=== PATIENT | male | born 1955 | race Hispanic/Latino ===

== ENCOUNTER 2016-10-01 23:52 | Inpatient (IN) | payer MEDICAID, OTHER ==
[~2016-10-01] VITALS: Ht 180.3 cm; Wt 88.5 kg
[~2016-10-01 23:52] MED LIST: ATIVAN4 MG/1 ML IJ; ATROPINE MC; BACLOFEN10 MG ORAL; BISACODYL5 MG RECTAL; CRANBERRY450 M3 GT; DOCUSATE S50 MG/5 ML GT; DULCOLAX STOOL100 M1 RECTAL; DUONEB 0.5-3(2.53 ML HHN; FENTANYL1 EAC1 TOPIC; FLEET ENEMA133 ML RECTAL; FLORINEF0.1 MG GT; GABAPENTIN300 MG/61 GT; MAGNESIUM OXID250 MG PO; MIDODRINE HCL10 MG GT; MORPHINE SL; NORCO 10/3251 EA GT; OSCAL D500 MG GT; PEPCID20 MG ORAL; PRO-STAT LIQUID30 ML GT; RESTORIL22.5 MG PO; SIMETHICON40 MG/0.2 PO; TEMAZEPAM30 MG GT; TYLENOL100 MG/11 GT; TYLENOL100 MG/11 PO; VICODIN 5-5001 EACH ORAL; ZOLOFT20 MG/1 ML GT
[2016-10-02] VITALS (7 sets, daily range): BP systolic 91–132; BP diastolic 52–92
[2016-10-02] MEDS ORDERED: ATIVAN0.5 MG ORAL (00:01)
[2016-10-02] MEDS ORDERED: SENNA8.6 M2 PO (00:09)
[2016-10-02] MEDS ORDERED: RESTORIL15 MG ORAL (00:09)
[2016-10-02] MEDS ORDERED: LACTULOSE20 GM/301 ORAL (00:09)
[2016-10-02] MEDS ORDERED: FLEET ENEMA133 ML RECTAL (00:09)
[2016-10-02] MEDS ORDERED: PERCOCET 5-3251 EACH ORAL (00:09)
[2016-10-02] MEDS ORDERED: TYLENOL325 MG ORAL (00:09)
[2016-10-02 00:36] LABS: BASOPHILS % (AUTO) 1.3 % (0.0-2.0); EOSINOPHILS % (AUTO) 3.1 % (0.0-3.0); LYMPHOCYTES % (AUTO) 29.5 % (20.0-45.0); MEAN CORPUSCULAR HEMOGLOBIN 30.3 PG (27.0-31.0); MEAN CORPUSCULAR HGB CONC 34.4 G/DL (32.0-36.0); MEAN CORPUSCULAR VOLUME 88 FL (80-99); MEAN PLATELET VOLUME 7.5 FL (6.5-10.1); MONOCYTES % (AUTO) 5.6 % (1.0-10.0); NEUTROPHILS % (AUTO) 60.4 % (45.0-75.0); PLATELET COUNT 174 K/UL (150-450); RED BLOOD COUNT 4.86 M/UL (4.70-6.10); RED CELL DISTRIBUTION WIDTH 12.6 % (11.6-14.8); WHITE BLOOD COUNT 7.5 K/UL (4.8-10.8)
[2016-10-02 00:54] LABS: ALANINE AMINOTRANSFERASE 14 U/L (3-41); ALBUMIN/GLOBULIN RATIO 1.2 (1.0-2.7); ANION GAP 11 (5-15); ASPARTATE AMINO TRANSFERASE 16 U/L (5-40); CALCIUM 8.9 mg/dL (8.6-10.2); CARBON DIOXIDE 29 mEQ/L (20-30); CHLORIDE 96 mEQ/L (98-107); GLOMERULAR FILTRATION RATE > 60 mL/min (>60); HEMOLYSIS 6; POTASSIUM 4.5 mEQ/L (3.4-4.9); SODIUM 136 mEQ/L (135-145); TOTAL PROTEIN 7.3 g/dL (6.6-8.7)
[2016-10-02 00:58] LABS: TROPONIN I < 0.30 ng/mL (<=0.30)
[2016-10-02 01:05] LABS: CKMB < 1.5 ng/mL (< 6.7)
[2016-10-02 01:30] LABS: APPEARANCE,URINE CLEAR; KETONES,URINE NEGATIVE (NEGATIVE); LEUKOCYTE ESTERASE ,URINE 3+ (NEGATIVE); NITRITE,URINE POSITIVE (NEGATIVE); PH,URINE 7 (4.5-8.0); PROTEIN,URINE 1+ (NEGATIVE); UROBILINOGEN,URINE NORMAL MG/DL (0.0-1.0)
--- NOTE | 2016-10-02 01:31 | Emergency Room Report ---
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 He presents with chief complaint of bowel function suprapubic catheter. Somehow it was lacerated. There is no drainage. There is leakage around the catheter itself. No fever or chills. No nausea vomiting. He had a recent G-tube removed about 4 days ago. Now to some drainage around it. No fever or chills no redness. Allergies: Coded Allergies: No Known Allergies (Verified , 11/07/09) Patient History Past Medical History: see triage record, old chart reviewed, HTN, CVA/TIA Past Surgical History: other Pertinent Family History: none Social History: Denies: smoking Immunizations: other Reviewed Nursing Documentation: PMH: Agreed, PSxH: Agreed Nursing Documentation-PMH Past Medical History: No History, Except For Hx Cardiac Problems: Yes - anemia Hx Hypertension: Yes Hx Cancer: No Hx Gastrointestinal Problems: Yes - GERD Hx Neurological Problems: Yes - anxiety, depression, Quadriplegic Cerebral Palsy Hx Cerebrovascular Accident: Yes Hx Cerebral Palsy: Yes Hx Paralysis: Yes - Paraplegic Hx Speech Problem: Yes Hx Numbness: Yes Hx Weakness: Yes Hx Neurologic Surgery: Yes Review of Systems Eye: Denies: blurred vision, eye pain ENT: Denies: ear pain, nose congestion, throat swelling Respiratory: Denies: cough, shortness of breath Cardiovascular: Denies: chest pain, palpitations Gastrointestinal: Denies: abdominal pain, diarrhea, nausea, vomiting Musculoskeletal: Denies: back pain, joint pain Skin: Denies: rash Neurological: Denies: headache, numbness Endocrine: Denies: increased thirst, increased urine Hematologic/Lymphatic: Denies: easy bruising All Other Systems: negative except mentioned in HPI Physical Exam Vital Signs Date Time Temp Pulse Resp B/P Pulse Ox O2 Delivery O2 Flow Rate FiO2 10/01/16 23:52 97.9 59 12 91/66 98 Room Air vitals with slightly low blood pressure Sp02 EP Interpretation: reviewed, normal General Appearance: well appearing, no apparent distress, alert, Chronically Ill Head: normocephalic, atraumatic Eyes: bilateral eye EOMI, bilateral eye PERRL ENT: hearing grossly normal, normal pharynx Neck: full range of motion, supple, no meningismus Respiratory: chest non-tender, lungs clear, normal breath sounds Cardiovascular #1: regular rate, rhythm, no murmur Gastrointestinal: normal bowel sounds, non tender, no mass, no organomegaly, no bruit, non-distended, other - Stoma with limited drainage from the stomach content. Minimal erythema. Genitourinary: other - Suprapubic catheter with drainage around the stoma. Musculoskeletal: back normal, gait/station normal, normal range of motion Neurologic: alert Psychiatric: mood/affect normal Skin: warm/dry Procedures Additional Procedure Procedure Narrative Procedure: Suprapubic catheter placement Indication: Malfunction a superpubic catheter Description: I removed the old catheter without any difficulty. Insert a new 16 [place] catheter without difficulty. This was done under sterile condition. Balloon inflated and there was urine came out. Patient tolerated procedure without a problem. Medical Decision Making Diagnostic Impression: Primary Impression: UTI (lower urinary tract infection) Additional Impressions: History of gastrostomy tube placement Neuropathy ER Course Patient presents with nonfunctioning suprapubic catheter. He has a urinary tract infection. I replaced his suprapubic catheter. Initially blood pressure was low responded to IV fluid. Now normal. No evidence of sepsis or an pneumonia. No evidence of: Nephritis. He grew out Pseudomonas and Proteus in the past which sensitive to Zosyn. I place him on Zosyn. Will admit patient for IV antibiotics. Lab Results Impression labs unremarkable Rhythm Strip Diag. Results Rhythm Strip Time: 02:11 EP Interpretation: yes Rate: 65 Rhythm: NSR, no PVC's, no ectopy, other Last Vital Signs Date Time Temp Pulse Resp B/P Pulse Ox O2 Delivery O2 Flow Rate FiO2 10/02/16 00:05 97.9 12 91/66 98 Room Air 10/01/16 23:52 59 Status: improved Disposition: ADMITTED INPATIENT Condition: Serious NATHANIEL DODGE M.D. Oct 02, 2016 01:31
[2016-10-02 01:42] LABS: BACTERIA,URINE MANY /HPF; SQUAMOUS EPITHELIAL CELL,UR FEW /LPF (NONE/OCC); WBC,URINE TNTC /HPF (0 - 0)
[2016-10-02] MEDS ORDERED: cefTRIAXone 1 GM in NS 55 ML IVPB ONE (02:00)
[2016-10-02] MEDS ORDERED: Nitroglycerin Subl 0.4mg tab (Bottle Of 25) SL PRN (07:00)
[2016-10-02] MEDS ORDERED: Miralax 17gm pkt ORAL PRN (07:00)
[2016-10-02] MEDS ORDERED: Mylanta II UD 30ml ORAL PRN (07:00)
--- NOTE | 2016-10-02 08:28 | Consultation ---
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 Somehow the catcher lacerated. There was no drainage, but leakage around the catheter itself. No fever or chills. No nausea or vomiting. He had a recent G-tube removed about 4 days ago. Noted some drainage around old G tube site . No fever or chills, no redness. denied chest pain, SOB, palpitations, dizziness in ED found to be hypotensive, blood pressure responded to fluid challenge Labs stable, no leukocytoids, stable HH troponin negative lactic acid WNL UA with gross evidence of UTI ( in the past grew Pseudomonas and Proteus), patient was started on empiric antibiotics s/pubic catheter was replaced by ED doctor patient was admitted for further management Allergies: Coded Allergies: No Known Allergies (Verified , 11/07/09) Medication History Scheduled Amino Acids/Protein Hydrolys (Pro-Stat Liquid), 30 ML GT BID, (Reported) Baclofen* (Baclofen*), 20 MG ORAL QID, (Reported) Calcium Carbonate (Oyster Shell Calcium-Vit D Tab), 500 MG GT DAILY, (Reported) Cranberry Fruit Concentrate (Cranberry), 450 MG GT Q12HR, (Reported) Docusate Sodium (Docusate Sodium), 100 MG GT BID, (Reported) Famotidine (Pepcid), 20 MG ORAL BID, (Reported) Fludrocortisone Acetate (Fludrocortisone Acetate), 0.1 MG GT DAILY, (Reported) Gabapentin (Gabapentin), 300 MG GT THREE TIMES A DAY, (Reported) Midodrine* (Proamatine*), 10 MG GT TID, (Reported) Sertraline Hcl (Zoloft), 25 MG GT DAILY, (Reported) Temazepam* (Temazepam*), 30 MG GT BEDTIME, (Reported) Scheduled PRN Acetaminophen (Tylenol), 650 MG GT EVERY 6 HOURS PRN for Temp >101F, (Reported) Acetaminophen (Tylenol), 650 MG ORAL Q6H PRN for Prn Pain/Headache/Temp > 101, ( Reported) Bisacodyl* (Dulcolax*), 10 MG RECTAL DAILY PRN for Constipation, (Reported) Hydrocodone/Acetaminophen (Hydrocodon-Acetaminophn 10-325), 1 TAB GT Q4H PRN for Mild Pain (Pain Scale 1-3), (Reported) Hydrocodone/Acetaminophen (Hydrocodon-Acetaminophn 10-325), 2 TAB GT Q4H PRN for Moderate Pain (Pain Scale 4-6), (Reported) Ipratropium/Albuterol Sulfate (DuoNeb 0.5-3(2.5)mg/3ml), 3 ML HHN Q6HR PRN for Shortness of Breath, (Reported) Lorazepam* (Ativan*), 0.5 MG ORAL PRN PRN for For Anxiety, (Reported) Morphine Sulfate (Morphine 20mg/ml Oral Soln ud), 5 MG SL EVERY 4 HOURS PRN for Severe Pain (Pain Scale 7-10), (Reported) Na Phos,M-B/Na Phos,Di-Ba* (Fleet Enema*), 135 ML RECTAL DAILY PRN for Constipation, (Reported) Na Phos,M-B/Na Phos,Di-Ba* (Fleet Enema*), 118 ML RECTAL DAILY PRN for Constipation, (Reported) Oxycodone/Acetaminophen 5-325* (Percocet 5-325 Mg Tablet*), 1 TAB ORAL Q4H PRN for For Pain, (Reported) Sennosides (Senna), 8.6 MG PO for Constipation, (Reported) Temazepam* (Restoril*), 15 MG ORAL BEDTIME PRN for Insomnia, (Reported) Miscellaneous Medications Lactulose (Lactulose*), 30 ML ORAL, (Reported) Patient History Healthcare decision maker Resuscitation status Full Code Advanced Directive on File Past Medical/Surgical History Past Medical/Surgical History: (1) Hx of spinal cord injury (2) Paraplegia (3) History of CVA (cerebrovascular accident) (4) Cerebral palsy (5) HTN (hypertension) (6) Neuropathy (7) History of gastrostomy tube placement (8) Sepsis (9) Urinary tract infectious disease (10) Hydronephrosis Review of Systems Constitutional: Reports: weakness Eye: Reports: no symptoms ENT: Reports: no symptoms Respiratory: Reports: no symptoms Cardiovascular: Reports: no symptoms Gastrointestinal: Reports: other - dysphagia, G tube, s/p recent removal , see HPI Genitourinary: Reports: see HPI Musculoskeletal: Reports: muscle stiffness, other - paraplegia Skin: Reports: see HPI Psychiatric: Reports: anxiety, other - depression Neurological: Reports: other - cerebral palsy, paraplegia 2 to spinal cord injury Endocrine: Reports: no symptoms Hematologic/Lymphatic: Reports: no symptoms Physical Exam General Appearance: alert, other - bedridden awake responsive chronically ill appearing male Lines, tubes and drains: peripheral HEENT: normocephalic, atraumatic, anicteric Neck: supple Respiratory/Chest: lungs clear - with moderate air entry , normal breath sounds , no respiratory distress, no accessory muscle use Cardiovascular/Chest: normal rate, regular rhythm, no JVD Abdomen: normal bowel sounds, non tender, soft, other - old G tube site with dresing, yellow drainage with some purulence from old G tube site Genitourinary/Rectal: suprapubic catheter Extremities: other - paraplegia Skin Exam: warm/dry, other - old G tube site with drainage Neurologic: abnormal gait - bedridden, alert, responsive, other - paraplegia Last 24 Hour Vital Signs Date Time Temp Pulse Resp B/P Pulse Ox O2 Delivery O2 Flow Rate FiO2 10/02/16 08:12 96.8 58 18 125/92 98 Room Air 10/02/16 04:12 56 12 108/63 99 Room Air 10/02/16 04:00 95.9 54 18 132/74 98 Room Air 10/02/16 02:00 68 12 112/52 99 Room Air 10/02/16 00:05 97.9 12 91/66 98 Room Air 10/01/16 23:52 97.9 59 12 91/66 98 Room Air Intake and Output 10/01/16 10/02/16 19:00 07:00 Intake Total 0 ml Output Total 1100 ml Balance -1100 ml Intake Oral 0 ml Output Urine Total 1100 ml Laboratory Tests Test 10/02/16 00:05 10/02/16 01:10 White Blood Count 7.5 K/UL (4.8-10.8) Red Blood Count 4.86 M/UL (4.70-6.10) Hemoglobin 14.7 G/DL (14.2-18.0) Hematocrit 42.9 % (42.0-52.0) Mean Corpuscular Volume 88 FL (80-99) Mean Corpuscular Hemoglobin 30.3 PG (27.0-31.0) Mean Corpuscular Hemoglobin Concent 34.4 G/DL (32.0-36.0) Red Cell Distribution Width 12.6 % (11.6-14.8) Platelet Count 174 K/UL (150-450) Mean Platelet Volume 7.5 FL (6.5-10.1) Neutrophils (%) (Auto) 60.4 % (45.0-75.0) Lymphocytes (%) (Auto) 29.5 % (20.0-45.0) Monocytes (%) (Auto) 5.6 % (1.0-10.0) Eosinophils (%) (Auto) 3.1 % (0.0-3.0) H Basophils (%) (Auto) 1.3 % (0.0-2.0) Sodium Level 136 mEQ/L (135-145) Potassium Level 4.5 mEQ/L (3.4-4.9) Chloride Level 96 mEQ/L (98-107) L Carbon Dioxide Level 29 mEQ/L (20-30) Anion Gap 11 (5-15) Blood Urea Nitrogen 11 mg/dL (7-23) Creatinine 1.0 mg/dL (0.7-1.2) Estimat Glomerular Filtration Rate > 60 mL/min (>60) Glucose Level 96 mg/dL (74-106) Lactic Acid Level 1.10 mmol/L (0.66-2.22) Calcium Level 8.9 mg/dL (8.6-10.2) Total Bilirubin 0.4 mg/dL (0.0-1.2) Aspartate Amino Transf (AST/SGOT) 16 U/L (5-40) Alanine Aminotransferase (ALT/SGPT) 14 U/L (3-41) Alkaline Phosphatase 84 U/L (40-129) Total Creatine Kinase 51 U/L (38-174) Creatine Kinase MB < 1.5 ng/mL (< 6.7) Troponin I < 0.30 ng/mL (<=0.30) Total Protein 7.3 g/dL (6.6-8.7) Albumin 4.0 g/dL (3.5-5.2) Globulin 3.3 g/dL Albumin/Globulin Ratio 1.2 (1.0-2.7) Urine Color Pale yellow Urine Appearance Clear Urine pH 7 (4.5-8.0) Urine Specific [place] 1.005 (1.005-1.035) Urine Protein 1+ (NEGATIVE) H Urine Glucose (UA) Negative (NEGATIVE) Urine Ketones Negative (NEGATIVE) Urine Occult Blood 5+ (NEGATIVE) H Urine Nitrite Positive (NEGATIVE) H Urine Bilirubin Negative (NEGATIVE) Urine Urobilinogen Normal MG/DL (0.0-1.0) Urine Leukocyte Esterase 3+ (NEGATIVE) H Urine RBC 10-15 /HPF (0 - 0) H Urine WBC Tntc /HPF (0 - 0) H Urine Squamous Epithelial Cells Few /LPF (NONE/OCC) Urine Bacteria Many /HPF (NONE) H Height (Feet): 5 Height (Inches): 11.00 Weight (Pounds): 195 Medications Current Medications Medications (Trade) Dose Ordered Sig/Eric Route PRN Reason Start Time Stop Time Status Last Admin Dose Admin Acetaminophen (Tylenol) 650 mg Q4H PRN ORAL fever 10/02/16 07:00 11/01/16 06:59 Al Hydroxide/Mg Hydroxide (Mylanta II) 30 ml Q6H PRN ORAL dyspepsia 10/02/16 07:00 11/01/16 06:59 Baclofen (Lioresal) 20 mg QID ORAL 10/02/16 09:00 11/01/16 08:59 Calcium Carbonate (OsCal D) 1 tab DAILY GT 10/02/16 09:00 11/01/16 08:59 Dextrose STAT PRN IV Hypoglycemia 10/02/16 07:00 11/01/16 06:59 Dextrose/Sodium Chloride (D5 0.45% NS) 1,000 ml @ 75 mls/hr [id number] IV 10/02/16 17:40 11/01/16 17:39 Diphenhydramine HCl (Benadryl) 25 mg Q6H PRN ORAL Itching/Pruritis 10/02/16 07:00 11/01/16 06:59 Heparin Sodium (Porcine) (Heparin 5000 units/ml) 5,000 units EVERY 12 HOURS SUBQ 10/02/16 09:00 11/01/16 08:59 Lactulose (Cephulac) 20 gm DAILY ORAL 10/02/16 09:00 11/01/16 08:59 Midodrine 10 mg 10 mg TID GT 10/02/16 09:00 11/01/16 08:59 Morphine Sulfate (Morphine Sulfate) 2 mg EVERY 4 HOURS PRN IVP severe Pain (Pain Scale 7-10) 10/02/16 07:00 10/09/16 06:59 Nitroglycerin (Ntg) 0.4 mg Q5M X 3 DOSES PRN SL Prn Chest Pain 10/02/16 07:00 11/01/16 06:59 Ondansetron HCl (Zofran) 4 mg Q6H PRN IVP Nausea & Vomiting 10/02/16 07:00 11/01/16 06:59 Pantoprazole (Protonix) 40 mg DAILY IVP 10/02/16 09:00 11/01/16 08:59 Piperacillin Sod/ Tazobactam Sod/ Sodium Chloride (Zosyn/Sodium Chloride) 110 ml @ 27.5 mls/hr EVERY 8 HOURS IVPB 10/02/16 14:00 10/09/16 13:59 Polyethylene Glycol (Miralax) 17 gm HSPRN PRN ORAL Constipation 10/02/16 07:00 11/01/16 06:59 Temazepam (Restoril) 15 mg HSPRN PRN ORAL Insomnia 10/02/16 07:00 10/09/16 06:59 Assessment/Plan Assessment/Plan ASSESSMENT UTI malfunctioning s/p catheter s/p replacement possible old G tube site infection/cellulitis hypotension - resolved hx of CVA paraplegia cerebral palsy PLAN OF CARE MS floor abx fup with cx , get old G tube site culture ID a per pMD discretion hypotension responded to fluid challenge IVF started on Midodrine. closely monitor DVT/GI prophylaxis pain management bowel regimen swallow eval in am case discussed and evaluated by supervising physician Baljeet Nix)Donna NP Oct 02, 2016 08:28
[2016-10-02] MEDS: Calcium Carbonate 500mg w/Vit D 200iu tab GT SCH (09:00)
[2016-10-02] MEDS: Midodrine 10mg tab GT SCH ×3 (09:00→17:30)
[2016-10-02] MEDS: Lactulose 20gm/30ml UDC ORAL SCH (09:00)
--- NOTE | 2016-10-02 09:53 | Diagnostic Imaging Report ---
Indication: Dyspnea Comparison: 01/20/14 A single view chest radiograph was obtained. Findings: Cardiomediastinal appearance is within normal limits for age. Pulmonary vascularity is appropriate. The diaphragmatic contour is smooth and costophrenic angles are sharp. No pleural effusions are identified. The bones are unremarkable. Cervical fusion hardware partially visualized in the lower part of the cervical spine. Impression: No acute findings
--- NOTE | 2016-10-02 10:31 | Consultation ---
History of Present Illness General Date patient seen: Oct 02, 2016 Time patient seen: 10:28 Chief Complaint: Malfunctioning Gastric Tube Referring physician: dr Bullard Reason for Consultation: inpatient management Present Illness HPI 61 yo male with chronic SP tube. Admitted for management of several issues. SP tube was not draining well yesterday, and changed by ER physician. Working well today. C/O leg pain currently. Allergies: Coded Allergies: No Known Allergies (Verified , 11/07/09) Medication History Scheduled Amino Acids/Protein Hydrolys (Pro-Stat Liquid), 30 ML GT BID, (Reported) Baclofen* (Baclofen*), 20 MG ORAL QID, (Reported) Calcium Carbonate (Oyster Shell Calcium-Vit D Tab), 500 MG GT DAILY, (Reported) Cranberry Fruit Concentrate (Cranberry), 450 MG GT Q12HR, (Reported) Docusate Sodium (Docusate Sodium), 100 MG GT BID, (Reported) Famotidine (Pepcid), 20 MG ORAL BID, (Reported) Fludrocortisone Acetate (Fludrocortisone Acetate), 0.1 MG GT DAILY, (Reported) Gabapentin (Gabapentin), 300 MG GT THREE TIMES A DAY, (Reported) Midodrine* (Proamatine*), 10 MG GT TID, (Reported) Sertraline Hcl (Zoloft), 25 MG GT DAILY, (Reported) Temazepam* (Temazepam*), 30 MG GT BEDTIME, (Reported) Scheduled PRN Acetaminophen (Tylenol), 650 MG GT EVERY 6 HOURS PRN for Temp >101F, (Reported) Acetaminophen (Tylenol), 650 MG ORAL Q6H PRN for Prn Pain/Headache/Temp > 101, ( Reported) Bisacodyl* (Dulcolax*), 10 MG RECTAL DAILY PRN for Constipation, (Reported) Hydrocodone/Acetaminophen (Hydrocodon-Acetaminophn 10-325), 1 TAB GT Q4H PRN for Mild Pain (Pain Scale 1-3), (Reported) Hydrocodone/Acetaminophen (Hydrocodon-Acetaminophn 10-325), 2 TAB GT Q4H PRN for Moderate Pain (Pain Scale 4-6), (Reported) Ipratropium/Albuterol Sulfate (DuoNeb 0.5-3(2.5)mg/3ml), 3 ML HHN Q6HR PRN for Shortness of Breath, (Reported) Lorazepam* (Ativan*), 0.5 MG ORAL PRN PRN for For Anxiety, (Reported) Morphine Sulfate (Morphine 20mg/ml Oral Soln ud), 5 MG SL EVERY 4 HOURS PRN for Severe Pain (Pain Scale 7-10), (Reported) Na Phos,M-B/Na Phos,Di-Ba* (Fleet Enema*), 135 ML RECTAL DAILY PRN for Constipation, (Reported) Na Phos,M-B/Na Phos,Di-Ba* (Fleet Enema*), 118 ML RECTAL DAILY PRN for Constipation, (Reported) Oxycodone/Acetaminophen 5-325* (Percocet 5-325 Mg Tablet*), 1 TAB ORAL Q4H PRN for For Pain, (Reported) Sennosides (Senna), 8.6 MG PO for Constipation, (Reported) Temazepam* (Restoril*), 15 MG ORAL BEDTIME PRN for Insomnia, (Reported) Miscellaneous Medications Lactulose (Lactulose*), 30 ML ORAL, (Reported) Patient History History Provided By: Patient, Medical Record Healthcare decision maker Resuscitation status Full Code Advanced Directive on File Past Medical/Surgical History Past Medical/Surgical History: (1) Neuropathy (2) UTI (lower urinary tract infection) (3) Cerebral palsy (4) HTN (hypertension) (5) History of CVA (cerebrovascular accident) Review of Systems Constitutional: Denies: chills, fever, malaise, no symptoms, other, see HPI, sweats, weakness Eye: Denies: acuity changes, blurred vision, discharge, double vision, eye pain , no symptoms, nose congestion, nose pain, other, see HPI, tearing ENT: Denies: ear discharge, ear pain, hearing loss, mouth pain, nasal discharge , no symptoms, nose congestion, nose pain, other, see HPI, throat pain, throat swelling Respiratory: Denies: VANN, cough, no symptoms, orthopnea, other, see HPI, shortness of breath, sputum, stridor, wheezing Cardiovascular: Denies: PND, chest pain, edema, no symptoms, other, palpitations, see HPI, syncope Gastrointestinal: Denies: abdominal pain, constipation, diarrhea, hematemesis, melena, nausea, no symptoms, other, see HPI, vomiting Genitourinary: Denies: discharge, dysuria, frequency, hematuria, incontinence, no symptoms, other, pain, retention, see HPI, urgency, vag bleed/dc Musculoskeletal: Reports: muscle pain Skin: Denies: change in color, change in hair/nails, dryness, lesions, no symptoms, other, rash, see HPI Psychiatric: Denies: HI, SI, anxiety, depressed feelings, emotional problems, hallucinations, no symptoms, other, prior hx, see HPI Neurological: Denies: dizziness, focal weakness, headache, no symptoms, numbness, other, paresthesia, see HPI, seizure, syncope, tingling, tremors Endocrine: Denies: excessive sweating, flushing, increased thirst, increased urine, intolerance to temperature, no symptoms, other, see HPI, unexplained weight loss Hematologic/Lymphatic: Denies: anemia, blood clots, diathesis, easy bleeding, easy bruising, no symptoms, other, see HPI, swollen glands Physical Exam General Appearance: moderate distress HEENT: atraumatic Cardiovascular/Chest: normal rate, regular rhythm Abdomen: non tender, soft Genitourinary/Rectal: suprapubic catheter - draining well. Neurologic: alert, oriented x 3 Last 24 Hour Vital Signs Date Time Temp Pulse Resp B/P Pulse Ox O2 Delivery O2 Flow Rate FiO2 10/02/16 08:12 96.8 58 18 125/92 98 Room Air 10/02/16 04:12 56 12 108/63 99 Room Air 10/02/16 04:00 95.9 54 18 132/74 98 Room Air 10/02/16 02:00 68 12 112/52 99 Room Air 10/02/16 00:05 97.9 12 91/66 98 Room Air 10/01/16 23:52 97.9 59 12 91/66 98 Room Air Intake and Output 10/01/16 10/02/16 19:00 07:00 Intake Total 0 ml Output Total 1100 ml Balance -1100 ml Intake Oral 0 ml Output Urine Total 1100 ml Laboratory Tests Test 10/02/16 00:05 10/02/16 01:10 White Blood Count 7.5 K/UL (4.8-10.8) Red Blood Count 4.86 M/UL (4.70-6.10) Hemoglobin 14.7 G/DL (14.2-18.0) Hematocrit 42.9 % (42.0-52.0) Mean Corpuscular Volume 88 FL (80-99) Mean Corpuscular Hemoglobin 30.3 PG (27.0-31.0) Mean Corpuscular Hemoglobin Concent 34.4 G/DL (32.0-36.0) Red Cell Distribution Width 12.6 % (11.6-14.8) Platelet Count 174 K/UL (150-450) Mean Platelet Volume 7.5 FL (6.5-10.1) Neutrophils (%) (Auto) 60.4 % (45.0-75.0) Lymphocytes (%) (Auto) 29.5 % (20.0-45.0) Monocytes (%) (Auto) 5.6 % (1.0-10.0) Eosinophils (%) (Auto) 3.1 % (0.0-3.0) H Basophils (%) (Auto) 1.3 % (0.0-2.0) Sodium Level 136 mEQ/L (135-145) Potassium Level 4.5 mEQ/L (3.4-4.9) Chloride Level 96 mEQ/L (98-107) L Carbon Dioxide Level 29 mEQ/L (20-30) Anion Gap 11 (5-15) Blood Urea Nitrogen 11 mg/dL (7-23) Creatinine 1.0 mg/dL (0.7-1.2) Estimat Glomerular Filtration Rate > 60 mL/min (>60) Glucose Level 96 mg/dL (74-106) Lactic Acid Level 1.10 mmol/L (0.66-2.22) Calcium Level 8.9 mg/dL (8.6-10.2) Total Bilirubin 0.4 mg/dL (0.0-1.2) Aspartate Amino Transf (AST/SGOT) 16 U/L (5-40) Alanine Aminotransferase (ALT/SGPT) 14 U/L (3-41) Alkaline Phosphatase 84 U/L (40-129) Total Creatine Kinase 51 U/L (38-174) Creatine Kinase MB < 1.5 ng/mL (< 6.7) Troponin I < 0.30 ng/mL (<=0.30) Total Protein 7.3 g/dL (6.6-8.7) Albumin 4.0 g/dL (3.5-5.2) Globulin 3.3 g/dL Albumin/Globulin Ratio 1.2 (1.0-2.7) Urine Color Pale yellow Urine Appearance Clear Urine pH 7 (4.5-8.0) Urine Specific [place] 1.005 (1.005-1.035) Urine Protein 1+ (NEGATIVE) H Urine Glucose (UA) Negative (NEGATIVE) Urine Ketones Negative (NEGATIVE) Urine Occult Blood 5+ (NEGATIVE) H Urine Nitrite Positive (NEGATIVE) H Urine Bilirubin Negative (NEGATIVE) Urine Urobilinogen Normal MG/DL (0.0-1.0) Urine Leukocyte Esterase 3+ (NEGATIVE) H Urine RBC 10-15 /HPF (0 - 0) H Urine WBC Tntc /HPF (0 - 0) H Urine Squamous Epithelial Cells Few /LPF (NONE/OCC) Urine Bacteria Many /HPF (NONE) H Height (Feet): 5 Height (Inches): 11.00 Weight (Pounds): 195 Medications Current Medications Medications (Trade) Dose Ordered Sig/Eric Route PRN Reason Start Time Stop Time Status Last Admin Dose Admin Acetaminophen (Tylenol) 650 mg Q4H PRN ORAL fever 10/02/16 07:00 11/01/16 06:59 Al Hydroxide/Mg Hydroxide (Mylanta II) 30 ml Q6H PRN ORAL dyspepsia 10/02/16 07:00 11/01/16 06:59 Baclofen (Lioresal) 20 mg QID ORAL 10/02/16 09:00 11/01/16 08:59 Calcium Carbonate (OsCal D) 1 tab DAILY GT 10/02/16 09:00 11/01/16 08:59 Dextrose STAT PRN IV Hypoglycemia 10/02/16 07:00 11/01/16 06:59 Dextrose/Sodium Chloride (D5 0.45% NS) 1,000 ml @ 75 mls/hr [id number] IV 10/02/16 10:00 11/01/16 09:59 Diphenhydramine HCl (Benadryl) 25 mg Q6H PRN ORAL Itching/Pruritis 10/02/16 07:00 11/01/16 06:59 Heparin Sodium (Porcine) (Heparin 5000 units/ml) 5,000 units EVERY 12 HOURS SUBQ 10/02/16 09:00 11/01/16 08:59 Lactulose (Cephulac) 20 gm DAILY ORAL 10/02/16 09:00 11/01/16 08:59 Midodrine (Pro-Amatine) 10 mg TID GT 10/02/16 09:00 11/01/16 08:59 Morphine Sulfate (Morphine Sulfate) 2 mg EVERY 4 HOURS PRN IVP severe Pain (Pain Scale 7-10) 10/02/16 07:00 10/09/16 06:59 Nitroglycerin (Ntg) 0.4 mg Q5M X 3 DOSES PRN SL Prn Chest Pain 10/02/16 07:00 11/01/16 06:59 Ondansetron HCl (Zofran) 4 mg Q6H PRN IVP Nausea & Vomiting 10/02/16 07:00 11/01/16 06:59 Pantoprazole 40 mg 40 mg DAILY IVP 10/02/16 09:00 11/01/16 08:59 Piperacillin Sod/ Tazobactam Sod/ Sodium Chloride (Zosyn/Sodium Chloride) 110 ml @ 27.5 mls/hr EVERY 8 HOURS IVPB 10/02/16 14:00 10/09/16 13:59 Polyethylene Glycol (Miralax) 17 gm HSPRN PRN ORAL Constipation 10/02/16 07:00 11/01/16 06:59 Temazepam (Restoril) 15 mg HSPRN PRN ORAL Insomnia 10/02/16 07:00 10/09/16 06:59 Assessment/Plan Status: stable Assessment/Plan Multiple medical problems. SP tube changed successfully by ED last night. Continues to function. Recommend continuing every 4-6 week changes. Marquise Kaufman M.D. Oct 02, 2016 10:31
[2016-10-02] MEDS: D5 1/2NS 1,000 ML IV SCH ×2 (10:32→23:20)
[2016-10-02] MEDS: Pantoprazole Inj IVP SCH (10:44)
[2016-10-02] MEDS: Heparin 5000 units/ml inj SUBQ SCH ×2 (10:47→20:47)
--- NOTE | 2016-10-02 10:55 | Infectious Diseases Prog Note ---
Assessment/Plan Problems: (1) UTI (lower urinary tract infection) Assessment & Plan: with H/O proteus and pseudomonas sensitive to zosyn, and VRE sensetive to ampicillin , will continue zosyn for now empirically pending urine culture results (2) G-tube site cellulitis Assessment & Plan: S/P removal 4 days ago, on zosyn empirically , continue local care (3) Septic shock Assessment & Plan: due to the above, will add vancomycin empirically pending blood culture (4) Malfunction of gastrostomy tube Assessment & Plan: S/P replacement , continue local care, monitor site clinically Subjective Allergies: Coded Allergies: No Known Allergies (Verified , 11/07/09) Objective Vital Signs Last 24 Hour Vital Signs Date Time Temp Pulse Resp B/P Pulse Ox O2 Delivery O2 Flow Rate FiO2 10/02/16 08:12 96.8 58 18 125/92 98 Room Air 10/02/16 04:12 56 12 108/63 99 Room Air 10/02/16 04:00 95.9 54 18 132/74 98 Room Air 10/02/16 02:00 68 12 112/52 99 Room Air 10/02/16 00:05 97.9 12 91/66 98 Room Air 10/01/16 23:52 97.9 59 12 91/66 98 Room Air Height (Feet): 5 Height (Inches): 11.00 Weight (Pounds): 195 Laboratory Tests Test 10/02/16 00:05 10/02/16 01:10 White Blood Count 7.5 K/UL (4.8-10.8) Red Blood Count 4.86 M/UL (4.70-6.10) Hemoglobin 14.7 G/DL (14.2-18.0) Hematocrit 42.9 % (42.0-52.0) Mean Corpuscular Volume 88 FL (80-99) Mean Corpuscular Hemoglobin 30.3 PG (27.0-31.0) Mean Corpuscular Hemoglobin Concent 34.4 G/DL (32.0-36.0) Red Cell Distribution Width 12.6 % (11.6-14.8) Platelet Count 174 K/UL (150-450) Mean Platelet Volume 7.5 FL (6.5-10.1) Neutrophils (%) (Auto) 60.4 % (45.0-75.0) Lymphocytes (%) (Auto) 29.5 % (20.0-45.0) Monocytes (%) (Auto) 5.6 % (1.0-10.0) Eosinophils (%) (Auto) 3.1 % (0.0-3.0) H Basophils (%) (Auto) 1.3 % (0.0-2.0) Sodium Level 136 mEQ/L (135-145) Potassium Level 4.5 mEQ/L (3.4-4.9) Chloride Level 96 mEQ/L (98-107) L Carbon Dioxide Level 29 mEQ/L (20-30) Anion Gap 11 (5-15) Blood Urea Nitrogen 11 mg/dL (7-23) Creatinine 1.0 mg/dL (0.7-1.2) Estimat Glomerular Filtration Rate > 60 mL/min (>60) Glucose Level 96 mg/dL (74-106) Lactic Acid Level 1.10 mmol/L (0.66-2.22) Calcium Level 8.9 mg/dL (8.6-10.2) Total Bilirubin 0.4 mg/dL (0.0-1.2) Aspartate Amino Transf (AST/SGOT) 16 U/L (5-40) Alanine Aminotransferase (ALT/SGPT) 14 U/L (3-41) Alkaline Phosphatase 84 U/L (40-129) Total Creatine Kinase 51 U/L (38-174) Creatine Kinase MB < 1.5 ng/mL (< 6.7) Troponin I < 0.30 ng/mL (<=0.30) Total Protein 7.3 g/dL (6.6-8.7) Albumin 4.0 g/dL (3.5-5.2) Globulin 3.3 g/dL Albumin/Globulin Ratio 1.2 (1.0-2.7) Urine Color Pale yellow Urine Appearance Clear Urine pH 7 (4.5-8.0) Urine Specific [place] 1.005 (1.005-1.035) Urine Protein 1+ (NEGATIVE) H Urine Glucose (UA) Negative (NEGATIVE) Urine Ketones Negative (NEGATIVE) Urine Occult Blood 5+ (NEGATIVE) H Urine Nitrite Positive (NEGATIVE) H Urine Bilirubin Negative (NEGATIVE) Urine Urobilinogen Normal MG/DL (0.0-1.0) Urine Leukocyte Esterase 3+ (NEGATIVE) H Urine RBC 10-15 /HPF (0 - 0) H Urine WBC Tntc /HPF (0 - 0) H Urine Squamous Epithelial Cells Few /LPF (NONE/OCC) Urine Bacteria Many /HPF (NONE) H Current Medications Medications (Trade) Dose Ordered Sig/Eric Route PRN Reason Start Time Stop Time Status Last Admin Dose Admin Acetaminophen (Tylenol) 650 mg Q4H PRN ORAL fever 10/02/16 07:00 11/01/16 06:59 Al Hydroxide/Mg Hydroxide (Mylanta II) 30 ml Q6H PRN ORAL dyspepsia 10/02/16 07:00 11/01/16 06:59 Baclofen (Lioresal) 20 mg QID ORAL 10/02/16 09:00 11/01/16 08:59 Calcium Carbonate (OsCal D) 1 tab DAILY GT 10/02/16 09:00 11/01/16 08:59 Dextrose STAT PRN IV Hypoglycemia 10/02/16 07:00 11/01/16 06:59 Dextrose/Sodium Chloride (D5 0.45% NS) 1,000 ml @ 75 mls/hr [id number] IV 10/02/16 10:00 11/01/16 09:59 Diphenhydramine HCl (Benadryl) 25 mg Q6H PRN ORAL Itching/Pruritis 10/02/16 07:00 11/01/16 06:59 Heparin Sodium (Porcine) (Heparin 5000 units/ml) 5,000 units EVERY 12 HOURS SUBQ 10/02/16 09:00 11/01/16 08:59 Lactulose (Cephulac) 20 gm DAILY ORAL 10/02/16 09:00 11/01/16 08:59 Midodrine (Pro-Amatine) 10 mg TID GT 10/02/16 09:00 11/01/16 08:59 Morphine Sulfate (Morphine Sulfate) 2 mg EVERY 4 HOURS PRN IVP severe Pain (Pain Scale 7-10) 10/02/16 07:00 10/09/16 06:59 Nitroglycerin (Ntg) 0.4 mg Q5M X 3 DOSES PRN SL Prn Chest Pain 10/02/16 07:00 11/01/16 06:59 Ondansetron HCl (Zofran) 4 mg Q6H PRN IVP Nausea & Vomiting 10/02/16 07:00 11/01/16 06:59 Pantoprazole 40 mg 40 mg DAILY IVP 10/02/16 09:00 11/01/16 08:59 Piperacillin Sod/ Tazobactam Sod/ Sodium Chloride (Zosyn/Sodium Chloride) 110 ml @ 27.5 mls/hr EVERY 8 HOURS IVPB 10/02/16 14:00 10/09/16 13:59 Polyethylene Glycol (Miralax) 17 gm HSPRN PRN ORAL Constipation 10/02/16 07:00 11/01/16 06:59 Temazepam (Restoril) 15 mg HSPRN PRN ORAL Insomnia 10/02/16 07:00 10/09/16 06:59 Jess Carrillo M.D. Oct 02, 2016 10:55
--- NOTE | 2016-10-02 11:32 | History and Physical Report ---
DATE OF ADMISSION: 10/02/2016 TIME SEEN: At 10 a.m. CONSULTANTS: 1. Dimitri Bowers M.D. 2. Dr. Adkins. 3. Dr. Kaufman. 4. Real Campos M.D. 5. Osvaldo Lundberg M.D. CHIEF COMPLAINT: Weakness and lethargy. BRIEF HISTORY: This is a 61-year-old male who comes in snf facility with above-mentioned diagnoses. Diagnosed with UTI, sepsis and shock, and blocked suprapubic catheter. The patient is admitted to the medical floor for further treatment. Currently, calm, sitting in bed, not talking. REVIEW OF SYSTEMS: Nonverbal. PAST MEDICAL HISTORY: Include hypertension, CVA, and chronic pain. PAST SURGICAL HISTORY: Suprapubic catheter and G-tube. ALLERGIES: Denies. SOCIAL HISTORY: No smoking. No alcohol. No intravenous drug use. FAMILY HISTORY: Noncontributory. PHYSICAL EXAMINATION: GENERAL: Lethargic, in bed, not answering questions. VITAL SIGNS: Temperature 96, pulse 58, respirations 18, and blood pressure 125/92. CARDIOVASCULAR: No murmur. LUNGS: Distant and clear. ABDOMEN: Bowel sound positive. Soft, nontender, and nondistended. EXTREMITIES: No cyanosis, clubbing, or edema. NEUROLOGIC: The patient is weak x4, but moves all extremities. LABORATORY DATA: Lab examination showed CBC is normal. BMP showed chloride 96, otherwise normal. Urinalysis, positive nitrite and 3+ leukocyte esterase. MEDICATIONS: Zosyn, Baclofen, , heparin, Protonix, Tylenol, morphine, MiraLax, Zofran, Restoril, Benadryl, Mylanta, and nitroglycerin. ASSESSMENT: 1. Urinary tract infection. 2. Sepsis. 3. Shock. 4. History of hypertension. 5. CVA. 6. Chronic pain. PLAN: 1. OT, PT, and dietary evaluation. 2. CBC and BMP in the morning. 3. Pain control. 4. . 5. IV fluids. 6. Using home medications. 7. Dr. Lundberg, Dr. Bowers, Dr. Adkins, Dr. Kaufman, and Dr. Campos to follow. 8. We will continue to follow this patient medically. Rickey Bullard D.O. DR: HARJIT JOB#: [id number] CC:
--- NOTE | 2016-10-02 12:32 | Consultation ---
DATE OF CONSULTATION: INFECTIOUS DISEASE CONSULTATION CONSULTING PHYSICIAN: Jess Carrillo M.D. REQUESTING PHYSICIAN: Rickey Bullard D.O. REASON FOR CONSULTATION: Sepsis, urinary tract infection, and G-tube site cellulitis. Recommendation for antibiotics therapy. 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 He developed laceration at the catheter site and it was malfunctioning and not draining urine well that was significant urine leak around the catheter itself, so he was sent to the emergency room for evaluation and management. He also had a G-tube, which was removed 4 days prior and now developed cellulitis and some drainage at the site. There was no fever or chills. As per the shelter, no nausea or vomiting. So, I was consulted by the admitting provider for antibiotics recommendation since he grew Pseudomonas and Proteus in the past and VRE from the urine. REVIEW OF SYSTEMS: Unable to obtain. The patient is poor historian. PAST MEDICAL HISTORY: Significant for hypertension, CVA, anemia, coronary artery disease, GERD, depression, anxiety, quadriplegia, cerebral palsy, and urinary retention. PAST SURGICAL HISTORY: He had G-tube placement and suprapubic catheter placement. MEDICATIONS: The patient is currently on Zosyn. He received ceftriaxone in the emergency room. For the rest of his medications, please refer to [facility]. ALLERGIES: No known drug allergy. FAMILY HISTORY: Unable to obtain. SOCIAL HISTORY: No recent drugs, tobacco, or alcohol. He is shelter resident. PHYSICAL EXAMINATION: GENERAL: This is a middle-aged male, quadriplegic, nonverbal, alert. Does not follow command, not in distress. VITAL SIGNS: Temperature is 96.8 degrees, pulse 68, respirations 18, blood pressure 125/92, and saturation 98% on room air. HEENT: Normocephalic and atraumatic. Pupils are reactive to light. Moist oral mucosa. NECK: Supple. No lymphadenopathy. CARDIOVASCULAR: Regular rate and rhythm. No murmur or gallop. LUNGS: Clear bilaterally. Diminished breathing sounds at the bases. ABDOMEN: Soft, nontender, and nondistended. Diminished breathing sounds. G-tube site is inflamed and red with mild drainage. Suprapubic site catheter looks okay, status post tube placement of new catheter. EXTREMITIES: No edema or cyanosis. SKIN: No rash or hives. LABORATORY DATA: Labs showed white count of 7.5, hemoglobin 14.7, and platelets 174,000. BUN of 11 and creatinine of 0.8. AST of 16, ALT of 14, and alkaline phosphatase of 84. Urinalysis showed positive nitrites, +3 leukocyte esterase, 10 to 15 red blood cells, too numerous white count to count, and many bacteria. IMAGING: Chest x-ray showed no acute infiltrates or effusion. ASSESSMENT AND RECOMMENDATION: 1. Urinary tract infection with history of Proteus and Pseudomonas, sensitive to Zosyn and vancomycin resistant enterococcus, sensitive to ampicillin. We will continue Zosyn for now, empiric treatment. Pending urine culture and blood culture. 2. G-tube site cellulitis, status post removal 4 days ago, on Zosyn empirically. Continue local wound care. We will add vancomycin. 3. Septic shock with hypotension, on Zosyn only. We will add vancomycin. At this point, pending culture results. Continue hydration and maintain systolic more than 100. 4. Malfunctioning of gastrostomy tube, status post replacement. Continue to monitor site. Consult wound care for further care. Continue antibiotics as needed. Jess Carrillo M.D. DR: VINICIO JOB#: [id number] CC:
[2016-10-02] MEDS: Vancomycin 1250mg/D5W 275ml IVPB SCH ×2 (13:24)
[2016-10-02] MEDS: Piperacillin/Tazobactam 3.375 GM in NS 110 ML IVPB SCH ×2 (16:17→22:46)
[2016-10-02] MEDS: Morphine Sulfate 2mg/ml Inj IVP PRN ×2 (16:21→20:46)
[2016-10-02] MEDS ORDERED: D5 1/2NS 1,000 ML IV SCH (17:40)
[2016-10-03 00:15] VITALS: BP 104/60
[2016-10-03] MEDS: Morphine Sulfate 2mg/ml Inj IVP PRN ×6 (01:24→23:58)
[2016-10-03] MEDS: Vancomycin 1250mg/D5W 275ml IVPB SCH ×4 (02:44→13:27)
[2016-10-03 04:01] VITALS: BP 111/59
[2016-10-03] MEDS: Piperacillin/Tazobactam 3.375 GM in NS 110 ML IVPB SCH ×3 (05:27→21:32)
[2016-10-03 07:17] LABS: BASOPHILS % (AUTO) 1.2 % (0.0-2.0); EOSINOPHILS % (AUTO) 2.4 % (0.0-3.0); LYMPHOCYTES % (AUTO) 24.5 % (20.0-45.0); MEAN CORPUSCULAR HEMOGLOBIN 30.8 PG (27.0-31.0); MEAN CORPUSCULAR HGB CONC 33.9 G/DL (32.0-36.0); MEAN CORPUSCULAR VOLUME 91 FL (80-99); MEAN PLATELET VOLUME 7.7 FL (6.5-10.1); MONOCYTES % (AUTO) 5.8 % (1.0-10.0); NEUTROPHILS % (AUTO) 66.1 % (45.0-75.0); PLATELET COUNT 151 K/UL (150-450); RED BLOOD COUNT 4.68 M/UL (4.70-6.10); RED CELL DISTRIBUTION WIDTH 13.1 % (11.6-14.8)
[2016-10-03 07:41] LABS: ALANINE AMINOTRANSFERASE 13 U/L (3-41); AMYLASE 68 U/L (10-110); ANION GAP 10 (5-15); ASPARTATE AMINO TRANSFERASE 17 U/L (5-40); CALCIUM 8.6 mg/dL (8.6-10.2); CARBON DIOXIDE 28 mEQ/L (20-30); CHLORIDE 102 mEQ/L (98-107); CREATININE 1.1 mg/dL (0.7-1.2); GLOMERULAR FILTRATION RATE > 60 mL/min (>60); HEMOLYSIS 10; LIPASE 23 U/L (< 60); POTASSIUM 3.8 mEQ/L (3.4-4.9); SODIUM 140 mEQ/L (135-145)
[2016-10-03 08:00] VITALS: BP 134/72
[2016-10-03] MEDS: Pantoprazole Inj IVP SCH (08:38)
[2016-10-03] MEDS: Midodrine 10mg tab GT SCH ×3 (08:39→18:04)
[2016-10-03] MEDS: Calcium Carbonate 500mg w/Vit D 200iu tab GT SCH (08:39)
[2016-10-03] MEDS: Heparin 5000 units/ml inj SUBQ SCH ×2 (08:39→21:36)
[2016-10-03] MEDS: Lactulose 20gm/30ml UDC ORAL SCH (08:39)
[2016-10-03] MEDS ORDERED: Tubing IV Secondary IV ONE ×2 (09:02→09:09)
[2016-10-03] MEDS ORDERED: NS 275ml ONE (09:09)
[2016-10-03] MEDS: D5 1/2NS 1,000 ML IV SCH (10:38)
[2016-10-03 11:45] VITALS: BP 115/70
--- NOTE | 2016-10-03 12:02 | General Progress Note ---
Assessment/Plan Problem List: (1) Malfunction of gastrostomy tube ICD Codes: K94.23 - Gastrostomy malfunction SNOMED: 523111658 (2) Neuropathy ICD Codes: G62.9 - Polyneuropathy, unspecified SNOMED: 342493322 (3) Sepsis ICD Codes: A41.9 - Sepsis, unspecified organism SNOMED: 11094597 (4) Paraplegia ICD Codes: G82.20 - Paraplegia, unspecified SNOMED: 32127661 (5) HTN (hypertension) ICD Codes: I10 - Essential (primary) hypertension SNOMED: 34842920 (6) History of CVA (cerebrovascular accident) ICD Codes: Z86.73 - Personal history of transient ischemic attack (TIA), and cerebral infarction without residual deficits SNOMED: 806213580 Status: stable, progressing, tolerating diet Assessment/Plan ot pt abx cbc bmp am Subjective Constitutional: Reports: weakness Allergies: Coded Allergies: No Known Allergies (Verified , 11/07/09) All Systems: reviewed and negative except above Subjective calm in bed Objective Last 24 Hour Vital Signs Date Time Temp Pulse Resp B/P Pulse Ox O2 Delivery O2 Flow Rate FiO2 10/03/16 11:45 97.0 60 18 115/70 100 Room Air 10/03/16 08:00 97.2 65 18 134/72 100 Room Air 10/03/16 05:57 97.2 10/03/16 04:01 97.2 60 17 111/59 99 Room Air 10/03/16 00:15 97.2 65 18 104/60 98 Room Air 10/02/16 20:00 97.7 68 17 110/58 97 Room Air 10/02/16 16:00 97.7 68 16 120/68 98 Room Air 10/02/16 12:00 98.2 10/02/16 12:00 61 18 113/79 99 Room Air Intake and Output 10/02/16 10/03/16 19:00 07:00 Intake Total 480.000 ml 992.500 ml Output Total 2500 ml Balance -2020.000 ml 992.500 ml IV Total 480.000 ml 992.500 ml Output Urine Total 2500 ml Laboratory Tests 10/03/16 05:45: White Blood Count 6.0, Red Blood Count 4.68L, Hemoglobin 14.4, Hematocrit 42.5, Mean Corpuscular Volume 91, Mean Corpuscular Hemoglobin 30.8, Mean Corpuscular Hemoglobin Concent 33.9, Red Cell Distribution Width 13.1, Platelet Count 151, Mean Platelet Volume 7.7, Neutrophils (%) (Auto) 66.1, Lymphocytes (%) (Auto) 24.5, Monocytes (%) (Auto) 5.8, Eosinophils (%) (Auto) 2.4, Basophils (%) (Auto ) 1.2, Activated Partial Thromboplast Time 29, Sodium Level 140, Potassium Level 3.8, Chloride Level 102, Carbon Dioxide Level 28, Anion Gap 10, Blood Urea Nitrogen 6L, Creatinine 1.1, Estimat Glomerular Filtration Rate > 60, Glucose Level 97, Calcium Level 8.6, Total Bilirubin 0.4, Aspartate Amino Transf (AST/SGOT) 17, Alanine Aminotransferase (ALT/SGPT) 13, Alkaline Phosphatase 75, Total Protein 7.0, Albumin 3.6, Globulin 3.4, Albumin/Globulin Ratio 1.0, Amylase Level 68, Lipase 23 Height (Feet): 5 Height (Inches): 11.00 Weight (Pounds): 195 General Appearance: lethargic EENT: normal ENT inspection Neck: normal alignment Cardiovascular: normal peripheral pulses, normal rate, regular rhythm Respiratory/Chest: chest wall non-tender, lungs clear, normal breath sounds Abdomen: normal bowel sounds, non tender, soft Extremities: normal inspection Edema: no edema noted Arm (L), no edema noted Arm (R), no edema noted Leg (L), no edema noted Leg (R), no edema noted Pedal (L), no edema noted Pedal (R), no edema noted Generalized Neurologic: responsive, motor weakness Skin: normal pigmentation, warm/dry YAMEL DUMONT Oct 03, 2016 12:02
--- NOTE | 2016-10-03 14:20 | Pulmonology Progress Note ---
Assessment/Plan Problems: (1) G-tube site cellulitis (2) HTN (hypertension) (3) Cerebral palsy (4) Paraplegia (5) History of CVA (cerebrovascular accident) Assessment/Plan iv fluids IV antibiotics check cultures check electrolytes dvt prophylaxis Subjective ROS Limited/Unobtainable: No Constitutional: Reports: no symptoms HEENT: Repors: no symptoms Respiratory: Reports: no symptoms Allergies: Coded Allergies: No Known Allergies (Verified , 11/07/09) Objective Last 24 Hour Vital Signs Date Time Temp Pulse Resp B/P Pulse Ox O2 Delivery O2 Flow Rate FiO2 10/03/16 11:45 97.0 60 18 115/70 100 Room Air 10/03/16 08:00 97.2 65 18 134/72 100 Room Air 10/03/16 05:57 97.2 10/03/16 04:01 97.2 60 17 111/59 99 Room Air 10/03/16 00:15 97.2 65 18 104/60 98 Room Air 10/02/16 20:00 97.7 68 17 110/58 97 Room Air 10/02/16 16:00 97.7 68 16 120/68 98 Room Air Intake and Output 10/02/16 10/03/16 19:00 07:00 Intake Total 480.000 ml 992.500 ml Output Total 2500 ml Balance -2020.000 ml 992.500 ml IV Total 480.000 ml 992.500 ml Output Urine Total 2500 ml General Appearance: WD/WN HEENT: normocephalic, atraumatic Respiratory/Chest: chest wall non-tender, lungs clear Cardiovascular: normal peripheral pulses, normal rate Abdomen: normal bowel sounds, soft, non tender Genitourinary: normal external genitalia Skin: no rash Neurologic/Psychiatric: math professor II-XII grossly normal Microbiology Date/Time Source Procedure Growth Status 10/02/16 11:00 Other Gram Stain - Final Resulted 10/02/16 11:00 Other Wound Culture - Preliminary Resulted 10/02/16 11:00 Urine,Suprapubic Urine Culture - Preliminary Resulted 10/02/16 01:10 Urine,Clean Catch Urine Culture - Preliminary Gram Negative Bacillus 1 Resulted Laboratory Tests 10/03/16 05:45: White Blood Count 6.0, Red Blood Count 4.68L, Hemoglobin 14.4, Hematocrit 42.5, Mean Corpuscular Volume 91, Mean Corpuscular Hemoglobin 30.8, Mean Corpuscular Hemoglobin Concent 33.9, Red Cell Distribution Width 13.1, Platelet Count 151, Mean Platelet Volume 7.7, Neutrophils (%) (Auto) 66.1, Lymphocytes (%) (Auto) 24.5, Monocytes (%) (Auto) 5.8, Eosinophils (%) (Auto) 2.4, Basophils (%) (Auto ) 1.2, Activated Partial Thromboplast Time 29, Sodium Level 140, Potassium Level 3.8, Chloride Level 102, Carbon Dioxide Level 28, Anion Gap 10, Blood Urea Nitrogen 6L, Creatinine 1.1, Estimat Glomerular Filtration Rate > 60, Glucose Level 97, Calcium Level 8.6, Total Bilirubin 0.4, Aspartate Amino Transf (AST/SGOT) 17, Alanine Aminotransferase (ALT/SGPT) 13, Alkaline Phosphatase 75, Total Protein 7.0, Albumin 3.6, Globulin 3.4, Albumin/Globulin Ratio 1.0, Amylase Level 68, Lipase 23 Current Medications Medications (Trade) Dose Ordered Sig/Eric Route PRN Reason Start Time Stop Time Status Last Admin Dose Admin Acetaminophen (Tylenol) 650 mg Q4H PRN ORAL fever 10/02/16 07:00 11/01/16 06:59 Al Hydroxide/Mg Hydroxide (Mylanta II) 30 ml Q6H PRN ORAL dyspepsia 10/02/16 07:00 11/01/16 06:59 Baclofen (Lioresal) 20 mg QID ORAL 10/02/16 09:00 11/01/16 08:59 10/03/16 13:28 Calcium Carbonate (OsCal D) 1 tab DAILY GT 10/02/16 09:00 11/01/16 08:59 Dextrose STAT PRN IV Hypoglycemia 10/02/16 07:00 11/01/16 06:59 Dextrose/Sodium Chloride (D5 0.45% NS) 1,000 ml @ 75 mls/hr [id number] IV 10/02/16 10:00 11/01/16 09:59 10/03/16 10:38 Diphenhydramine HCl (Benadryl) 25 mg Q6H PRN ORAL Itching/Pruritis 10/02/16 07:00 11/01/16 06:59 Heparin Sodium (Porcine) (Heparin 5000 units/ml) 5,000 units EVERY 12 HOURS SUBQ 10/02/16 09:00 11/01/16 08:59 10/03/16 08:39 Lactulose (Cephulac) 20 gm DAILY ORAL 10/02/16 09:00 11/01/16 08:59 Midodrine (Pro-Amatine) 10 mg TID GT 10/02/16 09:00 11/01/16 08:59 10/03/16 13:28 Morphine Sulfate (Morphine Sulfate) 2 mg EVERY 4 HOURS PRN IVP severe Pain (Pain Scale 7-10) 10/02/16 07:00 10/09/16 06:59 10/03/16 10:38 Nitroglycerin (Ntg) 0.4 mg Q5M X 3 DOSES PRN SL Prn Chest Pain 10/02/16 07:00 11/01/16 06:59 Ondansetron HCl (Zofran) 4 mg Q6H PRN IVP Nausea & Vomiting 10/02/16 07:00 11/01/16 06:59 Pantoprazole 40 mg 40 mg DAILY IVP 10/02/16 09:00 11/01/16 08:59 10/03/16 08:38 Piperacillin Sod/ Tazobactam Sod/ Sodium Chloride (Zosyn/Sodium Chloride) 110 ml @ 27.5 mls/hr EVERY 8 HOURS IVPB 10/02/16 14:00 10/09/16 13:59 10/03/16 05:27 Polyethylene Glycol (Miralax) 17 gm HSPRN PRN ORAL Constipation 10/02/16 07:00 11/01/16 06:59 Temazepam (Restoril) 15 mg HSPRN PRN ORAL Insomnia 10/02/16 07:00 10/09/16 06:59 Vancomycin HCl 1 ea 1 ea DAILY PRN MISC Per rx protocol 10/02/16 10:45 11/01/16 10:44 Vancomycin HCl/ Dextrose (Vancomycin/D5W) 275 ml @ 183.333 mls/hr Q12H IVPB 10/02/16 13:00 10/07/16 12:59 10/03/16 13:27 Zinc Oxide (Zinc Oxide) 1 applic DAILY TOPIC 10/03/16 15:00 11/02/16 14:59 LOIS PORTILLO Oct 03, 2016 14:20
[2016-10-03] MEDS: Zinc Oxide Oint 2oz TOPIC SCH (14:48)
--- NOTE | 2016-10-03 15:01 | GI Initial Consult Note ---
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 He presents with chief complaint of bowel function suprapubic catheter. Somehow it was lacerated. There is no drainage. There is leakage around the catheter itself. No fever or chills. No nausea vomiting. He had a recent G-tube removed about 4 days ago. Now to some drainage around it. No fever or chills no redness. GI Consult. HPI as noted above. GI consulted for GT site leakage s/p removal x 4 days. ROS limited, patient seen on floor awake A&O NAD with no active s/sx N/V/D. GT site assess with minimal drainage noted with small skin tear around stoma. Per ST evaluation patient has passed and is on regular diet. Home Meds Reported Medications Acetaminophen (Tylenol) 325 Mg Tablet, 650 MG ORAL Q6H Y for Prn Pain/Headache/ Temp > 101, #30 TAB 0 Refills 10/02/16 Sennosides (SENNA) 8.6 Mg Tablet, 8.6 MG PO Y for Constipation, TAB 10/02/16 Temazepam* (RESTORIL*) 15 Mg Capsule, 15 MG ORAL BEDTIME Y for Insomnia, CAP 10/02/16 Oxycodone/Acetaminophen 5-325* (PERCOCET 5-325 MG TABLET*) 1 Each Tablet, 1 TAB ORAL Q4H Y for For Pain, TAB 10/02/16 Lactulose (LACTULOSE*) 20 Gm/30 Ml Solution, 30 ML ORAL, ML 0 Refills 10/02/16 Na Phos,M-B/Na Phos,Di-Ba* (FLEET ENEMA*) 133 Ml Enema, 118 ML RECTAL DAILY Y for Constipation, ML 0 Refills 10/02/16 Lorazepam* (ATIVAN*) 0.5 Mg Tablet, 0.5 MG ORAL PRN Y for For Anxiety, TAB 10/02/16 Hydrocodone/Acetaminophen (Hydrocodon-Acetaminophn 10-325) 1 Ea Tab, 2 TAB GT Q4H Y for Moderate Pain (Pain Scale 4-6), #30 TAB 0 Refills 01/20/14 Hydrocodone/Acetaminophen (Hydrocodon-Acetaminophn 10-325) 1 Ea Tab, 1 TAB GT Q4H Y for Mild Pain (Pain Scale 1-3), #30 TAB 0 Refills 01/20/14 Ipratropium/Albuterol Sulfate (DuoNeb 0.5-3(2.5)mg/3ml) 3 Ml Ampul.neb, 3 ML HHN Q6HR Y for Shortness of Breath, EA 01/20/14 Bisacodyl* (DULCOLAX*) 5 Mg Tablet.dr, 10 MG RECTAL DAILY Y for Constipation, # 10 TAB 0 Refills 01/20/14 Na Phos,M-B/Na Phos,Di-Ba* (FLEET ENEMA*) 133 Ml Enema, 135 ML RECTAL DAILY Y for Constipation, ML 0 Refills 01/20/14 Cranberry Fruit Concentrate (CRANBERRY) 450 Mg Tablet, 450 MG GT Q12HR, TAB 01/20/14 Midodrine* (PROAMATINE*) 10 Mg Tablet, 10 MG GT TID, TAB 01/20/14 Fludrocortisone Acetate (Fludrocortisone Acetate) 0.1 Mg Tab, 0.1 MG GT DAILY, # 30 TAB 0 Refills 01/20/14 Amino Acids/Protein Hydrolys (PRO-STAT LIQUID) 30 Ml Liquid.pkt, 30 ML GT BID, ML 01/20/14 Temazepam* (TEMAZEPAM*) 30 Mg Capsule, 30 MG GT BEDTIME for Insomnia, CAP 01/20/14 Calcium Carbonate (Oyster Shell Calcium-Vit D Tab) 500 Mg Tab, 500 MG GT DAILY, TAB 01/20/14 Acetaminophen (TYLENOL) 100 Mg/1 Ml Drops.susp, 650 MG GT EVERY 6 HOURS Y for Temp >101F 11/29/12 Morphine Sulfate (Morphine 20mg/ml Oral Soln ud) 20 Mg/1 Ml Soln, 5 MG SL EVERY 4 HOURS Y for Severe Pain (Pain Scale 7-10) 11/29/12 Sertraline Hcl (ZOLOFT) 20 Mg/1 Ml Oral.conc, 25 MG GT DAILY 11/29/12 Docusate Sodium (DOCUSATE SODIUM) 50 Mg/5 Ml Liquid, 100 MG GT BID 11/29/12 Gabapentin (GABAPENTIN) 300 Mg/6 Ml Solution, 300 MG GT THREE TIMES A DAY, ML 11/29/12 Baclofen* (BACLOFEN*) 10 Mg Tablet, 20 MG ORAL QID, TAB 11/29/12 Famotidine (PEPCID) 20 Mg Tablet, 20 MG ORAL BID, #7 TAB 0 Refills 11/29/12 Med list reviewed/reconciled: Yes Allergies: Coded Allergies: No Known Allergies (Verified , 11/07/09) Patient History Limited by: medical condition History Provided By: Medical Record PMH Narrative Past Medical History: see triage record, old chart reviewed, HTN, CVA/TIA Past Surgical History: other Pertinent Family History: none Social History: Denies: smoking Immunizations: other Reviewed Nursing Documentation: PMH: Agreed, PSxH: Agreed Nursing Documentation-PMH Past Medical History: No History, Except For Hx Cardiac Problems: Yes - anemia Hx Hypertension: Yes Hx Cancer: No Hx Gastrointestinal Problems: Yes - GERD Hx Neurological Problems: Yes - anxiety, depression, Quadriplegic Cerebral Palsy Hx Cerebrovascular Accident: Yes Hx Cerebral Palsy: Yes Hx Paralysis: Yes - Paraplegic Hx Speech Problem: Yes Hx Numbness: Yes Hx Weakness: Yes Hx Neurologic Surgery: Yes Social History: Denies: alcohol use, drug use, other, smoking Review of Systems All Other Systems: limited Physical Exam Vital Signs Date Time Temp Pulse Resp B/P Pulse Ox O2 Delivery O2 Flow Rate FiO2 10/01/16 23:52 97.9 59 12 91/66 98 Room Air Sp02 EP Interpretation: reviewed Labs Laboratory Tests Test 10/03/16 05:45 White Blood Count 6.0 K/UL (4.8-10.8) Red Blood Count 4.68 M/UL (4.70-6.10) L Hemoglobin 14.4 G/DL (14.2-18.0) Hematocrit 42.5 % (42.0-52.0) Mean Corpuscular Volume 91 FL (80-99) Mean Corpuscular Hemoglobin 30.8 PG (27.0-31.0) Mean Corpuscular Hemoglobin Concent 33.9 G/DL (32.0-36.0) Red Cell Distribution Width 13.1 % (11.6-14.8) Platelet Count 151 K/UL (150-450) Mean Platelet Volume 7.7 FL (6.5-10.1) Neutrophils (%) (Auto) 66.1 % (45.0-75.0) Lymphocytes (%) (Auto) 24.5 % (20.0-45.0) Monocytes (%) (Auto) 5.8 % (1.0-10.0) Eosinophils (%) (Auto) 2.4 % (0.0-3.0) Basophils (%) (Auto) 1.2 % (0.0-2.0) Activated Partial Thromboplast Time 29 SEC (23-33) Sodium Level 140 mEQ/L (135-145) Potassium Level 3.8 mEQ/L (3.4-4.9) Chloride Level 102 mEQ/L (98-107) Carbon Dioxide Level 28 mEQ/L (20-30) Anion Gap 10 (5-15) Blood Urea Nitrogen 6 mg/dL (7-23) L Creatinine 1.1 mg/dL (0.7-1.2) Estimat Glomerular Filtration Rate > 60 mL/min (>60) Glucose Level 97 mg/dL (74-106) Calcium Level 8.6 mg/dL (8.6-10.2) Total Bilirubin 0.4 mg/dL (0.0-1.2) Aspartate Amino Transf (AST/SGOT) 17 U/L (5-40) Alanine Aminotransferase (ALT/SGPT) 13 U/L (3-41) Alkaline Phosphatase 75 U/L (40-129) Total Protein 7.0 g/dL (6.6-8.7) Albumin 3.6 g/dL (3.5-5.2) Globulin 3.4 g/dL Albumin/Globulin Ratio 1.0 (1.0-2.7) Amylase Level 68 U/L (10-110) Lipase 23 U/L (< 60) General Appearance: well appearing, no apparent distress, alert Head: normocephalic EENT: PERRL/EOMI, normal ENT inspection Neck: supple Respiratory: normal breath sounds, no respiratory distress Cardiovascular: normal rate Gastrointestinal: gt - min drainage with skin tear Rectal: deferred Skin: normal inspection, normal color, no rash, warm/dry Lymphatic: normal inspection, no adenopathy Current Medications Current Medications Medications (Trade) Dose Ordered Sig/Eric Route PRN Reason Start Time Stop Time Status Last Admin Dose Admin Acetaminophen (Tylenol) 650 mg Q4H PRN ORAL fever 10/02/16 07:00 11/01/16 06:59 Al Hydroxide/Mg Hydroxide (Mylanta II) 30 ml Q6H PRN ORAL dyspepsia 10/02/16 07:00 11/01/16 06:59 Baclofen (Lioresal) 20 mg QID ORAL 10/02/16 09:00 11/01/16 08:59 10/03/16 13:28 Calcium Carbonate (OsCal D) 1 tab DAILY GT 10/02/16 09:00 11/01/16 08:59 Dextrose STAT PRN IV Hypoglycemia 10/02/16 07:00 11/01/16 06:59 Dextrose/Sodium Chloride (D5 0.45% NS) 1,000 ml @ 75 mls/hr [id number] IV 10/02/16 10:00 11/01/16 09:59 10/03/16 10:38 Diphenhydramine HCl (Benadryl) 25 mg Q6H PRN ORAL Itching/Pruritis 10/02/16 07:00 11/01/16 06:59 Heparin Sodium (Porcine) (Heparin 5000 units/ml) 5,000 units EVERY 12 HOURS SUBQ 10/02/16 09:00 11/01/16 08:59 10/03/16 08:39 Lactulose (Cephulac) 20 gm DAILY ORAL 10/02/16 09:00 11/01/16 08:59 Midodrine (Pro-Amatine) 10 mg TID GT 10/02/16 09:00 11/01/16 08:59 10/03/16 13:28 Morphine Sulfate (Morphine Sulfate) 2 mg EVERY 4 HOURS PRN IVP severe Pain (Pain Scale 7-10) 10/02/16 07:00 10/09/16 06:59 10/03/16 10:38 Nitroglycerin (Ntg) 0.4 mg Q5M X 3 DOSES PRN SL Prn Chest Pain 10/02/16 07:00 11/01/16 06:59 Ondansetron HCl (Zofran) 4 mg Q6H PRN IVP Nausea & Vomiting 10/02/16 07:00 11/01/16 06:59 Pantoprazole 40 mg 40 mg DAILY IVP 10/02/16 09:00 11/01/16 08:59 10/03/16 08:38 Piperacillin Sod/ Tazobactam Sod/ Sodium Chloride (Zosyn/Sodium Chloride) 110 ml @ 27.5 mls/hr EVERY 8 HOURS IVPB 10/02/16 14:00 10/09/16 13:59 10/03/16 05:27 Polyethylene Glycol (Miralax) 17 gm HSPRN PRN ORAL Constipation 10/02/16 07:00 11/01/16 06:59 Temazepam (Restoril) 15 mg HSPRN PRN ORAL Insomnia 10/02/16 07:00 10/09/16 06:59 Vancomycin HCl 1 ea 1 ea DAILY PRN MISC Per rx protocol 10/02/16 10:45 11/01/16 10:44 Vancomycin HCl/ Dextrose (Vancomycin/D5W) 275 ml @ 183.333 mls/hr Q12H IVPB 10/02/16 13:00 10/07/16 12:59 10/03/16 13:27 Zinc Oxide (Zinc Oxide) 1 applic DAILY TOPIC 10/03/16 15:00 11/02/16 14:59 10/03/16 14:48 GI: Plan Problems: (1) Gastrostomy tube dysfunction (2) G-tube site cellulitis Plan ST eval noted >> recommend video swallow, currently on regular diet GT site leakage zinc oxide daily to GT site area with prn dressing change regular diet, tolerating bowel regime >> lactulose + colace ppi fu labs Discussed with Dr. Martinez. Thank you for referring this patient, we will follow. Kelly Morales N.P. Oct 03, 2016 15:01
--- NOTE | 2016-10-03 15:09 | Infectious Diseases Prog Note ---
Assessment/Plan Problems: (1) UTI (lower urinary tract infection) Assessment & Plan: with gram negative rods with H/O proteus and pseudomonas sensitive to zosyn, and VRE sensetive to ampicillin , will continue zosyn for now empirically pending urine culture results (2) G-tube site cellulitis Assessment & Plan: S/P removal 4 days ago, on zosyn empirically , continue local care (3) Septic shock Assessment & Plan: due to the above, on vancomycin and zosyn empirically pending blood culture (4) Malfunction of gastrostomy tube Assessment & Plan: S/P replacement , continue local care, monitor site clinically Subjective Constitutional: Reports: no symptoms HEENT: Reports: no symptoms Respiratory: Reports: no symptoms Cardiovascular: Reports: no symptoms Gastrointestinal/Abdominal: Reports: no symptoms Genitourinary: Reports: no symptoms Neurologic: Reports: no symptoms Psychiatric: Reports: no symptoms Skin: Reports: ulcer Endocrine: Reports: no symptoms Hematologic: Reports: no symptoms Allergies: Coded Allergies: No Known Allergies (Verified , 11/07/09) Objective Vital Signs Last 24 Hour Vital Signs Date Time Temp Pulse Resp B/P Pulse Ox O2 Delivery O2 Flow Rate FiO2 10/03/16 11:45 97.0 60 18 115/70 100 Room Air 10/03/16 08:00 97.2 65 18 134/72 100 Room Air 10/03/16 05:57 97.2 10/03/16 04:01 97.2 60 17 111/59 99 Room Air 10/03/16 00:15 97.2 65 18 104/60 98 Room Air 10/02/16 20:00 97.7 68 17 110/58 97 Room Air 10/02/16 16:00 97.7 68 16 120/68 98 Room Air Height (Feet): 5 Height (Inches): 11.00 Weight (Pounds): 195 General Appearance: WD/WN, no acute distress HEENT: normocephalic, atraumatic, anicteric, mucous membranes moist Respiratory/Chest: chest wall non-tender, lungs clear, normal breath sounds, no respiratory distress, no accessory muscle use Cardiovascular: normal peripheral pulses, normal rate, regular rhythm, no gallop/murmur, no JVD Abdomen: normal bowel sounds, soft, non tender, no organomegaly, non distended , no mass Extremities: no cyanosis, no clubbing Skin: no rash, no lesions, ulcers Microbiology Date/Time Source Procedure Growth Status 10/02/16 11:00 Other Gram Stain - Final Resulted 10/02/16 11:00 Other Wound Culture - Preliminary Resulted 10/02/16 11:00 Urine,Suprapubic Urine Culture - Preliminary Resulted 10/02/16 01:10 Urine,Clean Catch Urine Culture - Preliminary Gram Negative Bacillus 1 Resulted Laboratory Tests Test 10/03/16 05:45 White Blood Count 6.0 K/UL (4.8-10.8) Red Blood Count 4.68 M/UL (4.70-6.10) L Hemoglobin 14.4 G/DL (14.2-18.0) Hematocrit 42.5 % (42.0-52.0) Mean Corpuscular Volume 91 FL (80-99) Mean Corpuscular Hemoglobin 30.8 PG (27.0-31.0) Mean Corpuscular Hemoglobin Concent 33.9 G/DL (32.0-36.0) Red Cell Distribution Width 13.1 % (11.6-14.8) Platelet Count 151 K/UL (150-450) Mean Platelet Volume 7.7 FL (6.5-10.1) Neutrophils (%) (Auto) 66.1 % (45.0-75.0) Lymphocytes (%) (Auto) 24.5 % (20.0-45.0) Monocytes (%) (Auto) 5.8 % (1.0-10.0) Eosinophils (%) (Auto) 2.4 % (0.0-3.0) Basophils (%) (Auto) 1.2 % (0.0-2.0) Activated Partial Thromboplast Time 29 SEC (23-33) Sodium Level 140 mEQ/L (135-145) Potassium Level 3.8 mEQ/L (3.4-4.9) Chloride Level 102 mEQ/L (98-107) Carbon Dioxide Level 28 mEQ/L (20-30) Anion Gap 10 (5-15) Blood Urea Nitrogen 6 mg/dL (7-23) L Creatinine 1.1 mg/dL (0.7-1.2) Estimat Glomerular Filtration Rate > 60 mL/min (>60) Glucose Level 97 mg/dL (74-106) Calcium Level 8.6 mg/dL (8.6-10.2) Total Bilirubin 0.4 mg/dL (0.0-1.2) Aspartate Amino Transf (AST/SGOT) 17 U/L (5-40) Alanine Aminotransferase (ALT/SGPT) 13 U/L (3-41) Alkaline Phosphatase 75 U/L (40-129) Total Protein 7.0 g/dL (6.6-8.7) Albumin 3.6 g/dL (3.5-5.2) Globulin 3.4 g/dL Albumin/Globulin Ratio 1.0 (1.0-2.7) Amylase Level 68 U/L (10-110) Lipase 23 U/L (< 60) Current Medications Medications (Trade) Dose Ordered Sig/Eric Route PRN Reason Start Time Stop Time Status Last Admin Dose Admin Acetaminophen (Tylenol) 650 mg Q4H PRN ORAL fever 10/02/16 07:00 11/01/16 06:59 Al Hydroxide/Mg Hydroxide (Mylanta II) 30 ml Q6H PRN ORAL dyspepsia 10/02/16 07:00 11/01/16 06:59 Baclofen (Lioresal) 20 mg QID ORAL 10/02/16 09:00 11/01/16 08:59 10/03/16 13:28 Calcium Carbonate (OsCal D) 1 tab DAILY GT 10/02/16 09:00 11/01/16 08:59 Dextrose STAT PRN IV Hypoglycemia 10/02/16 07:00 11/01/16 06:59 Dextrose/Sodium Chloride (D5 0.45% NS) 1,000 ml @ 75 mls/hr [id number] IV 10/02/16 10:00 11/01/16 09:59 10/03/16 10:38 Diphenhydramine HCl (Benadryl) 25 mg Q6H PRN ORAL Itching/Pruritis 10/02/16 07:00 11/01/16 06:59 Heparin Sodium (Porcine) (Heparin 5000 units/ml) 5,000 units EVERY 12 HOURS SUBQ 10/02/16 09:00 11/01/16 08:59 10/03/16 08:39 Lactulose (Cephulac) 20 gm DAILY ORAL 10/02/16 09:00 11/01/16 08:59 Midodrine (Pro-Amatine) 10 mg TID GT 10/02/16 09:00 11/01/16 08:59 10/03/16 13:28 Morphine Sulfate (Morphine Sulfate) 2 mg EVERY 4 HOURS PRN IVP severe Pain (Pain Scale 7-10) 10/02/16 07:00 10/09/16 06:59 10/03/16 10:38 Nitroglycerin (Ntg) 0.4 mg Q5M X 3 DOSES PRN SL Prn Chest Pain 10/02/16 07:00 11/01/16 06:59 Ondansetron HCl (Zofran) 4 mg Q6H PRN IVP Nausea & Vomiting 10/02/16 07:00 11/01/16 06:59 Pantoprazole 40 mg 40 mg DAILY IVP 10/02/16 09:00 11/01/16 08:59 10/03/16 08:38 Piperacillin Sod/ Tazobactam Sod/ Sodium Chloride (Zosyn/Sodium Chloride) 110 ml @ 27.5 mls/hr EVERY 8 HOURS IVPB 10/02/16 14:00 10/09/16 13:59 10/03/16 05:27 Polyethylene Glycol (Miralax) 17 gm HSPRN PRN ORAL Constipation 10/02/16 07:00 11/01/16 06:59 Temazepam (Restoril) 15 mg HSPRN PRN ORAL Insomnia 10/02/16 07:00 10/09/16 06:59 Vancomycin HCl 1 ea 1 ea DAILY PRN MISC Per rx protocol 10/02/16 10:45 11/01/16 10:44 Vancomycin HCl/ Dextrose (Vancomycin/D5W) 275 ml @ 183.333 mls/hr Q12H IVPB 10/02/16 13:00 10/07/16 12:59 10/03/16 13:27 Zinc Oxide (Zinc Oxide) 1 applic DAILY TOPIC 10/03/16 15:00 11/02/16 14:59 10/03/16 14:48 Jess Carrillo M.D. Oct 03, 2016 15:09
[2016-10-03 20:00] VITALS: BP 137/73
[2016-10-04] VITALS (7 sets, daily range): BP systolic 100–149; BP diastolic 58–76
[2016-10-04] MEDS: D5 1/2NS 1,000 ML IV SCH ×2 (01:08→11:48)
[2016-10-04] MEDS: Vancomycin 1250mg/D5W 275ml IVPB SCH ×2 (01:51)
--- NOTE | 2016-10-04 05:32 | General Progress Note ---
Assessment/Plan Problem List: (1) Gastrostomy tube dysfunction ICD Codes: K94.23 - Gastrostomy malfunction SNOMED: 490422180 (2) G-tube site cellulitis ICD Codes: K94.22 - Gastrostomy infection; L03.319 - Cellulitis of trunk, unspecified SNOMED: 767042755, 990138525 (3) UTI (lower urinary tract infection) ICD Codes: N39.0 - Urinary tract infection, site not specified SNOMED: 9520496 (4) History of CVA (cerebrovascular accident) ICD Codes: Z86.73 - Personal history of transient ischemic attack (TIA), and cerebral infarction without residual deficits SNOMED: 279004537 (5) HTN (hypertension) ICD Codes: I10 - Essential (primary) hypertension SNOMED: 85125357 (6) Cerebral palsy ICD Codes: G80.9 - Cerebral palsy, unspecified SNOMED: 265089337 Assessment/Plan GT site leakage improving continue topical zinc oxide fu swallow eval Subjective ROS Limited/Unobtainable: Yes Constitutional: Reports: no symptoms HEENT: Reports: no symptoms Cardiovascular: Reports: no symptoms Respiratory: Reports: no symptoms Gastrointestinal/Abdominal: Reports: no symptoms Genitourinary: Reports: no symptoms Allergies: Coded Allergies: No Known Allergies (Verified , 11/07/09) Subjective no event over night Objective Last 24 Hour Vital Signs Date Time Temp Pulse Resp B/P Pulse Ox O2 Delivery O2 Flow Rate FiO2 10/04/16 04:04 97.2 59 18 124/63 100 Room Air 10/04/16 00:28 97.5 10/04/16 00:07 97.5 63 18 107/65 100 Room Air 10/03/16 20:00 97.6 65 16 137/73 100 Room Air 10/03/16 11:45 97.0 60 18 115/70 100 Room Air 10/03/16 08:00 97.2 65 18 134/72 100 Room Air Intake and Output 10/03/16 10/04/16 19:00 07:00 Intake Total 297.5 ml 985.030 ml Output Total 2650 ml Balance -2352.5 ml 985.030 ml Intake Oral 120 ml IV Total 177.5 ml 985.030 ml Output Urine Total 2650 ml # Bowel Movements 1 Laboratory Tests 10/03/16 05:45: White Blood Count 6.0, Red Blood Count 4.68L, Hemoglobin 14.4, Hematocrit 42.5, Mean Corpuscular Volume 91, Mean Corpuscular Hemoglobin 30.8, Mean Corpuscular Hemoglobin Concent 33.9, Red Cell Distribution Width 13.1, Platelet Count 151, Mean Platelet Volume 7.7, Neutrophils (%) (Auto) 66.1, Lymphocytes (%) (Auto) 24.5, Monocytes (%) (Auto) 5.8, Eosinophils (%) (Auto) 2.4, Basophils (%) (Auto ) 1.2, Activated Partial Thromboplast Time 29, Sodium Level 140, Potassium Level 3.8, Chloride Level 102, Carbon Dioxide Level 28, Anion Gap 10, Blood Urea Nitrogen 6L, Creatinine 1.1, Estimat Glomerular Filtration Rate > 60, Glucose Level 97, Calcium Level 8.6, Total Bilirubin 0.4, Aspartate Amino Transf (AST/SGOT) 17, Alanine Aminotransferase (ALT/SGPT) 13, Alkaline Phosphatase 75, Total Protein 7.0, Albumin 3.6, Globulin 3.4, Albumin/Globulin Ratio 1.0, Amylase Level 68, Lipase 23 Height (Feet): 5 Height (Inches): 11.00 Weight (Pounds): 195 General Appearance: no apparent distress EENT: normal ENT inspection Neck: supple Cardiovascular: normal rate Respiratory/Chest: decreased breath sounds Abdomen: normal bowel sounds, non tender, soft Extremities: non-tender MONA PEDRAZA Oct 04, 2016 05:32
[2016-10-04] MEDS: Morphine Sulfate 2mg/ml Inj IVP PRN ×5 (05:41→22:30)
[2016-10-04] MEDS: Piperacillin/Tazobactam 3.375 GM in NS 110 ML IVPB SCH ×3 (05:41→21:05)
[2016-10-04 06:32] LABS: BASOPHILS % (AUTO) 1.5 % (0.0-2.0); EOSINOPHILS % (AUTO) 2.4 % (0.0-3.0); LYMPHOCYTES % (AUTO) 26.7 % (20.0-45.0); MEAN CORPUSCULAR HGB CONC 34.3 G/DL (32.0-36.0); MEAN CORPUSCULAR VOLUME 90 FL (80-99); NEUTROPHILS % (AUTO) 62.5 % (45.0-75.0); PLATELET COUNT 148 K/UL (150-450); RED BLOOD COUNT 4.55 M/UL (4.70-6.10); RED CELL DISTRIBUTION WIDTH 12.9 % (11.6-14.8); WHITE BLOOD COUNT 6.7 K/UL (4.8-10.8)
[2016-10-04 06:56] LABS: ANION GAP 7 (5-15); CALCIUM 8.7 mg/dL (8.6-10.2); CARBON DIOXIDE 29 mEQ/L (20-30); CHLORIDE 106 mEQ/L (98-107); CREATININE 1.2 mg/dL (0.7-1.2); GLOMERULAR FILTRATION RATE > 60 mL/min (>60); HEMOLYSIS 9; SODIUM 142 mEQ/L (135-145)
--- NOTE | 2016-10-04 07:18 | General Progress Note ---
Assessment/Plan Problem List: (1) Malfunction of gastrostomy tube ICD Codes: K94.23 - Gastrostomy malfunction SNOMED: 017244855 (2) Neuropathy ICD Codes: G62.9 - Polyneuropathy, unspecified SNOMED: 881951680 (3) Sepsis ICD Codes: A41.9 - Sepsis, unspecified organism SNOMED: 71566042 (4) Paraplegia ICD Codes: G82.20 - Paraplegia, unspecified SNOMED: 52177243 (5) HTN (hypertension) ICD Codes: I10 - Essential (primary) hypertension SNOMED: 89905410 (6) History of CVA (cerebrovascular accident) ICD Codes: Z86.73 - Personal history of transient ischemic attack (TIA), and cerebral infarction without residual deficits SNOMED: 678810013 Status: stable, progressing, tolerating diet Assessment/Plan ot pt abx dc plan Subjective Constitutional: Reports: weakness Allergies: Coded Allergies: No Known Allergies (Verified , 11/07/09) All Systems: reviewed and negative except above Subjective calm in bed Objective Last 24 Hour Vital Signs Date Time Temp Pulse Resp B/P Pulse Ox O2 Delivery O2 Flow Rate FiO2 10/04/16 06:11 97.2 10/04/16 04:04 97.2 59 18 124/63 100 Room Air 10/04/16 00:07 97.5 63 18 107/65 100 Room Air 10/03/16 20:00 97.6 65 16 137/73 100 Room Air 10/03/16 11:45 97.0 60 18 115/70 100 Room Air 10/03/16 08:00 97.2 65 18 134/72 100 Room Air Intake and Output 10/03/16 10/04/16 19:00 07:00 Intake Total 297.5 ml 1105.030 ml Output Total 2650 ml 1800 ml Balance -2352.5 ml -694.970 ml Intake Oral 120 ml 120 ml IV Total 177.5 ml 985.030 ml Output Urine Total 2650 ml 1800 ml # Bowel Movements 1 Laboratory Tests 10/04/16 05:05: White Blood Count 6.7, Red Blood Count 4.55L, Hemoglobin 14.1L, Hematocrit 41.1L , Mean Corpuscular Volume 90, Mean Corpuscular Hemoglobin 31.0, Mean Corpuscular Hemoglobin Concent 34.3, Red Cell Distribution Width 12.9, Platelet Count 148L, Mean Platelet Volume 7.0, Neutrophils (%) (Auto) 62.5, Lymphocytes ( %) (Auto) 26.7, Monocytes (%) (Auto) 7.0, Eosinophils (%) (Auto) 2.4, Basophils (%) (Auto) 1.5, Sodium Level 142, Potassium Level 4.0, Chloride Level 106, Carbon Dioxide Level 29, Anion Gap 7, Blood Urea Nitrogen 9, Creatinine 1.2, Estimat Glomerular Filtration Rate > 60, Glucose Level 96, Calcium Level 8.7 Height (Feet): 5 Height (Inches): 11.00 Weight (Pounds): 195 General Appearance: lethargic EENT: normal ENT inspection Neck: normal alignment Cardiovascular: normal peripheral pulses, normal rate, regular rhythm Respiratory/Chest: chest wall non-tender, lungs clear, normal breath sounds Abdomen: normal bowel sounds, non tender, soft Extremities: normal inspection Edema: no edema noted Arm (L), no edema noted Arm (R), no edema noted Leg (L), no edema noted Leg (R), no edema noted Pedal (L), no edema noted Pedal (R), no edema noted Generalized Neurologic: responsive, motor weakness Skin: normal pigmentation, warm/dry YAMEL DUMONT Oct 04, 2016 07:18
[2016-10-04] MEDS: Calcium Carbonate 500mg w/Vit D 200iu tab GT SCH (08:36)
[2016-10-04] MEDS: Midodrine 10mg tab GT SCH ×3 (08:36→17:46)
[2016-10-04] MEDS: Lactulose 20gm/30ml UDC ORAL SCH (08:36)
[2016-10-04] MEDS: Zinc Oxide Oint 2oz TOPIC SCH (08:37)
[2016-10-04] MEDS: Heparin 5000 units/ml inj SUBQ SCH ×2 (08:37→21:00)
--- NOTE | 2016-10-04 14:29 | Infectious Diseases Prog Note ---
Assessment/Plan Problems: (1) UTI (lower urinary tract infection) Assessment & Plan: with three different strains of gram negative rods and H/O proteus and pseudomonas sensitive to zosyn, and VRE sensetive to ampicillin , will continue zosyn for now empirically pending urine culture results (2) G-tube site cellulitis Assessment & Plan: with yeast infection, will start fluconazol for two weeks, continue zosyn empirically , continue local care (3) Septic shock Assessment & Plan: due to the above, on vancomycin and zosyn empirically pending blood culture (4) Malfunction of gastrostomy tube Assessment & Plan: S/P replacement , continue local care, monitor site clinically Subjective Constitutional: Reports: no symptoms HEENT: Reports: no symptoms Respiratory: Reports: no symptoms Breasts: Reports: no symptoms Cardiovascular: Reports: no symptoms Gastrointestinal/Abdominal: Reports: no symptoms Neurologic: Reports: no symptoms Psychiatric: Reports: no symptoms Skin: Reports: no symptoms Endocrine: Reports: no symptoms Allergies: Coded Allergies: No Known Allergies (Verified , 11/07/09) Objective Vital Signs Last 24 Hour Vital Signs Date Time Temp Pulse Resp B/P Pulse Ox O2 Delivery O2 Flow Rate FiO2 10/04/16 11:51 97.3 56 18 106/61 100 Room Air 10/04/16 07:41 97.0 60 18 112/72 100 Room Air 10/04/16 06:11 97.2 10/04/16 04:04 97.2 59 18 124/63 100 Room Air 10/04/16 00:07 97.5 63 18 107/65 100 Room Air 10/03/16 20:00 97.6 65 16 137/73 100 Room Air Height (Feet): 5 Height (Inches): 11.00 Weight (Pounds): 195 General Appearance: WD/WN, no acute distress HEENT: normocephalic, atraumatic, anicteric, mucous membranes moist, pharynx normal, supple Respiratory/Chest: chest wall non-tender, lungs clear, normal breath sounds, no respiratory distress, no accessory muscle use Cardiovascular: normal peripheral pulses, normal rate, regular rhythm, no gallop/murmur, no JVD Abdomen: normal bowel sounds, soft, non tender, no organomegaly, non distended , no mass Extremities: no cyanosis, no clubbing Skin: no rash, no lesions, ulcers Microbiology Date/Time Source Procedure Growth Status 10/02/16 00:26 Blood Blood Culture - Preliminary NO GROWTH AFTER 24 HOURS Resulted 10/02/16 00:26 Blood Blood Culture - Preliminary NO GROWTH AFTER 24 HOURS Resulted 10/02/16 11:00 Other Gram Stain - Final Resulted 10/02/16 11:00 Wound Culture - Preliminary YEAST Resulted 10/02/16 11:00 Urine,Suprapubic Urine Culture - Preliminary Resulted 10/02/16 01:10 Urine,Clean Catch Urine Culture - Preliminary Gram Negative Bacillus 1 Gram Negative Bacillus 2 Gram Negative Bacillus 3 Resulted Laboratory Tests Test 10/04/16 05:05 10/04/16 12:10 White Blood Count 6.7 K/UL (4.8-10.8) Red Blood Count 4.55 M/UL (4.70-6.10) L Hemoglobin 14.1 G/DL (14.2-18.0) L Hematocrit 41.1 % (42.0-52.0) L Mean Corpuscular Volume 90 FL (80-99) Mean Corpuscular Hemoglobin 31.0 PG (27.0-31.0) Mean Corpuscular Hemoglobin Concent 34.3 G/DL (32.0-36.0) Red Cell Distribution Width 12.9 % (11.6-14.8) Platelet Count 148 K/UL (150-450) L Mean Platelet Volume 7.0 FL (6.5-10.1) Neutrophils (%) (Auto) 62.5 % (45.0-75.0) Lymphocytes (%) (Auto) 26.7 % (20.0-45.0) Monocytes (%) (Auto) 7.0 % (1.0-10.0) Eosinophils (%) (Auto) 2.4 % (0.0-3.0) Basophils (%) (Auto) 1.5 % (0.0-2.0) Sodium Level 142 mEQ/L (135-145) Potassium Level 4.0 mEQ/L (3.4-4.9) Chloride Level 106 mEQ/L (98-107) Carbon Dioxide Level 29 mEQ/L (20-30) Anion Gap 7 (5-15) Blood Urea Nitrogen 9 mg/dL (7-23) Creatinine 1.2 mg/dL (0.7-1.2) Estimat Glomerular Filtration Rate > 60 mL/min (>60) Glucose Level 96 mg/dL (74-106) Calcium Level 8.7 mg/dL (8.6-10.2) Vancomycin Level Trough 27.7 ug/mL (5.0-12.0) H Current Medications Medications (Trade) Dose Ordered Sig/Eric Route PRN Reason Start Time Stop Time Status Last Admin Dose Admin Acetaminophen (Tylenol) 650 mg Q4H PRN ORAL fever 10/02/16 07:00 11/01/16 06:59 Al Hydroxide/Mg Hydroxide (Mylanta II) 30 ml Q6H PRN ORAL dyspepsia 10/02/16 07:00 11/01/16 06:59 Baclofen (Lioresal) 20 mg QID ORAL 10/02/16 09:00 11/01/16 08:59 10/04/16 13:10 Calcium Carbonate (OsCal D) 1 tab DAILY GT 10/02/16 09:00 11/01/16 08:59 10/04/16 08:36 Dextrose STAT PRN IV Hypoglycemia 10/02/16 07:00 11/01/16 06:59 Dextrose/Sodium Chloride (D5 0.45% NS) 1,000 ml @ 75 mls/hr [id number] IV 10/02/16 10:00 11/01/16 09:59 10/04/16 11:48 Diphenhydramine HCl (Benadryl) 25 mg Q6H PRN ORAL Itching/Pruritis 10/02/16 07:00 11/01/16 06:59 Gabapentin (Neurontin) 300 mg THREE TIMES A DAY ORAL 10/04/16 18:00 11/03/16 17:59 Heparin Sodium (Porcine) (Heparin 5000 units/ml) 5,000 units EVERY 12 HOURS SUBQ 10/02/16 09:00 11/01/16 08:59 10/03/16 21:36 Lactulose (Cephulac) 20 gm DAILY ORAL 10/02/16 09:00 11/01/16 08:59 10/04/16 08:36 Midodrine (Pro-Amatine) 10 mg TID GT 10/02/16 09:00 11/01/16 08:59 10/04/16 13:10 Morphine Sulfate (Morphine Sulfate) 2 mg EVERY 4 HOURS PRN IVP severe Pain (Pain Scale 7-10) 10/02/16 07:00 10/09/16 06:59 10/04/16 09:59 Nitroglycerin (Ntg) 0.4 mg Q5M X 3 DOSES PRN SL Prn Chest Pain 10/02/16 07:00 11/01/16 06:59 Ondansetron HCl (Zofran) 4 mg Q6H PRN IVP Nausea & Vomiting 10/02/16 07:00 11/01/16 06:59 Pantoprazole 40 mg 40 mg DAILY ORAL 10/04/16 09:00 11/03/16 08:59 10/04/16 08:36 Piperacillin Sod/ Tazobactam Sod 3.375 gm/Sodium Chloride 110 ml @ 27.5 mls/hr EVERY 8 HOURS IVPB 10/02/16 14:00 10/09/16 13:59 10/04/16 13:15 Polyethylene Glycol (Miralax) 17 gm HSPRN PRN ORAL Constipation 10/02/16 07:00 11/01/16 06:59 Temazepam (Restoril) 15 mg HSPRN PRN ORAL Insomnia 10/02/16 07:00 10/09/16 06:59 10/04/16 01:08 Vancomycin HCl (Vanco rx to dose) 1 ea DAILY PRN MISC Per rx protocol 10/02/16 10:45 11/01/16 10:44 Vancomycin HCl/ Dextrose (Vancomycin/D5W) 275 ml @ 183.333 mls/hr Q24H IVPB 10/05/16 12:00 10/10/16 11:59 Zinc Oxide (Zinc Oxide) 1 applic DAILY TOPIC 10/03/16 15:00 11/02/16 14:59 10/04/16 08:37 Jess Carrillo M.D. Oct 04, 2016 14:29
[2016-10-04] MEDS: Fluconazole 100mg tab ORAL SCH (16:19)
[2016-10-04] MEDS: Gabapentin 300 MG/6 ML Soln ORAL SCH (17:46)
--- NOTE | 2016-10-04 22:44 | Pulmonology Progress Note ---
Assessment/Plan Problems: (1) G-tube site cellulitis (2) HTN (hypertension) (3) Cerebral palsy (4) Paraplegia (5) History of CVA (cerebrovascular accident) Assessment/Plan iv fluids IV antibiotics check cultures check electrolytes dvt prophylaxis Subjective Allergies: Coded Allergies: No Known Allergies (Verified , 11/07/09) Objective Last 24 Hour Vital Signs Date Time Temp Pulse Resp B/P Pulse Ox O2 Delivery O2 Flow Rate FiO2 10/04/16 20:00 97.5 51 20 100/58 99 Room Air 10/04/16 16:00 98.1 49 20 149/76 98 Room Air 10/04/16 11:51 97.3 56 18 106/61 100 Room Air 10/04/16 07:41 97.0 60 18 112/72 100 Room Air 10/04/16 06:11 97.2 10/04/16 04:04 97.2 59 18 124/63 100 Room Air 10/04/16 00:07 97.5 63 18 107/65 100 Room Air Intake and Output 10/03/16 10/04/16 19:00 07:00 Intake Total 297.5 ml 1282.530 ml Output Total 2650 ml 1800 ml Balance -2352.5 ml -517.470 ml Intake Oral 120 ml 120 ml IV Total 177.5 ml 1162.530 ml Output Urine Total 2650 ml 1800 ml # Bowel Movements 1 Microbiology Date/Time Source Procedure Growth Status 10/02/16 00:26 Blood Blood Culture - Preliminary NO GROWTH AFTER 24 HOURS Resulted 10/02/16 00:26 Blood Blood Culture - Preliminary NO GROWTH AFTER 24 HOURS Resulted 10/02/16 11:00 Other Gram Stain - Final Resulted 10/02/16 11:00 Wound Culture - Preliminary YEAST Resulted 10/02/16 11:00 Urine,Suprapubic Urine Culture - Preliminary Resulted 10/02/16 01:10 Urine,Clean Catch Urine Culture - Preliminary Gram Negative Bacillus 1 Gram Negative Bacillus 2 Gram Negative Bacillus 3 Resulted Laboratory Tests 10/04/16 05:05: White Blood Count 6.7, Red Blood Count 4.55L, Hemoglobin 14.1L, Hematocrit 41.1L , Mean Corpuscular Volume 90, Mean Corpuscular Hemoglobin 31.0, Mean Corpuscular Hemoglobin Concent 34.3, Red Cell Distribution Width 12.9, Platelet Count 148L, Mean Platelet Volume 7.0, Neutrophils (%) (Auto) 62.5, Lymphocytes ( %) (Auto) 26.7, Monocytes (%) (Auto) 7.0, Eosinophils (%) (Auto) 2.4, Basophils (%) (Auto) 1.5, Sodium Level 142, Potassium Level 4.0, Chloride Level 106, Carbon Dioxide Level 29, Anion Gap 7, Blood Urea Nitrogen 9, Creatinine 1.2, Estimat Glomerular Filtration Rate > 60, Glucose Level 96, Calcium Level 8.7 10/04/16 12:10: Vancomycin Level Trough 27.7H Current Medications Medications (Trade) Dose Ordered Sig/Erci Route PRN Reason Start Time Stop Time Status Last Admin Dose Admin Acetaminophen (Tylenol) 650 mg Q4H PRN ORAL fever 10/02/16 07:00 11/01/16 06:59 Al Hydroxide/Mg Hydroxide (Mylanta II) 30 ml Q6H PRN ORAL dyspepsia 10/02/16 07:00 11/01/16 06:59 Baclofen (Lioresal) 20 mg QID ORAL 10/02/16 09:00 11/01/16 08:59 10/04/16 21:05 Calcium Carbonate (OsCal D) 1 tab DAILY GT 10/02/16 09:00 11/01/16 08:59 10/04/16 08:36 Dextrose STAT PRN IV Hypoglycemia 10/02/16 07:00 11/01/16 06:59 Dextrose/Sodium Chloride (D5 0.45% NS) 1,000 ml @ 75 mls/hr [id number] IV 10/02/16 10:00 11/01/16 09:59 10/04/16 11:48 Diphenhydramine HCl (Benadryl) 25 mg Q6H PRN ORAL Itching/Pruritis 10/02/16 07:00 11/01/16 06:59 Fluconazole (Diflucan) 200 mg Q24H ORAL 10/04/16 15:00 10/11/16 14:59 10/04/16 16:19 Gabapentin (Neurontin) 300 mg THREE TIMES A DAY ORAL 10/04/16 18:00 11/03/16 17:59 10/04/16 17:46 Heparin Sodium (Porcine) (Heparin 5000 units/ml) 5,000 units EVERY 12 HOURS SUBQ 10/02/16 09:00 11/01/16 08:59 10/03/16 21:36 Lactulose (Cephulac) 20 gm DAILY ORAL 10/02/16 09:00 11/01/16 08:59 10/04/16 08:36 Midodrine (Pro-Amatine) 10 mg TID GT 10/02/16 09:00 11/01/16 08:59 10/04/16 17:46 Morphine Sulfate (Morphine Sulfate) 2 mg EVERY 4 HOURS PRN IVP severe Pain (Pain Scale 7-10) 10/02/16 07:00 10/09/16 06:59 10/04/16 22:30 Nitroglycerin (Ntg) 0.4 mg Q5M X 3 DOSES PRN SL Prn Chest Pain 10/02/16 07:00 11/01/16 06:59 Ondansetron HCl (Zofran) 4 mg Q6H PRN IVP Nausea & Vomiting 10/02/16 07:00 11/01/16 06:59 Pantoprazole 40 mg 40 mg DAILY ORAL 10/04/16 09:00 11/03/16 08:59 10/04/16 08:36 Piperacillin Sod/ Tazobactam Sod 3.375 gm/Sodium Chloride 110 ml @ 27.5 mls/hr EVERY 8 HOURS IVPB 10/02/16 14:00 10/09/16 13:59 10/04/16 21:05 Polyethylene Glycol (Miralax) 17 gm HSPRN PRN ORAL Constipation 10/02/16 07:00 11/01/16 06:59 Temazepam (Restoril) 15 mg HSPRN PRN ORAL Insomnia 10/02/16 07:00 10/09/16 06:59 10/04/16 01:08 Vancomycin HCl (Vanco rx to dose) 1 ea DAILY PRN MISC Per rx protocol 10/02/16 10:45 11/01/16 10:44 Vancomycin HCl/ Dextrose (Vancomycin/D5W) 275 ml @ 183.333 mls/hr Q24H IVPB 10/05/16 12:00 10/10/16 11:59 Zinc Oxide (Zinc Oxide) 1 applic DAILY TOPIC 10/03/16 15:00 11/02/16 14:59 10/04/16 08:37 LOIS PORTILLO Oct 04, 2016 22:44
[2016-10-05 03:44] VITALS: BP 85/56
[2016-10-05] MEDS: Piperacillin/Tazobactam 3.375 GM in NS 110 ML IVPB SCH ×3 (05:04→22:09)
[2016-10-05] MEDS: D5 1/2NS 1,000 ML IV SCH ×2 (05:04→18:16)
[2016-10-05 07:27] LABS: BASOPHILS % (AUTO) 0.9 % (0.0-2.0); EOSINOPHILS % (AUTO) 2.1 % (0.0-3.0); LYMPHOCYTES % (AUTO) 24.7 % (20.0-45.0); MEAN CORPUSCULAR HEMOGLOBIN 30.6 PG (27.0-31.0); MEAN CORPUSCULAR HGB CONC 33.6 G/DL (32.0-36.0); MEAN CORPUSCULAR VOLUME 91 FL (80-99); MEAN PLATELET VOLUME 7.7 FL (6.5-10.1); MONOCYTES % (AUTO) 7.3 % (1.0-10.0); PLATELET COUNT 140 K/UL (150-450); RED BLOOD COUNT 4.29 M/UL (4.70-6.10); RED CELL DISTRIBUTION WIDTH 13.1 % (11.6-14.8); WHITE BLOOD COUNT 6.6 K/UL (4.8-10.8)
[2016-10-05 08:00] VITALS: BP 98/66
[2016-10-05 08:03] LABS: ANION GAP 11 (5-15); CALCIUM 8.5 mg/dL (8.6-10.2); CARBON DIOXIDE 26 mEQ/L (20-30); CHLORIDE 106 mEQ/L (98-107); CREATININE 1.2 mg/dL (0.7-1.2); GLOMERULAR FILTRATION RATE > 60 mL/min (>60); HEMOLYSIS 7; POTASSIUM 3.7 mEQ/L (3.4-4.9); SODIUM 143 mEQ/L (135-145)
--- NOTE | 2016-10-05 08:10 | Consultation ---
History of Present Illness General Date patient seen: Oct 05, 2016 Present Illness Allergies: Coded Allergies: No Known Allergies (Verified , 11/07/09) Medication History Scheduled Amino Acids/Protein Hydrolys (Pro-Stat Liquid), 30 ML GT BID, (Reported) Baclofen* (Baclofen*), 20 MG ORAL QID, (Reported) Calcium Carbonate (Oyster Shell Calcium-Vit D Tab), 500 MG GT DAILY, (Reported) Cranberry Fruit Concentrate (Cranberry), 450 MG GT Q12HR, (Reported) Docusate Sodium (Docusate Sodium), 100 MG GT BID, (Reported) Famotidine (Pepcid), 20 MG ORAL BID, (Reported) Fludrocortisone Acetate (Fludrocortisone Acetate), 0.1 MG GT DAILY, (Reported) Gabapentin (Gabapentin), 300 MG GT THREE TIMES A DAY, (Reported) Midodrine* (Proamatine*), 10 MG GT TID, (Reported) Sertraline Hcl (Zoloft), 25 MG GT DAILY, (Reported) Temazepam* (Temazepam*), 30 MG GT BEDTIME, (Reported) Scheduled PRN Acetaminophen (Tylenol), 650 MG GT EVERY 6 HOURS PRN for Temp >101F, (Reported) Acetaminophen (Tylenol), 650 MG ORAL Q6H PRN for Prn Pain/Headache/Temp > 101, ( Reported) Bisacodyl* (Dulcolax*), 10 MG RECTAL DAILY PRN for Constipation, (Reported) Hydrocodone/Acetaminophen (Hydrocodon-Acetaminophn 10-325), 1 TAB GT Q4H PRN for Mild Pain (Pain Scale 1-3), (Reported) Hydrocodone/Acetaminophen (Hydrocodon-Acetaminophn 10-325), 2 TAB GT Q4H PRN for Moderate Pain (Pain Scale 4-6), (Reported) Ipratropium/Albuterol Sulfate (DuoNeb 0.5-3(2.5)mg/3ml), 3 ML HHN Q6HR PRN for Shortness of Breath, (Reported) Lorazepam* (Ativan*), 0.5 MG ORAL PRN PRN for For Anxiety, (Reported) Morphine Sulfate (Morphine 20mg/ml Oral Soln ud), 5 MG SL EVERY 4 HOURS PRN for Severe Pain (Pain Scale 7-10), (Reported) Na Phos,M-B/Na Phos,Di-Ba* (Fleet Enema*), 135 ML RECTAL DAILY PRN for Constipation, (Reported) Na Phos,M-B/Na Phos,Di-Ba* (Fleet Enema*), 118 ML RECTAL DAILY PRN for Constipation, (Reported) Oxycodone/Acetaminophen 5-325* (Percocet 5-325 Mg Tablet*), 1 TAB ORAL Q4H PRN for For Pain, (Reported) Sennosides (Senna), 8.6 MG PO for Constipation, (Reported) Temazepam* (Restoril*), 15 MG ORAL BEDTIME PRN for Insomnia, (Reported) Miscellaneous Medications Lactulose (Lactulose*), 30 ML ORAL, (Reported) Patient History Healthcare decision maker Resuscitation status Full Code Advanced Directive on File Physical Exam Last 24 Hour Vital Signs Date Time Temp Pulse Resp B/P Pulse Ox O2 Delivery O2 Flow Rate FiO2 10/05/16 03:44 98.2 88 20 85/56 97 Room Air 10/04/16 23:45 96.8 49 21 112/62 96 Room Air 10/04/16 23:00 97.5 10/04/16 20:00 97.5 51 20 100/58 99 Room Air 10/04/16 16:00 98.1 49 20 149/76 98 Room Air 10/04/16 11:51 97.3 56 18 106/61 100 Room Air Intake and Output 10/04/16 10/05/16 19:00 07:00 Intake Total 1295.0 ml 765.0 ml Output Total 1700 ml 1200 ml Balance -405.0 ml -435.0 ml Intake Oral 360 ml IV Total 935.0 ml 765.0 ml Output Urine Total 1700 ml 1200 ml # Voids 1 Laboratory Tests Test 10/04/16 12:10 10/05/16 05:05 Vancomycin Level Trough 27.7 ug/mL (5.0-12.0) H White Blood Count 6.6 K/UL (4.8-10.8) Red Blood Count 4.29 M/UL (4.70-6.10) L Hemoglobin 13.1 G/DL (14.2-18.0) L Hematocrit 39.1 % (42.0-52.0) L Mean Corpuscular Volume 91 FL (80-99) Mean Corpuscular Hemoglobin 30.6 PG (27.0-31.0) Mean Corpuscular Hemoglobin Concent 33.6 G/DL (32.0-36.0) Red Cell Distribution Width 13.1 % (11.6-14.8) Platelet Count 140 K/UL (150-450) L Mean Platelet Volume 7.7 FL (6.5-10.1) Neutrophils (%) (Auto) 65.0 % (45.0-75.0) Lymphocytes (%) (Auto) 24.7 % (20.0-45.0) Monocytes (%) (Auto) 7.3 % (1.0-10.0) Eosinophils (%) (Auto) 2.1 % (0.0-3.0) Basophils (%) (Auto) 0.9 % (0.0-2.0) Sodium Level 143 mEQ/L (135-145) Potassium Level 3.7 mEQ/L (3.4-4.9) Chloride Level 106 mEQ/L (98-107) Carbon Dioxide Level 26 mEQ/L (20-30) Anion Gap 11 (5-15) Blood Urea Nitrogen 8 mg/dL (7-23) Creatinine 1.2 mg/dL (0.7-1.2) Estimat Glomerular Filtration Rate > 60 mL/min (>60) Glucose Level 89 mg/dL (74-106) Calcium Level 8.5 mg/dL (8.6-10.2) L Height (Feet): 5 Height (Inches): 11.00 Weight (Pounds): 195 Medications Current Medications Medications (Trade) Dose Ordered Sig/Eric Route PRN Reason Start Time Stop Time Status Last Admin Dose Admin Acetaminophen (Tylenol) 650 mg Q4H PRN ORAL fever 10/02/16 07:00 11/01/16 06:59 Al Hydroxide/Mg Hydroxide (Mylanta II) 30 ml Q6H PRN ORAL dyspepsia 10/02/16 07:00 11/01/16 06:59 Baclofen (Lioresal) 20 mg QID ORAL 10/02/16 09:00 11/01/16 08:59 10/04/16 21:05 Calcium Carbonate (OsCal D) 1 tab DAILY GT 10/02/16 09:00 11/01/16 08:59 10/04/16 08:36 Dextrose STAT PRN IV Hypoglycemia 10/02/16 07:00 11/01/16 06:59 Dextrose/Sodium Chloride (D5 0.45% NS) 1,000 ml @ 75 mls/hr [id number] IV 10/02/16 10:00 11/01/16 09:59 10/05/16 05:04 Diphenhydramine HCl (Benadryl) 25 mg Q6H PRN ORAL Itching/Pruritis 10/02/16 07:00 11/01/16 06:59 Fluconazole (Diflucan) 200 mg Q24H ORAL 10/04/16 15:00 10/11/16 14:59 10/04/16 16:19 Gabapentin (Neurontin) 300 mg THREE TIMES A DAY ORAL 10/04/16 18:00 11/03/16 17:59 10/04/16 17:46 Heparin Sodium (Porcine) (Heparin 5000 units/ml) 5,000 units EVERY 12 HOURS SUBQ 10/02/16 09:00 11/01/16 08:59 10/03/16 21:36 Lactulose (Cephulac) 20 gm DAILY ORAL 10/02/16 09:00 11/01/16 08:59 10/04/16 08:36 Lidocaine (Lidoderm 5% PATCH) 1 patch DAILY TDERMAL 10/05/16 09:00 11/04/16 08:59 UNV Midodrine (Pro-Amatine) 10 mg TID GT 10/02/16 09:00 11/01/16 08:59 10/04/16 17:46 Morphine Sulfate (Morphine Sulfate) 2 mg EVERY 4 HOURS PRN IVP severe Pain (Pain Scale 7-10) 10/02/16 07:00 10/09/16 06:59 10/04/16 22:30 Nitroglycerin (Ntg) 0.4 mg Q5M X 3 DOSES PRN SL Prn Chest Pain 10/02/16 07:00 11/01/16 06:59 Ondansetron HCl (Zofran) 4 mg Q6H PRN IVP Nausea & Vomiting 10/02/16 07:00 11/01/16 06:59 Pantoprazole 40 mg 40 mg DAILY ORAL 10/04/16 09:00 11/03/16 08:59 10/04/16 08:36 Piperacillin Sod/ Tazobactam Sod 3.375 gm/Sodium Chloride 110 ml @ 27.5 mls/hr EVERY 8 HOURS IVPB 10/02/16 14:00 10/09/16 13:59 10/05/16 05:04 Polyethylene Glycol (Miralax) 17 gm HSPRN PRN ORAL Constipation 10/02/16 07:00 11/01/16 06:59 Temazepam (Restoril) 15 mg HSPRN PRN ORAL Insomnia 10/02/16 07:00 10/09/16 06:59 10/04/16 23:58 Vancomycin HCl (Vanco rx to dose) 1 ea DAILY PRN MISC Per rx protocol 10/02/16 10:45 11/01/16 10:44 Vancomycin HCl/ Dextrose (Vancomycin/D5W) 275 ml @ 183.333 mls/hr Q24H IVPB 10/05/16 12:00 10/10/16 11:59 Zinc Oxide (Zinc Oxide) 1 applic DAILY TOPIC 10/03/16 15:00 11/02/16 14:59 10/04/16 08:37 Assessment/Plan Assessment/Plan (1) History of CVA (2) Paraplegia (3) Thalamic pain syndrome Seem Dictated MICAH MELENDEZ Oct 05, 2016 08:10
[2016-10-05] MEDS: Lactulose 20gm/30ml UDC ORAL SCH (09:29)
[2016-10-05] MEDS: Midodrine 10mg tab GT SCH ×3 (09:29→18:12)
[2016-10-05] MEDS: Calcium Carbonate 500mg w/Vit D 200iu tab GT SCH (09:29)
[2016-10-05] MEDS: Gabapentin 300 MG/6 ML Soln ORAL SCH ×3 (09:29→18:19)
[2016-10-05] MEDS: Zinc Oxide Oint 2oz TOPIC SCH (09:30)
[2016-10-05] MEDS: Morphine Sulfate 2mg/ml Inj IVP PRN ×2 (09:32→14:54)
[2016-10-05] MEDS: Heparin 5000 units/ml inj SUBQ SCH ×2 (09:33→21:00)
[2016-10-05 11:55] VITALS: BP 129/69
[2016-10-05] MEDS ORDERED: Vancomycin 1250mg/D5W 275ml IVPB SCH ×2 (12:00)
[2016-10-05] MEDS: Fluconazole 100mg tab ORAL SCH (14:43)
--- NOTE | 2016-10-05 14:49 | General Progress Note ---
Assessment/Plan Problem List: (1) Malfunction of gastrostomy tube ICD Codes: K94.23 - Gastrostomy malfunction SNOMED: 783593148 (2) Neuropathy ICD Codes: G62.9 - Polyneuropathy, unspecified SNOMED: 061945724 (3) Sepsis ICD Codes: A41.9 - Sepsis, unspecified organism SNOMED: 28959953 (4) Paraplegia ICD Codes: G82.20 - Paraplegia, unspecified SNOMED: 28852362 (5) HTN (hypertension) ICD Codes: I10 - Essential (primary) hypertension SNOMED: 11567024 (6) History of CVA (cerebrovascular accident) ICD Codes: Z86.73 - Personal history of transient ischemic attack (TIA), and cerebral infarction without residual deficits SNOMED: 206021269 Status: stable, progressing, tolerating diet Assessment/Plan ot pt abx cbc bmp am pending abd stoma closure Subjective Constitutional: Reports: weakness Allergies: Coded Allergies: No Known Allergies (Verified , 11/07/09) All Systems: reviewed and negative except above Subjective calm in bed npo Objective Last 24 Hour Vital Signs Date Time Temp Pulse Resp B/P Pulse Ox O2 Delivery O2 Flow Rate FiO2 10/05/16 11:55 96.3 54 18 129/69 99 Room Air 10/05/16 08:00 97.2 69 19 98/66 97 Room Air 10/05/16 03:44 98.2 88 20 85/56 97 Room Air 10/04/16 23:45 96.8 49 21 112/62 96 Room Air 10/04/16 23:00 97.5 10/04/16 20:00 97.5 51 20 100/58 99 Room Air 10/04/16 16:00 98.1 49 20 149/76 98 Room Air Intake and Output 10/04/16 10/05/16 19:00 07:00 Intake Total 1295.0 ml 765.0 ml Output Total 1700 ml 1200 ml Balance -405.0 ml -435.0 ml Intake Oral 360 ml IV Total 935.0 ml 765.0 ml Output Urine Total 1700 ml 1200 ml # Voids 1 Laboratory Tests 10/05/16 05:05: White Blood Count 6.6, Red Blood Count 4.29L, Hemoglobin 13.1L, Hematocrit 39.1L , Mean Corpuscular Volume 91, Mean Corpuscular Hemoglobin 30.6, Mean Corpuscular Hemoglobin Concent 33.6, Red Cell Distribution Width 13.1, Platelet Count 140L, Mean Platelet Volume 7.7, Neutrophils (%) (Auto) 65.0, Lymphocytes ( %) (Auto) 24.7, Monocytes (%) (Auto) 7.3, Eosinophils (%) (Auto) 2.1, Basophils (%) (Auto) 0.9, Sodium Level 143, Potassium Level 3.7, Chloride Level 106, Carbon Dioxide Level 26, Anion Gap 11, Blood Urea Nitrogen 8, Creatinine 1.2, Estimat Glomerular Filtration Rate > 60, Glucose Level 89, Calcium Level 8.5L Height (Feet): 5 Height (Inches): 11.00 Weight (Pounds): 195 General Appearance: lethargic EENT: normal ENT inspection Neck: normal alignment Cardiovascular: normal peripheral pulses, normal rate, regular rhythm Respiratory/Chest: chest wall non-tender, lungs clear, normal breath sounds Abdomen: normal bowel sounds, non tender, soft Extremities: normal inspection Edema: no edema noted Arm (L), no edema noted Arm (R), no edema noted Leg (L), no edema noted Leg (R), no edema noted Pedal (L), no edema noted Pedal (R), no edema noted Generalized Neurologic: responsive, motor weakness Skin: normal pigmentation, warm/dry YAMEL DUMONT Oct 05, 2016 14:49
--- NOTE | 2016-10-05 15:13 | GI Progress Note ---
Assessment/Plan Problems: (1) Gastrostomy tube dysfunction ICD Codes: K94.23 - Gastrostomy malfunction SNOMED: 588223011 (2) Malfunction of gastrostomy tube ICD Codes: K94.23 - Gastrostomy malfunction SNOMED: 967533765 Status: unchanged Status Narrative Discussed with Dr. Martinez. Assessment/Plan s/p GT removal x 4-6 days >> site has massive drainage after PO intake - will place patient NPO + IVFs - colostomy bag over draining GT site - dc zinc oxide - consult surgical ppi fu labs Subjective Subjective GT leakage has gotten worse, especially after eating Objective Last 24 Hour Vital Signs Date Time Temp Pulse Resp B/P Pulse Ox O2 Delivery O2 Flow Rate FiO2 10/05/16 11:55 96.3 54 18 129/69 99 Room Air 10/05/16 08:00 97.2 69 19 98/66 97 Room Air 10/05/16 03:44 98.2 88 20 85/56 97 Room Air 10/04/16 23:45 96.8 49 21 112/62 96 Room Air 10/04/16 23:00 97.5 10/04/16 20:00 97.5 51 20 100/58 99 Room Air 10/04/16 16:00 98.1 49 20 149/76 98 Room Air Intake and Output 10/04/16 10/05/16 19:00 07:00 Intake Total 1295.0 ml 765.0 ml Output Total 1700 ml 1200 ml Balance -405.0 ml -435.0 ml Intake Oral 360 ml IV Total 935.0 ml 765.0 ml Output Urine Total 1700 ml 1200 ml # Voids 1 Laboratory Tests Test 10/05/16 05:05 White Blood Count 6.6 K/UL (4.8-10.8) Red Blood Count 4.29 M/UL (4.70-6.10) L Hemoglobin 13.1 G/DL (14.2-18.0) L Hematocrit 39.1 % (42.0-52.0) L Mean Corpuscular Volume 91 FL (80-99) Mean Corpuscular Hemoglobin 30.6 PG (27.0-31.0) Mean Corpuscular Hemoglobin Concent 33.6 G/DL (32.0-36.0) Red Cell Distribution Width 13.1 % (11.6-14.8) Platelet Count 140 K/UL (150-450) L Mean Platelet Volume 7.7 FL (6.5-10.1) Neutrophils (%) (Auto) 65.0 % (45.0-75.0) Lymphocytes (%) (Auto) 24.7 % (20.0-45.0) Monocytes (%) (Auto) 7.3 % (1.0-10.0) Eosinophils (%) (Auto) 2.1 % (0.0-3.0) Basophils (%) (Auto) 0.9 % (0.0-2.0) Sodium Level 143 mEQ/L (135-145) Potassium Level 3.7 mEQ/L (3.4-4.9) Chloride Level 106 mEQ/L (98-107) Carbon Dioxide Level 26 mEQ/L (20-30) Anion Gap 11 (5-15) Blood Urea Nitrogen 8 mg/dL (7-23) Creatinine 1.2 mg/dL (0.7-1.2) Estimat Glomerular Filtration Rate > 60 mL/min (>60) Glucose Level 89 mg/dL (74-106) Calcium Level 8.5 mg/dL (8.6-10.2) L Height (Feet): 5 Height (Inches): 11.00 Weight (Pounds): 195 General Appearance: no apparent distress, alert Cardiovascular: normal rate Respiratory/Chest: normal breath sounds, no respiratory distress Abdominal Exam: GT site - leakage Kelly Morales N.P. Oct 05, 2016 15:13
[2016-10-05 16:00] VITALS: BP 133/72
--- NOTE | 2016-10-05 16:41 | Infectious Diseases Prog Note ---
Assessment/Plan Problems: (1) UTI (lower urinary tract infection) Assessment & Plan: with E.coli, serratia, proteus and pseudomonas all sensitive to zosyn, will continue zosyn for 10 days to treat him for CAUTI (2) G-tube site cellulitis Assessment & Plan: with yeast infection, continue fluconazol for two weeks, continue local care (3) Septic shock Assessment & Plan: due to the above, improved on vancomycin and zosyn empirically, blood culture is negative will D/C vancomycin (4) Malfunction of gastrostomy tube Assessment & Plan: S/P replacement , continue local care, monitor site clinically Subjective Constitutional: Reports: no symptoms HEENT: Reports: no symptoms Respiratory: Reports: no symptoms Breasts: Reports: no symptoms Cardiovascular: Reports: no symptoms Gastrointestinal/Abdominal: Reports: no symptoms Genitourinary: Reports: no symptoms Neurologic: Reports: no symptoms Skin: Reports: no symptoms Endocrine: Reports: no symptoms Hematologic: Reports: no symptoms Allergies: Coded Allergies: No Known Allergies (Verified , 11/07/09) Objective Vital Signs Last 24 Hour Vital Signs Date Time Temp Pulse Resp B/P Pulse Ox O2 Delivery O2 Flow Rate FiO2 10/05/16 16:00 97.0 59 18 133/72 99 Room Air 10/05/16 11:55 96.3 54 18 129/69 99 Room Air 10/05/16 08:00 97.2 69 19 98/66 97 Room Air 10/05/16 03:44 98.2 88 20 85/56 97 Room Air 10/04/16 23:45 96.8 49 21 112/62 96 Room Air 10/04/16 23:00 97.5 10/04/16 20:00 97.5 51 20 100/58 99 Room Air Height (Feet): 5 Height (Inches): 11.00 Weight (Pounds): 195 General Appearance: WD/WN, no acute distress HEENT: normocephalic, atraumatic, anicteric, mucous membranes moist, supple, no JVD Respiratory/Chest: chest wall non-tender, lungs clear, normal breath sounds, no respiratory distress, no accessory muscle use Cardiovascular: normal peripheral pulses, normal rate, regular rhythm, no gallop/murmur, no JVD Abdomen: normal bowel sounds, soft, non tender, no organomegaly, non distended , no mass, no scars Extremities: no cyanosis, no clubbing Skin: no rash, no lesions, ulcers Lymphatic: no neck adenopathy, no groin adenopathy Laboratory Tests Test 10/05/16 05:05 White Blood Count 6.6 K/UL (4.8-10.8) Red Blood Count 4.29 M/UL (4.70-6.10) L Hemoglobin 13.1 G/DL (14.2-18.0) L Hematocrit 39.1 % (42.0-52.0) L Mean Corpuscular Volume 91 FL (80-99) Mean Corpuscular Hemoglobin 30.6 PG (27.0-31.0) Mean Corpuscular Hemoglobin Concent 33.6 G/DL (32.0-36.0) Red Cell Distribution Width 13.1 % (11.6-14.8) Platelet Count 140 K/UL (150-450) L Mean Platelet Volume 7.7 FL (6.5-10.1) Neutrophils (%) (Auto) 65.0 % (45.0-75.0) Lymphocytes (%) (Auto) 24.7 % (20.0-45.0) Monocytes (%) (Auto) 7.3 % (1.0-10.0) Eosinophils (%) (Auto) 2.1 % (0.0-3.0) Basophils (%) (Auto) 0.9 % (0.0-2.0) Sodium Level 143 mEQ/L (135-145) Potassium Level 3.7 mEQ/L (3.4-4.9) Chloride Level 106 mEQ/L (98-107) Carbon Dioxide Level 26 mEQ/L (20-30) Anion Gap 11 (5-15) Blood Urea Nitrogen 8 mg/dL (7-23) Creatinine 1.2 mg/dL (0.7-1.2) Estimat Glomerular Filtration Rate > 60 mL/min (>60) Glucose Level 89 mg/dL (74-106) Calcium Level 8.5 mg/dL (8.6-10.2) L Current Medications Medications (Trade) Dose Ordered Sig/Eric Route PRN Reason Start Time Stop Time Status Last Admin Dose Admin Acetaminophen (Tylenol) 650 mg Q4H PRN ORAL fever 10/02/16 07:00 11/01/16 06:59 Al Hydroxide/Mg Hydroxide (Mylanta II) 30 ml Q6H PRN ORAL dyspepsia 10/02/16 07:00 11/01/16 06:59 Baclofen (Lioresal) 20 mg QID ORAL 10/02/16 09:00 11/01/16 08:59 10/05/16 12:51 Calcium Carbonate (OsCal D) 1 tab DAILY GT 10/02/16 09:00 11/01/16 08:59 10/05/16 09:29 Dextrose STAT PRN IV Hypoglycemia 10/02/16 07:00 11/01/16 06:59 Dextrose/Sodium Chloride (D5 0.45% NS) 1,000 ml @ 75 mls/hr [id number] IV 10/02/16 10:00 11/01/16 09:59 10/05/16 05:04 Diphenhydramine HCl (Benadryl) 25 mg Q6H PRN ORAL Itching/Pruritis 10/02/16 07:00 11/01/16 06:59 Fluconazole (Diflucan) 200 mg Q24H ORAL 10/04/16 15:00 10/11/16 14:59 10/05/16 14:43 Gabapentin (Neurontin) 300 mg THREE TIMES A DAY ORAL 10/04/16 18:00 11/03/16 17:59 10/05/16 12:49 Heparin Sodium (Porcine) (Heparin 5000 units/ml) 5,000 units EVERY 12 HOURS SUBQ 10/02/16 09:00 11/01/16 08:59 10/03/16 21:36 Lactulose (Cephulac) 20 gm DAILY ORAL 10/02/16 09:00 11/01/16 08:59 10/05/16 09:29 Lidocaine (Lidoderm 5% PATCH) 1 patch DAILY TDERMAL 10/05/16 09:00 11/04/16 08:59 10/05/16 09:29 Midodrine (Pro-Amatine) 10 mg TID GT 10/02/16 09:00 11/01/16 08:59 10/05/16 12:49 Morphine Sulfate (Morphine Sulfate) 2 mg EVERY 4 HOURS PRN IVP severe Pain (Pain Scale 7-10) 10/02/16 07:00 10/09/16 06:59 10/05/16 14:54 Nitroglycerin (Ntg) 0.4 mg Q5M X 3 DOSES PRN SL Prn Chest Pain 10/02/16 07:00 11/01/16 06:59 Ondansetron HCl (Zofran) 4 mg Q6H PRN IVP Nausea & Vomiting 10/02/16 07:00 11/01/16 06:59 Pantoprazole (Protonix) 40 mg ACBREAKFAST ORAL 10/06/16 06:30 11/03/16 08:59 Piperacillin Sod/ Tazobactam Sod 3.375 gm/Sodium Chloride 110 ml @ 27.5 mls/hr EVERY 8 HOURS IVPB 10/02/16 14:00 10/09/16 13:59 10/05/16 14:36 Polyethylene Glycol (Miralax) 17 gm HSPRN PRN ORAL Constipation 10/02/16 07:00 11/01/16 06:59 Temazepam (Restoril) 15 mg HSPRN PRN ORAL Insomnia 10/02/16 07:00 10/09/16 06:59 10/04/16 23:58 Vancomycin HCl 1 ea 1 ea DAILY PRN MISC Per rx protocol 10/02/16 10:45 11/01/16 10:44 Vancomycin HCl/ Dextrose (Vancomycin/D5W) 275 ml @ 183.333 mls/hr Q24H IVPB 10/05/16 12:00 10/10/16 11:59 10/05/16 12:34 Jess Carrillo M.D. Oct 05, 2016 16:41
--- NOTE | 2016-10-05 16:46 | Pulmonology Progress Note ---
Assessment/Plan Problems: (1) G-tube site cellulitis (2) HTN (hypertension) (3) Cerebral palsy (4) Paraplegia (5) History of CVA (cerebrovascular accident) Assessment/Plan no new complians improving iv fluids IV antibiotics check cultures check electrolytes dvt prophylaxis Subjective ROS Limited/Unobtainable: No Constitutional: Reports: no symptoms HEENT: Repors: no symptoms Allergies: Coded Allergies: No Known Allergies (Verified , 11/07/09) Objective Last 24 Hour Vital Signs Date Time Temp Pulse Resp B/P Pulse Ox O2 Delivery O2 Flow Rate FiO2 10/05/16 16:00 97.0 59 18 133/72 99 Room Air 10/05/16 11:55 96.3 54 18 129/69 99 Room Air 10/05/16 08:00 97.2 69 19 98/66 97 Room Air 10/05/16 03:44 98.2 88 20 85/56 97 Room Air 10/04/16 23:45 96.8 49 21 112/62 96 Room Air 10/04/16 23:00 97.5 10/04/16 20:00 97.5 51 20 100/58 99 Room Air Intake and Output 10/04/16 10/05/16 19:00 07:00 Intake Total 1295.0 ml 765.0 ml Output Total 1700 ml 1200 ml Balance -405.0 ml -435.0 ml Intake Oral 360 ml IV Total 935.0 ml 765.0 ml Output Urine Total 1700 ml 1200 ml # Voids 1 General Appearance: WD/WN HEENT: normocephalic, atraumatic, PERRL Respiratory/Chest: chest wall non-tender, lungs clear Cardiovascular: normal peripheral pulses, normal rate Abdomen: normal bowel sounds, soft, non tender Genitourinary: normal external genitalia Skin: no rash 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 Lymphatic: no neck adenopathy Laboratory Tests 10/05/16 05:05: White Blood Count 6.6, Red Blood Count 4.29L, Hemoglobin 13.1L, Hematocrit 39.1L , Mean Corpuscular Volume 91, Mean Corpuscular Hemoglobin 30.6, Mean Corpuscular Hemoglobin Concent 33.6, Red Cell Distribution Width 13.1, Platelet Count 140L, Mean Platelet Volume 7.7, Neutrophils (%) (Auto) 65.0, Lymphocytes ( %) (Auto) 24.7, Monocytes (%) (Auto) 7.3, Eosinophils (%) (Auto) 2.1, Basophils (%) (Auto) 0.9, Sodium Level 143, Potassium Level 3.7, Chloride Level 106, Carbon Dioxide Level 26, Anion Gap 11, Blood Urea Nitrogen 8, Creatinine 1.2, Estimat Glomerular Filtration Rate > 60, Glucose Level 89, Calcium Level 8.5L Current Medications Medications (Trade) Dose Ordered Sig/Eric Route PRN Reason Start Time Stop Time Status Last Admin Dose Admin Acetaminophen (Tylenol) 650 mg Q4H PRN ORAL fever 10/02/16 07:00 11/01/16 06:59 Al Hydroxide/Mg Hydroxide (Mylanta II) 30 ml Q6H PRN ORAL dyspepsia 10/02/16 07:00 11/01/16 06:59 Baclofen (Lioresal) 20 mg QID ORAL 10/02/16 09:00 11/01/16 08:59 10/05/16 12:51 Calcium Carbonate (OsCal D) 1 tab DAILY GT 10/02/16 09:00 11/01/16 08:59 10/05/16 09:29 Dextrose STAT PRN IV Hypoglycemia 10/02/16 07:00 11/01/16 06:59 Dextrose/Sodium Chloride (D5 0.45% NS) 1,000 ml @ 75 mls/hr [id number] IV 10/02/16 10:00 11/01/16 09:59 10/05/16 05:04 Diphenhydramine HCl (Benadryl) 25 mg Q6H PRN ORAL Itching/Pruritis 10/02/16 07:00 11/01/16 06:59 Fluconazole (Diflucan) 200 mg Q24H ORAL 10/04/16 15:00 10/11/16 14:59 10/05/16 14:43 Gabapentin (Neurontin) 300 mg THREE TIMES A DAY ORAL 10/04/16 18:00 11/03/16 17:59 10/05/16 12:49 Heparin Sodium (Porcine) (Heparin 5000 units/ml) 5,000 units EVERY 12 HOURS SUBQ 10/02/16 09:00 11/01/16 08:59 10/03/16 21:36 Lactulose (Cephulac) 20 gm DAILY ORAL 10/02/16 09:00 11/01/16 08:59 10/05/16 09:29 Lidocaine (Lidoderm 5% PATCH) 1 patch DAILY TDERMAL 10/05/16 09:00 11/04/16 08:59 10/05/16 09:29 Midodrine (Pro-Amatine) 10 mg TID GT 10/02/16 09:00 11/01/16 08:59 10/05/16 12:49 Morphine Sulfate (Morphine Sulfate) 2 mg EVERY 4 HOURS PRN IVP severe Pain (Pain Scale 7-10) 10/02/16 07:00 10/09/16 06:59 10/05/16 14:54 Nitroglycerin (Ntg) 0.4 mg Q5M X 3 DOSES PRN SL Prn Chest Pain 10/02/16 07:00 11/01/16 06:59 Ondansetron HCl (Zofran) 4 mg Q6H PRN IVP Nausea & Vomiting 10/02/16 07:00 11/01/16 06:59 Pantoprazole (Protonix) 40 mg ACBREAKFAST ORAL 10/06/16 06:30 11/03/16 08:59 Piperacillin Sod/ Tazobactam Sod 3.375 gm/Sodium Chloride 110 ml @ 27.5 mls/hr EVERY 8 HOURS IVPB 10/02/16 14:00 10/09/16 13:59 10/05/16 14:36 Polyethylene Glycol (Miralax) 17 gm HSPRN PRN ORAL Constipation 10/02/16 07:00 11/01/16 06:59 Temazepam (Restoril) 15 mg HSPRN PRN ORAL Insomnia 10/02/16 07:00 10/09/16 06:59 10/04/16 23:58 LOIS PORTILLO Oct 05, 2016 16:46
--- NOTE | 2016-10-05 19:21 | Cardiology Progress Note ---
Assessment/Plan Assessment/Plan hypotesnion uti sepsis iv abx ivf responsive continue present management Subjective Cardiovascular: Denies: chest pain, lightheadedness, palpitations Respiratory: Denies: shortness of breath Gastrointestinal/Abdominal: Denies: abdominal pain Objective Last 24 Hour Vital Signs Date Time Temp Pulse Resp B/P Pulse Ox O2 Delivery O2 Flow Rate FiO2 10/05/16 16:00 97.0 59 18 133/72 99 Room Air 10/05/16 11:55 96.3 54 18 129/69 99 Room Air 10/05/16 08:00 97.2 69 19 98/66 97 Room Air 10/05/16 03:44 98.2 88 20 85/56 97 Room Air 10/04/16 23:45 96.8 49 21 112/62 96 Room Air 10/04/16 23:00 97.5 10/04/16 20:00 97.5 51 20 100/58 99 Room Air General Appearance: alert Cardiovascular: normal rate, regular rhythm Respiratory/Chest: lungs clear Abdomen: non tender, other - ostoemy Extremities: no swelling Intake and Output 10/04/16 10/05/16 19:00 07:00 Intake Total 1295.0 ml 765.0 ml Output Total 1700 ml 1200 ml Balance -405.0 ml -435.0 ml Intake Oral 360 ml IV Total 935.0 ml 765.0 ml Output Urine Total 1700 ml 1200 ml # Voids 1 Laboratory Tests Test 10/05/16 05:05 White Blood Count 6.6 K/UL (4.8-10.8) Red Blood Count 4.29 M/UL (4.70-6.10) L Hemoglobin 13.1 G/DL (14.2-18.0) L Hematocrit 39.1 % (42.0-52.0) L Mean Corpuscular Volume 91 FL (80-99) Mean Corpuscular Hemoglobin 30.6 PG (27.0-31.0) Mean Corpuscular Hemoglobin Concent 33.6 G/DL (32.0-36.0) Red Cell Distribution Width 13.1 % (11.6-14.8) Platelet Count 140 K/UL (150-450) L Mean Platelet Volume 7.7 FL (6.5-10.1) Neutrophils (%) (Auto) 65.0 % (45.0-75.0) Lymphocytes (%) (Auto) 24.7 % (20.0-45.0) Monocytes (%) (Auto) 7.3 % (1.0-10.0) Eosinophils (%) (Auto) 2.1 % (0.0-3.0) Basophils (%) (Auto) 0.9 % (0.0-2.0) Sodium Level 143 mEQ/L (135-145) Potassium Level 3.7 mEQ/L (3.4-4.9) Chloride Level 106 mEQ/L (98-107) Carbon Dioxide Level 26 mEQ/L (20-30) Anion Gap 11 (5-15) Blood Urea Nitrogen 8 mg/dL (7-23) Creatinine 1.2 mg/dL (0.7-1.2) Estimat Glomerular Filtration Rate > 60 mL/min (>60) Glucose Level 89 mg/dL (74-106) Calcium Level 8.5 mg/dL (8.6-10.2) DOMINGA DUDLEY Oct 05, 2016 19:21
[2016-10-05 19:53] VITALS: BP 149/80
[2016-10-05] MEDS ORDERED: D5 1/2NS 1000ml IV ONE (21:15)
[2016-10-05 23:46] VITALS: BP 138/76
--- NOTE | 2016-10-06 02:00 | Consultation ---
DATE OF CONSULTATION: 10/05/2016 PAIN MANAGEMENT CONSULTATION CONSULTING PHYSICIAN: Dimitri Bowers M.D. REFERRING PHYSICIAN: Rickey Bullard D.O. PHYSICIAN CARBURETOR SPECIALIST: Pierce Cote CHIEF COMPLAINT: Generalized body pain. HISTORY OF PRESENT ILLNESS: This is a 61-year-old male who has been seen on the Med/Surg floor of [facility] for initial comprehensive pain management consultation. 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 G-tube had been removed four days prior. However, now has essentially some drainage, waiting to be seen by surgeon. At this point, the patient is complaining of pain and the patient is receiving Percocet 5/325 mg one tablet every six hours. However, due to the interactions with certain antifungal, was started on morphine 2 mg IV every four hours as needed. The patient is comfortable at this time with the current medication regimen. He has no other complaints. PAST MEDICAL HISTORY: Hypertension, CVA, anemia, coronary artery disease, GERD, depression, anxiety, quadriplegia, cerebral palsy, and urinary retention. PAST SURGICAL HISTORY: G-tube placement and suprapubic catheter placement. SOCIAL HISTORY: Denies smoking tobacco, drinking alcohol, or drug abuse. ALLERGIES: No known drug allergies. MEDICATIONS: Zosyn, ProStat, baclofen, oyster shell calcium, cranberry, fludrocortisone, Neurontin, Zoloft, temazepam, Tylenol, [place], DuoNeb, Ativan, morphine, Percocet, senna, and Restoril. REVIEW OF SYSTEMS: Denies rash, fever, chills, sweating, dizziness, drowsiness, blurred vision, sore throat, or change in hearing. No shortness of breath or chest pain. No nausea, vomiting, or diarrhea. He is complaining of generalized body pain. PHYSICAL EXAMINATION: GENERAL: Alert, awake, and oriented. VITAL SIGNS: Blood pressure 85/56, heart rate is 88, oxygen saturation is 97%, respiratory rate is 23, and temperature is 98.2 degrees Fahrenheit. Height is 5 feet 11 inches. HEENT: PERRLA. NECK: Range of motion is decreased due to patients pain and condition. LUNGS: Decreased breath sounds bilaterally. HEART: S1 and S2 regular. ABDOMEN: Drainage noted. Tenderness to palpation. BACK: Range of motion is decreased on flexion and extension with tenderness to paraspinous and trapezius muscles. EXTREMITIES: Lower extremity range of motion is decreased. No cyanosis. No clubbing. Sensory is reduced. Reflexes are unobtainable. 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 The patient will continue on morphine 2 mg IV every four hours as needed for severe pain. The patient was d/w Dr. Bowers and he concurred. Thank you very much for the courtesy of this consultation. Dimitri Bowers M.D. EMILEE Cote DR: MEDINA JOB#: [id number] CC: [place]
[2016-10-06] MEDS: Morphine Sulfate 2mg/ml Inj IVP PRN ×3 (02:48→14:47)
[2016-10-06 04:16] VITALS: BP 102/57
[2016-10-06] MEDS: Piperacillin/Tazobactam 3.375 GM in NS 110 ML IVPB SCH ×2 (05:32→15:11)
[2016-10-06] MEDS: D5 1/2NS 1,000 ML IV SCH (06:50)
[2016-10-06 07:03] LABS: BASOPHILS % (AUTO) 0.8 % (0.0-2.0); EOSINOPHILS % (AUTO) 2.4 % (0.0-3.0); LYMPHOCYTES % (AUTO) 15.2 % (20.0-45.0); MEAN CORPUSCULAR HEMOGLOBIN 30.2 PG (27.0-31.0); MEAN CORPUSCULAR HGB CONC 33.6 G/DL (32.0-36.0); MEAN CORPUSCULAR VOLUME 90 FL (80-99); MEAN PLATELET VOLUME 7.3 FL (6.5-10.1); MONOCYTES % (AUTO) 7.6 % (1.0-10.0); NEUTROPHILS % (AUTO) 74.1 % (45.0-75.0); PLATELET COUNT 140 K/UL (150-450); RED BLOOD COUNT 4.42 M/UL (4.70-6.10); RED CELL DISTRIBUTION WIDTH 12.8 % (11.6-14.8); WHITE BLOOD COUNT 8.1 K/UL (4.8-10.8)
[2016-10-06 07:15] LABS: ANION GAP 7 (5-15); CALCIUM 8.7 mg/dL (8.6-10.2); CARBON DIOXIDE 27 mEQ/L (20-30); CHLORIDE 109 mEQ/L (98-107); GLOMERULAR FILTRATION RATE > 60 mL/min (>60); HEMOLYSIS 5; POTASSIUM 3.6 mEQ/L (3.4-4.9); SODIUM 143 mEQ/L (135-145)
[2016-10-06 08:51] VITALS: BP 109/58
[2016-10-06] MEDS: Midodrine 10mg tab GT SCH ×2 (09:00→15:11)
[2016-10-06] MEDS: Calcium Carbonate 500mg w/Vit D 200iu tab GT SCH (09:00)
[2016-10-06] MEDS: Heparin 5000 units/ml inj SUBQ SCH (09:00)
[2016-10-06] MEDS: Lactulose 20gm/30ml UDC ORAL SCH ×2 (09:00→15:10)
[2016-10-06] MEDS: Gabapentin 300 MG/6 ML Soln ORAL SCH ×2 (09:00→15:12)
--- NOTE | 2016-10-06 09:00 | General Progress Note ---
Assessment/Plan Assessment/Plan (1) History of CVA (2) Paraplegia (3) Thalamic pain syndrome Patient will be continued on Morphine and Neurontin. Pt was d/w Dr. Bowers and he concurred. Subjective Date patient seen: Oct 06, 2016 Time patient seen: 07:15 - am Allergies: Coded Allergies: No Known Allergies (Verified , 11/07/09) Subjective REVIEW OF SYSTEMS: Denies rash, fever, chills, sweating, dizziness, drowsiness, blurred vision, sore throat, or change in hearing. No shortness of breath or chest pain. No nausea, vomiting, or diarrhea. He is complaining of generalized body pain. SUBJECTIVE: Patient continues to c/o pain which has been reduced on the Morphine. He continues to be on the antifungal medication. Objective Last 24 Hour Vital Signs Date Time Temp Pulse Resp B/P Pulse Ox O2 Delivery O2 Flow Rate FiO2 10/06/16 08:51 97.2 47 19 109/58 99 10/06/16 04:16 97.0 51 20 102/57 98 Room Air 10/05/16 23:46 97.9 61 20 138/76 99 Room Air 10/05/16 19:53 97.0 46 18 149/80 100 Room Air 10/05/16 16:00 97.0 59 18 133/72 99 Room Air 10/05/16 11:55 96.3 54 18 129/69 99 Room Air Intake and Output 10/05/16 10/06/16 19:00 07:00 Intake Total 1350.0 ml 587.5 ml Output Total 2200 ml 2352 ml Balance -850.0 ml -1764.5 ml Intake Oral 360 ml IV Total 990.0 ml 587.5 ml Output Urine Total 2100 ml 2300 ml Stool Total 2 ml Gastric Drainage Total 100 ml 50 ml # Voids 1 Laboratory Tests 10/06/16 04:50: White Blood Count 8.1, Red Blood Count 4.42L, Hemoglobin 13.4L, Hematocrit 39.7L , Mean Corpuscular Volume 90, Mean Corpuscular Hemoglobin 30.2, Mean Corpuscular Hemoglobin Concent 33.6, Red Cell Distribution Width 12.8, Platelet Count 140L, Mean Platelet Volume 7.3, Neutrophils (%) (Auto) 74.1, Lymphocytes ( %) (Auto) 15.2L, Monocytes (%) (Auto) 7.6, Eosinophils (%) (Auto) 2.4, Basophils (%) (Auto) 0.8, Sodium Level 143, Potassium Level 3.6, Chloride Level 109H, Carbon Dioxide Level 27, Anion Gap 7, Blood Urea Nitrogen 6L, Creatinine 1.0, Estimat Glomerular Filtration Rate > 60, Glucose Level 99, Calcium Level 8.7 Height (Feet): 5 Height (Inches): 11.00 Weight (Pounds): 195 Objective GENERAL: Alert, awake, and oriented. NECK: Range of motion is decreased LUNGS: Decreased breath sounds bilaterally. HEART: S1 and S2 regular. ABDOMEN: Tenderness to palpation. EXTREMITIES: Lower extremity range of motion is decreased. NEURO: No changes. MICAH MELENDEZ Oct 06, 2016 09:00
[2016-10-06] MEDS ORDERED: D5 1/2NS 1000ml IV ONE (10:40)
--- NOTE | 2016-10-06 11:37 | Consultation ---
History of Present Illness General Date patient seen: Oct 06, 2016 Chief Complaint: Malfunctioning Gastric Tube Reason for Consultation: leaking prior g tube site Present Illness HPI 61M with multiple medical problems as listed below here for medical management. fortunately patient is now able to tolerate oral diet and no longer needs g tube. G tube was removed 7 days ago and since has had persistent leakage of gastric contents with meals. Surgery called to evaluate. Allergies: Coded Allergies: No Known Allergies (Verified , 11/07/09) Medication History Scheduled Amino Acids/Protein Hydrolys (Pro-Stat Liquid), 30 ML GT BID, (Reported) Baclofen* (Baclofen*), 20 MG ORAL QID, (Reported) Calcium Carbonate (Oyster Shell Calcium-Vit D Tab), 500 MG GT DAILY, (Reported) Cranberry Fruit Concentrate (Cranberry), 450 MG GT Q12HR, (Reported) Docusate Sodium (Docusate Sodium), 100 MG GT BID, (Reported) Famotidine (Pepcid), 20 MG ORAL BID, (Reported) Fludrocortisone Acetate (Fludrocortisone Acetate), 0.1 MG GT DAILY, (Reported) Gabapentin (Gabapentin), 300 MG GT THREE TIMES A DAY, (Reported) Midodrine* (Proamatine*), 10 MG GT TID, (Reported) Sertraline Hcl (Zoloft), 25 MG GT DAILY, (Reported) Temazepam* (Temazepam*), 30 MG GT BEDTIME, (Reported) Scheduled PRN Acetaminophen (Tylenol), 650 MG GT EVERY 6 HOURS PRN for Temp >101F, (Reported) Acetaminophen (Tylenol), 650 MG ORAL Q6H PRN for Prn Pain/Headache/Temp > 101, ( Reported) Bisacodyl* (Dulcolax*), 10 MG RECTAL DAILY PRN for Constipation, (Reported) Hydrocodone/Acetaminophen (Hydrocodon-Acetaminophn 10-325), 1 TAB GT Q4H PRN for Mild Pain (Pain Scale 1-3), (Reported) Hydrocodone/Acetaminophen (Hydrocodon-Acetaminophn 10-325), 2 TAB GT Q4H PRN for Moderate Pain (Pain Scale 4-6), (Reported) Ipratropium/Albuterol Sulfate (DuoNeb 0.5-3(2.5)mg/3ml), 3 ML HHN Q6HR PRN for Shortness of Breath, (Reported) Lorazepam* (Ativan*), 0.5 MG ORAL PRN PRN for For Anxiety, (Reported) Morphine Sulfate (Morphine 20mg/ml Oral Soln ud), 5 MG SL EVERY 4 HOURS PRN for Severe Pain (Pain Scale 7-10), (Reported) Na Phos,M-B/Na Phos,Di-Ba* (Fleet Enema*), 135 ML RECTAL DAILY PRN for Constipation, (Reported) Na Phos,M-B/Na Phos,Di-Ba* (Fleet Enema*), 118 ML RECTAL DAILY PRN for Constipation, (Reported) Oxycodone/Acetaminophen 5-325* (Percocet 5-325 Mg Tablet*), 1 TAB ORAL Q4H PRN for For Pain, (Reported) Sennosides (Senna), 8.6 MG PO for Constipation, (Reported) Temazepam* (Restoril*), 15 MG ORAL BEDTIME PRN for Insomnia, (Reported) Miscellaneous Medications Lactulose (Lactulose*), 30 ML ORAL, (Reported) Patient History History Provided By: Patient, Medical Record, PMD Healthcare decision maker Resuscitation status Full Code Advanced Directive on File Past Medical/Surgical History Past Medical/Surgical History: (1) Kidney stone (2) Acute renal insufficiency (3) Leukocytosis (4) Septicemia (5) Visit for feeding tube placement (6) Neuropathy (7) History of gastrostomy tube placement (8) Paraplegia (9) Cerebral palsy (10) Sepsis (11) HTN (hypertension) (12) History of CVA (cerebrovascular accident) (13) Hx of spinal cord injury (14) Hydronephrosis (15) Urinary tract infectious disease (16) UTI (lower urinary tract infection) (17) UTI (lower urinary tract infection) (18) Malfunction of gastrostomy tube (19) G-tube site cellulitis (20) Septic shock (21) Sepsis (22) Malfunction of gastrostomy tube (23) Gastrostomy tube dysfunction Review of Systems Constitutional: Denies: chills, fever, malaise, no symptoms, other, see HPI, sweats, weakness Eye: Denies: acuity changes, blurred vision, discharge, double vision, eye pain , no symptoms, nose congestion, nose pain, other, see HPI, tearing ENT: Denies: ear discharge, ear pain, hearing loss, mouth pain, nasal discharge , no symptoms, nose congestion, nose pain, other, see HPI, throat pain, throat swelling Respiratory: Denies: VANN, cough, no symptoms, orthopnea, other, see HPI, shortness of breath, sputum, stridor, wheezing Cardiovascular: Denies: PND, chest pain, edema, no symptoms, other, palpitations, see HPI, syncope Gastrointestinal: Denies: abdominal pain, constipation, diarrhea, hematemesis, melena, nausea, no symptoms, other, see HPI, vomiting Genitourinary: Denies: discharge, dysuria, frequency, hematuria, incontinence, no symptoms, other, pain, retention, see HPI, urgency, vag bleed/dc Musculoskeletal: Denies: back pain, gout, joint pain, joint swelling, muscle pain, muscle stiffness, no symptoms, other, see HPI Skin: Denies: change in color, change in hair/nails, dryness, lesions, no symptoms, other, rash, see HPI Psychiatric: Denies: HI, SI, anxiety, depressed feelings, emotional problems, hallucinations, no symptoms, other, prior hx, see HPI Neurological: Denies: dizziness, focal weakness, headache, no symptoms, numbness, other, paresthesia, see HPI, seizure, syncope, tingling, tremors Endocrine: Denies: excessive sweating, flushing, increased thirst, increased urine, intolerance to temperature, no symptoms, other, see HPI, unexplained weight loss Hematologic/Lymphatic: Denies: anemia, blood clots, diathesis, easy bleeding, easy bruising, no symptoms, other, see HPI, swollen glands Physical Exam General Appearance: no apparent distress HEENT: atraumatic, PERRL Neck: normal inspection Respiratory/Chest: normal breath sounds, no respiratory distress, no accessory muscle use Cardiovascular/Chest: normal peripheral pulses, normal rate, regular rhythm Abdomen: normal bowel sounds, non tender, soft, no organomegaly, no mass, other - g tube site with small opening and leaking of contents. Extremities: other - cannot open hands, limited motion Neurologic: alert, oriented x 3 Last 24 Hour Vital Signs Date Time Temp Pulse Resp B/P Pulse Ox O2 Delivery O2 Flow Rate FiO2 10/06/16 08:51 97.2 47 19 109/58 99 10/06/16 04:16 97.0 51 20 102/57 98 Room Air 10/05/16 23:46 97.9 61 20 138/76 99 Room Air 10/05/16 19:53 97.0 46 18 149/80 100 Room Air 10/05/16 16:00 97.0 59 18 133/72 99 Room Air 10/05/16 11:55 96.3 54 18 129/69 99 Room Air Intake and Output 10/05/16 10/06/16 19:00 07:00 Intake Total 1350.0 ml 587.5 ml Output Total 2200 ml 2352 ml Balance -850.0 ml -1764.5 ml Intake Oral 360 ml IV Total 990.0 ml 587.5 ml Output Urine Total 2100 ml 2300 ml Stool Total 2 ml Gastric Drainage Total 100 ml 50 ml # Voids 1 Laboratory Tests Test 10/06/16 04:50 White Blood Count 8.1 K/UL (4.8-10.8) Red Blood Count 4.42 M/UL (4.70-6.10) L Hemoglobin 13.4 G/DL (14.2-18.0) L Hematocrit 39.7 % (42.0-52.0) L Mean Corpuscular Volume 90 FL (80-99) Mean Corpuscular Hemoglobin 30.2 PG (27.0-31.0) Mean Corpuscular Hemoglobin Concent 33.6 G/DL (32.0-36.0) Red Cell Distribution Width 12.8 % (11.6-14.8) Platelet Count 140 K/UL (150-450) L Mean Platelet Volume 7.3 FL (6.5-10.1) Neutrophils (%) (Auto) 74.1 % (45.0-75.0) Lymphocytes (%) (Auto) 15.2 % (20.0-45.0) L Monocytes (%) (Auto) 7.6 % (1.0-10.0) Eosinophils (%) (Auto) 2.4 % (0.0-3.0) Basophils (%) (Auto) 0.8 % (0.0-2.0) Sodium Level 143 mEQ/L (135-145) Potassium Level 3.6 mEQ/L (3.4-4.9) Chloride Level 109 mEQ/L (98-107) H Carbon Dioxide Level 27 mEQ/L (20-30) Anion Gap 7 (5-15) Blood Urea Nitrogen 6 mg/dL (7-23) L Creatinine 1.0 mg/dL (0.7-1.2) Estimat Glomerular Filtration Rate > 60 mL/min (>60) Glucose Level 99 mg/dL (74-106) Calcium Level 8.7 mg/dL (8.6-10.2) Height (Feet): 5 Height (Inches): 11.00 Weight (Pounds): 195 Medications Current Medications Medications (Trade) Dose Ordered Sig/Eric Route PRN Reason Start Time Stop Time Status Last Admin Dose Admin Acetaminophen (Tylenol) 650 mg Q4H PRN ORAL fever 10/02/16 07:00 11/01/16 06:59 Al Hydroxide/Mg Hydroxide (Mylanta II) 30 ml Q6H PRN ORAL dyspepsia 10/02/16 07:00 11/01/16 06:59 Baclofen (Lioresal) 20 mg QID ORAL 10/02/16 09:00 11/01/16 08:59 10/05/16 20:34 Calcium Carbonate (OsCal D) 1 tab DAILY GT 10/02/16 09:00 11/01/16 08:59 10/05/16 09:29 Dextrose STAT PRN IV Hypoglycemia 10/02/16 07:00 11/01/16 06:59 Dextrose/Sodium Chloride (D5 0.45% NS) 1,000 ml @ 75 mls/hr [id number] IV 10/02/16 10:00 11/01/16 09:59 10/05/16 18:16 Diphenhydramine HCl (Benadryl) 25 mg Q6H PRN ORAL Itching/Pruritis 10/02/16 07:00 11/01/16 06:59 Fluconazole (Diflucan) 200 mg Q24H ORAL 10/04/16 15:00 10/11/16 14:59 10/05/16 14:43 Gabapentin (Neurontin) 300 mg THREE TIMES A DAY ORAL 10/04/16 18:00 11/03/16 17:59 10/05/16 18:19 Heparin Sodium (Porcine) (Heparin 5000 units/ml) 5,000 units EVERY 12 HOURS SUBQ 10/02/16 09:00 11/01/16 08:59 10/03/16 21:36 Lactulose (Cephulac) 20 gm DAILY ORAL 10/02/16 09:00 11/01/16 08:59 10/05/16 09:29 Lidocaine (Lidoderm 5% PATCH) 1 patch DAILY TDERMAL 10/05/16 09:00 11/04/16 08:59 10/05/16 09:29 Midodrine (Pro-Amatine) 10 mg TID GT 10/02/16 09:00 11/01/16 08:59 10/05/16 18:12 Morphine Sulfate (Morphine Sulfate) 2 mg EVERY 4 HOURS PRN IVP severe Pain (Pain Scale 7-10) 10/02/16 07:00 10/09/16 06:59 10/06/16 09:26 Nitroglycerin (Ntg) 0.4 mg Q5M X 3 DOSES PRN SL Prn Chest Pain 10/02/16 07:00 11/01/16 06:59 Ondansetron HCl (Zofran) 4 mg Q6H PRN IVP Nausea & Vomiting 10/02/16 07:00 11/01/16 06:59 Pantoprazole (Protonix) 40 mg ACBREAKFAST ORAL 10/06/16 06:30 11/03/16 08:59 10/06/16 05:55 Piperacillin Sod/ Tazobactam Sod 3.375 gm/Sodium Chloride 110 ml @ 27.5 mls/hr EVERY 8 HOURS IVPB 10/02/16 14:00 10/09/16 13:59 10/06/16 05:32 Polyethylene Glycol (Miralax) 17 gm HSPRN PRN ORAL Constipation 10/02/16 07:00 11/01/16 06:59 Temazepam (Restoril) 15 mg HSPRN PRN ORAL Insomnia 10/02/16 07:00 10/09/16 06:59 10/04/16 23:58 Assessment/Plan Problem List: (1) Gastrostomy tube dysfunction Assessment & Plan: 61M with persistent open g tube site. G tube was removed 7 days ago and still with output. output decreasing and site seems to be slowly closing. Could potentially place suture for closure but given that it is slowly closing on its own would monitor for now. Okay for diet Xeroform and dressings placed over g tube site. if site obstructed will heal faster and close will monitor. if does not close in 1-2 weeks can perform procedure. ICD Codes: K94.23 - Gastrostomy malfunction SNOMED: 044588600 Status: stable DungRamesh whitleyya Oct 06, 2016 11:37
--- NOTE | 2016-10-06 12:23 | GI Progress Note ---
Assessment/Plan Problems: (1) Gastrostomy tube dysfunction ICD Codes: K94.23 - Gastrostomy malfunction SNOMED: 230468306 (2) Malfunction of gastrostomy tube ICD Codes: K94.23 - Gastrostomy malfunction SNOMED: 501749675 Status: stable, unchanged Status Narrative Discussed with Dr. Martinez. Assessment/Plan s/p GT removal x 6-7 days days >> site has massive drainage after PO intake fu surgical recs >> Xeroform and pressure dressings placed over g tube site PRN. (If site obstructed will heal faster and close will monitor. if does not close in 1-2 weeks can perform procedure.) ok for DC per GI standpoint adv diet ppi fu labs Subjective Subjective GT continues to leak Objective Last 24 Hour Vital Signs Date Time Temp Pulse Resp B/P Pulse Ox O2 Delivery O2 Flow Rate FiO2 10/06/16 08:51 97.2 47 19 109/58 99 10/06/16 04:16 97.0 51 20 102/57 98 Room Air 10/05/16 23:46 97.9 61 20 138/76 99 Room Air 10/05/16 19:53 97.0 46 18 149/80 100 Room Air 10/05/16 16:00 97.0 59 18 133/72 99 Room Air Intake and Output 10/05/16 10/06/16 18:59 06:59 Intake Total 1452.5 ml 587.5 ml Output Total 2200 ml 2352 ml Balance -747.5 ml -1764.5 ml Intake Oral 360 ml IV Total 1092.5 ml 587.5 ml Output Urine Total 2100 ml 2300 ml Stool Total 2 ml Gastric Drainage Total 100 ml 50 ml # Voids 1 Laboratory Tests Test 10/06/16 04:50 White Blood Count 8.1 K/UL (4.8-10.8) Red Blood Count 4.42 M/UL (4.70-6.10) L Hemoglobin 13.4 G/DL (14.2-18.0) L Hematocrit 39.7 % (42.0-52.0) L Mean Corpuscular Volume 90 FL (80-99) Mean Corpuscular Hemoglobin 30.2 PG (27.0-31.0) Mean Corpuscular Hemoglobin Concent 33.6 G/DL (32.0-36.0) Red Cell Distribution Width 12.8 % (11.6-14.8) Platelet Count 140 K/UL (150-450) L Mean Platelet Volume 7.3 FL (6.5-10.1) Neutrophils (%) (Auto) 74.1 % (45.0-75.0) Lymphocytes (%) (Auto) 15.2 % (20.0-45.0) L Monocytes (%) (Auto) 7.6 % (1.0-10.0) Eosinophils (%) (Auto) 2.4 % (0.0-3.0) Basophils (%) (Auto) 0.8 % (0.0-2.0) Sodium Level 143 mEQ/L (135-145) Potassium Level 3.6 mEQ/L (3.4-4.9) Chloride Level 109 mEQ/L (98-107) H Carbon Dioxide Level 27 mEQ/L (20-30) Anion Gap 7 (5-15) Blood Urea Nitrogen 6 mg/dL (7-23) L Creatinine 1.0 mg/dL (0.7-1.2) Estimat Glomerular Filtration Rate > 60 mL/min (>60) Glucose Level 99 mg/dL (74-106) Calcium Level 8.7 mg/dL (8.6-10.2) Height (Feet): 5 Height (Inches): 11.00 Weight (Pounds): 195 General Appearance: no apparent distress, alert Cardiovascular: normal rate Respiratory/Chest: normal breath sounds Abdominal Exam: GT site - leaking Kelly Morales N.P. Oct 06, 2016 12:23
[2016-10-06 12:42] VITALS: BP 100/63
--- NOTE | 2016-10-06 14:19 | General Progress Note ---
Assessment/Plan Problem List: (1) Malfunction of gastrostomy tube ICD Codes: K94.23 - Gastrostomy malfunction SNOMED: 125510014 (2) Neuropathy ICD Codes: G62.9 - Polyneuropathy, unspecified SNOMED: 440233309 (3) Sepsis ICD Codes: A41.9 - Sepsis, unspecified organism SNOMED: 89314812 (4) Paraplegia ICD Codes: G82.20 - Paraplegia, unspecified SNOMED: 90549242 (5) HTN (hypertension) ICD Codes: I10 - Essential (primary) hypertension SNOMED: 66723465 (6) History of CVA (cerebrovascular accident) ICD Codes: Z86.73 - Personal history of transient ischemic attack (TIA), and cerebral infarction without residual deficits SNOMED: 803749664 Status: stable, progressing, tolerating diet Assessment/Plan ot pt abx dc to snf Subjective Constitutional: Reports: weakness Allergies: Coded Allergies: No Known Allergies (Verified , 11/07/09) All Systems: reviewed and negative except above Subjective calm in bed eating Objective Last 24 Hour Vital Signs Date Time Temp Pulse Resp B/P Pulse Ox O2 Delivery O2 Flow Rate FiO2 10/06/16 12:42 98.1 53 19 100/63 100 Room Air 10/06/16 08:51 97.2 47 19 109/58 99 10/06/16 04:16 97.0 51 20 102/57 98 Room Air 10/05/16 23:46 97.9 61 20 138/76 99 Room Air 10/05/16 19:53 97.0 46 18 149/80 100 Room Air 10/05/16 16:00 97.0 59 18 133/72 99 Room Air Intake and Output 10/05/16 10/06/16 19:00 07:00 Intake Total 1350.0 ml 587.5 ml Output Total 2200 ml 2352 ml Balance -850.0 ml -1764.5 ml Intake Oral 360 ml IV Total 990.0 ml 587.5 ml Output Urine Total 2100 ml 2300 ml Stool Total 2 ml Gastric Drainage Total 100 ml 50 ml # Voids 1 Laboratory Tests 10/06/16 04:50: White Blood Count 8.1, Red Blood Count 4.42L, Hemoglobin 13.4L, Hematocrit 39.7L , Mean Corpuscular Volume 90, Mean Corpuscular Hemoglobin 30.2, Mean Corpuscular Hemoglobin Concent 33.6, Red Cell Distribution Width 12.8, Platelet Count 140L, Mean Platelet Volume 7.3, Neutrophils (%) (Auto) 74.1, Lymphocytes ( %) (Auto) 15.2L, Monocytes (%) (Auto) 7.6, Eosinophils (%) (Auto) 2.4, Basophils (%) (Auto) 0.8, Sodium Level 143, Potassium Level 3.6, Chloride Level 109H, Carbon Dioxide Level 27, Anion Gap 7, Blood Urea Nitrogen 6L, Creatinine 1.0, Estimat Glomerular Filtration Rate > 60, Glucose Level 99, Calcium Level 8.7 Height (Feet): 5 Height (Inches): 11.00 Weight (Pounds): 195 General Appearance: alert EENT: normal ENT inspection Neck: normal alignment Cardiovascular: normal peripheral pulses, normal rate, regular rhythm Respiratory/Chest: chest wall non-tender, lungs clear, normal breath sounds Abdomen: normal bowel sounds, non tender, soft Extremities: normal inspection Edema: no edema noted Arm (L), no edema noted Arm (R), no edema noted Leg (L), no edema noted Leg (R), no edema noted Pedal (L), no edema noted Pedal (R), no edema noted Generalized Neurologic: responsive, motor weakness Skin: normal pigmentation, warm/dry YAMEL DUMONT Oct 06, 2016 14:19
[2016-10-06] MEDS: Fluconazole 100mg tab ORAL SCH (15:10)
[2016-10-06 16:07] VITALS: BP 103/61
--- NOTE | 2016-10-06 18:00 | Infectious Diseases Prog Note ---
Assessment/Plan Problems: (1) UTI (lower urinary tract infection) Assessment & Plan: with E.coli, serratia, proteus and pseudomonas all sensitive to zosyn, will continue zosyn for 10 days to treat him for CAUTI (2) G-tube site cellulitis Assessment & Plan: with yeast infection, continue fluconazol for two weeks, continue local care (3) Septic shock Assessment & Plan: due to the above, improved on vancomycin and zosyn empirically, blood culture is negative will D/C vancomycin (4) Malfunction of gastrostomy tube Assessment & Plan: S/P replacement , continue local care, monitor site clinically Subjective Constitutional: Reports: no symptoms HEENT: Reports: no symptoms Respiratory: Reports: no symptoms Breasts: Reports: no symptoms Cardiovascular: Reports: no symptoms Gastrointestinal/Abdominal: Reports: no symptoms Genitourinary: Reports: no symptoms Neurologic: Reports: no symptoms Psychiatric: Reports: no symptoms Skin: Reports: no symptoms Endocrine: Reports: no symptoms Hematologic: Reports: no symptoms Allergies: Coded Allergies: No Known Allergies (Verified , 11/07/09) Objective Vital Signs Last 24 Hour Vital Signs Date Time Temp Pulse Resp B/P Pulse Ox O2 Delivery O2 Flow Rate FiO2 10/06/16 16:07 98.1 62 19 103/61 99 Room Air 10/06/16 12:42 98.1 53 19 100/63 100 Room Air 10/06/16 08:51 97.2 47 19 109/58 99 10/06/16 04:16 97.0 51 20 102/57 98 Room Air 10/05/16 23:46 97.9 61 20 138/76 99 Room Air 10/05/16 19:53 97.0 46 18 149/80 100 Room Air Height (Feet): 5 Height (Inches): 11.00 Weight (Pounds): 195 General Appearance: WD/WN, no acute distress HEENT: normocephalic, atraumatic, anicteric, mucous membranes moist Respiratory/Chest: chest wall non-tender, lungs clear, normal breath sounds, no respiratory distress, no accessory muscle use Cardiovascular: normal peripheral pulses, normal rate, regular rhythm, no gallop/murmur, no JVD Abdomen: normal bowel sounds, soft, non tender, no organomegaly, non distended , no mass, no scars Extremities: no cyanosis, no clubbing Skin: no rash, no lesions, ulcers Laboratory Tests Test 10/06/16 04:50 White Blood Count 8.1 K/UL (4.8-10.8) Red Blood Count 4.42 M/UL (4.70-6.10) L Hemoglobin 13.4 G/DL (14.2-18.0) L Hematocrit 39.7 % (42.0-52.0) L Mean Corpuscular Volume 90 FL (80-99) Mean Corpuscular Hemoglobin 30.2 PG (27.0-31.0) Mean Corpuscular Hemoglobin Concent 33.6 G/DL (32.0-36.0) Red Cell Distribution Width 12.8 % (11.6-14.8) Platelet Count 140 K/UL (150-450) L Mean Platelet Volume 7.3 FL (6.5-10.1) Neutrophils (%) (Auto) 74.1 % (45.0-75.0) Lymphocytes (%) (Auto) 15.2 % (20.0-45.0) L Monocytes (%) (Auto) 7.6 % (1.0-10.0) Eosinophils (%) (Auto) 2.4 % (0.0-3.0) Basophils (%) (Auto) 0.8 % (0.0-2.0) Sodium Level 143 mEQ/L (135-145) Potassium Level 3.6 mEQ/L (3.4-4.9) Chloride Level 109 mEQ/L (98-107) H Carbon Dioxide Level 27 mEQ/L (20-30) Anion Gap 7 (5-15) Blood Urea Nitrogen 6 mg/dL (7-23) L Creatinine 1.0 mg/dL (0.7-1.2) Estimat Glomerular Filtration Rate > 60 mL/min (>60) Glucose Level 99 mg/dL (74-106) Calcium Level 8.7 mg/dL (8.6-10.2) Jess Carrillo M.D. Oct 06, 2016 18:00
[2016-10-06] MEDS ORDERED: PROTONIX40 MG ORAL ×3 (18:03→18:13)
[2016-10-06] MEDS ORDERED: PROTONIX20 MG (18:04)
[2016-10-06] MEDS ORDERED: LIDODERM700 M1 TOPIC (18:13)
[2016-10-06] MEDS ORDERED: DIFLUCAN200 MG ORAL (18:14)
[2016-10-06] MEDS ORDERED: NEURONTIN100 MG ORAL (18:14)
--- NOTE | 2016-10-06 19:17 | Pulmonology Progress Note ---
Assessment/Plan Problems: (1) G-tube site cellulitis (2) HTN (hypertension) (3) Cerebral palsy (4) Paraplegia (5) History of CVA (cerebrovascular accident) Assessment/Plan no new complians improving iv fluids IV antibiotics check cultures check electrolytes dvt prophylaxis Subjective Allergies: Coded Allergies: No Known Allergies (Verified , 11/07/09) Objective Last 24 Hour Vital Signs Date Time Temp Pulse Resp B/P Pulse Ox O2 Delivery O2 Flow Rate FiO2 10/06/16 16:07 98.1 62 19 103/61 99 Room Air 10/06/16 12:42 98.1 53 19 100/63 100 Room Air 10/06/16 08:51 97.2 47 19 109/58 99 10/06/16 04:16 97.0 51 20 102/57 98 Room Air 10/05/16 23:46 97.9 61 20 138/76 99 Room Air 10/05/16 19:53 97.0 46 18 149/80 100 Room Air Intake and Output 10/05/16 10/06/16 19:00 07:00 Intake Total 1350.0 ml 587.5 ml Output Total 2200 ml 2352 ml Balance -850.0 ml -1764.5 ml Intake Oral 360 ml IV Total 990.0 ml 587.5 ml Output Urine Total 2100 ml 2300 ml Stool Total 2 ml Gastric Drainage Total 100 ml 50 ml # Voids 1 Laboratory Tests 10/06/16 04:50: White Blood Count 8.1, Red Blood Count 4.42L, Hemoglobin 13.4L, Hematocrit 39.7L , Mean Corpuscular Volume 90, Mean Corpuscular Hemoglobin 30.2, Mean Corpuscular Hemoglobin Concent 33.6, Red Cell Distribution Width 12.8, Platelet Count 140L, Mean Platelet Volume 7.3, Neutrophils (%) (Auto) 74.1, Lymphocytes ( %) (Auto) 15.2L, Monocytes (%) (Auto) 7.6, Eosinophils (%) (Auto) 2.4, Basophils (%) (Auto) 0.8, Sodium Level 143, Potassium Level 3.6, Chloride Level 109H, Carbon Dioxide Level 27, Anion Gap 7, Blood Urea Nitrogen 6L, Creatinine 1.0, Estimat Glomerular Filtration Rate > 60, Glucose Level 99, Calcium Level 8.7 LOIS PORTILLO Oct 06, 2016 19:17
--- NOTE | 2016-10-07 12:50 | Diagnostic Imaging Report ---
APPROVED REPORT CPT Code: 64342 Present Symptoms Comments: Nerve Pain BILATERAL: Imaging reveals a patent deep venous system bilaterally. There is no evidence of thrombus within the left common femoral, superficial femoral, popliteal or tibial segments. The greater saphenous veins are also within normal limits. Doppler indicates normal spontaneous flow within these segments. The right common femoral vein was not imaged due to severe pain.
--- NOTE | 2016-10-08 08:00 | Discharge Summary 2 SIG ---
DATE OF ADMISSION: 10/02/2016 DATE OF DISCHARGE: 10/06/2016 CONSULTANTS: 1. Osvaldo Lundberg M.D. 2. Jess Carrillo M.D. 3. Moy Martinez M.D. 4. Aneudy Montana M.D. 5. Dimitri Bowers M.D. 6. Real Campos M.D. 7. Marquise Kaufman M.D. BRIEF HOSPITAL COURSE: The patient is a 61-year-old male, who came from nursing facility,presented to ED, complaining of malfunction of the suprapubic tube with drainage. On arrival to ED, old suprapubic catheter was removed without any difficulty and a new 16-Kos[place] catheter was inserted without difficulty. He was hypotensive at ED, which initially responded to fluid challenge. Lab test has been stable. No leukocytosis. Stable hemoglobin and hematocrit. Troponin was negative. UA with evidence of urinary tract infection and had history of urinary tract infection Pseudomonas and Proteus in the past. He was started on empiric antibiotics and was admitted for further management. He was evaluated by urologist. Suprapubic tube continued to function, recommend to change every four to six weeks. He was started on Zosyn empirically. He had a recent G-tube removed four days prior to admission and noted draining around the tube. GI was consulted. There was minimal drainage noted and a small skin tear around the stoma. G-tube site care done. Recommended to apply zinc oxide daily. The patient passed swallow evaluation and was tolerating regular diet. He was given bowel regimen consisting of lactulose and Colace and was given proton pump inhibitors. Due to persistent leakage around the gastric contents with meal, surgical evaluation was done. The patient no longer needs a G-tube. There was massive drainage on G-tube site after p.o. intake. The patient was placed on NPO with IV hydration. Surgical evaluation was done per Surgery recommendation. G-tube that was removed seven days ago still with output and seems to be slowly closing. Advised to apply Xeroform and dressing over G-tube site if in one to two weeks may undergo suturing for closure. He also complained of pain and was given morphine and Neurontin by Pain Management. Urine culture showed growth of E. coli, Serratia, Proteus, and Pseudomonas, all sensitive to Zosyn, was advised to continue Zosyn for 10 more days to treat him for CAUTI. Blood culture was negative. Vancomycin was discontinued. Wound culture showed growth of yeast infection and was given fluconazole. Advised to continue for two weeks. The patient was eventually discharged to SNF. FINAL DIAGNOSES: 1. Gastrostomy tube site cellulitis, status post removal seven days prior to admission. 2. Malfunction of suprapubic tube, status post replacement. 3. Gastrostomy tube site cellulitis. 4. Urinary tract infection with Escherichia coli, Serratia, Proteus, and Pseudomonas - catheter-associated urinary tract infection. 5. Septic shock. 6. Paraplegia. 7. Old cerebrovascular accident. 8. Hypertension. 9. Polyneuropathy. Rickey Bullard D.O. I have been assigned to dictate discharge summary on this account and I was not involved in the patient's management. Eleanor Cheng N.P. DR: Dandy JOB#: [id number] CC:
== END 2016-10-06 17:08 | DRG 720 ==
LOC: ENRESERVTM → ENRESERVDT → EDBD 23:52 → EMR 23:59 → EDBEDREQ 10-02 02:01 → 4W 10-02 02:15 → EDBEDREQ 10-02 02:16
PROC: 0T2BX0Z Change Drainage Device in Bladder, External Approach (ICD-10-PCS; principal; 2016-10-02)
DX: A41.9 Sepsis, unspecified organism (principal); R65.21 Severe sepsis with septic shock; K94.22 Gastrostomy infection; G82.20 Paraplegia, unspecified; G62.9 Polyneuropathy, unspecified; T83.010A Breakdown (mechanical) of cystostomy catheter, initial encounter; K21.9 Gastro-esophageal reflux disease without esophagitis; L03.311 Cellulitis of abdominal wall; Y83.3 Surgical operation with formation of external stoma as the cause of abnormal reaction of the patient, or of later complication, without mention of misadventure at the time of the procedure; N39.0 Urinary tract infection, site not specified; I10 Essential (primary) hypertension; B96.20 Unspecified Escherichia coli [E. coli] as the cause of diseases classified elsewhere; B96.4 Proteus (mirabilis) (morganii) as the cause of diseases classified elsewhere; B96.5 Pseudomonas (aeruginosa) (mallei) (pseudomallei) as the cause of diseases classified elsewhere; B96.89 Other specified bacterial agents as the cause of diseases classified elsewhere; Z86.73 Personal history of transient ischemic attack (TIA), and cerebral infarction without residual deficits; G80.9 Cerebral palsy, unspecified; R33.8 Other retention of urine; I25.10 Atherosclerotic heart disease of native coronary artery without angina pectoris; Z43.1 Encounter for attention to gastrostomy; F41.9 Anxiety disorder, unspecified; Y84.6 Urinary catheterization as the cause of abnormal reaction of the patient, or of later complication, without mention of misadventure at the time of the procedure; F32.9 Major depressive disorder, single episode, unspecified; G89.0 Central pain syndrome
CPT/HCPCS: 36415; 71010; 80048; 80053; 80202; 81003; 82150; 82550; 82553; 83605; 83690; 84484; 85025; 85730; 87040; 87070; 87086; 87181; 87205; 93970

== ENCOUNTER 2016-11-13 03:03 | Emergency (ER) | payer MEDICAID ==
[~2016-11-13] VITALS: Ht 167.6 cm; Wt 78.0 kg
[~2016-11-13 03:03] MED LIST changes: +ATIVAN0.5 MG ORAL; +DIFLUCAN200 MG ORAL; +LACTULOSE20 GM/301 ORAL; +LIDODERM700 M1 TOPIC; +NEURONTIN100 MG ORAL; +PERCOCET 5-3251 EACH ORAL; +PROTONIX20 MG; +PROTONIX40 MG ORAL; +RESTORIL15 MG ORAL; +SENNA8.6 M2 PO; +TYLENOL325 MG ORAL
[2016-11-13 03:04] VITALS: BP 99/64
[2016-11-13] MEDS ORDERED: Norco 5mg/325mg tab ORAL ONE (03:15)
--- NOTE | 2016-11-13 03:49 | Emergency Room Report ---
History of Present Illness General Chief Complaint: General Complaint Source: Patient, Medical Record, EMS Present Illness HPI Is a 61-year-old male coming from a fdc. He has multiple medical problem including G-tube and suprapubic catheter. He presents with chief complaint of suprapubic pain and dislodgment of his suprapubic catheter. Pain is 9/10 localized to the lower quadrant suprapubic area. No fever chills and no nausea no vomiting. Onset this evening. No bleeding. Allergies: Coded Allergies: No Known Allergies (Verified , 11/07/09) Patient History Past Medical History: see triage record, old chart reviewed Past Surgical History: other Pertinent Family History: none Social History: Denies: smoking Immunizations: other Reviewed Nursing Documentation: PMH: Agreed, PSxH: Agreed Nursing Documentation-PMH Hx Cardiac Problems: Yes - anemia Hx Hypertension: Yes Hx Cancer: No Hx Gastrointestinal Problems: Yes - GERD,GASTROSTOMY,OBSTRUCTIVE REFLUX UROPATHY History Of Psychiatric Problem: Yes - major depressive disorder Hx Neurological Problems: Yes - SPASTIC QUADRIPLEGIC CEREBRAL PALSY Hx Cerebrovascular Accident: Yes Hx Cerebral Palsy: Yes Hx Paralysis: Yes - Paraplegic Hx Speech Problem: Yes Hx Numbness: Yes Hx Weakness: Yes Hx Neurologic Surgery: Yes Review of Systems Eye: Denies: blurred vision, eye pain ENT: Denies: ear pain, nose congestion, throat swelling Respiratory: Denies: cough, shortness of breath Cardiovascular: Denies: chest pain, palpitations Gastrointestinal: Denies: abdominal pain, diarrhea, nausea, vomiting Musculoskeletal: Denies: back pain, joint pain Skin: Denies: rash Neurological: Denies: headache, numbness Endocrine: Denies: increased thirst, increased urine Hematologic/Lymphatic: Denies: easy bruising All Other Systems: negative except mentioned in HPI Physical Exam Vital Signs Date Time Temp Pulse Resp B/P Pulse Ox O2 Delivery O2 Flow Rate FiO2 11/13/16 02:58 99.0 77 16 99/64 92 Room Air vitals unremarkable Sp02 EP Interpretation: reviewed, normal General Appearance: well appearing, no apparent distress, alert Head: normocephalic, atraumatic Eyes: bilateral eye EOMI, bilateral eye PERRL ENT: hearing grossly normal, normal pharynx Neck: full range of motion, supple, no meningismus Respiratory: chest non-tender, lungs clear, normal breath sounds Cardiovascular #1: regular rate, rhythm, no murmur Gastrointestinal: normal bowel sounds, non tender, no mass, no organomegaly, no bruit, non-distended Genitourinary: other - Suprapubic cath areas clean with slight oozing of urine. Musculoskeletal: back normal, other - Contracted Neurologic: alert, oriented x3 Psychiatric: mood/affect normal Skin: warm/dry Procedures Additional Procedure Procedure Narrative Procedure: Suprapubic Catheter placement Indication: Dislodgment of suprapubic catheter. Description: Under sterile condition, I placed a 16 [place] Island[place] catheter in his suprapubic area. It went in easily. Is no complication. Bladder distention improved also. Patient tolerated procedure without any problem. Medical Decision Making Diagnostic Impression: Primary Impression: Encounter for suprapubic catheter care Additional Impression: UTI (lower urinary tract infection) ER Course Patient with suprapubic catheter dislodgment. A new one placed without any difficulty. Antibiotics given. We'll discharge home. Last Vital Signs Date Time Temp Pulse Resp B/P Pulse Ox O2 Delivery O2 Flow Rate FiO2 11/13/16 03:04 99.0 16 99/64 92 Room Air 11/13/16 02:58 77 Status: improved Disposition: ER SNF Condition: Stable Scripts Levofloxacin* (LEVAQUIN*) 500 Mg Tablet 500 MG ORAL DAILY, #7 TAB Prov: NATHANIEL DODGE M.D. 11/13/16 Additional Instructions: Followup with your DrSelam in 7 days. Return if symptom worsen. NATHANIEL DODGE M.D. Nov 13, 2016 03:48
[2016-11-13 04:00] LABS: APPEARANCE,URINE SLIGHTLY CLOUDY; KETONES,URINE NEGATIVE (NEGATIVE); LEUKOCYTE ESTERASE ,URINE 3+ (NEGATIVE); NITRITE,URINE NEGATIVE (NEGATIVE); PH,URINE 8 (4.5-8.0); PROTEIN,URINE 1+ (NEGATIVE); UROBILINOGEN,URINE NORMAL MG/DL (0.0-1.0)
[2016-11-13 04:18] LABS: WBC,URINE 20-30 /HPF (0 - 0)
[2016-11-13 04:19] LABS: AMORPHOUS SEDIMENT,UR MODERATE /LPF; BACTERIA,URINE MODERATE /HPF; SQUAMOUS EPITHELIAL CELL,UR FEW /LPF (NONE/OCC)
[2016-11-13 04:22] VITALS: BP 113/61
[2016-11-13] MEDS ORDERED: LEVAQUIN500 MG ORAL (04:37)
[2016-11-13 04:55] VITALS: BP 113/61
== END 2016-11-13 04:55 ==
LOC: EDBD 03:03 → EMR 03:49
DX: Z46.6 Encounter for fitting and adjustment of urinary device (principal); N39.0 Urinary tract infection, site not specified; I10 Essential (primary) hypertension; K21.9 Gastro-esophageal reflux disease without esophagitis; Z86.73 Personal history of transient ischemic attack (TIA), and cerebral infarction without residual deficits; G82.20 Paraplegia, unspecified
CPT/HCPCS: 51702; 81003; 87086; 87181; 96374; 99284; J0696

== ENCOUNTER 2017-01-04 13:36 | Inpatient (IN) | payer MEDICAID ==
[~2017-01-04] VITALS: Ht 167.6 cm; Wt 81.6 kg
[2017-01-04 13:36] VITALS: BP 95/62
[~2017-01-04 13:36] MED LIST changes: +LEVAQUIN500 MG ORAL; -MIDODRINE HCL10 MG GT; +MIDODRINE HCL10 MG ORAL; -OSCAL D500 MG GT; +OSCAL D500 MG ORAL
--- NOTE | 2017-01-04 14:01 | Emergency Room Report ---
History of Present Illness General Chief Complaint: Back Pain-No Injury Source: Patient, Medical Record Present Illness HPI Patient 61-year-old male who presented after increased back pain. Patient gradual onset of symptoms. Patient prior history of paraplegia. Patient was noted to have or had recent surgery for G-tube. Patient was noted to have suprapubic catheter indwelling. He had been sent to by [facility] after increased pain not relieved by Percocet. Allergies: Coded Allergies: No Known Allergies (Verified , 11/07/09) Patient History Reviewed Nursing Documentation: PMH: Agreed, PSxH: Agreed Nursing Documentation-PMH Past Medical History: No History, Except For Hx Cardiac Problems: Yes - anemia Hx Hypertension: Yes Hx Cancer: No Hx Gastrointestinal Problems: Yes - GERD,GASTROSTOMY,OBSTRUCTIVE REFLUX UROPATHY Hx Neurological Problems: Yes - SPASTIC QUADRIPLEGIC CEREBRAL PALSY Hx Cerebrovascular Accident: Yes Hx Cerebral Palsy: Yes Hx Paralysis: Yes - Paraplegic Hx Speech Problem: Yes Hx Numbness: Yes Hx Weakness: Yes Hx Neurologic Surgery: Yes Review of Systems All Other Systems: negative except mentioned in HPI Physical Exam Vital Signs Date Time Temp Pulse Resp B/P (MAP) Pulse Ox O2 Delivery O2 Flow Rate FiO2 01/04/17 13:30 97.9 66 14 90/60 99 Room Air Sp02 EP Interpretation: reviewed, normal General Appearance: normal inspection, well appearing, no apparent distress, alert, GCS 15 Head: atraumatic ENT: normal ENT inspection, hearing grossly normal, normal voice Neck: normal inspection, full range of motion, supple, no bony tend Respiratory: normal inspection, lungs clear, normal breath sounds, no respiratory distress, no retraction, no wheezing Cardiovascular #1: regular rate, rhythm, no edema Gastrointestinal: normal inspection, normal bowel sounds, non tender, soft, no guarding, no hernia Genitourinary: no CVA tenderness Musculoskeletal: normal inspection, decreased range of motion Neurologic: normal inspection, alert, responsive, speech normal, motor weakness - bilateral lower extremities Psychiatric: normal inspection, judgement/insight normal, mood/affect normal Skin: normal inspection, normal color, no rash Medical Decision Making Diagnostic Impression: Primary Impression: UTI (lower urinary tract infection) Additional Impressions: Back pain Hx of spinal cord injury Intractable pain ER Course Patient presented for back pain. Differential diagnosis included but was not limited to herniated disc, cauda equina syndrome, abdominal aortic aneurysm, perforated ulcer, spinal epidural abscess, spinal stenosis, lumbar fracture, metastatic lesion, pyelonephritisurinalysis showed evidence of urinary tract infection. The patient started on IV antibiotics.CT imaging of the lumbar spine was ordered due to patient's continued pain.A CT imaging of the lumbar spine showed no evidence of acute fracture. Patient was started on IV antibiotics. Dr. Rickey Bullard was contacted for inpatient management due to persistent severe pain, and infection. Labs Test 01/04/17 14:10 01/04/17 14:20 Urine Color Pale yellow Urine Appearance Turbid Urine pH 8 (4.5-8.0) Urine Specific [place] 1.010 (1.005-1.035) Urine Protein 2+ (NEGATIVE) Urine Glucose (UA) Negative (NEGATIVE) Urine Ketones Negative (NEGATIVE) Urine Occult Blood 4+ (NEGATIVE) Urine Nitrite Positive (NEGATIVE) Urine Bilirubin Negative (NEGATIVE) Urine Urobilinogen Normal MG/DL (0.0-1.0) Urine Leukocyte Esterase 3+ (NEGATIVE) Urine RBC 5-10 /HPF (0 - 0) Urine WBC 60-80 /HPF (0 - 0) Urine Squamous Epithelial Cells Few /LPF (NONE/OCC) Urine Triple Phosphate Crystals Few /LPF (NONE) Urine Amorphous Sediment Many /LPF (NONE) Urine Bacteria Many /HPF (NONE) White Blood Count 6.6 K/UL (4.8-10.8) Red Blood Count 4.65 M/UL (4.70-6.10) Hemoglobin 14.5 G/DL (14.2-18.0) Hematocrit 41.5 % (42.0-52.0) Mean Corpuscular Volume 89 FL (80-99) Mean Corpuscular Hemoglobin 31.1 PG (27.0-31.0) Mean Corpuscular Hemoglobin Concent 34.9 G/DL (32.0-36.0) Red Cell Distribution Width 12.4 % (11.6-14.8) Platelet Count 197 K/UL (150-450) Mean Platelet Volume 6.5 FL (6.5-10.1) Neutrophils (%) (Auto) 64.5 % (45.0-75.0) Lymphocytes (%) (Auto) 23.8 % (20.0-45.0) Monocytes (%) (Auto) 6.4 % (1.0-10.0) Eosinophils (%) (Auto) 4.1 % (0.0-3.0) Basophils (%) (Auto) 1.2 % (0.0-2.0) Prothrombin Time 10.1 SEC (9.30-11.50) Prothromb Time International Ratio 1.0 (0.9-1.1) Activated Partial Thromboplast Time 28 SEC (23-33) Sodium Level 134 mEQ/L (135-145) Potassium Level 4.3 mEQ/L (3.4-4.9) Chloride Level 95 mEQ/L (98-107) Carbon Dioxide Level 28 mEQ/L (20-30) Anion Gap 11 (5-15) Blood Urea Nitrogen 10 mg/dL (7-23) Creatinine 1.0 mg/dL (0.7-1.2) Estimat Glomerular Filtration Rate > 60 mL/min (>60) Glucose Level 114 mg/dL (74-106) Lactic Acid Level 1.10 mmol/L (0.66-2.22) Calcium Level 9.8 mg/dL (8.6-10.2) Total Bilirubin 0.4 mg/dL (0.0-1.2) Aspartate Amino Transf (AST/SGOT) 23 U/L (5-40) Alanine Aminotransferase (ALT/SGPT) 23 U/L (3-41) Alkaline Phosphatase 109 U/L (40-129) Total Creatine Kinase 42 U/L (38-174) Creatine Kinase MB 1.6 ng/mL (< 6.7) Creatine Kinase MB Relative Index 3.8 Troponin I < 0.30 ng/mL (<=0.30) Total Protein 7.9 g/dL (6.6-8.7) Albumin 4.4 g/dL (3.5-5.2) Globulin 3.5 g/dL Albumin/Globulin Ratio 1.2 (1.0-2.7) EKG Diagnostic Results Rate: normal - 61 Rhythm: NSR ST Segments: other - Right bundle branch block Last Vital Signs Date Time Temp Pulse Resp B/P (MAP) Pulse Ox O2 Delivery O2 Flow Rate FiO2 01/04/17 13:30 97.9 66 14 90/60 99 Room Air Status: unchanged Disposition: ADMITTED INPATIENT Condition: Cb Ojeda Jan 04, 2017 14:01
[2017-01-04] MEDS ORDERED: DIPHENHYDRAMINE25 M1 ORAL (14:12)
[2017-01-04] MEDS ORDERED: HEPARIN SO5000 UNIT2 SUBQ (14:13)
[2017-01-04] MEDS ORDERED: Ketorolac 30mg Inj IV ONE (14:15)
[2017-01-04] MEDS ORDERED: MULTIVITAMINS1 EAC8 ORAL (14:20)
[2017-01-04] MEDS ORDERED: ALUM-MAG HYDRO360 ML PO (14:20)
[2017-01-04] MEDS ORDERED: NEXIUM20 MG ORAL (14:24)
[2017-01-04] MEDS ORDERED: MIRALAX17 G2 ORAL (14:27)
[2017-01-04] MEDS ORDERED: PERCOCET 5-3251 EACH ORAL (14:27)
[2017-01-04] MEDS ORDERED: NITROGLYCERIN0.4 MG SL (14:27)
[2017-01-04] MEDS ORDERED: ZOFRAN4 M3 ORAL (14:28)
[2017-01-04 14:30] VITALS: BP 120/71
--- NOTE | 2017-01-04 14:30 | Diagnostic Imaging Report ---
Indication: Dyspnea Comparison: 10/03/16 A single view chest radiograph was obtained. Findings: Cardiomediastinal appearance is within normal limits for age. There is a lower cervical compression plate and multiple pedicle screws for fusion noted. Pulmonary vascularity is appropriate. The diaphragmatic contour is smooth and costophrenic angles are sharp. No pleural effusions are identified. The bones are unremarkable. Impression: No acute findings
[2017-01-04 14:44] LABS: BASOPHILS % (AUTO) 1.2 % (0.0-2.0); EOSINOPHILS % (AUTO) 4.1 % (0.0-3.0); LYMPHOCYTES % (AUTO) 23.8 % (20.0-45.0); MEAN CORPUSCULAR HEMOGLOBIN 31.1 PG (27.0-31.0); MEAN CORPUSCULAR HGB CONC 34.9 G/DL (32.0-36.0); MEAN CORPUSCULAR VOLUME 89 FL (80-99); MEAN PLATELET VOLUME 6.5 FL (6.5-10.1); MONOCYTES % (AUTO) 6.4 % (1.0-10.0); NEUTROPHILS % (AUTO) 64.5 % (45.0-75.0); PLATELET COUNT 197 K/UL (150-450); RED BLOOD COUNT 4.65 M/UL (4.70-6.10); RED CELL DISTRIBUTION WIDTH 12.4 % (11.6-14.8); WHITE BLOOD COUNT 6.6 K/UL (4.8-10.8)
[2017-01-04 14:51] LABS: PROTHROMBIN TIME 10.1 SEC (9.30-11.50)
[2017-01-04 14:52] LABS: APPEARANCE,URINE TURBID; KETONES,URINE NEGATIVE (NEGATIVE); LEUKOCYTE ESTERASE ,URINE 3+ (NEGATIVE); NITRITE,URINE POSITIVE (NEGATIVE); PH,URINE 8 (4.5-8.0); PROTEIN,URINE 2+ (NEGATIVE); UROBILINOGEN,URINE NORMAL MG/DL (0.0-1.0)
[2017-01-04 15:01] LABS: BACTERIA,URINE MANY /HPF; SQUAMOUS EPITHELIAL CELL,UR FEW /LPF (NONE/OCC); TRIPLE PHOSPHATE CRYSTAL,UR FEW /LPF; WBC,URINE 60-80 /HPF (0 - 0)
[2017-01-04 15:02] LABS: TROPONIN I < 0.30 ng/mL (<=0.30)
[2017-01-04 15:02] LABS: AMORPHOUS SEDIMENT,UR MANY /LPF
[2017-01-04 15:03] LABS: ALANINE AMINOTRANSFERASE 23 U/L (3-41); ALBUMIN/GLOBULIN RATIO 1.2 (1.0-2.7); ANION GAP 11 (5-15); ASPARTATE AMINO TRANSFERASE 23 U/L (5-40); CALCIUM 9.8 mg/dL (8.6-10.2); CARBON DIOXIDE 28 mEQ/L (20-30); CHLORIDE 95 mEQ/L (98-107); GLOMERULAR FILTRATION RATE > 60 mL/min (>60); HEMOLYSIS 9; POTASSIUM 4.3 mEQ/L (3.4-4.9); SODIUM 134 mEQ/L (135-145); TOTAL PROTEIN 7.9 g/dL (6.6-8.7)
[2017-01-04 15:08] VITALS: BP 111/66
[2017-01-04 15:13] LABS: CKMB 1.6 ng/mL (< 6.7)
--- NOTE | 2017-01-04 15:45 | Diagnostic Imaging Report ---
Indication: Back pain Technique: Continuous helical transaxial imaging of the lumbar spine was obtained from the lung bases to the pubic symphysis. No IV contrast was administered. Coronal 2-D reformats were also obtained. Study obtained in a Siemens sensation [address] Total Dose length Product (DLP): [address] Dose Index Volume (CTDIvol): 20.15, 0.15 mGy Comparison: None Findings: There is no evidence of an acute fracture or malalignment. Height and configuration of the vertebral bodies are within normal limits. Narrowing of several intervertebral discs noted especially at L3-4 L4-5.Moderate hypertrophy of the facets demonstrated. Endplate spurs demonstrated throughout the lumbar spine. There is partial visualization of a left ureteral stent. Impression: No acute injury identified. Osteoporosis and multilevel degenerative disease of the lumbar spine. Left ureteral stent The CT scanner at [facility] is accredited by the [employer] and the scans are performed using dose optimization techniques as appropriate to a performed exam including Automatic Exposure control.
[2017-01-04] MEDS ORDERED: Mylanta II UD 30ml ORAL PRN (16:00)
[2017-01-04] MEDS ORDERED: Bisacodyl EC 5mg tab ORAL PRN (16:00)
[2017-01-04] MEDS ORDERED: Zolpidem 5mg tab ORAL PRN (16:00)
[2017-01-04] MEDS ORDERED: Miralax 17gm pkt ORAL PRN (16:00)
[2017-01-04 16:05] VITALS: BP 125/66
[2017-01-04] MEDS: Morphine Sulfate 2mg/ml Inj IVP PRN (17:52)
[2017-01-04] MEDS: Midodrine 10mg tab ORAL SCH (17:52)
[2017-01-04 19:29] VITALS: BP 123/60
[2017-01-04 21:00] VITALS: BP 139/78
[2017-01-04] MEDS: Heparin 5000 units/ml inj SUBQ SCH (22:06)
[2017-01-05] VITALS: BP 117/66
[2017-01-05 04:00] VITALS: BP 123/63
[2017-01-05 07:52] LABS: ALANINE AMINOTRANSFERASE 19 U/L (3-41); ALBUMIN/GLOBULIN RATIO 1.3 (1.0-2.7); ANION GAP 10 (5-15); ASPARTATE AMINO TRANSFERASE 17 U/L (5-40); CALCIUM 9.5 mg/dL (8.6-10.2); CARBON DIOXIDE 29 mEQ/L (20-30); CHLORIDE 100 mEQ/L (98-107); CREATININE 0.9 mg/dL (0.7-1.2); GLOMERULAR FILTRATION RATE > 60 mL/min (>60); HEMOLYSIS 7; POTASSIUM 4.5 mEQ/L (3.4-4.9); SODIUM 139 mEQ/L (135-145); TOTAL PROTEIN 7.1 g/dL (6.6-8.7)
[2017-01-05 07:55] LABS: BASOPHILS % (AUTO) 1.1 % (0.0-2.0); EOSINOPHILS % (AUTO) 3.2 % (0.0-3.0); LYMPHOCYTES % (AUTO) 21.1 % (20.0-45.0); MEAN CORPUSCULAR HEMOGLOBIN 29.2 PG (27.0-31.0); MEAN CORPUSCULAR HGB CONC 31.7 G/DL (32.0-36.0); MEAN CORPUSCULAR VOLUME 92 FL (80-99); MEAN PLATELET VOLUME 6.5 FL (6.5-10.1); MONOCYTES % (AUTO) 5.6 % (1.0-10.0); PLATELET COUNT 150 K/UL (150-450); RED BLOOD COUNT 4.71 M/UL (4.70-6.10); RED CELL DISTRIBUTION WIDTH 12.5 % (11.6-14.8); WHITE BLOOD COUNT 7.9 K/UL (4.8-10.8)
[2017-01-05 08:15] VITALS: BP 121/75
[2017-01-05] MEDS: Midodrine 10mg tab ORAL SCH ×3 (08:51→17:14)
[2017-01-05] MEDS: Heparin 5000 units/ml inj SUBQ SCH ×2 (08:57→21:14)
[2017-01-05 12:00] VITALS: BP 119/67
[2017-01-05] MEDS: Morphine Sulfate 2mg/ml Inj IVP PRN ×3 (12:41→21:12)
[2017-01-05] MEDS: LORazepam Inj 2mg/ml 1ml IV PRN (14:27)
[2017-01-05 16:00] VITALS: BP 107/65
--- NOTE | 2017-01-05 16:38 | Infectious Diseases Prog Note ---
Assessment/Plan Problems: (1) Catheter-associated urinary tract infection Assessment & Plan: will start cefepime empirically pending urine culture results (2) Back pain Assessment & Plan: continue Pain management as per primary (3) Hx of spinal cord injury Assessment & Plan: stable, continue pain management Subjective Allergies: Coded Allergies: No Known Allergies (Verified , 11/07/09) Objective Vital Signs Last 24 Hour Vital Signs Date Time Temp Pulse Resp B/P (MAP) Pulse Ox O2 Delivery O2 Flow Rate FiO2 01/05/17 16:00 97.9 63 20 107/65 98 Nasal Cannula 3.0 01/05/17 13:40 97.4 01/05/17 13:11 97.4 01/05/17 12:00 97.4 67 20 119/67 95 Room Air 01/05/17 08:15 97.0 67 19 121/75 99 Room Air 01/05/17 04:00 97.9 63 20 123/63 100 Room Air 01/05/17 00:00 96.8 58 20 117/66 100 Room Air 01/04/17 21:00 97.0 60 20 139/78 100 Nasal Cannula 2.0 01/04/17 20:50 97.9 60 12 123/60 100 Nasal Cannula 2.0 01/04/17 19:29 97.9 60 12 123/60 100 Nasal Cannula 2.0 Height (Feet): 5 Height (Inches): 6.00 Weight (Pounds): 180 Microbiology Date/Time Source Procedure Growth Status 01/04/17 14:10 Urine,Clean Catch Urine Culture - Preliminary Resulted Laboratory Tests Test 01/05/17 05:10 White Blood Count 7.9 K/UL (4.8-10.8) Red Blood Count 4.71 M/UL (4.70-6.10) Hemoglobin 13.7 G/DL (14.2-18.0) L Hematocrit 43.3 % (42.0-52.0) Mean Corpuscular Volume 92 FL (80-99) Mean Corpuscular Hemoglobin 29.2 PG (27.0-31.0) Mean Corpuscular Hemoglobin Concent 31.7 G/DL (32.0-36.0) L Red Cell Distribution Width 12.5 % (11.6-14.8) Platelet Count 150 K/UL (150-450) Mean Platelet Volume 6.5 FL (6.5-10.1) Neutrophils (%) (Auto) 69.0 % (45.0-75.0) Lymphocytes (%) (Auto) 21.1 % (20.0-45.0) Monocytes (%) (Auto) 5.6 % (1.0-10.0) Eosinophils (%) (Auto) 3.2 % (0.0-3.0) H Basophils (%) (Auto) 1.1 % (0.0-2.0) Sodium Level 139 mEQ/L (135-145) Potassium Level 4.5 mEQ/L (3.4-4.9) Chloride Level 100 mEQ/L (98-107) Carbon Dioxide Level 29 mEQ/L (20-30) Anion Gap 10 (5-15) Blood Urea Nitrogen 9 mg/dL (7-23) Creatinine 0.9 mg/dL (0.7-1.2) Estimat Glomerular Filtration Rate > 60 mL/min (>60) Glucose Level 87 mg/dL (74-106) Calcium Level 9.5 mg/dL (8.6-10.2) Total Bilirubin 0.4 mg/dL (0.0-1.2) Aspartate Amino Transf (AST/SGOT) 17 U/L (5-40) Alanine Aminotransferase (ALT/SGPT) 19 U/L (3-41) Alkaline Phosphatase 96 U/L (40-129) Total Protein 7.1 g/dL (6.6-8.7) Albumin 4.1 g/dL (3.5-5.2) Globulin 3.0 g/dL Albumin/Globulin Ratio 1.3 (1.0-2.7) Thyroid Stimulating Hormone (TSH) 2.980 uIU/mL (0.300-4.500) Current Medications Medications (Trade) Dose Ordered Sig/Eric Route PRN Reason Start Time Stop Time Status Last Admin Dose Admin Acetaminophen (Tylenol) 650 mg Q4H PRN ORAL fever 01/04/17 16:00 02/03/17 15:59 Acetaminophen/ Hydrocodone Bitart ([place] 10/325) 1 ea Q4H PRN ORAL Mild Pain (Pain Scale 1-3) 01/04/17 16:00 01/11/17 15:59 Al Hydroxide/Mg Hydroxide (Mylanta II) 30 ml Q6H PRN ORAL dyspepsia 01/04/17 16:00 02/03/17 15:59 Baclofen (Lioresal) 20 mg QID ORAL 01/04/17 18:00 02/03/17 17:59 01/05/17 12:41 Bisacodyl (Dulcolax) 10 mg DAILYPRN PRN ORAL Constipation 01/04/17 16:00 02/03/17 15:59 Dextrose (Dextrose 50%) STAT PRN IV Hypoglycemia 01/04/17 16:00 02/03/17 15:59 Diphenhydramine HCl (Benadryl) 25 mg Q6H PRN ORAL Itching 01/04/17 16:00 02/03/17 15:59 Gabapentin (Neurontin) 300 mg TID ORAL 01/04/17 18:00 02/03/17 17:59 01/05/17 12:41 Heparin Sodium (Porcine) (Heparin 5000 units/ml) 5,000 units EVERY 12 HOURS SUBQ 01/04/17 21:00 02/03/17 20:59 01/05/17 08:57 Lorazepam (Ativan 2mg/ml 1ml) 0.5 mg Q4H PRN IV For Anxiety 01/04/17 16:00 01/11/17 15:59 01/05/17 14:27 Midodrine (Pro-Amatine) 10 mg TID ORAL 01/04/17 18:00 02/03/17 17:59 01/05/17 12:41 Morphine Sulfate (Morphine Sulfate) 2 mg Q4H PRN IVP For Pain 4-6 01/04/17 16:00 01/11/17 15:59 01/05/17 12:41 Morphine Sulfate (Morphine Sulfate) 4 mg Q4H PRN IVP For Pain 7-10 01/04/17 16:00 01/11/17 15:59 Ondansetron HCl (Zofran) 4 mg Q6H PRN IVP Nausea & Vomiting 01/04/17 16:00 02/03/17 15:59 Pantoprazole (Protonix) 40 mg ACBREAKFAST ORAL 01/05/17 06:30 02/04/17 06:29 01/05/17 06:49 Polyethylene Glycol (Miralax) 17 gm HSPRN PRN ORAL Constipation Second line agent 01/04/17 16:00 02/03/17 15:59 Zolpidem Tartrate (Ambien) 5 mg HSPRN PRN ORAL Insomnia 01/04/17 16:00 01/11/17 15:59 Jess Carrillo M.D. Jan 05, 2017 16:38
[2017-01-05] MEDS: Cefepime HCl 1 GM in D5W 55 ML IVPB SCH (17:44)
[2017-01-05 20:00] VITALS: BP 107/68
--- NOTE | 2017-01-05 21:30 | Consultation ---
History of Present Illness General Date patient seen: Jan 05, 2017 Chief Complaint: Back Pain-No Injury Referring physician: Dr. Bullard Reason for Consultation: Inpatient management Present Illness HPI 61-year-old male, with hx of paraplegia, bed bound, Gtube and suprapubic catheter, [facility] resident presented to ER with CC of increased back pain with gradual onset of symptoms. He had been sent to by [facility] after increased pain not relieved by Percocet. Pt is admitted for possible UTI and sepsis. Allergies: Coded Allergies: No Known Allergies (Verified , 11/07/09) Medication History Scheduled Amino Acids/Protein Hydrolys (Pro-Stat Liquid), 30 ML GT BID, (Reported) Baclofen* (Baclofen*), 20 MG ORAL QID, (Reported) Calcium Carbonate (Oyster Shell Calcium-Vit D Tab), 500 MG ORAL DAILY, (Reported ) Cephalexin* (Cephalexin*), 500 MG ORAL Q4HR, (Reported) Cranberry Fruit Concentrate (Cranberry), 450 MG GT Q12HR, (Reported) Docusate Sodium (Docusate Sodium), 100 MG GT BID, (Reported) Docusate Sodium* (Colace*), 100 MG ORAL TWICE A DAY, (Reported) Duloxetine Hcl* (Cymbalta*), 60 MG ORAL DAILY, (Reported) Esomeprazole Magnesium (Nexium), 20 MG ORAL DAILY, (Reported) Famotidine (Pepcid), 20 MG ORAL BID, (Reported) Fluconazole* (Diflucan*), 200 MG ORAL DAILY, (Reported) Fludrocortisone Acetate (Fludrocortisone Acetate), 0.1 MG GT DAILY, (Reported) Fludrocortisone Acetate (Fludrocortisone Acetate), 0.1 MG ORAL DAILY, (Reported) Gabapentin (Gabapentin), 300 MG GT THREE TIMES A DAY, (Reported) Gabapentin* (Neurontin*), 300 MG ORAL THREE TIMES A DAY, (Reported) Gabapentin* (Gabapentin*), 600 MG ORAL THREE TIMES A DAY, (Reported) Heparin Sod (Porcine) (Heparin Sodium*), 5,000 UNITS SUBQ EVERY 12 HOURS, ( Reported) Lactulose (Lactulose*), 30 ML ORAL DAILY, (Reported) Levofloxacin (Levofloxacin*), 250 MG ORAL DAILY, (Reported) Levofloxacin* (Levaquin*), 500 MG ORAL DAILY Lidocaine (Lidoderm), 1 PATCH TOPIC DAILY, (Reported) Midodrine* (Proamatine*), 10 MG ORAL TID, (Reported) Morphine Sulfate* (Morphine Sulfate*), 4 MG IV Q4HR, (Reported) Multivitamin With Minerals (Multivitamins With Minerals*), 1 TAB ORAL DAILY, ( Reported) Oxycodone HCl/Acetaminophen (Percocet 10-325 mg Tablet), 1 EACH PO Q6HR, ( Reported) Pantoprazole Sodium (Protonix), 20 MG EVERY 12 HOURS, (Reported) Pantoprazole* (Protonix*), 40 MG ORAL DAILY, (Reported) Pantoprazole* (Protonix*), 40 MG ORAL DAILY, (Reported) Pantoprazole* (Protonix*), 40 MG ORAL ACBREAKFAST, (Reported) Phenazopyridine Hcl* (Pyridium*), 100 MG ORAL DAILY, (Reported) Ranitidine Hcl* (Zantac*), 150 MG ORAL QHS, (Reported) Sertraline Hcl (Zoloft), 25 MG GT DAILY, (Reported) Sertraline Hcl* (Zoloft*), 50 MG ORAL DAILY, (Reported) Temazepam* (Temazepam*), 30 MG GT BEDTIME, (Reported) Scheduled PRN Acetaminophen (Tylenol), 650 MG GT EVERY 6 HOURS PRN for Temp >101F, (Reported) Acetaminophen (Tylenol), 650 MG ORAL EVERY 4 HOURS PRN for For Pain, (Reported) Bisacodyl* (Dulcolax*), 10 MG RECTAL DAILY PRN for Constipation, (Reported) Diphenhydramine Hcl* (Diphenhydramine Hcl*), 25 MG ORAL Q6H PRN for Itching, ( Reported) Hydrocodone Bit/Acetaminophen 10-325* ([place] 10-325*), 1 TAB ORAL Q4H PRN for For Pain, (Reported) Hydrocodone Bit/Acetaminophen 5-325* ([place] 5-325*), 1 TAB ORAL Q6H PRN for For Pain, (Reported) Hydrocodone/Acetaminophen (Hydrocodon-Acetaminophn 10-325), 1 TAB GT Q4H PRN for Mild Pain (Pain Scale 1-3), (Reported) Hydrocodone/Acetaminophen (Hydrocodon-Acetaminophn 10-325), 2 TAB GT Q4H PRN for Moderate Pain (Pain Scale 4-6), (Reported) Ipratropium/Albuterol Sulfate (DuoNeb 0.5-3(2.5)mg/3ml), 3 ML HHN Q6HR PRN for Shortness of Breath, (Reported) Lorazepam* (Ativan*), 0.5 MG ORAL PRN PRN for For Anxiety, (Reported) Lorazepam* (Lorazepam*), 0.5 MG ORAL Q4HR PRN for For Anxiety, (Reported) Mag Hydrox/Al Hydrox/Simeth (Alum-Mag Hydroxide-Simeth Liq), 30 ML PO EVERY 6 HOURS PRN for dyspepsia, (Reported) Morphine Sulfate (Morphine 20mg/ml Oral Soln ud), 5 MG SL EVERY 4 HOURS PRN for Severe Pain (Pain Scale 7-10), (Reported) Na Phos,M-B/Na Phos,Di-Ba* (Fleet Enema*), 135 ML RECTAL DAILY PRN for Constipation, (Reported) Na Phos,M-B/Na Phos,Di-Ba* (Fleet Enema*), 118 ML RECTAL DAILY PRN for Constipation, (Reported) Nitroglycerin (Nitroglycerin), 0.4 MG SL EVERY 5 min PRN for chest pain, ( Reported) Ondansetron* (Zofran*), 4 MG ORAL Q6H PRN for Nausea & Vomiting, (Reported) Oxycodone/Acetaminophen 5-325* (Percocet 5-325 Mg Tablet*), 1 TAB ORAL Q6H PRN for For Pain, (Reported) Polyethylene Glycol 3350* (Miralax*), 17 GM ORAL DAILY PRN for Constipation, ( Reported) Sennosides (Senna), 8.6 MG PO for Constipation, (Reported) Temazepam* (Restoril*), 15 MG ORAL BEDTIME PRN for Insomnia, (Reported) Zolpidem Tartrate* (Ambien*), 5 MG ORAL BEDTIME PRN for Insomnia, (Reported) Patient History Healthcare decision maker Resuscitation status Full Code Advanced Directive on File Yes Past Medical/Surgical History Past Medical/Surgical History: (1) HTN (hypertension) (2) History of gastrostomy tube placement (3) chronic pain. opiate dependent (4) Hx of spinal cord injury (5) Paraplegia Review of Systems All Other Systems: negative except mentioned in HPI Physical Exam General Appearance: WD/WN Lines, tubes and drains: peripheral, gtube HEENT: normocephalic, atraumatic Neck: non-tender, normal alignment Respiratory/Chest: chest wall non-tender, lungs clear Cardiovascular/Chest: regular rhythm Abdomen: normal bowel sounds, non tender Genitourinary/Rectal: normal genital exam, normal rectal exam Last 24 Hour Vital Signs Date Time Temp Pulse Resp B/P (MAP) Pulse Ox O2 Delivery O2 Flow Rate FiO2 01/05/17 20:00 98.1 63 20 107/68 97 Nasal Cannula 3.0 01/05/17 18:13 97.9 01/05/17 17:48 97.9 01/05/17 16:00 97.9 63 20 107/65 98 Nasal Cannula 3.0 01/05/17 12:00 97.4 67 20 119/67 95 Room Air 01/05/17 08:15 97.0 67 19 121/75 99 Room Air 01/05/17 04:00 97.9 63 20 123/63 100 Room Air 01/05/17 00:00 96.8 58 20 117/66 100 Room Air Intake and Output 01/05/17 01/06/17 19:00 07:00 Intake Total 535 ml Output Total 300 ml Balance 235 ml Intake Oral 480 ml IV Total 55 ml Output Urine Total 300 ml Laboratory Tests Test 01/05/17 05:10 White Blood Count 7.9 K/UL (4.8-10.8) Red Blood Count 4.71 M/UL (4.70-6.10) Hemoglobin 13.7 G/DL (14.2-18.0) L Hematocrit 43.3 % (42.0-52.0) Mean Corpuscular Volume 92 FL (80-99) Mean Corpuscular Hemoglobin 29.2 PG (27.0-31.0) Mean Corpuscular Hemoglobin Concent 31.7 G/DL (32.0-36.0) L Red Cell Distribution Width 12.5 % (11.6-14.8) Platelet Count 150 K/UL (150-450) Mean Platelet Volume 6.5 FL (6.5-10.1) Neutrophils (%) (Auto) 69.0 % (45.0-75.0) Lymphocytes (%) (Auto) 21.1 % (20.0-45.0) Monocytes (%) (Auto) 5.6 % (1.0-10.0) Eosinophils (%) (Auto) 3.2 % (0.0-3.0) H Basophils (%) (Auto) 1.1 % (0.0-2.0) Sodium Level 139 mEQ/L (135-145) Potassium Level 4.5 mEQ/L (3.4-4.9) Chloride Level 100 mEQ/L (98-107) Carbon Dioxide Level 29 mEQ/L (20-30) Anion Gap 10 (5-15) Blood Urea Nitrogen 9 mg/dL (7-23) Creatinine 0.9 mg/dL (0.7-1.2) Estimat Glomerular Filtration Rate > 60 mL/min (>60) Glucose Level 87 mg/dL (74-106) Calcium Level 9.5 mg/dL (8.6-10.2) Total Bilirubin 0.4 mg/dL (0.0-1.2) Aspartate Amino Transf (AST/SGOT) 17 U/L (5-40) Alanine Aminotransferase (ALT/SGPT) 19 U/L (3-41) Alkaline Phosphatase 96 U/L (40-129) Total Protein 7.1 g/dL (6.6-8.7) Albumin 4.1 g/dL (3.5-5.2) Globulin 3.0 g/dL Albumin/Globulin Ratio 1.3 (1.0-2.7) Thyroid Stimulating Hormone (TSH) 2.980 uIU/mL (0.300-4.500) Height (Feet): 5 Height (Inches): 6.00 Weight (Pounds): 180 Medications Current Medications Medications (Trade) Dose Ordered Sig/Eric Route PRN Reason Start Time Stop Time Status Last Admin Dose Admin Acetaminophen (Tylenol) 650 mg Q4H PRN ORAL fever 01/04/17 16:00 02/03/17 15:59 Acetaminophen/ Hydrocodone Bitart ([place] 10) 1 ea Q4H PRN ORAL Mild Pain (Pain Scale 1-3) 01/04/17 16:00 01/11/17 15:59 Al Hydroxide/Mg Hydroxide (Mylanta II) 30 ml Q6H PRN ORAL dyspepsia 01/04/17 16:00 02/03/17 15:59 Baclofen (Lioresal) 20 mg QID ORAL 01/04/17 18:00 02/03/17 17:59 01/05/17 21:12 Bisacodyl (Dulcolax) 10 mg DAILYPRN PRN ORAL Constipation 01/04/17 16:00 02/03/17 15:59 Cefepime HCl 1 gm/ Dextrose 55 ml @ 110 mls/hr Q12HR@0600,1800 IVPB 01/05/17 18:00 01/12/17 17:59 01/05/17 17:44 Dextrose (Dextrose 50%) STAT PRN IV Hypoglycemia 01/04/17 16:00 02/03/17 15:59 Diphenhydramine HCl (Benadryl) 25 mg Q6H PRN ORAL Itching 01/04/17 16:00 02/03/17 15:59 Gabapentin (Neurontin) 300 mg TID ORAL 01/04/17 18:00 02/03/17 17:59 01/05/17 17:14 Heparin Sodium (Porcine) (Heparin 5000 units/ml) 5,000 units EVERY 12 HOURS SUBQ 01/04/17 21:00 02/03/17 20:59 01/05/17 21:14 Lorazepam (Ativan 2mg/ml 1ml) 0.5 mg Q4H PRN IV For Anxiety 01/04/17 16:00 01/11/17 15:59 01/05/17 14:27 Midodrine (Pro-Amatine) 10 mg TID ORAL 01/04/17 18:00 02/03/17 17:59 01/05/17 17:14 Morphine Sulfate (Morphine Sulfate) 2 mg Q4H PRN IVP For Pain 4-6 01/04/17 16:00 01/11/17 15:59 01/05/17 21:12 Morphine Sulfate (Morphine Sulfate) 4 mg Q4H PRN IVP For Pain 7-10 01/04/17 16:00 01/11/17 15:59 Ondansetron HCl (Zofran) 4 mg Q6H PRN IVP Nausea & Vomiting 01/04/17 16:00 02/03/17 15:59 Pantoprazole (Protonix) 40 mg ACBREAKFAST ORAL 01/05/17 06:30 02/04/17 06:29 01/05/17 06:49 Polyethylene Glycol (Miralax) 17 gm HSPRN PRN ORAL Constipation Second line agent 01/04/17 16:00 02/03/17 15:59 Zolpidem Tartrate (Ambien) 5 mg HSPRN PRN ORAL Insomnia 01/04/17 16:00 01/11/17 15:59 Assessment/Plan Problem List: (1) Sepsis ICD Codes: A41.9 - Sepsis SNOMED: 12614325 (2) UTI (lower urinary tract infection) ICD Codes: N39.0 - UTI (lower urinary tract infection) SNOMED: 4064312 (3) History of gastrostomy tube placement ICD Codes: Z98.89 - Other specified postprocedural states SNOMED: 271649807 (4) Paraplegia ICD Codes: G82.20 - Paraplegia, unspecified SNOMED: 04628079 Assessment/Plan NPO IV fluids dolan culture, check urine analysis, symptomatic treatment dvt prophylaxis LOIS PORTILLO Jan 05, 2017 21:30
--- NOTE | 2017-01-05 23:00 | Consultation ---
DATE OF CONSULTATION: INFECTIOUS DISEASE CONSULTATION CONSULTING PHYSICIAN: Jess Carrillo M.D. REQUESTING PHYSICIAN: Rickey Bullard D.O. Reason For Consultation: Catheter associated urinary tract infection. History Of Present Illness: The patient is a 61-year-old male with cerebral palsy, quadriplegia, urinary retention status post suprapubic catheter placement was sent from [facility] for increased pain, not relieved by Percocet. Unclear whether it is exacerbation of his back pain, which is chronic. The patient was found to have significant urine infection. So, I was consulted by the primary provider for antibiotics treatment and further management. As of note, the patient is a poor historian, cannot provide any history. History was mainly obtained from the medical record. REVIEW OF SYSTEMS: Unable to obtain. Past Medical History: Significant for cardiac disease, hypertension, GERD, cerebral palsy, spastic quadriplegia, CVA, and hypertension. Past Surgical History: He had gastrostomy tube placement and suprapubic catheter placement. Medications: The patient is on Protonix, heparin, Neurontin, midodrine, baclofen, bisacodyl, diphenhydramine, hydrocodone, acetaminophen, morphine sulfate, polyethylene glycol, Zofran, Ativan, Ambien, Mylanta. ALLERGIES: No known drug allergy. Social History: He is a [facility] resident. No recent drugs, tobacco, or alcohol. FAMILY HISTORY: Unable to obtain. PHYSICAL EXAMINATION: Vital signs: Temperature 97.9 degrees, pulse 63, respirations 20, blood pressure 107/65, saturation 98% on three liters nasal cannula. General: This is a middle-aged male, actually quadriplegic, lying in bed, alert, not in distress, not verbal. HEENT: Normocephalic and atraumatic. Pupils are reactive to light. Moist oral mucosa. No exudate. NECK: Supple. No lymphadenopathy. CARDIOVASCULAR: Regular rate and rhythm. LUNGS: Clear bilaterally. ABDOMEN: Soft, nontender, and nondistended. Extremities: Muscle atrophy with spastic paralysis and contraction. No edema. No cyanosis. Laboratory Data: Lab showed white count of 7.9, hemoglobin of 13.7, platelet count of 150. BUN of 9, creatinine of 0.9. Urinalysis showed +3 leukocyte esterase, 60 to 80 WBCs, and many bacteria in the urine. Microbiology, urine culture so far is pending. Imaging: Chest x-ray showed no acute finding. Spine CT scan showed no acute injury identified. Osteoporosis and multilevel degenerative disease of the lumbar spine, left ureteral stent. ASSESSMENT AND RECOMMENDATION: 1. Catheter-associated urine tract infection. We will start cefepime empiric treatment pending urine culture results. Recommend to change Dixon catheter. 2. Intervertebral pain. No evidence of back acute pathology on CT scan. Continue pain management as per primary provider. Jess Carrillo M.D. DR: Cody JOB#: [id number] CC:
[2017-01-06] VITALS: BP_SYST 105; BP_SYST 159; BP_DIAS 66; BP_DIAS 89
[2017-01-06] MEDS: Morphine Sulfate 4mg/ml Inj IVP PRN ×3 (02:24→13:33)
[2017-01-06] MEDS: LORazepam Inj 2mg/ml 1ml IV PRN (02:24)
[2017-01-06 04:00] VITALS: BP 92/63
[2017-01-06] MEDS: Cefepime HCl 1 GM in D5W 55 ML IVPB SCH ×2 (06:15→20:08)
[2017-01-06 07:14] LABS: BASOPHILS % (AUTO) 0.9 % (0.0-2.0); EOSINOPHILS % (AUTO) 4.5 % (0.0-3.0); LYMPHOCYTES % (AUTO) 25.5 % (20.0-45.0); MEAN CORPUSCULAR HEMOGLOBIN 30.8 PG (27.0-31.0); MEAN CORPUSCULAR VOLUME 91 FL (80-99); MEAN PLATELET VOLUME 6.2 FL (6.5-10.1); MONOCYTES % (AUTO) 6.3 % (1.0-10.0); NEUTROPHILS % (AUTO) 62.8 % (45.0-75.0); PLATELET COUNT 167 K/UL (150-450); RED BLOOD COUNT 4.23 M/UL (4.70-6.10); RED CELL DISTRIBUTION WIDTH 12.5 % (11.6-14.8); WHITE BLOOD COUNT 7.3 K/UL (4.8-10.8)
[2017-01-06 07:26] LABS: ANION GAP 12 (5-15); CALCIUM 9.4 mg/dL (8.6-10.2); CARBON DIOXIDE 26 mEQ/L (20-30); CHLORIDE 100 mEQ/L (98-107); GLOMERULAR FILTRATION RATE > 60 mL/min (>60); HEMOLYSIS 20; POTASSIUM 4.5 mEQ/L (3.4-4.9); SODIUM 138 mEQ/L (135-145)
[2017-01-06 08:00] VITALS: BP 110/68
--- NOTE | 2017-01-06 08:01 | History and Physical Report ---
DATE OF ADMISSION: 01/04/2017 TIME SEEN: At 2 p.m. CONSULTANTS: 1. Osvaldo Lundberg M.D. 2. Norberto Rod M.D. 3. Dr. Adkins. 4. Rojas Elizabeth M.D. 5. Dimitri Bowers M.D. CHIEF COMPLAINT: Low back pain exacerbation. Brief History: This is a 61-year-old male [facility], presents with above mentioned diagnosis, admitted to medical floor for treatment. Apparently, he was working with staff and his back became very painful. The patient is diagnosed with low back pain exacerbation, UTI, CVA, neuropathy and admitted to medical/surgical floor for treatment. Currently calm in bed, slight back pain. No complaints. Review Of Systems: No chest pain. No shortness of breath. No nausea, vomiting, or diarrhea. Past Medical History: Include CVA, neuropathy, weakness, lower extremity weakness. PAST SURGICAL HISTORY: None. Medications: Include Protonix, heparin, Neurontin, , Dulcolax, morphine, MiraLAX, Zofran. ALLERGIES: Denies. Social History: Positive smoking. No alcohol. No illicit drug abuse. FAMILY HISTORY: Noncontributory. PHYSICAL EXAMINATION: GENERAL: Calm in bed, oriented x2, in no acute distress. Vital Signs: Temperature is 97 degrees, pulse 67, respirations 20, and blood pressure initially 119/67. CARDIOVASCULAR: No murmur. LUNGS: Distant and clear. ABDOMEN: Positive bowel sounds. Soft, nontender, and nondistended. EXTREMITIES: No cyanosis, clubbing, or edema. Neurologic: Lower extremity weakness noted. Bilateral arm weakness noted as well. Laboratory Data: Lab exam CBC is normal. BMP is normal today. INR is 1.0, PTT 28. Urinalysis, 3+ leukocyte esterase. ASSESSMENT: 1. Low back pain. 2. Urinary tract infection. 3. Cerebrovascular accident. 4. Neuropathy. 5. Weakness. 6. Lower extremity weakness. PLAN: 1. Continue premedications. 2. OT, PT, and dietary evaluation. 3. Antibiotics per Infectious Disease. 4. Pain control. 5. Resume home medications. 6. We will continue to follow this patient medically. Rickey Bullard D.O. DR: Sara JOB#: [id number] CC:
[2017-01-06] MEDS: Midodrine 10mg tab ORAL SCH ×3 (09:25→18:15)
[2017-01-06] MEDS: Heparin 5000 units/ml inj SUBQ SCH ×2 (09:26→21:00)
--- NOTE | 2017-01-06 10:33 | General Progress Note ---
Assessment/Plan Problem List: (1) Neuropathy ICD Codes: G62.9 - Polyneuropathy, unspecified SNOMED: 156462741 (2) UTI (lower urinary tract infection) ICD Codes: N39.0 - UTI (lower urinary tract infection) SNOMED: 5321451 (3) History of CVA (cerebrovascular accident) ICD Codes: Z86.73 - Personal history of transient ischemic attack (TIA), and cerebral infarction without residual deficits SNOMED: 931005781 (4) Back pain ICD Codes: M54.9 - Dorsalgia, unspecified SNOMED: 460865614 Status: stable, progressing, tolerating diet Assessment/Plan abx per id, dc to snf if clear Subjective Constitutional: Reports: weakness Allergies: Coded Allergies: No Known Allergies (Verified , 11/07/09) All Systems: reviewed and negative except above Subjective 02nc calm Objective Last 24 Hour Vital Signs Date Time Temp Pulse Resp B/P (MAP) Pulse Ox O2 Delivery O2 Flow Rate FiO2 01/06/17 04:00 97.5 66 20 92/63 99 Nasal Cannula 3.0 01/06/17 00:00 98.1 65 20 105/66 97 Nasal Cannula 3.0 01/05/17 20:00 98.1 63 20 107/68 97 Nasal Cannula 3.0 01/05/17 18:13 97.9 01/05/17 17:48 97.9 01/05/17 16:00 97.9 63 20 107/65 98 Nasal Cannula 3.0 01/05/17 12:00 97.4 67 20 119/67 95 Room Air Laboratory Tests 01/06/17 05:30: White Blood Count 7.3, Red Blood Count 4.23L, Hemoglobin 13.0L, Hematocrit 38.3L , Mean Corpuscular Volume 91, Mean Corpuscular Hemoglobin 30.8, Mean Corpuscular Hemoglobin Concent 34.0, Red Cell Distribution Width 12.5, Platelet Count 167, Mean Platelet Volume 6.2L, Neutrophils (%) (Auto) 62.8, Lymphocytes ( %) (Auto) 25.5, Monocytes (%) (Auto) 6.3, Eosinophils (%) (Auto) 4.5H, Basophils (%) (Auto) 0.9, Sodium Level 138, Potassium Level 4.5, Chloride Level 100, Carbon Dioxide Level 26, Anion Gap 12, Blood Urea Nitrogen 14, Creatinine 1.0, Estimat Glomerular Filtration Rate > 60, Glucose Level 80, Calcium Level 9.4 Height (Feet): 5 Height (Inches): 6.00 Weight (Pounds): 180 General Appearance: lethargic EENT: normal ENT inspection Neck: normal alignment Cardiovascular: normal peripheral pulses, normal rate, regular rhythm Respiratory/Chest: chest wall non-tender, lungs clear, normal breath sounds Abdomen: normal bowel sounds, non tender, soft Extremities: normal inspection Edema: no edema noted Arm (L), no edema noted Arm (R), no edema noted Leg (L), no edema noted Leg (R), no edema noted Pedal (L), no edema noted Pedal (R), no edema noted Generalized Neurologic: responsive, motor weakness Skin: normal pigmentation, warm/dry YAMEL DUMONT Jan 06, 2017 10:33
[2017-01-06 12:00] VITALS: BP 115/70
--- NOTE | 2017-01-06 12:48 | Neurology Progress Note ---
Objective Physical Exam Last Vital Signs Date Time Temp Pulse Resp B/P (MAP) Pulse Ox O2 Delivery O2 Flow Rate FiO2 01/06/17 12:00 98.0 65 20 115/70 Room Air 01/06/17 04:00 99 3.0 Laboratory Tests Test 01/06/17 05:30 White Blood Count 7.3 K/UL (4.8-10.8) Red Blood Count 4.23 M/UL (4.70-6.10) L Hemoglobin 13.0 G/DL (14.2-18.0) L Hematocrit 38.3 % (42.0-52.0) L Mean Corpuscular Volume 91 FL (80-99) Mean Corpuscular Hemoglobin 30.8 PG (27.0-31.0) Mean Corpuscular Hemoglobin Concent 34.0 G/DL (32.0-36.0) Red Cell Distribution Width 12.5 % (11.6-14.8) Platelet Count 167 K/UL (150-450) Mean Platelet Volume 6.2 FL (6.5-10.1) L Neutrophils (%) (Auto) 62.8 % (45.0-75.0) Lymphocytes (%) (Auto) 25.5 % (20.0-45.0) Monocytes (%) (Auto) 6.3 % (1.0-10.0) Eosinophils (%) (Auto) 4.5 % (0.0-3.0) H Basophils (%) (Auto) 0.9 % (0.0-2.0) Sodium Level 138 mEQ/L (135-145) Potassium Level 4.5 mEQ/L (3.4-4.9) Chloride Level 100 mEQ/L (98-107) Carbon Dioxide Level 26 mEQ/L (20-30) Anion Gap 12 (5-15) Blood Urea Nitrogen 14 mg/dL (7-23) Creatinine 1.0 mg/dL (0.7-1.2) Estimat Glomerular Filtration Rate > 60 mL/min (>60) Glucose Level 80 mg/dL (74-106) Calcium Level 9.4 mg/dL (8.6-10.2) Impression/Recommendations Status: stable, progressing, tolerating diet Recommendations # [id number] JIN SANTIAGO Jan 06, 2017 12:48
--- NOTE | 2017-01-06 14:43 | Diagnostic Imaging Report ---
Indication: Back pain Comparison: None Findings: 3 views of the lumbar spine were obtained. Multilevel narrowing of intervertebral disks and associated endplate and Facet osteophytes are present. No malalignment identified. No acute fracture definitely seen. There is a double-J ureteral stent on the left vascular calcifications are present. Impression: Moderate spondylosis. No acute injury appreciated.
[2017-01-06] MEDS ORDERED: NS 275ml ONE (15:07)
[2017-01-06] MEDS ORDERED: Tubing IV Secondary IV ONE (15:07)
--- NOTE | 2017-01-06 16:31 | Infectious Diseases Prog Note ---
Assessment/Plan Problems: (1) Catheter-associated urinary tract infection Assessment & Plan: continue cefepime empirically pending urine culture results (2) Back pain Assessment & Plan: continue Pain management as per primary (3) Hx of spinal cord injury Assessment & Plan: stable, continue pain management Subjective Constitutional: Reports: no symptoms HEENT: Reports: no symptoms Respiratory: Reports: no symptoms Breasts: Reports: no symptoms Cardiovascular: Reports: no symptoms Gastrointestinal/Abdominal: Reports: no symptoms Genitourinary: Reports: no symptoms Neurologic: Reports: no symptoms Psychiatric: Reports: no symptoms Allergies: Coded Allergies: No Known Allergies (Verified , 11/07/09) Objective Vital Signs Last 24 Hour Vital Signs Date Time Temp Pulse Resp B/P (MAP) Pulse Ox O2 Delivery O2 Flow Rate FiO2 01/06/17 13:30 98.0 01/06/17 12:00 98.0 65 20 115/70 Room Air 01/06/17 09:55 97.5 01/06/17 08:00 98.0 65 20 110/68 Room Air 01/06/17 04:00 97.5 66 20 92/63 99 Nasal Cannula 3.0 01/06/17 00:00 98.1 65 20 105/66 97 Nasal Cannula 3.0 01/05/17 20:00 98.1 63 20 107/68 97 Nasal Cannula 3.0 01/05/17 17:48 97.9 Height (Feet): 5 Height (Inches): 6.00 Weight (Pounds): 180 General Appearance: WD/WN, no acute distress HEENT: normocephalic, atraumatic, anicteric, mucous membranes moist Respiratory/Chest: chest wall non-tender, lungs clear, normal breath sounds, no respiratory distress, no accessory muscle use Cardiovascular: normal peripheral pulses, normal rate, regular rhythm, no gallop/murmur, no JVD Abdomen: normal bowel sounds, soft, non tender, no organomegaly, non distended , no mass, no scars Extremities: no cyanosis, no clubbing Skin: no rash, no lesions, no ulcers Microbiology Date/Time Source Procedure Growth Status 01/04/17 14:20 Blood Blood Culture - Preliminary NO GROWTH AFTER 24 HOURS Resulted 01/04/17 14:05 Blood Blood Culture - Preliminary NO GROWTH AFTER 24 HOURS Resulted 01/04/17 14:10 Urine,Clean Catch Urine Culture - Preliminary Gram Negative Bacillus 1 Resulted Laboratory Tests Test 01/06/17 05:30 White Blood Count 7.3 K/UL (4.8-10.8) Red Blood Count 4.23 M/UL (4.70-6.10) L Hemoglobin 13.0 G/DL (14.2-18.0) L Hematocrit 38.3 % (42.0-52.0) L Mean Corpuscular Volume 91 FL (80-99) Mean Corpuscular Hemoglobin 30.8 PG (27.0-31.0) Mean Corpuscular Hemoglobin Concent 34.0 G/DL (32.0-36.0) Red Cell Distribution Width 12.5 % (11.6-14.8) Platelet Count 167 K/UL (150-450) Mean Platelet Volume 6.2 FL (6.5-10.1) L Neutrophils (%) (Auto) 62.8 % (45.0-75.0) Lymphocytes (%) (Auto) 25.5 % (20.0-45.0) Monocytes (%) (Auto) 6.3 % (1.0-10.0) Eosinophils (%) (Auto) 4.5 % (0.0-3.0) H Basophils (%) (Auto) 0.9 % (0.0-2.0) Sodium Level 138 mEQ/L (135-145) Potassium Level 4.5 mEQ/L (3.4-4.9) Chloride Level 100 mEQ/L (98-107) Carbon Dioxide Level 26 mEQ/L (20-30) Anion Gap 12 (5-15) Blood Urea Nitrogen 14 mg/dL (7-23) Creatinine 1.0 mg/dL (0.7-1.2) Estimat Glomerular Filtration Rate > 60 mL/min (>60) Glucose Level 80 mg/dL (74-106) Calcium Level 9.4 mg/dL (8.6-10.2) Current Medications Medications (Trade) Dose Ordered Sig/Eric Route PRN Reason Start Time Stop Time Status Last Admin Dose Admin Acetaminophen (Tylenol) 650 mg Q4H PRN ORAL fever 01/04/17 16:00 02/03/17 15:59 Acetaminophen/ Hydrocodone Bitart ([place] 10325) 1 ea Q4H PRN ORAL Mild Pain (Pain Scale 1-3) 01/04/17 16:00 01/11/17 15:59 Al Hydroxide/Mg Hydroxide (Mylanta II) 30 ml Q6H PRN ORAL dyspepsia 01/04/17 16:00 02/03/17 15:59 Baclofen (Lioresal) 20 mg QID ORAL 01/04/17 18:00 02/03/17 17:59 01/06/17 12:31 Bisacodyl (Dulcolax) 10 mg DAILYPRN PRN ORAL Constipation 01/04/17 16:00 02/03/17 15:59 Cefepime HCl 1 gm/ Dextrose 55 ml @ 110 mls/hr Q12HR@0600,1800 IVPB 01/05/17 18:00 01/12/17 17:59 01/06/17 06:15 Dextrose (Dextrose 50%) STAT PRN IV Hypoglycemia 01/04/17 16:00 02/03/17 15:59 Diphenhydramine HCl (Benadryl) 25 mg Q6H PRN ORAL Itching 01/04/17 16:00 02/03/17 15:59 Gabapentin (Neurontin) 300 mg TID ORAL 01/04/17 18:00 02/03/17 17:59 01/06/17 12:31 Heparin Sodium (Porcine) (Heparin 5000 units/ml) 5,000 units EVERY 12 HOURS SUBQ 01/04/17 21:00 02/03/17 20:59 01/06/17 09:26 Lorazepam (Ativan 2mg/ml 1ml) 0.5 mg Q4H PRN IV For Anxiety 01/04/17 16:00 01/11/17 15:59 01/06/17 02:24 Midodrine (Pro-Amatine) 10 mg TID ORAL 01/04/17 18:00 02/03/17 17:59 01/06/17 12:31 Morphine Sulfate (Morphine Sulfate) 2 mg Q4H PRN IVP For Pain 4-6 01/04/17 16:00 01/11/17 15:59 01/05/17 21:12 Morphine Sulfate (Morphine Sulfate) 4 mg Q4H PRN IVP For Pain 7-10 01/04/17 16:00 01/11/17 15:59 01/06/17 13:33 Ondansetron HCl (Zofran) 4 mg Q6H PRN IVP Nausea & Vomiting 01/04/17 16:00 02/03/17 15:59 Pantoprazole (Protonix) 40 mg ACBREAKFAST ORAL 01/05/17 06:30 02/04/17 06:29 01/06/17 06:17 Polyethylene Glycol (Miralax) 17 gm HSPRN PRN ORAL Constipation Second line agent 01/04/17 16:00 02/03/17 15:59 Zolpidem Tartrate (Ambien) 5 mg HSPRN PRN ORAL Insomnia 01/04/17 16:00 01/11/17 15:59 Jess Carrillo M.D. Jan 06, 2017 16:31
[2017-01-06] MEDS: Norco 10mg/325mg tab ORAL PRN (18:16)
--- NOTE | 2017-01-06 18:44 | Pulmonology Progress Note ---
Assessment/Plan Problems: (1) Sepsis (2) UTI (lower urinary tract infection) (3) Intractable pain (4) HTN (hypertension) (5) Hx of spinal cord injury (6) History of CVA (cerebrovascular accident) Assessment/Plan check cultures symptomatic treatment GI and ID f/u check electrolytes continue abx Subjective ROS Limited/Unobtainable: Yes Allergies: Coded Allergies: No Known Allergies (Verified , 11/07/09) Objective Last 24 Hour Vital Signs Date Time Temp Pulse Resp B/P (MAP) Pulse Ox O2 Delivery O2 Flow Rate FiO2 01/06/17 16:00 97.7 61 16 99 01/06/17 13:30 98.0 01/06/17 12:00 98.0 65 20 115/70 Room Air 01/06/17 09:55 97.5 01/06/17 08:00 98.0 65 20 110/68 Room Air 01/06/17 04:00 97.5 66 20 92/63 99 Nasal Cannula 3.0 01/06/17 00:00 98.1 65 20 105/66 97 Nasal Cannula 3.0 01/05/17 20:00 98.1 63 20 107/68 97 Nasal Cannula 3.0 Intake and Output 01/06/17 01/07/17 19:00 07:00 Intake Total 740 ml Output Total 800 ml Balance -60 ml Intake Oral 740 ml Output Urine Total 800 ml General Appearance: WD/WN HEENT: normocephalic, anicteric Respiratory/Chest: chest wall non-tender, lungs clear Cardiovascular: normal peripheral pulses, normal rate Abdomen: normal bowel sounds, soft, non tender Extremities: no clubbing Skin: no rash Microbiology Date/Time Source Procedure Growth Status 01/04/17 14:20 Blood Blood Culture - Preliminary NO GROWTH AFTER 24 HOURS Resulted 01/04/17 14:05 Blood Blood Culture - Preliminary NO GROWTH AFTER 24 HOURS Resulted 01/04/17 14:10 Urine,Clean Catch Urine Culture - Preliminary Gram Negative Bacillus 1 Resulted Laboratory Tests 01/06/17 05:30: White Blood Count 7.3, Red Blood Count 4.23L, Hemoglobin 13.0L, Hematocrit 38.3L , Mean Corpuscular Volume 91, Mean Corpuscular Hemoglobin 30.8, Mean Corpuscular Hemoglobin Concent 34.0, Red Cell Distribution Width 12.5, Platelet Count 167, Mean Platelet Volume 6.2L, Neutrophils (%) (Auto) 62.8, Lymphocytes ( %) (Auto) 25.5, Monocytes (%) (Auto) 6.3, Eosinophils (%) (Auto) 4.5H, Basophils (%) (Auto) 0.9, Sodium Level 138, Potassium Level 4.5, Chloride Level 100, Carbon Dioxide Level 26, Anion Gap 12, Blood Urea Nitrogen 14, Creatinine 1.0, Estimat Glomerular Filtration Rate > 60, Glucose Level 80, Calcium Level 9.4 Current Medications Medications (Trade) Dose Ordered Sig/Eric Route PRN Reason Start Time Stop Time Status Last Admin Dose Admin Acetaminophen (Tylenol) 650 mg Q4H PRN ORAL fever 01/04/17 16:00 02/03/17 15:59 Acetaminophen/ Hydrocodone Bitart ([place] 10) 1 ea Q4H PRN ORAL Mild Pain (Pain Scale 1-3) 01/04/17 16:00 01/11/17 15:59 01/06/17 18:16 Al Hydroxide/Mg Hydroxide (Mylanta II) 30 ml Q6H PRN ORAL dyspepsia 01/04/17 16:00 02/03/17 15:59 Baclofen (Lioresal) 20 mg QID ORAL 01/04/17 18:00 02/03/17 17:59 01/06/17 18:16 Bisacodyl (Dulcolax) 10 mg DAILYPRN PRN ORAL Constipation 01/04/17 16:00 02/03/17 15:59 Cefepime HCl 1 gm/ Dextrose 55 ml @ 110 mls/hr Q12HR@0600,1800 IVPB 01/05/17 18:00 01/12/17 17:59 01/06/17 06:15 Dextrose (Dextrose 50%) STAT PRN IV Hypoglycemia 01/04/17 16:00 02/03/17 15:59 Diphenhydramine HCl (Benadryl) 25 mg Q6H PRN ORAL Itching 01/04/17 16:00 02/03/17 15:59 Gabapentin (Neurontin) 300 mg TID ORAL 01/04/17 18:00 02/03/17 17:59 01/06/17 18:15 Heparin Sodium (Porcine) (Heparin 5000 units/ml) 5,000 units EVERY 12 HOURS SUBQ 01/04/17 21:00 02/03/17 20:59 01/06/17 09:26 Lorazepam (Ativan 2mg/ml 1ml) 0.5 mg Q4H PRN IV For Anxiety 01/04/17 16:00 01/11/17 15:59 01/06/17 02:24 Midodrine (Pro-Amatine) 10 mg TID ORAL 01/04/17 18:00 02/03/17 17:59 01/06/17 18:15 Morphine Sulfate (Morphine Sulfate) 2 mg Q4H PRN IVP For Pain 4-6 01/04/17 16:00 01/11/17 15:59 01/05/17 21:12 Morphine Sulfate (Morphine Sulfate) 4 mg Q4H PRN IVP For Pain 7-10 01/04/17 16:00 01/11/17 15:59 01/06/17 13:33 Ondansetron HCl (Zofran) 4 mg Q6H PRN IVP Nausea & Vomiting 01/04/17 16:00 02/03/17 15:59 Pantoprazole (Protonix) 40 mg ACBREAKFAST ORAL 01/05/17 06:30 02/04/17 06:29 01/06/17 06:17 Polyethylene Glycol (Miralax) 17 gm HSPRN PRN ORAL Constipation Second line agent 01/04/17 16:00 02/03/17 15:59 Zolpidem Tartrate (Ambien) 5 mg HSPRN PRN ORAL Insomnia 01/04/17 16:00 01/11/17 15:59 LOIS PORTILLO Jan 06, 2017 18:44
[2017-01-06 20:00] VITALS: BP 108/66
[2017-01-06] MEDS: Morphine Sulfate 2mg/ml Inj IVP PRN (20:11)
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
[2017-01-07] VITALS: BP 109/65
[2017-01-07 04:00] VITALS: BP 110/68
[2017-01-07] MEDS: Morphine Sulfate 2mg/ml Inj IVP PRN (05:24)
[2017-01-07] MEDS: Cefepime HCl 1 GM in D5W 55 ML IVPB SCH (05:24)
[2017-01-07 08:21] VITALS: BP 103/58
[2017-01-07] MEDS: Midodrine 10mg tab ORAL SCH ×3 (09:09→17:25)
[2017-01-07] MEDS: Heparin 5000 units/ml inj SUBQ SCH ×2 (09:14→20:11)
[2017-01-07] MEDS: Morphine Sulfate 4mg/ml Inj IVP PRN ×2 (09:21→20:10)
--- NOTE | 2017-01-07 10:03 | Diagnostic Imaging Report ---
Indication: Neck pain Technique: MRI of the cervical spine was performed on a 1.5 Sia magnet without administration of intravascular contrast and the following sequences were obtained: Sagittal T1, T2 and STIR; axial T2 Comparison: CT of the neck dated 11/07/09 Findings: There is evidence of anterior cervical discectomy and fusion of C5 and C6 with adjacent susceptibility artifact. There is extensive laminectomy of the cervical spine from the C1 through the C6 levels with posterior fusion from the occiput through the C7 level. There is anterior osseous bridging of C2-C4. The central cervical and visualized thoracic canal are widely patent. There is a 9 mm ill-defined area of cervical cord signal at the C5/C6 level. There is no gross neuroforaminal stenosis. Prevertebral soft tissues are within normal limits. The visualized intracranial compartment is grossly unremarkable. Impression: Anterior cervical discectomy and fusion of C5 and C6. Extensive cervical laminectomy from C1-C6 with posterior fusion from the occiput through the C7 levels. Hardware difficult evaluating secondary to susceptibility artifact. Cervical alignment within normal limits with widely patent central cervical canal. No evidence of central stenosis. Ill-defined area of T2 signal involving the cervical cord centered at the C5/C6 level again without compression. Findings are acute indeterminate but could represent myelomalacia. Clinical correlation recommended. Comparison to prior studies should be made if available. Other findings as above.
--- NOTE | 2017-01-07 11:21 | Diagnostic Imaging Report ---
Indication: Back pain Technique: XRAY SPINE THORACIC 2 VIEWS Findings: There is no gross fracture or thoracic malalignment. Atherosclerotic changes are seen. There is a partially visualized left ureteral stent. Degenerative endplate osteophytes are seen. There is also partial ankylosis/anterior osseous bridging of the thoracic spine. Impression: No gross fracture or thoracic malalignment. Degenerative changes of the thoracic spine. 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 Clinical correlation recommended. Left ureteral stent partially visualized.
[2017-01-07 12:31] VITALS: BP 93/55
[2017-01-07] MEDS: Norco 10mg/325mg tab ORAL PRN (14:20)
--- NOTE | 2017-01-07 15:51 | Infectious Diseases Prog Note ---
Assessment/Plan Problems: (1) Catheter-associated urinary tract infection Assessment & Plan: due to morganella morgannii , will switch cefepime empirically to oral levaquin for 10 more days. recommend to change suprapubic catheter since it is infected and due to be changed (2) Back pain Assessment & Plan: continue Pain management as per primary (3) Hx of spinal cord injury Assessment & Plan: stable, continue pain management Subjective Constitutional: Reports: no symptoms HEENT: Reports: no symptoms Respiratory: Reports: no symptoms Breasts: Reports: no symptoms Cardiovascular: Reports: no symptoms Gastrointestinal/Abdominal: Reports: no symptoms Genitourinary: Reports: no symptoms Neurologic: Reports: weakness Psychiatric: Reports: no symptoms Skin: Reports: no symptoms Endocrine: Reports: no symptoms Musculoskeletal: Reports: pain, stiffness Allergies: Coded Allergies: No Known Allergies (Verified , 11/07/09) Objective Vital Signs Last 24 Hour Vital Signs Date Time Temp Pulse Resp B/P (MAP) Pulse Ox O2 Delivery O2 Flow Rate FiO2 01/07/17 12:31 97.3 55 20 93/55 95 Room Air 01/07/17 08:21 98.4 67 20 103/58 98 Room Air 01/07/17 04:00 98.0 66 20 110/68 97 Room Air 01/07/17 00:00 97.7 65 20 109/65 96 Room Air 01/06/17 20:00 98.1 61 20 108/66 96 Room Air 01/06/17 16:00 97.7 61 16 99 Height (Feet): 5 Height (Inches): 6.00 Weight (Pounds): 180 General Appearance: WD/WN, no acute distress HEENT: normocephalic, atraumatic, anicteric, mucous membranes moist, PERRL Respiratory/Chest: chest wall non-tender, lungs clear, normal breath sounds, no respiratory distress, no accessory muscle use Cardiovascular: normal peripheral pulses, normal rate, regular rhythm, no gallop/murmur, no JVD Abdomen: normal bowel sounds, soft, non tender, no organomegaly, non distended , no mass, no scars Extremities: no cyanosis, no clubbing Skin: no rash, no lesions, no ulcers Neurologic/Psychiatric: alert, oriented x 3 Microbiology Date/Time Source Procedure Growth Status 01/04/17 22:30 Rectum VRE Culture - Final NO VANCOMYCIN RESISTANT ENTEROCOCCUS ... Complete Current Medications Medications (Trade) Dose Ordered Sig/Eric Route PRN Reason Start Time Stop Time Status Last Admin Dose Admin Acetaminophen (Tylenol) 650 mg Q4H PRN ORAL fever 01/04/17 16:00 02/03/17 15:59 Acetaminophen/ Hydrocodone Bitart ([place] 10325) 1 ea Q4H PRN ORAL Mild Pain (Pain Scale 1-3) 01/04/17 16:00 01/11/17 15:59 01/07/17 14:20 Al Hydroxide/Mg Hydroxide (Mylanta II) 30 ml Q6H PRN ORAL dyspepsia 01/04/17 16:00 02/03/17 15:59 Baclofen (Lioresal) 20 mg QID ORAL 01/04/17 18:00 02/03/17 17:59 01/07/17 13:30 Bisacodyl (Dulcolax) 10 mg DAILYPRN PRN ORAL Constipation 01/04/17 16:00 02/03/17 15:59 Dextrose (Dextrose 50%) STAT PRN IV Hypoglycemia 01/04/17 16:00 02/03/17 15:59 Diphenhydramine HCl (Benadryl) 25 mg Q6H PRN ORAL Itching 01/04/17 16:00 02/03/17 15:59 Gabapentin (Neurontin) 300 mg TID ORAL 01/04/17 18:00 02/03/17 17:59 01/07/17 13:29 Heparin Sodium (Porcine) (Heparin 5000 units/ml) 5,000 units EVERY 12 HOURS SUBQ 01/04/17 21:00 02/03/17 20:59 01/07/17 09:14 Levofloxacin (Levaquin) 250 mg DAILY ORAL 01/08/17 09:00 01/15/17 08:59 Lorazepam (Ativan 2mg/ml 1ml) 0.5 mg Q4H PRN IV For Anxiety 01/04/17 16:00 01/11/17 15:59 01/06/17 02:24 Midodrine (Pro-Amatine) 10 mg TID ORAL 01/04/17 18:00 02/03/17 17:59 01/07/17 13:29 Morphine Sulfate (Morphine Sulfate) 2 mg Q4H PRN IVP For Pain 4-6 01/04/17 16:00 01/11/17 15:59 01/07/17 05:24 Morphine Sulfate (Morphine Sulfate) 4 mg Q4H PRN IVP For Pain 7-10 01/04/17 16:00 01/11/17 15:59 01/07/17 09:21 Ondansetron HCl (Zofran) 4 mg Q6H PRN IVP Nausea & Vomiting 01/04/17 16:00 02/03/17 15:59 Pantoprazole (Protonix) 40 mg ACBREAKFAST ORAL 01/05/17 06:30 02/04/17 06:29 01/07/17 06:17 Polyethylene Glycol (Miralax) 17 gm HSPRN PRN ORAL Constipation Second line agent 01/04/17 16:00 02/03/17 15:59 Zolpidem Tartrate (Ambien) 5 mg HSPRN PRN ORAL Insomnia 01/04/17 16:00 01/11/17 15:59 Jess Carrillo M.D. Jan 07, 2017 15:51
[2017-01-07 16:20] VITALS: BP 109/67
[2017-01-07 20:00] VITALS: BP 115/69
--- NOTE | 2017-01-07 23:24 | Pulmonology Progress Note ---
Assessment/Plan Problems: (1) Sepsis (2) Paraplegia (3) Hx of spinal cord injury Assessment/Plan check cultures IV abx check electrolytes dvt prophylaxis all noted Subjective ROS Limited/Unobtainable: No Constitutional: Reports: no symptoms HEENT: Repors: no symptoms Respiratory: Reports: wheezing Allergies: Coded Allergies: No Known Allergies (Verified , 11/07/09) Objective Last 24 Hour Vital Signs Date Time Temp Pulse Resp B/P (MAP) Pulse Ox O2 Delivery O2 Flow Rate FiO2 01/07/17 20:00 98.4 67 21 115/69 96 Room Air 01/07/17 16:20 98.2 56 19 109/67 96 Room Air 01/07/17 12:31 97.3 55 20 93/55 95 Room Air 01/07/17 08:21 98.4 67 20 103/58 98 Room Air 01/07/17 04:00 98.0 66 20 110/68 97 Room Air 01/07/17 00:00 97.7 65 20 109/65 96 Room Air Intake and Output 01/07/17 01/08/17 19:00 07:00 Intake Total 840 ml Output Total 2650 ml Balance -1810 ml Intake Oral 840 ml Output Urine Total 2650 ml General Appearance: WD/WN HEENT: normocephalic Respiratory/Chest: chest wall non-tender, lungs clear Cardiovascular: normal peripheral pulses, normal rate Abdomen: normal bowel sounds, soft, non tender, no scars Genitourinary: normal external genitalia Skin: no rash, no lesions, no ulcers Current Medications Medications (Trade) Dose Ordered Sig/Eric Route PRN Reason Start Time Stop Time Status Last Admin Dose Admin Acetaminophen (Tylenol) 650 mg Q4H PRN ORAL fever 01/04/17 16:00 02/03/17 15:59 Acetaminophen/ Hydrocodone Bitart ([place] 10/325) 1 ea Q4H PRN ORAL Mild Pain (Pain Scale 1-3) 01/04/17 16:00 01/11/17 15:59 01/07/17 14:20 Al Hydroxide/Mg Hydroxide (Mylanta II) 30 ml Q6H PRN ORAL dyspepsia 01/04/17 16:00 02/03/17 15:59 Baclofen (Lioresal) 20 mg QID ORAL 01/04/17 18:00 02/03/17 17:59 01/07/17 20:09 Bisacodyl (Dulcolax) 10 mg DAILYPRN PRN ORAL Constipation 01/04/17 16:00 02/03/17 15:59 Dextrose (Dextrose 50%) STAT PRN IV Hypoglycemia 01/04/17 16:00 02/03/17 15:59 Diphenhydramine HCl (Benadryl) 25 mg Q6H PRN ORAL Itching 01/04/17 16:00 02/03/17 15:59 Gabapentin (Neurontin) 300 mg TID ORAL 01/04/17 18:00 02/03/17 17:59 01/07/17 17:26 Heparin Sodium (Porcine) (Heparin 5000 units/ml) 5,000 units EVERY 12 HOURS SUBQ 01/04/17 21:00 02/03/17 20:59 01/07/17 20:11 Levofloxacin (Levaquin) 250 mg DAILY ORAL 01/08/17 09:00 01/15/17 08:59 Lorazepam (Ativan 2mg/ml 1ml) 0.5 mg Q4H PRN IV For Anxiety 01/04/17 16:00 01/11/17 15:59 01/06/17 02:24 Midodrine (Pro-Amatine) 10 mg TID ORAL 01/04/17 18:00 02/03/17 17:59 01/07/17 17:25 Morphine Sulfate (Morphine Sulfate) 2 mg Q4H PRN IVP For Pain 4-6 01/04/17 16:00 01/11/17 15:59 01/07/17 05:24 Morphine Sulfate (Morphine Sulfate) 4 mg Q4H PRN IVP For Pain 7-10 01/04/17 16:00 01/11/17 15:59 01/07/17 20:10 Ondansetron HCl (Zofran) 4 mg Q6H PRN IVP Nausea & Vomiting 01/04/17 16:00 02/03/17 15:59 Pantoprazole (Protonix) 40 mg ACBREAKFAST ORAL 01/05/17 06:30 02/04/17 06:29 01/07/17 06:17 Polyethylene Glycol (Miralax) 17 gm HSPRN PRN ORAL Constipation Second line agent 01/04/17 16:00 02/03/17 15:59 Zolpidem Tartrate (Ambien) 5 mg HSPRN PRN ORAL Insomnia 01/04/17 16:00 01/11/17 15:59 LOIS PORTILLO Jan 07, 2017 23:24
[2017-01-08] VITALS: BP 112/71
[2017-01-08] MEDS: Morphine Sulfate 4mg/ml Inj IVP PRN ×2 (02:17→14:22)
[2017-01-08] MEDS: LORazepam Inj 2mg/ml 1ml IV PRN ×2 (02:49→13:30)
[2017-01-08 04:00] VITALS: BP 110/57
[2017-01-08 08:00] VITALS: BP 114/64
[2017-01-08] MEDS: Midodrine 10mg tab ORAL SCH ×2 (08:34→12:06)
[2017-01-08] MEDS: Heparin 5000 units/ml inj SUBQ SCH (08:36)
[2017-01-08] MEDS: Norco 10mg/325mg tab ORAL PRN (08:36)
[2017-01-08] MEDS ORDERED: NORCO 10-325 T1 EACH ORAL (10:20)
[2017-01-08] MEDS ORDERED: AMBIEN5 MG ORAL (10:20)
[2017-01-08] MEDS ORDERED: LEVOFLOXACIN250 MG ORAL (10:20)
[2017-01-08] MEDS ORDERED: PERCOCET 10-321 EAC1 PO ×2 (11:43→11:44)
--- NOTE | 2017-01-08 11:51 | General Progress Note ---
Assessment/Plan Assessment/Plan (1) History of CVA (2) Paraplegia (3) Thalamic pain syndrome Patient will be discontinued off Morphine 2mg and Hunters He will be continued on Morphine 4mg IV Q4H PRN severe pain We will start Pt on Percocet 10/325mg PO 1 tab Q6H PRN moderate pain. D/w Dr. Bowers and he concurred. Thank you for the courtesy of this consultation. Subjective Date patient seen: Jan 08, 2017 Time patient seen: 11:45 - am Allergies: Coded Allergies: No Known Allergies (Verified , 11/07/09) Subjective REVIEW OF SYSTEMS: Denies rash, fever, chills, sweating, dizziness, drowsiness, blurred vision, sore throat, or change in hearing. No shortness of breath or chest pain. No nausea, vomiting, or diarrhea. He is complaining of generalized body pain. SUBJECTIVE: Patient is a known patient from prior admission and had been admitted under the care of Dr. Bullard due to back pain caused by UTI. At this time patient is in 11/10 he has been on Morphine 2-4mg IV Q4H PRN with minimal pain relief. We were consulted so patient will have adequate pain relief while here in the hospital. Objective Last 24 Hour Vital Signs Date Time Temp Pulse Resp B/P (MAP) Pulse Ox O2 Delivery O2 Flow Rate FiO2 01/08/17 08:00 97.5 72 15 114/64 96 01/08/17 04:00 96.0 56 18 110/57 97 Room Air 01/08/17 00:00 98.2 56 21 112/71 97 Room Air 01/07/17 20:00 98.4 67 21 115/69 96 Room Air 01/07/17 16:20 98.2 56 19 109/67 96 Room Air 01/07/17 12:31 97.3 55 20 93/55 95 Room Air Height (Feet): 5 Height (Inches): 6.00 Weight (Pounds): 180 Objective GENERAL: Alert, awake, and oriented. HEENT: PERRLA. NECK: Range of motion is decreased due to patients pain and condition. LUNGS: Decreased breath sounds bilaterally. HEART: S1 and S2 regular. ABDOMEN: Tenderness to palpation. BACK: Range of motion is decreased on flexion and extension with tenderness to paraspinous and trapezius muscles. EXTREMITIES: Lower extremity range of motion is decreased. No cyanosis. No clubbing. Sensory is reduced. Reflexes are unobtainable. MICAH MELENDEZ Jan 08, 2017 11:51
--- NOTE | 2017-01-08 12:00 | Consultation ---
DATE OF CONSULTATION: 01/07/2017 UROLOGY CONSULTATION ATTENDING/CONSULTING PHYSICIAN: Rickey Bullard D.O. Chief Complaint/History Of Present Illness: I was asked by Dr. Bullard to evaluate this 61-year-old gentleman with a neurogenic bladder managed by a suprapubic catheter for catheter exchange. Briefly, the patient has a history of a spinal cord injury on his neck. After the same, he developed quadriplegia and neurogenic bladder. He has been managed with a suprapubic catheter. He presents to the hospital with a history of low back pain exacerbation. He was found to have evidence of urinary tract infection. I was asked to change his suprapubic tube for the same. PAST MEDICAL HISTORY: 1. Stroke. 2. Neck injury. 3. Neuropathy. 4. Neurogenic bladder. 5. CVA. PAST SURGICAL HISTORY: Suprapubic tube placement. Medications: Please see chart for current medications and administration details. ALLERGIES: No known drug allergies. Social History: Unremarkable for alcohol or drug use. The patient has a history of smoking. FAMILY HISTORY: Noncontributory. Review Of Systems: A 12-system review of systems is essentially unremarkable outside of what is described above. PHYSICAL EXAMINATION: General: The patient is an older gentleman, awake, alert, and oriented x4, pleasant, in no obvious distress. VITAL SIGNS: Afebrile. Vital signs are stable. HEENT: NC/AT. Oropharynx clear. CHEST: Within normal limits. ABDOMEN: Soft, nontender, and nondistended. SP tube in place. Extremities: Warm and well perfused. No cyanosis, clubbing, or edema. BACK: No CVA tenderness to percussion. NEUROLOGIC: Notable for evidence of partial quadriplegia. GENITOURINARY: Reveals normal male external genitalia. Laboratory Data: White blood cell count 7.3, hematocrit 38.3, and platelets 167,000. PT 10.1, INR 1.0, and PTT 28. Urinalysis, specific gravity 1.010 and pH 8. Dip test notable for 2+ protein, 4+ occult blood, positive nitrites, and 3+ leukocyte esterase. Microanalysis with 5 to 10 red blood cells per high-power field, 60 to 80 white blood cells per high-power field, and many bacteria seen. Sodium 138, potassium 4.5, chloride 100, bicarb 26, BUN 14, creatinine 1.0, glucose 80, and calcium 7.4. LFTs within normal limits. DIAGNOSTIC IMAGING: Chest x-ray, no acute findings. Assessment And Plan: In summary, the patient is a 61-year-old gentleman with a history of a spinal cord injury on his neck resulting in partial quadriplegia and neurogenic bladder. He has been managed with suprapubic catheter and presents to the hospital with low back pain. He was found to have evidence of urinary tract infection. As such, I was asked to change his suprapubic catheter out. Physical exam reveals a suprapubic tube in place. Laboratory data is notable for evidence of urinary tract infection. There is no relevant diagnostic imaging. Today at the bedside, I removed the patient's old suprapubic catheter and placed a new 16-[place] suprapubic catheter into the bladder. It irrigated easily indicating good position within the bladder. It was inflated and left to gravity drainage. It can be kept in place as needed. The patient should be treated with antibiotics per Dr. Carrillo, ID recommendations. Thank you for allowing me to participate in the care of this nice gentleman. Please do not hesitate to contact me for any questions that you may further have regarding his care. I will be happy to see him with you as needed. Nickolas Meraz M.D. DR: JOAQUIN JOB#: [id number] CC:
--- NOTE | 2017-01-08 13:54 | Infectious Diseases Prog Note ---
Assessment/Plan Problems: (1) Catheter-associated urinary tract infection Assessment & Plan: due to morganella honorionii , continue oral levaquin for 9 more days. recommend to change suprapubic catheter since it is infected and due to be changed (2) Back pain Assessment & Plan: continue Pain management as per primary (3) Hx of spinal cord injury Assessment & Plan: stable, continue pain management Subjective Constitutional: Reports: no symptoms HEENT: Reports: no symptoms Respiratory: Reports: no symptoms Breasts: Reports: no symptoms Cardiovascular: Reports: no symptoms Gastrointestinal/Abdominal: Reports: no symptoms Genitourinary: Reports: no symptoms Neurologic: Reports: no symptoms Psychiatric: Reports: no symptoms Skin: Reports: no symptoms Endocrine: Reports: no symptoms Hematologic: Reports: no symptoms Musculoskeletal: Reports: pain, stiffness Allergies: Coded Allergies: No Known Allergies (Verified , 11/07/09) Objective Vital Signs Last 24 Hour Vital Signs Date Time Temp Pulse Resp B/P (MAP) Pulse Ox O2 Delivery O2 Flow Rate FiO2 01/08/17 08:00 97.5 72 15 114/64 96 01/08/17 04:00 96.0 56 18 110/57 97 Room Air 01/08/17 00:00 98.2 56 21 112/71 97 Room Air 01/07/17 20:00 98.4 67 21 115/69 96 Room Air 01/07/17 16:20 98.2 56 19 109/67 96 Room Air Height (Feet): 5 Height (Inches): 6.00 Weight (Pounds): 180 General Appearance: WD/WN, no acute distress HEENT: normocephalic, atraumatic, anicteric, mucous membranes moist, PERRL Respiratory/Chest: chest wall non-tender, lungs clear, normal breath sounds, no respiratory distress, no accessory muscle use Cardiovascular: normal peripheral pulses, normal rate, regular rhythm, no gallop/murmur, no JVD Abdomen: normal bowel sounds, soft, non tender, no organomegaly, non distended , no mass, no scars Genitourinary: normal external genitalia Extremities: no cyanosis, no clubbing Skin: no rash, no lesions, no ulcers Current Medications Medications (Trade) Dose Ordered Sig/Eric Route PRN Reason Start Time Stop Time Status Last Admin Dose Admin Acetaminophen (Tylenol) 650 mg Q4H PRN ORAL fever 01/04/17 16:00 02/03/17 15:59 Al Hydroxide/Mg Hydroxide (Mylanta II) 30 ml Q6H PRN ORAL dyspepsia 01/04/17 16:00 02/03/17 15:59 Baclofen (Lioresal) 20 mg QID ORAL 01/04/17 18:00 02/03/17 17:59 01/08/17 12:07 Bisacodyl (Dulcolax) 10 mg DAILYPRN PRN ORAL Constipation 01/04/17 16:00 02/03/17 15:59 Dextrose (Dextrose 50%) STAT PRN IV Hypoglycemia 01/04/17 16:00 02/03/17 15:59 Diphenhydramine HCl (Benadryl) 25 mg Q6H PRN ORAL Itching 01/04/17 16:00 02/03/17 15:59 Gabapentin (Neurontin) 300 mg TID ORAL 01/04/17 18:00 02/03/17 17:59 01/08/17 12:06 Heparin Sodium (Porcine) (Heparin 5000 units/ml) 5,000 units EVERY 12 HOURS SUBQ 01/04/17 21:00 02/03/17 20:59 01/08/17 08:36 Levofloxacin (Levaquin) 250 mg DAILY ORAL 01/08/17 09:00 01/15/17 08:59 01/08/17 08:35 Lorazepam (Ativan 2mg/ml 1ml) 0.5 mg Q4H PRN IV For Anxiety 01/04/17 16:00 01/11/17 15:59 01/08/17 13:30 Midodrine (Pro-Amatine) 10 mg TID ORAL 01/04/17 18:00 02/03/17 17:59 01/08/17 12:06 Morphine Sulfate (Morphine Sulfate) 4 mg Q4H PRN IVP For Pain 7-10 01/04/17 16:00 01/11/17 15:59 01/08/17 02:17 Ondansetron HCl (Zofran) 4 mg Q6H PRN IVP Nausea & Vomiting 01/04/17 16:00 02/03/17 15:59 Oxycodone/ Acetaminophen (Percocet 10/325) 1 tab Q6H PRN ORAL Moderate Pain (Pain Scale 4-6) 10/8/17 12:00 01/15/17 11:59 01/08/17 12:07 Pantoprazole (Protonix) 40 mg ACBREAKFAST ORAL 01/05/17 06:30 02/04/17 06:29 01/08/17 06:48 Polyethylene Glycol (Miralax) 17 gm HSPRN PRN ORAL Constipation Second line agent 01/04/17 16:00 02/03/17 15:59 Zolpidem Tartrate (Ambien) 5 mg HSPRN PRN ORAL Insomnia 01/04/17 16:00 01/11/17 15:59 Jess Carrillo M.D. Jan 08, 2017 13:54
[2017-01-08] MEDS ORDERED: NS Irrig 1000ml ONE (14:30)
--- NOTE | 2017-01-08 22:59 | Pulmonology Progress Note ---
Assessment/Plan Problems: (1) Sepsis (2) Intractable pain (3) UTI (lower urinary tract infection) (4) History of gastrostomy tube placement (5) Paraplegia Assessment/Plan improving continue abx check cultures symptomatic treatment tolerating diet dc planning Subjective ROS Limited/Unobtainable: No Constitutional: Reports: no symptoms HEENT: Repors: no symptoms Respiratory: Reports: no symptoms Allergies: Coded Allergies: No Known Allergies (Verified , 11/07/09) Objective Last 24 Hour Vital Signs Date Time Temp Pulse Resp B/P (MAP) Pulse Ox O2 Delivery O2 Flow Rate FiO2 01/08/17 08:00 97.5 72 15 114/64 96 01/08/17 04:00 96.0 56 18 110/57 97 Room Air 01/08/17 00:00 98.2 56 21 112/71 97 Room Air General Appearance: WD/WN HEENT: normocephalic, atraumatic Respiratory/Chest: chest wall non-tender, lungs clear Cardiovascular: normal peripheral pulses, normal rate Abdomen: normal bowel sounds, soft, non tender Skin: no rash, no lesions LOIS PORTILLO Jan 08, 2017 22:59
--- NOTE | 2017-01-10 11:11 | Discharge Summary ---
Discharge Summary Hospital Course Date of Admission Jan 04, 2017 at 15:40 Date of Discharge Jan 08, 2017 at 14:31 Admitting Diagnosis BACK PAIN, URINARY INFECTION HPI Lloyd Brewer is a 61 year old male who was admitted on Jan 04, 2017 at 15:40 for Back Pain, Urinary Infection Hospital Course dc summary #[id number] Discharge Medications Continued Medications: Acetaminophen (Tylenol) 100 Mg/1 Ml Drops.susp 650 MG GT EVERY 6 HOURS PRN for Temp >101F Baclofen* (Baclofen*) 10 Mg Tablet 20 MG ORAL QID, TAB Bisacodyl* (Dulcolax*) 5 Mg Tablet.dr 10 MG RECTAL DAILY PRN for Constipation, #10 TAB 0 Refills Diphenhydramine Hcl* (Diphenhydramine Hcl*) 25 Mg Capsule 25 MG ORAL Q6H PRN for Itching, #30 CAP 0 Refills Gabapentin* (Neurontin*) 100 Mg Capsule 300 MG ORAL THREE TIMES A DAY, CAP Heparin Sod (Porcine) (Heparin Sodium*) 5 000/1 Ml Vial 5000 UNITS SUBQ EVERY 12 HOURS, VIAL Hydrocodone Bit/Acetaminophen 10-325* ([place] 10-325*) 1 Each Tablet 1 TAB ORAL Q4H PRN for For Pain, TAB 0 Refills PRN PAIN Levofloxacin (Levofloxacin*) 250 Mg Tablet 250 MG ORAL DAILY for 13 Days, TAB Lorazepam* (Ativan*) 0.5 Mg Tablet 0.5 MG ORAL PRN PRN for For Anxiety, TAB Midodrine* (Proamatine*) 10 Mg Tablet 10 MG ORAL TID, TAB Oxycodone HCl/Acetaminophen (Percocet 10-325 mg Tablet) 1 Each Tablet 1 EACH PO Q6HR, TAB Pantoprazole* (Protonix*) 40 Mg Tablet.dr 40 MG ORAL DAILY, TAB Polyethylene Glycol 3350* (Miralax*) 17 Gm Powd.pack 17 GM ORAL DAILY PRN for Constipation, PACKET Zolpidem Tartrate* (Ambien*) 5 Mg Tablet 5 MG ORAL BEDTIME PRN for Insomnia, TAB Discontinued Medications: Oxycodone HCl/Acetaminophen (Percocet 10-325 mg Tablet) 1 Each Tablet 1 EACH PO Q6HR, TAB Oxycodone/Acetaminophen 5-325* (Percocet 5-325 Mg Tablet*) 1 Each Tablet 1 TAB ORAL Q4H PRN for For Pain, TAB Oxycodone/Acetaminophen 5-325* (Percocet 5-325 Mg Tablet*) 1 Each Tablet 1 TAB ORAL Q6H PRN for For Pain, #30 TAB 0 Refills Discharge Condition Upon Discharge: stable Discharge Disposition Patient was discharged to SNF/Subacute Facility(03) Discharge Diagnoses: Discharge Instructions Discharge Instructions Special Instructions I have been assigned to complete a D/C Summary on this account. I was not involved in the patient management Donna Delong NP ([place]) Jan 10, 2017 11:11
--- NOTE | 2017-01-11 05:24 | Discharge Summary 2 SIG ---
DATE OF ADMISSION: 01/04/2017 DATE OF DISCHARGE: 01/08/2017 CONSULTANTS: 1. Jess Carrillo M.D., infectious disease specialist. 2. Rojas Elizabeth M.D., neurologist. 3. Dimitri Bowers M.D., pain specialist. 4. Dr. Meraz, urologist. 5. Osvaldo Lundberg M.D., pulmonology/hospitalist. BRIEF HOSPITAL STAY: 61 years old male with history of spinal cord injury, spastic quadriparesis, gastroesophageal reflux disease, G-tube, suprapubic catheter, and cervical laminectomy, presented with intractable back pain. His usual pain medication did not help at the fdc facility where he resides, and the nursing staff was sent the patient for evaluation. In the emergency department, vital signs were stable. The patient was afebrile. Urinalysis revealed evidence of urinary tract infection. Lactic acid within normal limits -1.1. No leukocytosis. Renal parameters and electrolytes were stable. Troponin was negative. EKG revealed normal sinus rhythm with right bundle-branch block. Chest x-ray revealed no acute cardiopulmonary pathology. Spine CT of the lumbar spine revealed no acute injury. Osteoporosis and multilevel degenerative disease of the lumbar spine. Left ureteral stent. The patient was started on empiric antibiotic for urinary tract infection. Urine culture grew Morganella. Continue antibiotic as per Infectious Disease recommendation in the fdc facility. Infectious Disease specialist recommended to change the suprapubic catheter. Urologist seen and evaluated the patient. Suprapubic catheter was changed by urologist with new 16-Togolese gauge , working properly. Urologist recommended to change suprapubic catheter every four to six weeks. Pain management was provided. Pain specialist followed. X-ray of the thoracic and lumbar spine revealed no evidence of acute injury or trauma. Neurologist seen and evaluated the patient and ordered the iMRI of C spine. MRI of the C-spine revealed evidence of multilevel cervical laminectomy, but no acute changes. Neurologist recommended continue pain management as per pain specialist recommendation and consider getting antidepressives. DVT prophylaxis was provided. Bowel regimen was instituted. Pain was controlled. The patient was stable for return to fdc facility. FINAL DIAGNOSES: 1. Catheter-associated urinary tract infection with Morganella. 2. Intractable back pain 3. Thalamic pain syndrome. 4. History of spinal cord injury. 5. Spastic paraplegia 6. Neurogenic bladder. 7. Suprapubic catheter status. DISCHARGE MEDICATIONS: See medication reconciliation list. DISCHARGE INSTRUCTIONS: The patient was discharged to fdc facility. FOLLOWUP: Follow up with medical doctor at the facility. Rickey Bullard D.O. I have been assigned to dictate discharge summary on this account and I was not involved in the patient's management. Donna Hensleyjossue N.PSelam DR: CHRISTINE JOB#: [id number] CC: [place]
--- NOTE | 2017-01-12 23:20 | Cardiology Report ---
APPROVED REPORT EKG Measurement Heart [id number] Normal sinus rhythm Left axis deviation Right bundle branch block Abnormal ECG
== END 2017-01-08 14:31 | DRG 466 ==
LOC: EDBD 13:36 → EMR 14:00 → 2E 15:40 → UNDOADMIN 15:40 → 4E 15:40 → EDBEDREQ 15:59 → EDBEDREQSVC 17:38 → EDBEDREQ 17:38
DX: T83.510A Infection and inflammatory reaction due to cystostomy catheter, initial encounter (principal); G82.50 Quadriplegia, unspecified; Z43.1 Encounter for attention to gastrostomy; G62.9 Polyneuropathy, unspecified; S14.109A Unspecified injury at unspecified level of cervical spinal cord, initial encounter; N31.9 Neuromuscular dysfunction of bladder, unspecified; I10 Essential (primary) hypertension; Y84.6 Urinary catheterization as the cause of abnormal reaction of the patient, or of later complication, without mention of misadventure at the time of the procedure; N39.0 Urinary tract infection, site not specified; B96.89 Other specified bacterial agents as the cause of diseases classified elsewhere; G89.0 Central pain syndrome; R33.8 Other retention of urine; Z86.73 Personal history of transient ischemic attack (TIA), and cerebral infarction without residual deficits; K21.9 Gastro-esophageal reflux disease without esophagitis; M51.36 Other intervertebral disc degeneration, lumbar region; X58.XXXA Exposure to other specified factors, initial encounter; Z87.891 Personal history of nicotine dependence
CPT/HCPCS: 36415; 71010; 72020; 72070; 72131; 72141; 80048; 80053; 81003; 82550; 82553; 83605; 84443; 84484; 85025; 85610; 85730; 87040; 87081; 87086; 87181; 93005; 99285

== ENCOUNTER 2017-03-02 02:06 | Inpatient (IN) | payer MEDICAID ==
[~2017-03-02] VITALS: Ht 167.6 cm; Wt 73.9 kg
[~2017-03-02 02:06] MED LIST changes: +ALUM-MAG HYDRO360 ML PO; +AMBIEN5 MG ORAL; +DIPHENHYDRAMINE25 M1 ORAL; +HEPARIN SO5000 UNIT2 SUBQ; +LEVOFLOXACIN250 MG ORAL; +MIRALAX17 G2 ORAL; +MULTIVITAMINS1 EAC8 ORAL; +NEXIUM20 MG ORAL; +NITROGLYCERIN0.4 MG SL; +NORCO 10-325 T1 EACH ORAL; +PERCOCET 10-321 EAC1 PO; +ZOFRAN4 M3 ORAL
[2017-03-02] MEDS ORDERED: Piperacillin/Tazobactam 3.375 GM in NS 55 ML IVPB ONE (02:30)
[2017-03-02] MEDS ORDERED: Vancomycin 1 GM in NS 275 ML IVPB ONE (02:30)
[2017-03-02] MEDS ORDERED: NS 1000ml 2,200 ML IVLG ONE (02:30)
[2017-03-02] MEDS ORDERED: ZOLOFT50 MG ORAL (02:31)
[2017-03-02] MEDS ORDERED: NORCO 5-325 TA1 EACH ORAL (02:31)
[2017-03-02] MEDS ORDERED: LORAZEPAM0.5 MG ORAL (02:31)
--- NOTE | 2017-03-02 02:36 | Emergency Room Report ---
History of Present Illness General Chief Complaint: Fever Source: Medical Record, EMS Present Illness HPI This is an unfortunate 61-year-old male with a history of paraplegia, sepsis from UTI in the past who presents with chief complaint of fever and cloudy urine. Unable to get history from him because of his mental status. History is through [facility] note, old records, and EMS. Symptom onset was tonight. No nausea no vomiting. Fever and [facility]. Similar symptom in the past. He was a bit here in January for the same. Allergies: Coded Allergies: No Known Allergies (Verified , 11/07/09) Patient History Past Medical History: see triage record, old chart reviewed Past Surgical History: other Pertinent Family History: none Social History: Denies: smoking Immunizations: UTD Reviewed Nursing Documentation: PMH: Agreed, PSxH: Agreed Nursing Documentation-PMH Hx Cardiac Problems: Yes Hx Hypertension: Yes Hx Cancer: No Hx Gastrointestinal Problems: Yes - GERD,NEUROMUSCULAR DYSFUNCTION OF BLADDER History Of Psychiatric Problem: Yes - ANXIETY,MAJOR DEPRESSIVE DISORDER Hx Neurological Problems: Yes - SPASTIC QUADREPLEGIC CEREBRAL PALSY Hx Cerebrovascular Accident: Yes Hx Cerebral Palsy: Yes Hx Paralysis: Yes - Paraplegic Hx Speech Problem: Yes Hx Numbness: Yes Hx Weakness: Yes Hx Neurologic Surgery: Yes Review of Systems Constitutional: Reports: malaise, weakness Eye: Denies: eye pain, blurred vision ENT: Denies: ear pain, nose congestion, throat swelling Respiratory: Denies: cough, shortness of breath Cardiovascular: Denies: chest pain, palpitations Gastrointestinal: Denies: abdominal pain, diarrhea, nausea, vomiting Musculoskeletal: Denies: back pain, joint pain Skin: Denies: rash Neurological: Denies: headache, numbness Endocrine: Denies: increased thirst, increased urine Hematologic/Lymphatic: Denies: easy bruising All Other Systems: negative except mentioned in HPI Physical Exam Vital Signs Date Time Temp Pulse Resp B/P (MAP) Pulse Ox O2 Delivery O2 Flow Rate FiO2 03/02/17 02:05 99.9 108 31 112/64 92 Nasal Cannula 4.0 vitals with low-grade fever, tachycardia and hypoxia Sp02 EP Interpretation: abnormal General Appearance: mild distress, lethargic, Chronically Ill Head: normocephalic, atraumatic Eyes: bilateral eye PERRL, bilateral eye EOMI ENT: hearing grossly normal, dry mucus membranes Neck: full range of motion, supple, no meningismus Respiratory: chest non-tender, lungs clear, normal breath sounds Cardiovascular #1: regular rate, rhythm, no murmur Gastrointestinal: normal bowel sounds, non tender, no mass, no organomegaly, no bruit, non-distended, other - stoma for GTube closed. Genitourinary: other - suprapubic cath intact with cloudy urine. Musculoskeletal: back normal, normal range of motion Psychiatric: mood/affect normal Skin: warm/dry Procedures Critical Care Time Critical Care Time Critical care is mandated in this patient who presented with sepsis secondary to UTI. Patient require my urgent intervention to attenuate the risks of metabolic colse which may lead to cardiovascular collapse and . Critical care time is 35 minutes excluding any reportable procedure. Critical care time included evaluation, multiple reevaluation, looking at old charts, interpreting laboratory and diagnostic data, discussing case with patient and family and consultants, and charting. Medical Decision Making Diagnostic Impression: Primary Impression: Sepsis Qualified Codes: A41.9 - Sepsis, unspecified organism Additional Impressions: UTI (lower urinary tract infection) Hyponatremia Encephalopathy acute Catheter-associated urinary tract infection Qualified Codes: T83.511A - Infection and inflammatory reaction due to indwelling urethral catheter, initial encounter; N39.0 - Urinary tract infection , site not specified Proteinuria Qualified Codes: R80.9 - Proteinuria, unspecified ER Course Patient present with sepsis and UTI. In January of 2017 he grew out Morganella. In November of 2016 he grew out Serratia. In August 2016 he grew out Escherichia coli, Pseudomonas, port he is, in Serratia. All of these bugs were sensitive to Zosyn. He also has MRSA I place the patient on Zosyn and vancomycin. Feeling better after IV fluid. Will admit. Laboratory Tests Test 03/02/17 02:21 03/02/17 02:50 Urine Color Yellow Urine Appearance Slightly cloudy Urine pH 7 (4.5-8.0) Urine Specific [place] 1.010 (1.005-1.035) Urine Protein 2+ (NEGATIVE) H Urine Glucose (UA) Negative (NEGATIVE) Urine Ketones 3+ (NEGATIVE) H Urine Occult Blood 5+ (NEGATIVE) H Urine Nitrite Positive (NEGATIVE) H Urine Bilirubin Negative (NEGATIVE) Urine Urobilinogen 1 MG/DL (0.0-1.0) H Urine Leukocyte Esterase 3+ (NEGATIVE) H Urine RBC Tntc /HPF (0 - 0) H Urine WBC Tntc /HPF (0 - 0) H Urine Squamous Epithelial Cells None /LPF (NONE/OCC) Urine Bacteria Many /HPF (NONE) H White Blood Count 13.4 K/UL (4.8-10.8) H Red Blood Count 4.53 M/UL (4.70-6.10) L Hemoglobin 13.5 G/DL (14.2-18.0) L Hematocrit 39.4 % (42.0-52.0) L Mean Corpuscular Volume 87 FL (80-99) Mean Corpuscular Hemoglobin 29.8 PG (27.0-31.0) Mean Corpuscular Hemoglobin Concent 34.2 G/DL (32.0-36.0) Red Cell Distribution Width 11.9 % (11.6-14.8) Platelet Count 158 K/UL (150-450) Mean Platelet Volume 6.4 FL (6.5-10.1) L Neutrophils (%) (Auto) % (45.0-75.0) Lymphocytes (%) (Auto) % (20.0-45.0) Monocytes (%) (Auto) % (1.0-10.0) Eosinophils (%) (Auto) % (0.0-3.0) Basophils (%) (Auto) % (0.0-2.0) Prothrombin Time 10.9 SEC (9.30-11.50) Prothromb Time International Ratio 1.0 (0.9-1.1) Activated Partial Thromboplast Time 36 SEC (23-33) H Sodium Level 126 MMOL/L (136-145) L Potassium Level 4.1 MMOL/L (3.5-5.1) Chloride Level 92 MMOL/L (98-107) L Carbon Dioxide Level 26 MMOL/L (21-32) Anion Gap 8 mmol/L (5-15) Blood Urea Nitrogen 16 mg/dL (7-18) Creatinine 1.2 MG/DL (0.55-1.30) Estimat Glomerular Filtration Rate > 60 mL/min (>60) Glucose Level 119 MG/DL (74-106) H Lactic Acid Level 0.60 mmol/L (0.66-2.22) L Calcium Level 9.0 MG/DL (8.5-10.1) Total Bilirubin 1.2 MG/DL (0.2-1.0) H Direct Bilirubin Pending Aspartate Amino Transf (AST/SGOT) 36 U/L (15-37) Alanine Aminotransferase (ALT/SGPT) 54 U/L (12-78) Alkaline Phosphatase 165 U/L (46-116) H Total Creatine Kinase 54 U/L (26-308) Creatine Kinase MB < 0.5 NG/ML (0.0-3.6) Creatine Kinase MB Relative Index 0.9 Troponin I 0.000 ng/mL (0.000-0.056) Total Protein 7.8 G/DL (6.4-8.2) Albumin 3.3 G/DL (3.4-5.0) L Globulin 4.5 g/dL Albumin/Globulin Ratio 0.7 (1.0-2.7) L Lab Results Impression labs with low sodium. UA positive. EKG Diagnostic Results Rate: normal, tachycardiac Rhythm: NSR ST Segments: no acute changes Rhythm Strip Diag. Results Rhythm Strip Time: 02:50 EP Interpretation: yes Rate: 104 Rhythm: NSR, no PVC's Chest X-Ray Diagnostic Results Chest X-Ray Diagnostic Results : Chest X-Ray Ordered: Yes # of Views/Limited/Complete: 1 View Indication: Shortness of Breath EP Interpretation: Yes Interpretation: no consolidation, no effusion, no pneumothorax, no acute cardiopulmonary disease Impression: No acute disease Electronically Signed by: Cruzito Morales MD Last Vital Signs Date Time Temp Pulse Resp B/P (MAP) Pulse Ox O2 Delivery O2 Flow Rate FiO2 03/02/17 02:05 99.9 108 31 112/64 92 Nasal Cannula 4.0 Status: improved Disposition: ADMITTED INPATIENT Condition: Serious CRZUITO MORALES M.D. Mar 02, 2017 02:36
[2017-03-02 03:07] VITALS: BP 116/66
[2017-03-02 03:18] LABS: MEAN CORPUSCULAR HEMOGLOBIN 29.8 PG (27.0-31.0); MEAN CORPUSCULAR HGB CONC 34.2 G/DL (32.0-36.0); MEAN CORPUSCULAR VOLUME 87 FL (80-99); MEAN PLATELET VOLUME 6.4 FL (6.5-10.1); PLATELET COUNT 158 K/UL (150-450); RED BLOOD COUNT 4.53 M/UL (4.70-6.10); RED CELL DISTRIBUTION WIDTH 11.9 % (11.6-14.8); WHITE BLOOD COUNT 13.4 K/UL (4.8-10.8)
[2017-03-02 03:21] LABS: KETONES,URINE 3+ (NEGATIVE); LEUKOCYTE ESTERASE ,URINE 3+ (NEGATIVE); NITRITE,URINE POSITIVE (NEGATIVE); PH,URINE 7 (4.5-8.0); PROTEIN,URINE 2+ (NEGATIVE); UROBILINOGEN,URINE 1 MG/DL (0.0-1.0)
[2017-03-02 03:22] LABS: APPEARANCE,URINE SLIGHTLY CLOUDY
[2017-03-02] MEDS ORDERED: Zosyn 3.375gm inj ONE (03:22)
[2017-03-02 03:29] LABS: BACTERIA,URINE MANY /HPF; RBC,URINE TNTC /HPF (0 - 0); WBC,URINE TNTC /HPF (0 - 0)
[2017-03-02 03:49] LABS: ANION GAP 8 mmol/L (5-15); CARBON DIOXIDE 26 MMOL/L (21-32); CHLORIDE 92 MMOL/L (98-107); CREATININE 1.2 MG/DL (0.55-1.30); GLOMERULAR FILTRATION RATE > 60 mL/min (>60); POTASSIUM 4.1 MMOL/L (3.5-5.1); SODIUM 126 MMOL/L (136-145)
[2017-03-02 03:50] LABS: PROTHROMBIN TIME 10.9 SEC (9.30-11.50)
[2017-03-02] MEDS ORDERED: Vancomycin 1gm inj IVPB ONE (03:52)
[2017-03-02 04:24] LABS: ALANINE AMINOTRANSFERASE 54 U/L (12-78); ALBUMIN/GLOBULIN RATIO 0.7 (1.0-2.7); ASPARTATE AMINO TRANSFERASE 36 U/L (15-37); CKMB < 0.5 NG/ML (0.0-3.6); TOTAL PROTEIN 7.8 G/DL (6.4-8.2)
[2017-03-02 04:29] LABS: BILIRUBIN,DIRECT 0.4 MG/DL (0.0-0.3)
[2017-03-02 04:32] VITALS: BP 109/67
[2017-03-02] MEDS ORDERED: Albuterol/Ipratropium 3ml neb HHN PRN (06:45)
[2017-03-02] MEDS ORDERED: Morphine Sulfate 2mg/ml Inj IVP PRN (06:45)
[2017-03-02] MEDS ORDERED: Norco 10mg/325mg tab ORAL PRN (06:45)
[2017-03-02 08:00] VITALS: BP 124/69
[2017-03-02] MEDS: Heparin 5000 units/ml inj SUBQ SCH ×2 (08:20→20:43)
--- NOTE | 2017-03-02 09:32 | Cardiology Progress Note ---
Assessment/Plan Assessment/Plan The patient is seen and examined, full consult note will be dictated. Objective Last 24 Hour Vital Signs Date Time Temp Pulse Resp B/P (MAP) Pulse Ox O2 Delivery O2 Flow Rate FiO2 03/02/17 08:00 102.4 147 22 124/69 98 Nasal Cannula 2.0 03/02/17 05:09 98.4 105 19 109/67 95 Nasal Cannula 2.0 03/02/17 04:32 98.4 105 19 109/67 95 Nasal Cannula 2.0 03/02/17 03:07 100.4 107 31 116/66 94 Nasal Cannula 4.0 03/02/17 02:05 99.9 108 31 112/64 92 Nasal Cannula 4.0 Laboratory Tests Test 03/02/17 02:21 03/02/17 02:50 Urine Color Yellow Urine Appearance Slightly cloudy Urine pH 7 (4.5-8.0) Urine Specific [place] 1.010 (1.005-1.035) Urine Protein 2+ (NEGATIVE) H Urine Glucose (UA) Negative (NEGATIVE) Urine Ketones 3+ (NEGATIVE) H Urine Occult Blood 5+ (NEGATIVE) H Urine Nitrite Positive (NEGATIVE) H Urine Bilirubin Negative (NEGATIVE) Urine Urobilinogen 1 MG/DL (0.0-1.0) H Urine Leukocyte Esterase 3+ (NEGATIVE) H Urine RBC Tntc /HPF (0 - 0) H Urine WBC Tntc /HPF (0 - 0) H Urine Squamous Epithelial Cells None /LPF (NONE/OCC) Urine Bacteria Many /HPF (NONE) H White Blood Count 13.4 K/UL (4.8-10.8) H Red Blood Count 4.53 M/UL (4.70-6.10) L Hemoglobin 13.5 G/DL (14.2-18.0) L Hematocrit 39.4 % (42.0-52.0) L Mean Corpuscular Volume 87 FL (80-99) Mean Corpuscular Hemoglobin 29.8 PG (27.0-31.0) Mean Corpuscular Hemoglobin Concent 34.2 G/DL (32.0-36.0) Red Cell Distribution Width 11.9 % (11.6-14.8) Platelet Count 158 K/UL (150-450) Mean Platelet Volume 6.4 FL (6.5-10.1) L Neutrophils (%) (Auto) % (45.0-75.0) Lymphocytes (%) (Auto) % (20.0-45.0) Monocytes (%) (Auto) % (1.0-10.0) Eosinophils (%) (Auto) % (0.0-3.0) Basophils (%) (Auto) % (0.0-2.0) Prothrombin Time 10.9 SEC (9.30-11.50) Prothromb Time International Ratio 1.0 (0.9-1.1) Activated Partial Thromboplast Time 36 SEC (23-33) H Sodium Level 126 MMOL/L (136-145) L Potassium Level 4.1 MMOL/L (3.5-5.1) Chloride Level 92 MMOL/L (98-107) L Carbon Dioxide Level 26 MMOL/L (21-32) Anion Gap 8 mmol/L (5-15) Blood Urea Nitrogen 16 mg/dL (7-18) Creatinine 1.2 MG/DL (0.55-1.30) Estimat Glomerular Filtration Rate > 60 mL/min (>60) Glucose Level 119 MG/DL (74-106) H Lactic Acid Level 0.60 mmol/L (0.66-2.22) L Calcium Level 9.0 MG/DL (8.5-10.1) Total Bilirubin 1.2 MG/DL (0.2-1.0) H Direct Bilirubin 0.4 MG/DL (0.0-0.3) H Aspartate Amino Transf (AST/SGOT) 36 U/L (15-37) Alanine Aminotransferase (ALT/SGPT) 54 U/L (12-78) Alkaline Phosphatase 165 U/L (46-116) H Total Creatine Kinase 54 U/L (26-308) Creatine Kinase MB < 0.5 NG/ML (0.0-3.6) Creatine Kinase MB Relative Index 0.9 Troponin I 0.000 ng/mL (0.000-0.056) Total Protein 7.8 G/DL (6.4-8.2) Albumin 3.3 G/DL (3.4-5.0) L Globulin 4.5 g/dL Albumin/Globulin Ratio 0.7 (1.0-2.7) JARET LE Mar 02, 2017 09:32
[2017-03-02] MEDS ORDERED: Vancomycin 750mg/D5W 275ml IVPB SCH ×2 (10:00)
--- NOTE | 2017-03-02 10:55 | Diagnostic Imaging Report ---
Indication: Shortness of breath Technique: One view of the chest Comparison: 01/04/2017 Findings: Lung and pleural space are clear. Heart size is normal. There is cervical spine fusion hardware again demonstrated. No significant change Impression: No acute process
[2017-03-02] MEDS: Vancomycin 750mg/NS 250ml 250 ML IVPB SCH ×2 (11:11→22:06)
[2017-03-02 11:17] LABS: FREE T3 1.2 pg/mL (2.3-4.2); THYROID STIMULATING HORMONE 0.941 uiU/mL (0.358-3.740)
[2017-03-02 12:00] VITALS: BP 98/58
--- NOTE | 2017-03-02 12:36 | Consultation ---
History of Present Illness General Date patient seen: Mar 02, 2017 Chief Complaint: Fever Reason for Consultation: inpatient management Present Illness HPI 61-year-old male with cerebral palsy, CVA, suprapubic catheter, paraplegia, presented with chief complaint of fever and cloudy urine. Symptom onset was last night. No nausea no vomiting. Fever and longterm. He is awake and comfortable but doesn't answer any questions. Allergies: Coded Allergies: No Known Allergies (Verified , 11/07/09) Medication History Scheduled Amino Acids/Protein Hydrolys (Pro-Stat Liquid), 30 ML GT BID, (Reported) Baclofen* (Baclofen*), 20 MG ORAL QID, (Reported) Calcium Carbonate (Oyster Shell Calcium-Vit D Tab), 500 MG ORAL DAILY, (Reported ) Cranberry Fruit Concentrate (Cranberry), 450 MG GT Q12HR, (Reported) Docusate Sodium (Docusate Sodium), 100 MG GT BID, (Reported) Esomeprazole Magnesium (Nexium), 20 MG ORAL DAILY, (Reported) Famotidine (Pepcid), 20 MG ORAL BID, (Reported) Fluconazole* (Diflucan*), 200 MG ORAL DAILY, (Reported) Fludrocortisone Acetate (Fludrocortisone Acetate), 0.1 MG GT DAILY, (Reported) Gabapentin (Gabapentin), 300 MG GT THREE TIMES A DAY, (Reported) Gabapentin* (Neurontin*), 300 MG ORAL THREE TIMES A DAY, (Reported) Heparin Sod (Porcine) (Heparin Sodium*), 5,000 UNITS SUBQ EVERY 12 HOURS, ( Reported) Lactulose (Lactulose*), 30 ML ORAL DAILY, (Reported) Levofloxacin (Levofloxacin*), 250 MG ORAL DAILY, (Reported) Levofloxacin* (Levaquin*), 500 MG ORAL DAILY Lidocaine (Lidoderm), 1 PATCH TOPIC DAILY, (Reported) Midodrine* (Proamatine*), 10 MG ORAL TID, (Reported) Multivitamin With Minerals (Multivitamins With Minerals*), 1 TAB ORAL DAILY, ( Reported) Oxycodone HCl/Acetaminophen (Percocet 10-325 mg Tablet), 1 EACH PO Q6HR, ( Reported) Pantoprazole Sodium (Protonix), 20 MG EVERY 12 HOURS, (Reported) Pantoprazole* (Protonix*), 40 MG ORAL DAILY, (Reported) Pantoprazole* (Protonix*), 40 MG ORAL DAILY, (Reported) Pantoprazole* (Protonix*), 40 MG ORAL ACBREAKFAST, (Reported) Sertraline Hcl (Zoloft), 25 MG GT DAILY, (Reported) Sertraline Hcl* (Zoloft*), 50 MG ORAL DAILY, (Reported) Temazepam* (Temazepam*), 30 MG GT BEDTIME, (Reported) Scheduled PRN Acetaminophen (Tylenol), 650 MG GT EVERY 6 HOURS PRN for Temp >101F, (Reported) Acetaminophen (Tylenol), 650 MG ORAL EVERY 4 HOURS PRN for For Pain, (Reported) Bisacodyl* (Dulcolax*), 10 MG RECTAL DAILY PRN for Constipation, (Reported) Diphenhydramine Hcl* (Diphenhydramine Hcl*), 25 MG ORAL Q6H PRN for Itching, ( Reported) Hydrocodone Bit/Acetaminophen 10-325* ([place] 10-325*), 1 TAB ORAL Q4H PRN for For Pain, (Reported) Hydrocodone Bit/Acetaminophen 5-325* ([place] 5-325*), 1 TAB ORAL Q6H PRN for For Pain, (Reported) Hydrocodone/Acetaminophen (Hydrocodon-Acetaminophn 10-325), 1 TAB GT Q4H PRN for Mild Pain (Pain Scale 1-3), (Reported) Hydrocodone/Acetaminophen (Hydrocodon-Acetaminophn 10-325), 2 TAB GT Q4H PRN for Moderate Pain (Pain Scale 4-6), (Reported) Ipratropium/Albuterol Sulfate (DuoNeb 0.5-3(2.5)mg/3ml), 3 ML HHN Q6HR PRN for Shortness of Breath, (Reported) Lorazepam* (Ativan*), 0.5 MG ORAL PRN PRN for For Anxiety, (Reported) Lorazepam* (Lorazepam*), 0.5 MG ORAL Q4HR PRN for For Anxiety, (Reported) Mag Hydrox/Al Hydrox/Simeth (Alum-Mag Hydroxide-Simeth Liq), 30 ML PO EVERY 6 HOURS PRN for dyspepsia, (Reported) Morphine Sulfate (Morphine 20mg/ml Oral Soln ud), 5 MG SL EVERY 4 HOURS PRN for Severe Pain (Pain Scale 7-10), (Reported) Na Phos,M-B/Na Phos,Di-Ba* (Fleet Enema*), 135 ML RECTAL DAILY PRN for Constipation, (Reported) Na Phos,M-B/Na Phos,Di-Ba* (Fleet Enema*), 118 ML RECTAL DAILY PRN for Constipation, (Reported) Nitroglycerin (Nitroglycerin), 0.4 MG SL EVERY 5 min PRN for chest pain, ( Reported) Ondansetron* (Zofran*), 4 MG ORAL Q6H PRN for Nausea & Vomiting, (Reported) Polyethylene Glycol 3350* (Miralax*), 17 GM ORAL DAILY PRN for Constipation, ( Reported) Sennosides (Senna), 8.6 MG PO for Constipation, (Reported) Temazepam* (Restoril*), 15 MG ORAL BEDTIME PRN for Insomnia, (Reported) Zolpidem Tartrate* (Ambien*), 5 MG ORAL BEDTIME PRN for Insomnia, (Reported) Patient History Healthcare decision maker Resuscitation status Advanced Directive on File Past Medical/Surgical History Past Medical/Surgical History: (1) History of CVA (cerebrovascular accident) (2) Hx of spinal cord injury (3) Paraplegia Review of Systems All Other Systems: negative except mentioned in HPI Physical Exam General Appearance: WD/WN Lines, tubes and drains: peripheral, PICC HEENT: normocephalic, atraumatic Neck: non-tender, normal alignment Respiratory/Chest: chest wall non-tender, lungs clear Cardiovascular/Chest: normal peripheral pulses Abdomen: normal bowel sounds Genitourinary/Rectal: normal genital exam, normal rectal exam, suprapubic catheter Extremities: normal range of motion Last 24 Hour Vital Signs Date Time Temp Pulse Resp B/P (MAP) Pulse Ox O2 Delivery O2 Flow Rate FiO2 03/02/17 12:00 98.8 124 22 98/58 96 Nasal Cannula 2.0 03/02/17 08:00 102.4 147 22 124/69 98 Nasal Cannula 2.0 03/02/17 05:09 98.4 105 19 109/67 95 Nasal Cannula 2.0 03/02/17 04:32 98.4 105 19 109/67 95 Nasal Cannula 2.0 03/02/17 03:07 100.4 107 31 116/66 94 Nasal Cannula 4.0 03/02/17 02:05 99.9 108 31 112/64 92 Nasal Cannula 4.0 Laboratory Tests Test 03/02/17 02:21 03/02/17 02:50 03/02/17 10:10 Urine Color Yellow Urine Appearance Slightly cloudy Urine pH 7 (4.5-8.0) Urine Specific [place] 1.010 (1.005-1.035) Urine Protein 2+ (NEGATIVE) H Urine Glucose (UA) Negative (NEGATIVE) Urine Ketones 3+ (NEGATIVE) H Urine Occult Blood 5+ (NEGATIVE) H Urine Nitrite Positive (NEGATIVE) H Urine Bilirubin Negative (NEGATIVE) Urine Urobilinogen 1 MG/DL (0.0-1.0) H Urine Leukocyte Esterase 3+ (NEGATIVE) H Urine RBC Tntc /HPF (0 - 0) H Urine WBC Tntc /HPF (0 - 0) H Urine Squamous Epithelial Cells None /LPF (NONE/OCC) Urine Bacteria Many /HPF (NONE) H Urine Osmolality 400 mOsm/kg (429-449) L Urine Random Sodium 14 MEQ/L (20-110) L White Blood Count 13.4 K/UL (4.8-10.8) H Red Blood Count 4.53 M/UL (4.70-6.10) L Hemoglobin 13.5 G/DL (14.2-18.0) L Hematocrit 39.4 % (42.0-52.0) L Mean Corpuscular Volume 87 FL (80-99) Mean Corpuscular Hemoglobin 29.8 PG (27.0-31.0) Mean Corpuscular Hemoglobin Concent 34.2 G/DL (32.0-36.0) Red Cell Distribution Width 11.9 % (11.6-14.8) Platelet Count 158 K/UL (150-450) Mean Platelet Volume 6.4 FL (6.5-10.1) L Neutrophils (%) (Auto) % (45.0-75.0) Lymphocytes (%) (Auto) % (20.0-45.0) Monocytes (%) (Auto) % (1.0-10.0) Eosinophils (%) (Auto) % (0.0-3.0) Basophils (%) (Auto) % (0.0-2.0) Prothrombin Time 10.9 SEC (9.30-11.50) Prothromb Time International Ratio 1.0 (0.9-1.1) Activated Partial Thromboplast Time 36 SEC (23-33) H Sodium Level 126 MMOL/L (136-145) L Potassium Level 4.1 MMOL/L (3.5-5.1) Chloride Level 92 MMOL/L (98-107) L Carbon Dioxide Level 26 MMOL/L (21-32) Anion Gap 8 mmol/L (5-15) Blood Urea Nitrogen 16 mg/dL (7-18) Creatinine 1.2 MG/DL (0.55-1.30) Estimat Glomerular Filtration Rate > 60 mL/min (>60) Glucose Level 119 MG/DL (74-106) H Lactic Acid Level 0.60 mmol/L (0.66-2.22) L Calcium Level 9.0 MG/DL (8.5-10.1) Total Bilirubin 1.2 MG/DL (0.2-1.0) H Direct Bilirubin 0.4 MG/DL (0.0-0.3) H Aspartate Amino Transf (AST/SGOT) 36 U/L (15-37) Alanine Aminotransferase (ALT/SGPT) 54 U/L (12-78) Alkaline Phosphatase 165 U/L (46-116) H Total Creatine Kinase 54 U/L (26-308) Creatine Kinase MB < 0.5 NG/ML (0.0-3.6) Creatine Kinase MB Relative Index 0.9 Troponin I 0.000 ng/mL (0.000-0.056) Total Protein 7.8 G/DL (6.4-8.2) Albumin 3.3 G/DL (3.4-5.0) L Globulin 4.5 g/dL Albumin/Globulin Ratio 0.7 (1.0-2.7) L Osmolality 286 mOsm/kg (297-317) L Uric Acid 4.0 MG/DL (2.6-7.2) Thyroid Stimulating Hormone (TSH) 0.941 uiU/mL (0.358-3.740) Free Thyroxine 1.35 NG/DL (0.76-1.46) Free Triiodothyronine 1.2 pg/mL (2.3-4.2) L Cortisol Pending Height (Feet): 5 Height (Inches): 6.00 Weight (Pounds): 163 Medications Current Medications Medications (Trade) Dose Ordered Sig/Erci Route PRN Reason Start Time Stop Time Status Last Admin Dose Admin Acetaminophen (Tylenol) 650 mg Q4H PRN ORAL fever 03/02/17 06:45 04/01/17 06:44 03/02/17 08:19 Acetaminophen/ Hydrocodone Bitart ([place] 10/325) 1 ea Q4H PRN ORAL Mild Pain (Pain Scale 1-3) 03/02/17 06:45 03/09/17 06:44 Albuterol/ Ipratropium (Albuterol/ Ipratropium) 3 ml Q4HRT PRN HHN Shortness of Breath 03/02/17 06:45 03/07/17 06:44 Baclofen (Lioresal) 20 mg QID ORAL 03/02/17 09:00 04/01/17 08:59 03/02/17 08:18 Cefepime HCl 2 gm/ Dextrose 55 ml @ 110 mls/hr Q12H IV 03/02/17 16:00 03/09/17 15:59 Fludrocortisone Acetate (Florinef) 0.1 mg DAILY ORAL 03/02/17 09:00 04/01/17 08:59 03/02/17 11:11 Gabapentin (Neurontin) 300 mg TID ORAL 03/02/17 09:00 04/01/17 08:59 03/02/17 08:18 Heparin Sodium (Porcine) (Heparin 5000 units/ml) 5,000 units EVERY 12 HOURS SUBQ 03/02/17 09:00 04/01/17 08:59 03/02/17 08:20 Morphine Sulfate (Morphine Sulfate) 4 mg Q4H PRN IVP Severe Pain (Pain Scale 7-10) 03/02/17 10:45 03/09/17 10:44 Ondansetron HCl (Zofran) 4 mg Q6H PRN IVP Nausea & Vomiting 03/02/17 06:45 04/01/17 06:44 Phenazopyridine HCl (Pyridium) 100 mg DAILY PRN ORAL dysuria 03/02/17 06:45 04/01/17 06:44 Polyethylene Glycol (Miralax) 17 gm DAILYPRN PRN ORAL Constipation 03/02/17 06:45 04/01/17 06:44 Sodium Chloride 1,000 ml @ 80 mls/hr [id number] IV 03/02/17 10:00 04/01/17 09:59 03/02/17 10:00 Temazepam (Restoril) 15 mg HSPRN PRN ORAL Insomnia 03/02/17 06:45 03/09/17 06:44 Vancomycin/Sodium Chloride 250 ml @ 167.007 mls/hr Q12H IVPB 03/02/17 10:00 03/07/17 09:59 03/02/17 11:11 Assessment/Plan Problem List: (1) Sepsis ICD Codes: A41.9 - Sepsis SNOMED: 54606968 (2) UTI (lower urinary tract infection) ICD Codes: N39.0 - Urinary tract infection, site not specified SNOMED: 4032154 (3) Encephalopathy acute ICD Codes: G93.40 - Encephalopathy, unspecified SNOMED: 2346867 (4) Hx of spinal cord injury ICD Codes: Z87.828 - Personal history of other (healed) physical injury and trauma SNOMED: 54462348599848 (5) History of CVA (cerebrovascular accident) ICD Codes: Z86.73 - Personal history of transient ischemic attack (TIA), and cerebral infarction without residual deficits SNOMED: 351391366 (6) Paraplegia ICD Codes: G82.20 - Paraplegia, unspecified SNOMED: 16882321 (7) HTN (hypertension) ICD Codes: I10 - Essential (primary) hypertension SNOMED: 69423846 Assessment/Plan dolan culture iv abx check electrolytes swallow study dvt prophylaxis monitor BP LOIS PORTILLO Mar 02, 2017 12:35
--- NOTE | 2017-03-02 13:38 | General Progress Note ---
Progress Note Progress Note [id number] patient seen and examined full note dictated DANTE MCNEILL Mar 02, 2017 13:38
[2017-03-02] MEDS: Morphine Sulfate 4mg/ml Inj IVP PRN (13:49)
--- NOTE | 2017-03-02 14:11 | General Progress Note ---
Assessment/Plan Assessment/Plan (1) History of CVA (2) Paraplegia (3) Thalamic pain syndrome Patient will be continued on Morphine and Neurontin. We will discontinued the [place] and start Percocet 5/325mg PO 1 tab Q6H PRN moderate pain. Parameter will be set to hold opioids for oversedation or SBP<90 or DBO<60. Pt was d/w Dr. Bowers and he concurred. Thank you for the courtesy of this consultation. Subjective Date patient seen: Mar 02, 2017 Time patient seen: 01:30 - pm Allergies: Coded Allergies: No Known Allergies (Verified , 11/07/09) Subjective REVIEW OF SYSTEMS: Denies rash, dizziness, drowsiness, blurred vision, sore throat, or change in hearing. chest pain. No nausea, vomiting, or diarrhea. He is complaining of generalized body pain. SUBJECTIVE: Patient is a know patient from prior admission and has returned due to pneumonia and SOB. He continues to have body pain started on Morphine 4mg IV as needed with Neurontin. D/w family at bed side. Objective Last 24 Hour Vital Signs Date Time Temp Pulse Resp B/P (MAP) Pulse Ox O2 Delivery O2 Flow Rate FiO2 03/02/17 12:00 98.8 124 22 98/58 96 Nasal Cannula 2.0 03/02/17 08:00 102.4 147 22 124/69 98 Nasal Cannula 2.0 03/02/17 05:09 98.4 105 19 109/67 95 Nasal Cannula 2.0 03/02/17 04:32 98.4 105 19 109/67 95 Nasal Cannula 2.0 03/02/17 03:07 100.4 107 31 116/66 94 Nasal Cannula 4.0 03/02/17 02:05 99.9 108 31 112/64 92 Nasal Cannula 4.0 Laboratory Tests 03/02/17 02:21: Urine Color Yellow, Urine Appearance Slightly cloudy, Urine pH 7, Urine Specific [place] 1.010, Urine Protein 2+H, Urine Glucose (UA) Negative, Urine Ketones 3+H, Urine Occult Blood 5+H, Urine Nitrite PositiveH, Urine Bilirubin Negative, Urine Urobilinogen 1H, Urine Leukocyte Esterase 3+H, Urine RBC TntcH, Urine WBC TntcH, Urine Squamous Epithelial Cells None, Urine Bacteria ManyH, Urine Osmolality 400L, Urine Random Sodium 14L 03/02/17 02:50: White Blood Count 13.4H, Red Blood Count 4.53L, Hemoglobin 13.5L, Hematocrit 39.4L, Mean Corpuscular Volume 87, Mean Corpuscular Hemoglobin 29.8, Mean Corpuscular Hemoglobin Concent 34.2, Red Cell Distribution Width 11.9, Platelet Count 158, Mean Platelet Volume 6.4L, Neutrophils (%) (Auto) , Lymphocytes (%) ( Auto) , Monocytes (%) (Auto) , Eosinophils (%) (Auto) , Basophils (%) (Auto) , Prothrombin Time 10.9, Prothromb Time International Ratio 1.0, Activated Partial Thromboplast Time 36H, Sodium Level 126L, Potassium Level 4.1, Chloride Level 92L, Carbon Dioxide Level 26, Anion Gap 8, Blood Urea Nitrogen 16, Creatinine 1.2, Estimat Glomerular Filtration Rate > 60, Glucose Level 119H, Lactic Acid Level 0.60L, Calcium Level 9.0, Total Bilirubin 1.2H, Direct Bilirubin 0.4H, Aspartate Amino Transf (AST/SGOT) 36, Alanine Aminotransferase ( ALT/SGPT) 54, Alkaline Phosphatase 165H, Total Creatine Kinase 54, Creatine Kinase MB < 0.5, Creatine Kinase MB Relative Index 0.9, Troponin I 0.000, Total Protein 7.8, Albumin 3.3L, Globulin 4.5, Albumin/Globulin Ratio 0.7L 03/02/17 10:10: Osmolality 286L, Uric Acid 4.0, Thyroid Stimulating Hormone (TSH) 0.941, Free Thyroxine 1.35, Free Triiodothyronine 1.2L, Cortisol [Pending] Height (Feet): 5 Height (Inches): 6.00 Weight (Pounds): 163 Objective GENERAL: Alert, awake, and oriented. NECK: Range of motion is decreased LUNGS: Decreased breath sounds bilaterally. HEART: S1 and S2 regular. ABDOMEN: Tenderness to palpation. EXTREMITIES: Lower extremity range of motion is decreased. NEURO: No changes. MICAH MELENDEZ Mar 02, 2017 14:11
--- NOTE | 2017-03-02 14:13 | Neurology Progress Note ---
Objective Physical Exam Last Vital Signs Date Time Temp Pulse Resp B/P (MAP) Pulse Ox O2 Delivery O2 Flow Rate FiO2 03/02/17 12:00 98.8 124 22 98/58 96 Nasal Cannula 2.0 Laboratory Tests Test 03/02/17 02:21 03/02/17 02:50 03/02/17 10:10 Urine Color Yellow Urine Appearance Slightly cloudy Urine pH 7 (4.5-8.0) Urine Specific [place] 1.010 (1.005-1.035) Urine Protein 2+ (NEGATIVE) H Urine Glucose (UA) Negative (NEGATIVE) Urine Ketones 3+ (NEGATIVE) H Urine Occult Blood 5+ (NEGATIVE) H Urine Nitrite Positive (NEGATIVE) H Urine Bilirubin Negative (NEGATIVE) Urine Urobilinogen 1 MG/DL (0.0-1.0) H Urine Leukocyte Esterase 3+ (NEGATIVE) H Urine RBC Tntc /HPF (0 - 0) H Urine WBC Tntc /HPF (0 - 0) H Urine Squamous Epithelial Cells None /LPF (NONE/OCC) Urine Bacteria Many /HPF (NONE) H Urine Osmolality 400 mOsm/kg (429-449) L Urine Random Sodium 14 MEQ/L (20-110) L White Blood Count 13.4 K/UL (4.8-10.8) H Red Blood Count 4.53 M/UL (4.70-6.10) L Hemoglobin 13.5 G/DL (14.2-18.0) L Hematocrit 39.4 % (42.0-52.0) L Mean Corpuscular Volume 87 FL (80-99) Mean Corpuscular Hemoglobin 29.8 PG (27.0-31.0) Mean Corpuscular Hemoglobin Concent 34.2 G/DL (32.0-36.0) Red Cell Distribution Width 11.9 % (11.6-14.8) Platelet Count 158 K/UL (150-450) Mean Platelet Volume 6.4 FL (6.5-10.1) L Neutrophils (%) (Auto) % (45.0-75.0) Lymphocytes (%) (Auto) % (20.0-45.0) Monocytes (%) (Auto) % (1.0-10.0) Eosinophils (%) (Auto) % (0.0-3.0) Basophils (%) (Auto) % (0.0-2.0) Prothrombin Time 10.9 SEC (9.30-11.50) Prothromb Time International Ratio 1.0 (0.9-1.1) Activated Partial Thromboplast Time 36 SEC (23-33) H Sodium Level 126 MMOL/L (136-145) L Potassium Level 4.1 MMOL/L (3.5-5.1) Chloride Level 92 MMOL/L (98-107) L Carbon Dioxide Level 26 MMOL/L (21-32) Anion Gap 8 mmol/L (5-15) Blood Urea Nitrogen 16 mg/dL (7-18) Creatinine 1.2 MG/DL (0.55-1.30) Estimat Glomerular Filtration Rate > 60 mL/min (>60) Glucose Level 119 MG/DL (74-106) H Lactic Acid Level 0.60 mmol/L (0.66-2.22) L Calcium Level 9.0 MG/DL (8.5-10.1) Total Bilirubin 1.2 MG/DL (0.2-1.0) H Direct Bilirubin 0.4 MG/DL (0.0-0.3) H Aspartate Amino Transf (AST/SGOT) 36 U/L (15-37) Alanine Aminotransferase (ALT/SGPT) 54 U/L (12-78) Alkaline Phosphatase 165 U/L (46-116) H Total Creatine Kinase 54 U/L (26-308) Creatine Kinase MB < 0.5 NG/ML (0.0-3.6) Creatine Kinase MB Relative Index 0.9 Troponin I 0.000 ng/mL (0.000-0.056) Total Protein 7.8 G/DL (6.4-8.2) Albumin 3.3 G/DL (3.4-5.0) L Globulin 4.5 g/dL Albumin/Globulin Ratio 0.7 (1.0-2.7) L Osmolality 286 mOsm/kg (297-317) L Uric Acid 4.0 MG/DL (2.6-7.2) Thyroid Stimulating Hormone (TSH) 0.941 uiU/mL (0.358-3.740) Free Thyroxine 1.35 NG/DL (0.76-1.46) Free Triiodothyronine 1.2 pg/mL (2.3-4.2) L Cortisol Pending Impression/Recommendations Problems: (1) chronic pain. opiate dependent (2) traumatic cervical myelopathy with quadriparesis (3) Hx of spinal cord injury (4) HTN (hypertension) Status: unchanged Recommendations #[id number] JIN SANTIAGO Mar 02, 2017 14:13
[2017-03-02] MEDS ORDERED: oxyCODONE HCL/Acetaminophen 5/325mg ORAL PRN (14:15)
[2017-03-02] MEDS: DULoxetine 30mg cap ORAL SCH (15:51)
[2017-03-02] MEDS: Miralax 17gm pkt ORAL PRN (15:51)
[2017-03-02] MEDS: Cefepime HCl 2 GM in D5W 55 ML IV SCH (15:51)
[2017-03-02 16:00] VITALS: BP_SYST 94; BP_SYST 99; BP_DIAS 59
--- NOTE | 2017-03-02 17:00 | History and Physical Report ---
DATE OF ADMISSION: 03/02/2017 TIME SEEN: At 12 noon. CONSULTANTS: 1. Osvaldo Lundberg M.D. 2. Dr. Adkins. 3. Rojas Elizabeth M.D. 4. Piero Webb M.D. 5. Dimitri Bowers M.D. CHIEF COMPLAINT: Weakness, congestion, lethargy, UTI, and sepsis. BRIEF HISTORY: This is a 61-year-old male from [facility] presented with above-mentioned diagnosis, admitted to telemetry. Currently, calm, O2 NC, sleeping in bed, not talking much. PAST MEDICAL HISTORY: Includes CVA, chronic pain, weakness, acute renal insufficiency, neuropathy, and hypertension. PAST SURGICAL HISTORY: G-tube. MEDICATIONS: Include cefepime, morphine, vancomycin, baclofen, Neurontin, albuterol, and Tylenol. ALLERGIES: Denies. SOCIAL HISTORY: No smoking. No alcohol. No intravenous drug abuse. FAMILY HISTORY: Noncontributory. REVIEW OF SYSTEMS: Unavailable. PHYSICAL EXAMINATION: GENERAL: Calm, lethargic in bed, refusing to answer questions. VITAL SIGNS: Show temperature 102.4 degrees, pulse 147, respirations 22, and blood pressure 124/69. CARDIOVASCULAR: No murmur. LUNGS: Poor exchange. ABDOMEN: Bowel sounds positive. Nontender and nondistended. EXTREMITIES: No cyanosis, clubbing, or edema. NEUROLOGIC: The patient moves all extremities, slightly weak. LABORATORY AND DIAGNOSTIC DATA: White count 13, hemoglobin and hematocrit 13/39, and platelets 158. BMP shows glucose 119, sodium 126, and chloride 92. Albumin 3.3. INR is 1.0. Urinalysis, 3+ leukocyte esterase and ketones. ASSESSMENT: 1. Urinary tract infection. 2. Sepsis. 3. Congestion. 4. Hyponatremia. 5. Cerebrovascular accident. 6. Chronic pain. 7. Weakness. 8. Acute renal insufficiency. 9. Neuropathy. 10. Hypertension. PLAN: 1. OT, PT, and dietary evaluation. 2. Antibiotics per Infectious Diseases. 3. Check CBC and BMP in morning. 4. Pain control. 5. Blood pressure control. 6. Dietary followup. 7. We will continue to follow this patient. 8. Resume home medications. 9. Dr. Lundberg, Dr. Adkins, Dr. Elizabeth, Dr. Webb, Dr. Bowers, and Dr. Alvarado to consult. We will continue to follow this patient. Rickey Bullard D.O. DR: Mariela JOB#: [id number] CC:
--- NOTE | 2017-03-02 18:00 | Consultation ---
DATE OF CONSULTATION: 03/02/2017 NEUROLOGICAL CONSULTATION CONSULTING PHYSICIAN: Rojas Elizabeth M.D. REQUESTING PHYSICIAN: Rickey Bullard D.O. HISTORY OF PRESENT ILLNESS: This is a 61-year-old man, resident of a nursing facility with a preexistent quadriparesis, now presented with new changes in mental status, but also complaining of fevers and cloudy urine. His admission vital signs were stable. Heart rate of 108 and temperature 99.9. His initial laboratory work included CBC study with WBC of 13.4 and normal coagulation. Urinalysis with WBC too numerous to count, RBC too numerous to count, 3+ leukocyte esterase, and 2+ protein. Chemistry panel with blood sugar 118, osmolality 286, and total bilirubin of 1.2. Normal TSH. His chest x-ray revealed no acute process. Following admission, the patient continued with some evidence of confusion, but continuously complaining of severe intractable low back pain, not responding to morphine given 2 mg subcutaneous q.4 h. MEDICATIONS: His treatment now also included subcutaneous heparin. He is on vancomycin, IV fluids, baclofen 20 mg q.i.d., albuterol, Florinef, Neurontin 300 mg t.i.d., Ward 10 mg q.4 h., morphine sulfate 4 mg IV p.r.n., Zofran, Pyridium, MiraLAX, and temazepam. ALLERGIES: None reported. Since admission till present, the patient continued to be in severe pain. The patient is known to me from a previous assessment months ago when he was admitted with the profound generalized weakness, but also with severe low back pain. His history taking and examination revealed presence of old cervical spine fracture, required an extensive C1 through C6 laminectomy, hardware placement, and occipital craniotomy. The patient presented with evidence of cervical myelopathy and quadriparesis. X-rays of the thoracic and lumbar spine were negative. CT scan of the lumbar spine showed no fracture and no dislocation, multilevel degenerative joint disease, but MRI of the cervical spine revealed presence of what seems spinal cord lesion at C5-C6 with anterior cervical diskectomy and fusion C5-C6, also extensive cervical laminectomy C1 through C6. PAST MEDICAL HISTORY: Include a G-tube in place, quadriparesis, chronic pain opiate dependent, recurrent urinary tract infection as well as history of anxiety, depression, and gastroesophageal reflux disease. SOCIAL HISTORY: He is a resident of nursing facility. FAMILY HISTORY: Noncontributory. REVIEW OF SYMPTOMS: The patient is predominantly concentrating on persistent low back pain, but also indicates weakness of both upper and lower extremities. Denies headache. No chest pain. No palpitations. No respiratory problems. Admits being depressed. PHYSICAL EXAMINATION: GENERAL: A well-developed, well-nourished, somewhat ill-appearing man, who is in moderate distress, constantly repeating that he has severe pain and needs more medicine. VITAL SIGNS: Now stable. He is afebrile, but with sinus tachycardia 124 and blood pressure 98/58. HEENT: Head, normocephalic. There is no evidence of trauma. Cervical spine with postsurgical scarring noted. He has severe neck rigidity with almost absent range of motion. MUSCULOSKELETAL: Upper and lower extremities without clubbing, cyanosis, or edema. Peripheral pulses 1+ symmetric. MENTAL STATUS: He is alert and oriented x2. Somewhat confused, but able to describe level of pain. He is a very poor historian. CRANIAL NERVE II: Pupils both responding to light and accommodation. Extraocular movements intact. No nystagmus. CRANIAL NERVE V: Normal corneal responses. CRANIAL NERVE VII: No facial asymmetry. CRANIAL NERVE VIII: Grossly normal hearing. CRANIAL NERVES IX THROUGH XII: Within normal limits. MOTOR EXAMINATION: Able to lift arms against the gravity with weakness 4-/5 right wrist dorsiflexion and handgrip, 5-/5 left upper extremity, and lower extremities no spontaneous movement, except able to wiggle with the toes and feet. Deep tendon reflexes depressed bilaterally. Plantar response is mute. SENSORY EXAMINATION: Inconsistent response with decreased pin sensation in both lower extremities. IMPRESSION: 1. Chronic pain syndrome, opiate dependent. 2. Cervical myelopathy with quadriparesis, stable. 3. Depression and anxiety. 4. Gastrostomy tube placement. 5. Suprapubic catheter in place. 6. Recurrent urinary tract infection, sepsis. RECOMMENDATIONS: The patient will need a more comprehensive pain management. We will continue with baclofen adding gabapentin titrating up to 600 mg times a day. Start on Cymbalta 20 mg twice a day. Thank you for allowing me to see this interesting patient in neurological consultation. Rojas Elizabeth M.D. DR: ANGELY JOB#: [id number] CC:
[2017-03-02 20:00] VITALS: BP 130/76
--- NOTE | 2017-03-02 21:15 | Consultation ---
DATE OF CONSULTATION: 03/02/2017 NEPHROLOGY CONSULTATION CONSULTING PHYSICIAN: Nichelle Alvarado M.D. REFERRING PHYSICIAN: Rickey Bullard D.O. REASON FOR CONSULTATION: Acute renal failure and urinary obstruction. HISTORY OF PRESENT ILLNESS: The patient is a 61-year-old male, unfortunate with past medical history significant for history of CVA, history of suprapubic catheter, history of paraplegia, history of cerebral palsy, who was brought in to [facility] for evaluation of the fever and possible urinary tract infection. Unfortunately, the patient is not able to answer any of my questions, so most of my history is obtained through information from the retirement and from the emergency room admission. PAST SURGICAL HISTORY: History of suprapubic catheter placement. Rest of the history is unknown at this time. HOME MEDICATIONS: 1. Baclofen 20 mg p.o. daily. 2. Os-Jonathan one tablet p.o. daily. 3. Colace 100 mg p.o. daily. 4. Pepcid 20 mg p.o. daily. 5. Diflucan 200 mg p.o. daily. 6. Carboplatin 300 mg three times a day. 7. Lactulose 30 p.r.n. 8. Zoloft 25 mg in the morning. 9. Temazepam 30 mg at night. 10. Zofran 4 mg p.r.n. nausea and vomiting. 11. Ambien 5 mg p.r.n. insomnia. 12. Bisacodyl or Dulcolax p.r.n. constipation. SOCIAL HISTORY: He is a retirement resident. There is no history of current tobacco, alcohol, or drug use. FAMILY HISTORY: Noncontributory. REVIEW OF SYSTEMS: Unable to obtain due to the patient's condition and mental status. PHYSICAL EXAMINATION: VITAL SIGNS: The patient had a temperature of 102 in the ER. Currently, temperature is 98.8, pulse is 122, respiratory rate of 20, and blood pressure of 98/58. HEAD AND NECK: No JVP. No LAD. No thyromegaly. Extraocular movement intact. Pupils are reactive to light and accommodation. LUNGS: He has bilateral crackles throughout both lungs. CARDIAC: Regular rate and rhythm. S1 and S2. No murmur. No rub. ABDOMEN: Soft and nontender. Suprapubic is placed and draining yellowish color urine. EXTREMITY: No edema. No clubbing. No cyanosis. LABORATORY AND DIAGNOSTIC DATA: Laboratory values reveal WBC count of 13.4, hemoglobin of 13.5, hematocrit of 39, and platelet count of 158. Chemistry reveals sodium 126, potassium 4.1, 98 chloride, 26 bicarbonate, BUN of 16, creatinine of 1.2, and glucose of 119. Uric acid of 0.6. The patient has total bilirubin of 1.2 and direct bilirubin of 0.2. Total protein of 7.5. Albumin of 3.3. UA revealed specific gravity of 1.010, protein 2+, ketones 3+, blood 5+, nitrite positive, WBC too many to count, RBC too many to count. The patient has a urine sodium, which was 114. He had a chest x-ray, which showed no acute process. ASSESSMENT: 1. Hypovolemic hyponatremia based on urine studies. 2. Urosepsis with hypotension and elevated white blood cell count. 3. History of cerebrovascular accident. 4. History of cerebral palsy. PLAN: 1. Plan for the patient is to start the patient on normal saline. 2. Mix all IV fluids with normal saline. 3. Free water restriction. 4. Monitoring inputs and outputs. 5. Replace electrolytes as needed. Again, I would like to thank, Dr. Rickey Bullard, for allowing me to participate in the care of this patient. Nichelle Alvarado M.D. DR: AL JOB#: [id number] CC:
--- NOTE | 2017-03-02 21:15 | Consultation ---
DATE OF CONSULTATION: 03/02/2017 INFECTIOUS DISEASES CONSULTATION PRIMARY ATTENDING PHYSICIAN: Rickey Bullard D.O. REASON FOR CONSULT: Sepsis, urinary tract infection. HISTORY OF PRESENT ILLNESS: The patient is a 61-year-old [facility] resident admitted this morning because of fever and cloudy urine. The patient has history of spinal cord injury and has a suprapubic catheter. He had a fever of 102 degrees in hospital, has leukocytosis and tachycardia. 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 MEDICATIONS: Cefepime, vancomycin, morphine sulfate, sodium chloride, baclofen, fluticasone, gabapentin, heparin, [place], albuterol, MiraLAX, Zofran, temazepam, and Pyridium. ALLERGIES: No known drug allergy. SOCIAL HISTORY: Lives in a nursing facility. . The patient is currently less resting and sleeping, no other history obtainable. PHYSICAL EXAMINATION: VITAL SIGNS: Pulse is 147, blood pressure 124/69, and T-max is 102.4 degrees. HEAD AND NECK: [place] conjunctiva. HEART: Tachycardic. LUNGS: Clear. ABDOMEN: Soft, flat. GENITOURINARY: There is a suprapubic catheter. Cloudy urine in suprapubic catheter. EXTREMITIES: He has no edema. LABORATORY AND DIAGNOSTIC DATA: Sodium 126, potassium 4.1, chloride 92, bicarbonate 26, BUN 16, and creatinine 1.2. Lactic acid was low 0.6. Bilirubin 1.2. Albumin 3.3. Urinalysis showed WBC too numerous to count, RBC too numerous to count, and nitrite positive. Chest x-ray, no acute process. IMPRESSION: 1. Sepsis with fever, leukocytosis, and tachycardia. 2. Infection and inflammation secondary to the indwelling urinary catheter, urinary tract infection. 3. Hyponatremia. 4. Paraplegia with neurogenic bladder. 5. Hypertension. RECOMMENDATION: Continue cefepime and vancomycin. We will follow up the cultures. We will ask for urologic evaluation to change the suprapubic catheter. At the end of my exam, I thank Dr. Rickey Bullard for involving me in the care of this patient. Dickson Hughes M.D. DR: HORTENSIA JOB#: [id number] CC: [place]
[2017-03-03] VITALS: BP 130/76
[2017-03-03] MEDS ORDERED: Vancomycin 1 GM in D5W 275 ML IV SCH (00:30)
[2017-03-03] MEDS: Morphine Sulfate 4mg/ml Inj IVP PRN ×5 (01:59→22:39)
[2017-03-03 03:38] LABS: APPEARANCE,URINE SLIGHTLY CLOUDY; KETONES,URINE 3+ (NEGATIVE); LEUKOCYTE ESTERASE ,URINE 3+ (NEGATIVE); NITRITE,URINE NEGATIVE (NEGATIVE); PH,URINE 7 (4.5-8.0); PROTEIN,URINE 2+ (NEGATIVE); UROBILINOGEN,URINE NORMAL MG/DL (0.0-1.0)
[2017-03-03 04:00] VITALS: BP 126/78
[2017-03-03 04:08] LABS: BACTERIA,URINE MODERATE /HPF; RBC,URINE 40-60 /HPF (0 - 0); WBC,URINE 30-40 /HPF (0 - 0)
[2017-03-03] MEDS: Cefepime HCl 2 GM in D5W 55 ML IV SCH ×2 (04:30→16:28)
--- NOTE | 2017-03-03 07:27 | Pulmonology Progress Note ---
Assessment/Plan Assessment/Plan ASSESSMENT Sepsis UTI with hx of recurrent UTI acute toxic metabolic encephalopathy 2 to infectious disease process and metabolic derangement Hypovolemic hyponatremia Cervical myelopathy with quadriparesis Neurogenic bladder Hx of CVA Cerebral palsy HTN chronic pain syndrome, opiate dependent Depression anxiety PLAN OF CARE Abx, ID follows Fup with cx Swallow eval IVF with NS nephro follows free water restriction Na up to normal Monitor lytes, and correct as needed Neuro follows continue Cymbalta Neurontin added, dose up titrated, continue baclofen Pain management, pain specialist follows DVT prophylaxis PT/OT watch BP, currently not on any anti HTN transfer to [place] floor case discussed and evaluated by supervising physician Subjective Allergies: Coded Allergies: No Known Allergies (Verified , 11/07/09) Subjective leukocytosis resolved, afebrile Objective Last 24 Hour Vital Signs Date Time Temp Pulse Resp B/P (MAP) Pulse Ox O2 Delivery O2 Flow Rate FiO2 03/03/17 04:00 2.0 03/03/17 04:00 104 03/03/17 04:00 97.9 100 18 126/78 98 03/03/17 00:00 2.0 03/03/17 00:00 98.1 100 20 130/76 97 03/03/17 00:00 103 03/02/17 20:00 115 03/02/17 20:00 2.0 03/02/17 20:00 98.2 112 18 130/76 97 03/02/17 19:23 112 18 Nasal Cannula 2.0 28 03/02/17 19:23 Nasal Cannula 2.0 28 03/02/17 19:23 97 Nasal Cannula 2.0 28 03/02/17 16:00 98.2 102 22 94/59 97 Nasal Cannula 2.0 03/02/17 16:00 115 03/02/17 16:00 98.2 102 21 99/59 97 Nasal Cannula 2.0 03/02/17 14:19 98.2 03/02/17 12:00 98.8 124 22 98/58 96 Nasal Cannula 2.0 03/02/17 12:00 124 03/02/17 09:18 99.2 03/02/17 08:00 102.4 147 22 124/69 98 Nasal Cannula 2.0 03/02/17 08:00 143 General Appearance: no acute distress, other - awake, responsive, bedridden HEENT: normocephalic, atraumatic, anicteric Respiratory/Chest: lungs clear, no respiratory distress Cardiovascular: normal rate, regular rhythm - SR on tele Abdomen: normal bowel sounds, soft, non tender, non distended Neurologic/Psychiatric: abnormal gait - bedridden , alert, other - quadriparesis Musculoskeletal: atrophy - BLE Microbiology Date/Time Source Procedure Growth Status 03/02/17 03:05 Blood Blood Culture - Preliminary NO GROWTH AFTER 24 HOURS Resulted 03/02/17 02:50 Blood Blood Culture - Preliminary NO GROWTH AFTER 24 HOURS Resulted Laboratory Tests 03/02/17 10:10: Osmolality 286L, Uric Acid 4.0, Thyroid Stimulating Hormone (TSH) 0.941, Free Thyroxine 1.35, Free Triiodothyronine 1.2L, Cortisol [Pending] 03/03/17 03:00: Urine Color Yellow, Urine Appearance Slightly cloudy, Urine pH 7, Urine Specific [place] 1.005, Urine Protein 2+H, Urine Glucose (UA) Negative, Urine Ketones 3+H, Urine Occult Blood 5+H, Urine Nitrite Negative, Urine Bilirubin Negative, Urine Urobilinogen Normal, Urine Leukocyte Esterase 3+H, Urine RBC 40- 60H, Urine WBC 30-40H, Urine Squamous Epithelial Cells None, Urine Bacteria ModerateH Current Medications Medications (Trade) Dose Ordered Sig/Eric Route PRN Reason Start Time Stop Time Status Last Admin Dose Admin Acetaminophen (Tylenol) 650 mg Q4H PRN ORAL fever 03/02/17 06:45 04/01/17 06:44 03/02/17 08:19 Albuterol/ Ipratropium (Albuterol/ Ipratropium) 3 ml Q4HRT PRN HHN Shortness of Breath 03/02/17 06:45 03/07/17 06:44 Baclofen (Lioresal) 20 mg QID ORAL 03/02/17 09:00 04/01/17 08:59 03/02/17 20:41 Cefepime HCl 2 gm/ Dextrose 55 ml @ 110 mls/hr Q12H IV 03/02/17 16:00 03/09/17 15:59 03/03/17 04:30 Duloxetine HCl (Cymbalta) 60 mg DAILY ORAL 03/02/17 15:00 04/01/17 14:59 03/02/17 15:51 Fludrocortisone Acetate (Florinef) 0.1 mg DAILY ORAL 03/02/17 09:00 04/01/17 08:59 03/02/17 11:11 Gabapentin (Neurontin) 600 mg TID ORAL 03/02/17 18:00 04/01/17 17:59 03/02/17 18:15 Heparin Sodium (Porcine) (Heparin 5000 units/ml) 5,000 units EVERY 12 HOURS SUBQ 03/02/17 09:00 04/01/17 08:59 03/02/17 20:43 Morphine Sulfate (Morphine Sulfate) 4 mg Q4H PRN IVP Severe Pain (Pain Scale 7-10) 03/02/17 10:45 03/09/17 10:44 03/03/17 01:59 Ondansetron HCl (Zofran) 4 mg Q6H PRN IVP Nausea & Vomiting 03/02/17 06:45 04/01/17 06:44 Oxycodone/ Acetaminophen (Percocet 5-325) 1 tab Q6H PRN ORAL Moderate Pain (Pain Scale 4-6) 03/02/17 14:15 03/09/17 14:14 Phenazopyridine HCl (Pyridium) 100 mg DAILY PRN ORAL dysuria 03/02/17 06:45 04/01/17 06:44 Polyethylene Glycol (Miralax) 17 gm DAILYPRN PRN ORAL Constipation 03/02/17 06:45 04/01/17 06:44 03/02/17 15:51 Sodium Chloride 1,000 ml @ 80 mls/hr [id number] IV 03/02/17 10:00 04/01/17 09:59 03/02/17 22:06 Temazepam (Restoril) 15 mg HSPRN PRN ORAL Insomnia 03/02/17 06:45 03/09/17 06:44 Vancomycin HCl (Vanco rx to dose) 1 ea DAILY PRN MISC PER RX PROTOCOL 03/02/17 14:30 04/01/17 14:29 Vancomycin/Sodium Chloride 250 ml @ 167.007 mls/hr Q12H IVPB 03/02/17 10:00 03/07/17 09:59 03/02/17 22:06 Donna Delong NP ([facility]) Mar 03, 2017 07:27
[2017-03-03 08:00] VITALS: BP 131/71
[2017-03-03 08:45] LABS: MEAN CORPUSCULAR HEMOGLOBIN 30.1 PG (27.0-31.0); MEAN CORPUSCULAR HGB CONC 33.6 G/DL (32.0-36.0); MEAN CORPUSCULAR VOLUME 90 FL (80-99); MEAN PLATELET VOLUME 6.6 FL (6.5-10.1); PLATELET COUNT 124 K/UL (150-450); RED BLOOD COUNT 3.94 M/UL (4.70-6.10); RED CELL DISTRIBUTION WIDTH 12.2 % (11.6-14.8); WHITE BLOOD COUNT 8.4 K/UL (4.8-10.8)
[2017-03-03 08:57] LABS: ALANINE AMINOTRANSFERASE 36 U/L (12-78); ALBUMIN/GLOBULIN RATIO 0.7 (1.0-2.7); ANION GAP 11 mmol/L (5-15); ASPARTATE AMINO TRANSFERASE 23 U/L (15-37); CALCIUM 8.4 MG/DL (8.5-10.1); CARBON DIOXIDE 23 MMOL/L (21-32); CHLORIDE 104 MMOL/L (98-107); GLOMERULAR FILTRATION RATE > 60 mL/min (>60); POTASSIUM 3.8 MMOL/L (3.5-5.1); SODIUM 138 MMOL/L (136-145)
[2017-03-03] MEDS: Heparin 5000 units/ml inj SUBQ SCH ×3 (09:00→21:00)
[2017-03-03] MEDS: DULoxetine 30mg cap ORAL SCH (09:00)
[2017-03-03 09:03] LABS: BAND NEUTROPHILS % (MANUAL) 0 % (0-8); BASOPHILS % (MANUAL) 0 % (0-2); EOSINOPHILS % (MANUAL) 0 % (0-3); LYMPHOCYTES % (MANUAL) 7 % (20-45); NEUTROPHILS % (MANUAL) 88 % (45-75); PLATELET ESTIMATE DECREASED; PLATELET MORPHOLOGY NORMAL; TOTAL CELLS COUNTED 100
[2017-03-03 11:58] VITALS: BP 123/75
--- NOTE | 2017-03-03 12:07 | Nephrology Progress Note ---
Assessment/Plan Assessment 1. Hypovolemic hyponatremia based on urine studies. 2. Urosepsis with hypotension and elevated white blood cell count. 3. History of cerebrovascular accident. 4. History of cerebral palsy. Plan PLAN to continue current iv monitoring renal function replace electrolyte as need it Subjective ROS Limited/Unobtainable: Yes Constitutional: Reports: no symptoms HEENT: Reports: no symptoms Genitourinary: Reports: no symptoms Neurologic/Psychiatric: Reports: no symptoms Subjective no changes in his MS Objective Objective Last 24 Hour Vital Signs Date Time Temp Pulse Resp B/P (MAP) Pulse Ox O2 Delivery O2 Flow Rate FiO2 03/03/17 11:58 97.7 102 21 123/75 98 Room Air 03/03/17 08:17 102 16 Room Air 21 03/03/17 08:17 Room Air 21 03/03/17 08:17 95 Room Air 21 03/03/17 08:00 98.8 97 20 131/71 95 Room Air 03/03/17 04:00 2.0 03/03/17 04:00 104 03/03/17 04:00 97.9 100 18 126/78 98 03/03/17 00:00 2.0 03/03/17 00:00 98.1 100 20 130/76 97 03/03/17 00:00 103 03/02/17 20:00 115 03/02/17 20:00 2.0 03/02/17 20:00 98.2 112 18 130/76 97 03/02/17 19:23 112 18 Nasal Cannula 2.0 28 03/02/17 19:23 Nasal Cannula 2.0 28 03/02/17 19:23 97 Nasal Cannula 2.0 28 03/02/17 16:00 98.2 102 22 94/59 97 Nasal Cannula 2.0 03/02/17 16:00 115 03/02/17 16:00 98.2 102 21 99/59 97 Nasal Cannula 2.0 03/02/17 14:19 98.2 Laboratory Tests 03/03/17 03:00: Urine Color Yellow, Urine Appearance Slightly cloudy, Urine pH 7, Urine Specific [place] 1.005, Urine Protein 2+H, Urine Glucose (UA) Negative, Urine Ketones 3+H, Urine Occult Blood 5+H, Urine Nitrite Negative, Urine Bilirubin Negative, Urine Urobilinogen Normal, Urine Leukocyte Esterase 3+H, Urine RBC 40- 60H, Urine WBC 30-40H, Urine Squamous Epithelial Cells None, Urine Bacteria ModerateH 03/03/17 07:45: White Blood Count 8.4, Red Blood Count 3.94L, Hemoglobin 11.9L, Hematocrit 35.3L , Mean Corpuscular Volume 90, Mean Corpuscular Hemoglobin 30.1, Mean Corpuscular Hemoglobin Concent 33.6, Red Cell Distribution Width 12.2, Platelet Count 124L, Mean Platelet Volume 6.6, Neutrophils (%) (Auto) , Lymphocytes (%) ( Auto) , Monocytes (%) (Auto) , Eosinophils (%) (Auto) , Basophils (%) (Auto) , Differential Total Cells Counted 100, Neutrophils % (Manual) 88H, Lymphocytes % (Manual) 7L, Monocytes % (Manual) 5, Eosinophils % (Manual) 0, Basophils % ( Manual) 0, Band Neutrophils 0, Platelet Estimate DecreasedL, Platelet Morphology Normal, Red Blood Cell Morphology Normal, Sodium Level 138, Potassium Level 3.8, Chloride Level 104, Carbon Dioxide Level 23, Anion Gap 11, Blood Urea Nitrogen 14, Creatinine 1.0, Estimat Glomerular Filtration Rate > 60 , Glucose Level 97, Calcium Level 8.4L, Total Bilirubin 0.7, Aspartate Amino Transf (AST/SGOT) 23, Alanine Aminotransferase (ALT/SGPT) 36, Alkaline Phosphatase 131H, Total Protein 7.0, Albumin 2.8L, Globulin 4.2, Albumin/ Globulin Ratio 0.7L Height (Feet): 5 Height (Inches): 6.00 Weight (Pounds): 163 Neck: non-tender Objective HEAD AND NECK: No JVP. No LAD. No thyromegaly. Extraocular movement intact. Pupils are reactive to light and accommodation. LUNGS: He has bilateral crackles throughout both lungs. CARDIAC: Regular rate and rhythm. S1 and S2. No murmur. No rub. ABDOMEN: Soft and nontender. Suprapubic is placed and draining yellowish color urine. EXTREMITY: No edema. No clubbing. No cyanosis. DANTE MCNEILL Mar 03, 2017 12:07
[2017-03-03] MEDS: Vancomycin 750mg/NS 250ml 250 ML IVPB SCH (12:09)
--- NOTE | 2017-03-03 12:28 | Infectious Diseases Prog Note ---
Assessment/Plan Assessment/Plan A: Sepsis Complicated UTI Quadriparesis/ spinal cord injury Chronic pain syndrome P; Continue Cefepime. discontinue Vancomycin Change suprapubic catheter will f/u cultures Subjective ROS Limited/Unobtainable: No Constitutional: Reports: no symptoms Respiratory: Reports: no symptoms Cardiovascular: Reports: no symptoms Gastrointestinal/Abdominal: Reports: no symptoms Musculoskeletal: Reports: pain, other - in legs, back, left arm Allergies: Coded Allergies: No Known Allergies (Verified , 11/07/09) Objective Vital Signs Last 24 Hour Vital Signs Date Time Temp Pulse Resp B/P (MAP) Pulse Ox O2 Delivery O2 Flow Rate FiO2 03/03/17 11:58 97.7 102 21 123/75 98 Room Air 03/03/17 08:17 102 16 Room Air 21 03/03/17 08:17 Room Air 21 03/03/17 08:17 95 Room Air 21 03/03/17 08:00 98.8 97 20 131/71 95 Room Air 03/03/17 04:00 2.0 03/03/17 04:00 104 03/03/17 04:00 97.9 100 18 126/78 98 03/03/17 00:00 2.0 03/03/17 00:00 98.1 100 20 130/76 97 03/03/17 00:00 103 03/02/17 20:00 115 03/02/17 20:00 2.0 03/02/17 20:00 98.2 112 18 130/76 97 03/02/17 19:23 112 18 Nasal Cannula 2.0 28 03/02/17 19:23 Nasal Cannula 2.0 28 03/02/17 19:23 97 Nasal Cannula 2.0 28 03/02/17 16:00 98.2 102 22 94/59 97 Nasal Cannula 2.0 03/02/17 16:00 115 03/02/17 16:00 98.2 102 21 99/59 97 Nasal Cannula 2.0 03/02/17 14:19 98.2 Height (Feet): 5 Height (Inches): 6.00 Weight (Pounds): 163 General Appearance: no acute distress HEENT: mucous membranes moist Respiratory/Chest: lungs clear Cardiovascular: normal rate Abdomen: soft, non tender Genitourinary: other - suprapubic catheter Extremities: no edema Neurologic/Psychiatric: alert, responsive, other - quadriparesis Microbiology Date/Time Source Procedure Growth Status 03/02/17 03:05 Blood Blood Culture - Preliminary NO GROWTH AFTER 24 HOURS Resulted 03/02/17 02:50 Blood Blood Culture - Preliminary NO GROWTH AFTER 24 HOURS Resulted 03/02/17 02:21 Urine,Clean Catch Urine Culture - Preliminary Gram Negative Bacillus 1 Resulted Laboratory Tests Test 03/03/17 03:00 03/03/17 07:45 Urine Color Yellow Urine Appearance Slightly cloudy Urine pH 7 (4.5-8.0) Urine Specific [place] 1.005 (1.005-1.035) Urine Protein 2+ (NEGATIVE) H Urine Glucose (UA) Negative (NEGATIVE) Urine Ketones 3+ (NEGATIVE) H Urine Occult Blood 5+ (NEGATIVE) H Urine Nitrite Negative (NEGATIVE) Urine Bilirubin Negative (NEGATIVE) Urine Urobilinogen Normal MG/DL (0.0-1.0) Urine Leukocyte Esterase 3+ (NEGATIVE) H Urine RBC 40-60 /HPF (0 - 0) H Urine WBC 30-40 /HPF (0 - 0) H Urine Squamous Epithelial Cells None /LPF (NONE/OCC) Urine Bacteria Moderate /HPF (NONE) H White Blood Count 8.4 K/UL (4.8-10.8) Red Blood Count 3.94 M/UL (4.70-6.10) L Hemoglobin 11.9 G/DL (14.2-18.0) L Hematocrit 35.3 % (42.0-52.0) L Mean Corpuscular Volume 90 FL (80-99) Mean Corpuscular Hemoglobin 30.1 PG (27.0-31.0) Mean Corpuscular Hemoglobin Concent 33.6 G/DL (32.0-36.0) Red Cell Distribution Width 12.2 % (11.6-14.8) Platelet Count 124 K/UL (150-450) L Mean Platelet Volume 6.6 FL (6.5-10.1) Neutrophils (%) (Auto) % (45.0-75.0) Lymphocytes (%) (Auto) % (20.0-45.0) Monocytes (%) (Auto) % (1.0-10.0) Eosinophils (%) (Auto) % (0.0-3.0) Basophils (%) (Auto) % (0.0-2.0) Differential Total Cells Counted 100 Neutrophils % (Manual) 88 % (45-75) H Lymphocytes % (Manual) 7 % (20-45) L Monocytes % (Manual) 5 % (1-10) Eosinophils % (Manual) 0 % (0-3) Basophils % (Manual) 0 % (0-2) Band Neutrophils 0 % (0-8) Platelet Estimate Decreased L Platelet Morphology Normal Red Blood Cell Morphology Normal Sodium Level 138 MMOL/L (136-145) Potassium Level 3.8 MMOL/L (3.5-5.1) Chloride Level 104 MMOL/L (98-107) Carbon Dioxide Level 23 MMOL/L (21-32) Anion Gap 11 mmol/L (5-15) Blood Urea Nitrogen 14 mg/dL (7-18) Creatinine 1.0 MG/DL (0.55-1.30) Estimat Glomerular Filtration Rate > 60 mL/min (>60) Glucose Level 97 MG/DL (74-106) Calcium Level 8.4 MG/DL (8.5-10.1) L Total Bilirubin 0.7 MG/DL (0.2-1.0) Aspartate Amino Transf (AST/SGOT) 23 U/L (15-37) Alanine Aminotransferase (ALT/SGPT) 36 U/L (12-78) Alkaline Phosphatase 131 U/L (46-116) H Total Protein 7.0 G/DL (6.4-8.2) Albumin 2.8 G/DL (3.4-5.0) L Globulin 4.2 g/dL Albumin/Globulin Ratio 0.7 (1.0-2.7) L Current Medications Medications (Trade) Dose Ordered Sig/Eric Route PRN Reason Start Time Stop Time Status Last Admin Dose Admin Acetaminophen (Tylenol) 650 mg Q4H PRN ORAL fever 03/02/17 06:45 04/01/17 06:44 03/02/17 08:19 Albuterol/ Ipratropium (Albuterol/ Ipratropium) 3 ml Q4HRT PRN HHN Shortness of Breath 03/02/17 06:45 03/07/17 06:44 Baclofen (Lioresal) 20 mg QID ORAL 03/02/17 09:00 04/01/17 08:59 03/03/17 12:09 Cefepime HCl 2 gm/ Dextrose 55 ml @ 110 mls/hr Q12H IV 03/02/17 16:00 03/09/17 15:59 03/03/17 04:30 Duloxetine HCl (Cymbalta) 60 mg DAILY ORAL 03/02/17 15:00 04/01/17 14:59 03/03/17 09:00 Fludrocortisone Acetate (Florinef) 0.1 mg DAILY ORAL 03/02/17 09:00 04/01/17 08:59 03/03/17 09:00 Gabapentin (Neurontin) 600 mg TID ORAL 03/02/17 18:00 04/01/17 17:59 03/03/17 12:10 Heparin Sodium (Porcine) (Heparin 5000 units/ml) 5,000 units EVERY 12 HOURS SUBQ 03/02/17 09:00 04/01/17 08:59 03/03/17 09:58 Morphine Sulfate (Morphine Sulfate) 4 mg Q4H PRN IVP Severe Pain (Pain Scale 7-10) 03/02/17 10:45 03/09/17 10:44 03/03/17 01:59 Ondansetron HCl (Zofran) 4 mg Q6H PRN IVP Nausea & Vomiting 03/02/17 06:45 04/01/17 06:44 Oxycodone/ Acetaminophen (Percocet 5-325) 1 tab Q6H PRN ORAL Moderate Pain (Pain Scale 4-6) 03/02/17 14:15 03/09/17 14:14 Phenazopyridine HCl (Pyridium) 100 mg DAILY PRN ORAL dysuria 03/02/17 06:45 04/01/17 06:44 Polyethylene Glycol (Miralax) 17 gm DAILYPRN PRN ORAL Constipation 03/02/17 06:45 04/01/17 06:44 03/02/17 15:51 Sodium Chloride 1,000 ml @ 80 mls/hr [id number] IV 03/02/17 10:00 04/01/17 09:59 03/03/17 12:10 Temazepam (Restoril) 15 mg HSPRN PRN ORAL Insomnia 03/02/17 06:45 03/09/17 06:44 Vancomycin HCl (Vanco rx to dose) 1 ea DAILY PRN MISC PER RX PROTOCOL 03/02/17 14:30 04/01/17 14:29 Vancomycin/Sodium Chloride 250 ml @ 167.007 mls/hr Q12H IVPB 03/02/17 10:00 03/07/17 09:59 03/03/17 12:09 CORRIE FOWLER Mar 03, 2017 12:28
--- NOTE | 2017-03-03 12:58 | GI Initial Consult Note ---
History of Present Illness General Date patient seen: Mar 03, 2017 Time patient seen: 12:47 Reason for Hospitalization: Fever Referring physician: YAMEL DUMONT Reason for Consultation: PEG EVALUATION Present Illness HPI This is an unfortunate 61-year-old male with a history of paraplegia, sepsis from UTI in the past who presents with chief complaint of fever and cloudy urine. Unable to get history from him because of his mental status. History is through penitentiary note, old records, and EMS. Symptom onset was tonight. No nausea no vomiting. Fever and penitentiary. Similar symptom in the past. He was a bit here in January for the same. GI consulted for PEG evaluation. HPI as noted above. Pt admitted here 5 months ago after GT was removed and site would not close. He presents with UTI , but GI asked to see him after failed swallow evaluation. ST eval reviewed patient is high risk for aspiration and recommends nonoral feedings. Pt seen on floor, awake A&Ox4 NAD with no active s/sx of N/V/D. Suprapubic catheter noted. Old GT site not completely healed and has min amount of drainage. Labs show mild anemia and elevated alkaline phosphatase. History of partial paralysis secondary to spinal cord injury from an accident. Unknown history of endoscopic / colonoscopy. Home Meds Active Scripts Levofloxacin* (LEVAQUIN*) 500 Mg Tablet, 500 MG ORAL DAILY, #7 TAB Prov:NATHANIEL DODGE M.D. 11/13/16 Reported Medications Sertraline Hcl* (ZOLOFT*) 50 Mg Tablet, 50 MG ORAL DAILY, TAB 03/02/17 Hydrocodone Bit/Acetaminophen 5-325* (NORCO 5-325*) 1 Each Tablet, 1 TAB ORAL Q6H Y for For Pain, #10 TAB 0 Refills 03/02/17 Lorazepam* (LORAZEPAM*) 0.5 Mg Tablet, 0.5 MG ORAL Q4HR Y for For Anxiety, TAB 03/02/17 Oxycodone HCl/Acetaminophen (Percocet 10-325 mg Tablet) 1 Each Tablet, 1 EACH PO Q6HR, TAB 01/08/17 Hydrocodone Bit/Acetaminophen 10-325* (NORCO 10-325*) 1 Each Tablet, 1 TAB ORAL Q4H Y for For Pain, TAB 0 Refills PRN PAIN 01/08/17 Levofloxacin (LEVOFLOXACIN*) 250 Mg Tablet, 250 MG ORAL DAILY for 13 Days, TAB 01/08/17 Zolpidem Tartrate* (AMBIEN*) 5 Mg Tablet, 5 MG ORAL BEDTIME Y for Insomnia, TAB 01/08/17 Ondansetron* (ZOFRAN*) 4 Mg Tablet, 4 MG ORAL Q6H Y for Nausea & Vomiting, TAB 01/04/17 Polyethylene Glycol 3350* (MIRALAX*) 17 Gm Powd.pack, 17 GM ORAL DAILY Y for Constipation, PACKET 01/04/17 Nitroglycerin (NITROGLYCERIN) 0.4 Mg Tab.subl, 0.4 MG SL EVERY 5 min Y for chest pain, TAB 01/04/17 Esomeprazole Magnesium (NEXIUM) 20 Mg Capsule.dr, 20 MG ORAL DAILY, CAP 01/04/17 Mag Hydrox/Al Hydrox/Simeth (ALUM-MAG HYDROXIDE-SIMETH LIQ) 360 Ml Oral.susp, 30 ML PO EVERY 6 HOURS Y for dyspepsia, ML 01/04/17 Multivitamin With Minerals (MULTIVITAMINS WITH MINERALS*) 1 Each Tablet, 1 TAB ORAL DAILY, TAB 01/04/17 Heparin Sod (Porcine) (HEPARIN SODIUM*) 5 000/1 Ml Vial, 5000 UNITS SUBQ EVERY 12 HOURS, VIAL 01/04/17 Diphenhydramine Hcl* (DIPHENHYDRAMINE HCL*) 25 Mg Capsule, 25 MG ORAL Q6H Y for Itching, #30 CAP 0 Refills 01/04/17 Gabapentin* (NEURONTIN*) 100 Mg Capsule, 300 MG ORAL THREE TIMES A DAY, CAP 10/06/16 Fluconazole* (DIFLUCAN*) 200 Mg Tablet, 200 MG ORAL DAILY for 12 Days, #10 TAB 0 Refills 10/06/16 Lidocaine (Lidoderm) 1 Each Adh..patch, 1 PATCH TOPIC DAILY, #7 PATCH 0 Refills Patch(es) may remain in place for up to 12 hours in any 24-hour period. 10/06/16 Pantoprazole* (PROTONIX*) 40 Mg Tablet.dr, 40 MG ORAL ACBREAKFAST, TAB 10/06/16 Pantoprazole* (PROTONIX*) 40 Mg Tablet.dr, 40 MG ORAL DAILY, TAB 10/06/16 Pantoprazole Sodium (PROTONIX) 20 Mg Tablet.dr, 20 MG EVERY 12 HOURS, TAB 10/06/16 Pantoprazole* (PROTONIX*) 40 Mg Tablet.dr, 40 MG ORAL DAILY, TAB 10/06/16 Acetaminophen (Tylenol) 325 Mg Tablet, 650 MG ORAL EVERY 4 HOURS Y for For Pain , #30 TAB 0 Refills 10/02/16 Sennosides (SENNA) 8.6 Mg Tablet, 8.6 MG PO Y for Constipation, TAB 10/02/16 Temazepam* (RESTORIL*) 15 Mg Capsule, 15 MG ORAL BEDTIME Y for Insomnia, CAP 10/02/16 Lactulose (LACTULOSE*) 20 Gm/30 Ml Solution, 30 ML ORAL DAILY, ML 0 Refills 10/02/16 Na Phos,M-B/Na Phos,Di-Ba* (FLEET ENEMA*) 133 Ml Enema, 118 ML RECTAL DAILY Y for Constipation, ML 0 Refills 10/02/16 Lorazepam* (ATIVAN*) 0.5 Mg Tablet, 0.5 MG ORAL PRN Y for For Anxiety, TAB 10/02/16 Hydrocodone/Acetaminophen (Hydrocodon-Acetaminophn 10-325) 1 Ea Tab, 2 TAB GT Q4H Y for Moderate Pain (Pain Scale 4-6), #30 TAB 0 Refills 01/20/14 Hydrocodone/Acetaminophen (Hydrocodon-Acetaminophn 10-325) 1 Ea Tab, 1 TAB GT Q4H Y for Mild Pain (Pain Scale 1-3), #30 TAB 0 Refills 01/20/14 Ipratropium/Albuterol Sulfate (DuoNeb 0.5-3(2.5)mg/3ml) 3 Ml Ampul.neb, 3 ML HHN Q6HR Y for Shortness of Breath, EA 01/20/14 Bisacodyl* (DULCOLAX*) 5 Mg Tablet.dr, 10 MG RECTAL DAILY Y for Constipation, # 10 TAB 0 Refills 01/20/14 Na Phos,M-B/Na Phos,Di-Ba* (FLEET ENEMA*) 133 Ml Enema, 135 ML RECTAL DAILY Y for Constipation, ML 0 Refills 01/20/14 Cranberry Fruit Concentrate (CRANBERRY) 450 Mg Tablet, 450 MG GT Q12HR, TAB 01/20/14 Midodrine* (PROAMATINE*) 10 Mg Tablet, 10 MG ORAL TID, TAB 01/20/14 Fludrocortisone Acetate (Fludrocortisone Acetate) 0.1 Mg Tab, 0.1 MG GT DAILY, # 30 TAB 0 Refills 01/20/14 Amino Acids/Protein Hydrolys (PRO-STAT LIQUID) 30 Ml Liquid.pkt, 30 ML GT BID, ML 01/20/14 Temazepam* (TEMAZEPAM*) 30 Mg Capsule, 30 MG GT BEDTIME for Insomnia, CAP 01/20/14 Calcium Carbonate (Oyster Shell Calcium-Vit D Tab) 500 Mg Tab, 500 MG ORAL DAILY , TAB 01/20/14 Acetaminophen (TYLENOL) 100 Mg/1 Ml Drops.susp, 650 MG GT EVERY 6 HOURS Y for Temp >101F 11/29/12 Morphine Sulfate (Morphine 20mg/ml Oral Soln ud) 20 Mg/1 Ml Soln, 5 MG SL EVERY 4 HOURS Y for Severe Pain (Pain Scale 7-10) 11/29/12 Sertraline Hcl (ZOLOFT) 20 Mg/1 Ml Oral.conc, 25 MG GT DAILY 11/29/12 Docusate Sodium (DOCUSATE SODIUM) 50 Mg/5 Ml Liquid, 100 MG GT BID 11/29/12 Gabapentin (GABAPENTIN) 300 Mg/6 Ml Solution, 300 MG GT THREE TIMES A DAY, ML 11/29/12 Baclofen* (BACLOFEN*) 10 Mg Tablet, 20 MG ORAL QID, TAB 11/29/12 Famotidine (PEPCID) 20 Mg Tablet, 20 MG ORAL BID, #7 TAB 0 Refills 11/29/12 Med list reviewed/reconciled: Yes Allergies: Coded Allergies: No Known Allergies (Verified , 11/07/09) Patient History History Provided By: Patient, Medical Record PMH Narrative Past Medical History: see triage record, old chart reviewed Past Surgical History: other Pertinent Family History: none Social History: Denies: smoking Immunizations: UTD Reviewed Nursing Documentation: PMH: Agreed, PSxH: Agreed Nursing Documentation-PMH Hx Cardiac Problems: Yes Hx Hypertension: Yes Hx Cancer: No Hx Gastrointestinal Problems: Yes - GERD,NEUROMUSCULAR DYSFUNCTION OF BLADDER History Of Psychiatric Problem: Yes - ANXIETY,MAJOR DEPRESSIVE DISORDER Hx Neurological Problems: Yes - SPASTIC QUADREPLEGIC CEREBRAL PALSY Hx Cerebrovascular Accident: Yes Hx Cerebral Palsy: Yes Hx Paralysis: Yes - Paraplegic Hx Speech Problem: Yes Hx Numbness: Yes Hx Weakness: Yes Hx Neurologic Surgery: Yes Social History: Denies: smoking, alcohol use, drug use, other Review of Systems All Other Systems: negative except mentioned in HPI Physical Exam Vital Signs Date Time Temp Pulse Resp B/P (MAP) Pulse Ox O2 Delivery O2 Flow Rate FiO2 03/02/17 02:05 99.9 108 31 112/64 92 Nasal Cannula 4.0 03/02/17 19:23 28 Sp02 EP Interpretation: reviewed, normal Labs Laboratory Tests Test 03/03/17 03:00 03/03/17 07:45 Urine Color Yellow Urine Appearance Slightly cloudy Urine pH 7 (4.5-8.0) Urine Specific [place] 1.005 (1.005-1.035) Urine Protein 2+ (NEGATIVE) H Urine Glucose (UA) Negative (NEGATIVE) Urine Ketones 3+ (NEGATIVE) H Urine Occult Blood 5+ (NEGATIVE) H Urine Nitrite Negative (NEGATIVE) Urine Bilirubin Negative (NEGATIVE) Urine Urobilinogen Normal MG/DL (0.0-1.0) Urine Leukocyte Esterase 3+ (NEGATIVE) H Urine RBC 40-60 /HPF (0 - 0) H Urine WBC 30-40 /HPF (0 - 0) H Urine Squamous Epithelial Cells None /LPF (NONE/OCC) Urine Bacteria Moderate /HPF (NONE) H White Blood Count 8.4 K/UL (4.8-10.8) Red Blood Count 3.94 M/UL (4.70-6.10) L Hemoglobin 11.9 G/DL (14.2-18.0) L Hematocrit 35.3 % (42.0-52.0) L Mean Corpuscular Volume 90 FL (80-99) Mean Corpuscular Hemoglobin 30.1 PG (27.0-31.0) Mean Corpuscular Hemoglobin Concent 33.6 G/DL (32.0-36.0) Red Cell Distribution Width 12.2 % (11.6-14.8) Platelet Count 124 K/UL (150-450) L Mean Platelet Volume 6.6 FL (6.5-10.1) Neutrophils (%) (Auto) % (45.0-75.0) Lymphocytes (%) (Auto) % (20.0-45.0) Monocytes (%) (Auto) % (1.0-10.0) Eosinophils (%) (Auto) % (0.0-3.0) Basophils (%) (Auto) % (0.0-2.0) Differential Total Cells Counted 100 Neutrophils % (Manual) 88 % (45-75) H Lymphocytes % (Manual) 7 % (20-45) L Monocytes % (Manual) 5 % (1-10) Eosinophils % (Manual) 0 % (0-3) Basophils % (Manual) 0 % (0-2) Band Neutrophils 0 % (0-8) Platelet Estimate Decreased L Platelet Morphology Normal Red Blood Cell Morphology Normal Sodium Level 138 MMOL/L (136-145) Potassium Level 3.8 MMOL/L (3.5-5.1) Chloride Level 104 MMOL/L (98-107) Carbon Dioxide Level 23 MMOL/L (21-32) Anion Gap 11 mmol/L (5-15) Blood Urea Nitrogen 14 mg/dL (7-18) Creatinine 1.0 MG/DL (0.55-1.30) Estimat Glomerular Filtration Rate > 60 mL/min (>60) Glucose Level 97 MG/DL (74-106) Calcium Level 8.4 MG/DL (8.5-10.1) L Total Bilirubin 0.7 MG/DL (0.2-1.0) Aspartate Amino Transf (AST/SGOT) 23 U/L (15-37) Alanine Aminotransferase (ALT/SGPT) 36 U/L (12-78) Alkaline Phosphatase 131 U/L (46-116) H Total Protein 7.0 G/DL (6.4-8.2) Albumin 2.8 G/DL (3.4-5.0) L Globulin 4.2 g/dL Albumin/Globulin Ratio 0.7 (1.0-2.7) L General Appearance: well appearing, no apparent distress, alert Head: normocephalic EENT: PERRL/EOMI, normal ENT inspection Neck: supple Respiratory: normal breath sounds, no respiratory distress Cardiovascular: normal rate Gastrointestinal: normal inspection, non tender, soft, normal bowel sounds, non -distended, gt - s/p removal 5 months ago, but still not completely healed. Rectal: deferred Genitourinary: deferred Musculoskeletal: normal inspection, back normal Neurologic: normal inspection, alert, oriented x3, responsive Psychiatric: normal inspection, judgement/insight normal, memory normal Skin: normal inspection, normal color, no rash, warm/dry, palpation normal, well hydrated Lymphatic: normal inspection, no adenopathy Current Medications Current Medications Medications (Trade) Dose Ordered Sig/Eric Route PRN Reason Start Time Stop Time Status Last Admin Dose Admin Acetaminophen (Tylenol) 650 mg Q4H PRN ORAL fever 03/02/17 06:45 04/01/17 06:44 03/02/17 08:19 Albuterol/ Ipratropium (Albuterol/ Ipratropium) 3 ml Q4HRT PRN HHN Shortness of Breath 03/02/17 06:45 03/07/17 06:44 Baclofen (Lioresal) 20 mg QID ORAL 03/02/17 09:00 04/01/17 08:59 03/03/17 12:09 Cefepime HCl 2 gm/ Dextrose 55 ml @ 110 mls/hr Q12H IV 03/02/17 16:00 03/09/17 15:59 03/03/17 04:30 Duloxetine HCl (Cymbalta) 60 mg DAILY ORAL 03/02/17 15:00 04/01/17 14:59 03/03/17 09:00 Fludrocortisone Acetate (Florinef) 0.1 mg DAILY ORAL 03/02/17 09:00 04/01/17 08:59 03/03/17 09:00 Gabapentin (Neurontin) 600 mg TID ORAL 03/02/17 18:00 04/01/17 17:59 03/03/17 12:10 Heparin Sodium (Porcine) (Heparin 5000 units/ml) 5,000 units EVERY 12 HOURS SUBQ 03/02/17 09:00 04/01/17 08:59 03/03/17 09:58 Morphine Sulfate (Morphine Sulfate) 4 mg Q4H PRN IVP Severe Pain (Pain Scale 7-10) 03/02/17 10:45 03/09/17 10:44 03/03/17 01:59 Ondansetron HCl (Zofran) 4 mg Q6H PRN IVP Nausea & Vomiting 03/02/17 06:45 04/01/17 06:44 Oxycodone/ Acetaminophen (Percocet 5-325) 1 tab Q6H PRN ORAL Moderate Pain (Pain Scale 4-6) 03/02/17 14:15 03/09/17 14:14 Phenazopyridine HCl (Pyridium) 100 mg DAILY PRN ORAL dysuria 03/02/17 06:45 04/01/17 06:44 Polyethylene Glycol (Miralax) 17 gm DAILYPRN PRN ORAL Constipation 03/02/17 06:45 04/01/17 06:44 03/02/17 15:51 Sodium Chloride 1,000 ml @ 80 mls/hr [id number] IV 03/02/17 10:00 04/01/17 09:59 03/03/17 12:10 Temazepam (Restoril) 15 mg HSPRN PRN ORAL Insomnia 03/02/17 06:45 03/09/17 06:44 GI: Plan Problems: (1) Dysphagia (2) Encounter for PEG (percutaneous endoscopic gastrostomy) (3) Anemia (4) Paraplegia Plan ST note reviewed. PEG refused by patient, I explained the risks of aspiration by advancing his diet and he acknowledged. >> will follow up with family fu head CT diet per ST -strict aspiration precautions GT site care daily / prn monitor H&H, prn transfusion H2B fu labs Discussed with Dr. Martinez. Thank you for this patient referral, we will follow. Kelly Dodge N.P. Mar 03, 2017 12:58
--- NOTE | 2017-03-03 13:42 | General Progress Note ---
Assessment/Plan Problem List: (1) History of gastrostomy tube placement ICD Codes: Z98.89 - Other specified postprocedural states SNOMED: 653341108 (2) Urinary tract infectious disease (3) Malfunction of gastrostomy tube ICD Codes: K94.23 - Gastrostomy malfunction SNOMED: 544998309 (4) Neuropathy ICD Codes: G62.9 - Polyneuropathy, unspecified SNOMED: 933834875 (5) Encephalopathy acute ICD Codes: G93.40 - Encephalopathy, unspecified SNOMED: 3061920 (6) Paraplegia ICD Codes: G82.20 - Paraplegia, unspecified SNOMED: 05305092 (7) History of CVA (cerebrovascular accident) ICD Codes: Z86.73 - Personal history of transient ischemic attack (TIA), and cerebral infarction without residual deficits SNOMED: 526939949 (8) HTN (hypertension) ICD Codes: I10 - Essential (primary) hypertension SNOMED: 29282456 (9) chronic pain. opiate dependent Status: stable, progressing, tolerating diet Assessment/Plan ot pt abd uro gi f/u cbc bmp am Subjective Constitutional: Reports: weakness Allergies: Coded Allergies: No Known Allergies (Verified , 11/07/09) Subjective sleepy calm in bed Objective Last 24 Hour Vital Signs Date Time Temp Pulse Resp B/P (MAP) Pulse Ox O2 Delivery O2 Flow Rate FiO2 03/03/17 11:58 97.7 102 21 123/75 98 Room Air 03/03/17 08:17 102 16 Room Air 21 03/03/17 08:17 Room Air 21 03/03/17 08:17 95 Room Air 21 03/03/17 08:00 98.8 97 20 131/71 95 Room Air 03/03/17 04:00 2.0 03/03/17 04:00 104 03/03/17 04:00 97.9 100 18 126/78 98 03/03/17 00:00 2.0 03/03/17 00:00 98.1 100 20 130/76 97 03/03/17 00:00 103 03/02/17 20:00 115 03/02/17 20:00 2.0 03/02/17 20:00 98.2 112 18 130/76 97 03/02/17 19:23 112 18 Nasal Cannula 2.0 28 03/02/17 19:23 Nasal Cannula 2.0 28 03/02/17 19:23 97 Nasal Cannula 2.0 28 03/02/17 16:00 98.2 102 22 94/59 97 Nasal Cannula 2.0 03/02/17 16:00 115 03/02/17 16:00 98.2 102 21 99/59 97 Nasal Cannula 2.0 03/02/17 14:19 98.2 Laboratory Tests 03/03/17 03:00: Urine Color Yellow, Urine Appearance Slightly cloudy, Urine pH 7, Urine Specific [place] 1.005, Urine Protein 2+H, Urine Glucose (UA) Negative, Urine Ketones 3+H, Urine Occult Blood 5+H, Urine Nitrite Negative, Urine Bilirubin Negative, Urine Urobilinogen Normal, Urine Leukocyte Esterase 3+H, Urine RBC 40- 60H, Urine WBC 30-40H, Urine Squamous Epithelial Cells None, Urine Bacteria ModerateH 03/03/17 07:45: White Blood Count 8.4, Red Blood Count 3.94L, Hemoglobin 11.9L, Hematocrit 35.3L , Mean Corpuscular Volume 90, Mean Corpuscular Hemoglobin 30.1, Mean Corpuscular Hemoglobin Concent 33.6, Red Cell Distribution Width 12.2, Platelet Count 124L, Mean Platelet Volume 6.6, Neutrophils (%) (Auto) , Lymphocytes (%) ( Auto) , Monocytes (%) (Auto) , Eosinophils (%) (Auto) , Basophils (%) (Auto) , Differential Total Cells Counted 100, Neutrophils % (Manual) 88H, Lymphocytes % (Manual) 7L, Monocytes % (Manual) 5, Eosinophils % (Manual) 0, Basophils % ( Manual) 0, Band Neutrophils 0, Platelet Estimate DecreasedL, Platelet Morphology Normal, Red Blood Cell Morphology Normal, Sodium Level 138, Potassium Level 3.8, Chloride Level 104, Carbon Dioxide Level 23, Anion Gap 11, Blood Urea Nitrogen 14, Creatinine 1.0, Estimat Glomerular Filtration Rate > 60 , Glucose Level 97, Calcium Level 8.4L, Total Bilirubin 0.7, Aspartate Amino Transf (AST/SGOT) 23, Alanine Aminotransferase (ALT/SGPT) 36, Alkaline Phosphatase 131H, Total Protein 7.0, Albumin 2.8L, Globulin 4.2, Albumin/ Globulin Ratio 0.7L Height (Feet): 5 Height (Inches): 6.00 Weight (Pounds): 163 General Appearance: lethargic EENT: normal ENT inspection Neck: normal alignment Cardiovascular: normal peripheral pulses, normal rate, regular rhythm Respiratory/Chest: chest wall non-tender, lungs clear, normal breath sounds Abdomen: normal bowel sounds, non tender, soft Extremities: normal inspection Edema: no edema noted Arm (L), no edema noted Arm (R), no edema noted Leg (L), no edema noted Leg (R), no edema noted Pedal (L), no edema noted Pedal (R), no edema noted Generalized Neurologic: motor weakness Skin: normal pigmentation, warm/dry YAMEL DUMONT Mar 03, 2017 13:42
[2017-03-03 16:00] VITALS: BP 135/81
[2017-03-03] MEDS: Miralax 17gm pkt ORAL PRN (16:28)
[2017-03-03] MEDS ORDERED: Albuterol/Ipratropium 3ml neb HHN PRN (18:00)
[2017-03-03] MEDS ORDERED: Docusate 100mg cap ORAL SCH (18:00)
[2017-03-03] MEDS: Docusate 100mg cap ORAL SCH (18:21)
[2017-03-03] MEDS ORDERED: Miralax 17gm pkt ORAL PRN (18:30)
[2017-03-03] MEDS ORDERED: oxyCODONE HCL/Acetaminophen 5/325mg ORAL PRN (18:30)
--- NOTE | 2017-03-03 19:45 | Consultation ---
DATE OF CONSULTATION: 03/03/2017 UROLOGY CONSULTATION ATTENDING/CONSULTING PHYSICIAN: Rickey Bullard D.O. CHIEF COMPLAINT/HISTORY OF PRESENT ILLNESS: I was asked by Dr. Bullard to evaluate this 61-year-old gentleman regarding a history of infected suprapubic tube, in need of a change in management of the same. Briefly, the patient has a history of cervical myelopathy with quadriparesis. He has a suprapubic catheter in place to manage his flaccid neurogenic bladder. The catheter has not been changed in over a month. The patient presented with evidence of urinary tract infection and lethargy. Given the above, I was asked to evaluate the patient and change his suprapubic catheter. PAST MEDICAL HISTORY: 1. Cervical myelopathy/quadriparesis. 2. Opioid dependence. 3. Urinary tract infection. 4. Anxiety. 5. Depression. 6. Gastroesophageal reflux disease. 7. Renal insufficiency. 8. Hypertension. 9. Possible CVA. PAST SURGICAL HISTORY: 1. G-tube placement. 2. SP tube placement. MEDICATIONS: Please see the chart for current medications and administration details. Briefly, the patient is receiving cefepime and vancomycin for antibiotic coverage. ALLERGIES: No known drug allergies. SOCIAL HISTORY: The patient lives in a prison facility. No history of tobacco, alcohol, or drug use. FAMILY HISTORY: Noncontributory. REVIEW OF SYSTEMS: A 12-system review of systems is notable for a low back pain. Otherwise, unremarkable outside what was described above. PHYSICAL EXAMINATION: GENERAL: The patient is a older gentleman, awake, alert, pleasant and oriented x4, in no obvious distress. HEENT: NC/AT. EOMI. NECK: Supple. Full range of motion. Oropharynx clear. CHEST: Within normal limits. ABDOMEN: Soft, nontender, and nondistended. G-tube and SP tube site is clean, dry and intact. EXTREMITIES: Warm and well perfused. No cyanosis, clubbing or edema. NEUROLOGIC: Notable for quadriparesis. GENITOURINARY: Normal male external genitalia with an uncircumcised phallus. LABORATORY DATA: White blood cell count 8.4 down from 13.4 on admission, hematocrit 35.3, and platelets 124. PT 10.9, INR 1.0 and PTT 36. Sodium 138, potassium 3.8, chloride 104, bicarbonate 23, BUN 14, creatinine 1.0 and glucose 97. Uric acid 4.0. Calcium 8.4. LFTs within normal limits. Alkaline phosphatase 131. Urinalysis, specific gravity 1.005, pH 7, dip test notable for 2+ protein, 3+ ketones, 5+ occult blood, nitrites now negative, but positive on admission, and 3+ leukocyte esterase. Microanalysis with 40 to 60 red blood cells per high-power field, 30 to 40 white blood cells per high-power field, and moderate bacteria seen. Urine culture with gram-negative bacilli, identification and susceptibility pending. Blood cultures negative. DIAGNOSTIC IMAGING: Chest x-ray with no acute process. 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 He has a suprapubic catheter for management of same. He presents to the hospital with evidence of urinary tract infection and lethargy. Physical exam reveals a suprapubic catheter in place with clear yellow urine output, now on antibiotics. Laboratory data is notable for evidence of urinary tract infection and a initially elevated white blood cell count. There is no relevant diagnostic imaging. Today at the bedside, I removed the patient's old suprapubic catheter and placed a new one for him. It irrigated easily indicating good position within the bladder. It was inflated and left to gravity drainage. Once the patient's antibiotics are finished, he can be discharged home on oral medication to complete a 7-day course of therapy. He can follow up with his regular urologist regarding a catheter change. Thank you for allowing me to participate in the care of this nice gentleman. Please do not hesitate to contact me for any questions that you may further have regarding his care. I will be happy to see him with you as needed. Nickolas Meraz M.D. DR: SHERLYN JOB#: [id number] CC:
[2017-03-03 20:00] VITALS: BP 125/73
--- NOTE | 2017-03-03 21:45 | Consultation ---
DATE OF CONSULTATION: 03/02/2017 CARDIOLOGY CONSULTATION REFERRING PHYSICIAN: Rickey Bullard D.O. REASON FOR CONSULTATION: Management of tachycardia. HISTORY OF PRESENT ILLNESS: The patient is a very unfortunate 61-year-old gentleman, who presents to the hospital with fever, cloudy urine, possibility of urinary tract infection. He has history of paraplegia and unable to ambulate. The patient is a resident of a nursing facility. At the time of evaluation in the emergency department, blood pressure is 112/64 mm Hg and heart rate of 108. Cardiology consultation was obtained at request of Dr. Bullard for management of tachycardia. In the emergency department, the patient received IV fluid as well as Zosyn and vancomycin and was transferred to Medical/Surgical. PAST MEDICAL HISTORY: Hypertension, history of CVA, history of anemia, history of coronary artery disease, history of gastroesophageal reflux disease, history of depression, history of anxiety, history of quadriplegia, history of cerebral palsy, and history of urinary retention. PAST SURGICAL HISTORY: G-tube placement and suprapubic catheter placement MEDICATIONS: List of medication in the nursing facility, acetaminophen 650 mg G-tube q.6 h. p.r.n. temperature of 101 degree Fahrenheit, acetaminophen 650 mg q.4 h. p.r.n. pain, Pro-Stat liquid 30 mL G-tube twice daily, baclofen 20 mg G-tube q.i.d., Dulcolax 10 mg rectal daily p.r.n. constipation, Oyster shell calcium and vitamin D tablets 500 mg G-tube daily, cranberry 450 mg G-tube q.12 h., diphenhydramine hydrochloride 25 mg G-tube q.6 h. p.r.n. pruritus, Colace 100 mg G-tube twice daily, Nexium 20 mg G-tube daily, Pepcid 20 mg G-tube twice daily, fluconazole 200 mg G-tube q.12 h., fludrocortisone acetate 0.1 mg G-tube daily, gabapentin 300 mg G-tube three times a day, heparin sodium 5000 units subcutaneous q.12 h., [place] 10/325 mg two tablets G-tube q.4 h. p.r.n. pain, DuoNeb 3 mL HHN q.6 h. p.r.n. shortness of breath, lactulose 30 mL G-tube daily, levofloxacin 250 mg G-tube daily, Lidoderm one patch daily, Ativan 0.5 mg p.r.n. G-tube anxiety, aluminum magnesium hydroxide liquid 30 mL p.o. G-tube q.6 h. p.r.n. dysarthria, midodrine 10 mg G-tube three times a day, morphine sulfate 5 mg SL q.4 h. p.r.n. severe pain, Fleet enema 135 mL rectal daily p.r.n. constipation, multivitamin with minerals one tablet G-tube daily, nitroglycerin 0.4 mg sublingual every five minutes p.r.n. chest pain, Zofran 4 mg q.6 hours p.r.n. nausea and vomiting, Percocet 10/325 mg one tablet q.6 h. p.r.n. severe pain, Protonix 20 mg q.12 h., MiraLAX 17 gram G-tube daily p.r.n. constipation, Senna 8.6 mg G-tube daily p.r.n. constipation, Zoloft 25 mg G-tube daily, temazepam 30 mg G-tube at bedtime, Restoril 15 mg G-tube at bedtime p.r.n. insomnia, and Ambien 5 mg G-tube at bedtime p.r.n. insomnia. ALLERGIES: No known drug allergies. SOCIAL HISTORY: Resident of a nursing facility under care of Dr. Rickey Bullard. There is no recent use of tobacco, alcohol or illicit drug use. FAMILY HISTORY: No premature coronary artery disease in first-degree relatives. REVIEW OF SYSTEMS: Due to the patient's underlying mental status, this was unable to obtain. PHYSICAL EXAMINATION: GENERAL: The patient is a very unfortunate 61-year-old gentleman, chronically ill, lethargic. VITAL SIGNS: Blood pressure was 112/64 mm Hg, respiration of 31, pulse of 108, temperature 99.9 degrees Fahrenheit, and O2 saturation 92% on nasal cannula at 4.0 O2 flow rate. HEENT: Atraumatic and normocephalic. Anicteric. Pupils are equal, round, and reactive to light and accommodation. Extraocular muscles intact. Conjunctival pallor. NECK: JVP less than 5 centimeter. Dry mucosal membrane. CARDIOVASCULAR: Normal S1 and S2. Regular rate and rhythm. Tachycardic. No murmurs, gallops or rubs. PMI is at fourth intercostal space in the midclavicular line. LUNGS: Diminished breath sounds in both bases. ABDOMEN: Soft, nontender, and nondistended. There is presence of G-tube as well as suprapubic tube. EXTREMITIES: There is bilateral lower extremity edema about 1+. LABORATORY AND DIAGNOSTIC DATA: Chest x-ray showed no acute cardiopulmonary disease. Laboratory findings, WBC was 13.4, hemoglobin 13.5, hematocrit 39.4, and platelet count 158. Sodium was 136, potassium is 4.1, chloride 92, bicarbonate 26, BUN of 16, creatinine 1.2 and glucose is 119. Calcium is 9.0. INR was 1.0. A 12-lead electrocardiogram shown sinus tachycardia at rate of [address] and T-wave abnormalities. ASSESSMENT AND PLAN: The patient is a very unfortunate 61-year-old gentleman, seen in Cardiology consultation at request of Dr. Rickey Bullard. 1. Sinus tachycardia, this is likely secondary to urinary tract infection/sepsis. The mainstay of therapy is hydration. At this time, the patient requires antibiotics and supportive therapy. There are some few episodes of hypotension. Normal saline is a fluid of choice. At this time, I would avoid AV prateek agent as it may worsen the blood pressure. 2. urosepsis with hypotension. The mainstay of therapy is intravenous antibiotic and hemodynamic support with normal saline infusion. 3. History of cerebrovascular accident. 4. History of cerebral palsy. I would like to thank, Dr. Bullard, for allowing me to participate in the care of this patient. Piero Webb M.D. DR: BERNA JOB#: [id number] CC:
[2017-03-03 21:57] LABS: ANION GAP 7 mmol/L (5-15); CALCIUM 8.2 MG/DL (8.5-10.1); CARBON DIOXIDE 24 MMOL/L (21-32); CHLORIDE 105 MMOL/L (98-107); CREATININE 0.9 MG/DL (0.55-1.30); GLOMERULAR FILTRATION RATE > 60 mL/min (>60); POTASSIUM 3.8 MMOL/L (3.5-5.1); SODIUM 136 MMOL/L (136-145)
[2017-03-04] MEDS: Morphine Sulfate 4mg/ml Inj IVP PRN ×4 (02:42→20:37)
[2017-03-04] MEDS: Cefepime HCl 2 GM in D5W 55 ML IV SCH ×2 (03:53→16:05)
[2017-03-04 04:00] VITALS: BP 115/66
[2017-03-04 07:40] LABS: BASOPHILS % (AUTO) 0.9 % (0.0-2.0); EOSINOPHILS % (AUTO) 1.3 % (0.0-3.0); LYMPHOCYTES % (AUTO) 11.6 % (20.0-45.0); MEAN CORPUSCULAR HEMOGLOBIN 30.1 PG (27.0-31.0); MEAN CORPUSCULAR HGB CONC 33.9 G/DL (32.0-36.0); MEAN CORPUSCULAR VOLUME 89 FL (80-99); MEAN PLATELET VOLUME 6.4 FL (6.5-10.1); MONOCYTES % (AUTO) 9.4 % (1.0-10.0); NEUTROPHILS % (AUTO) 76.9 % (45.0-75.0); PLATELET COUNT 116 K/UL (150-450); RED BLOOD COUNT 3.76 M/UL (4.70-6.10); WHITE BLOOD COUNT 5.8 K/UL (4.8-10.8)
[2017-03-04 08:00] VITALS: BP 118/68
[2017-03-04 08:10] LABS: ANION GAP 9 mmol/L (5-15); CARBON DIOXIDE 22 MMOL/L (21-32); CHLORIDE 105 MMOL/L (98-107); CREATININE 0.7 MG/DL (0.55-1.30); GLOMERULAR FILTRATION RATE > 60 mL/min (>60); POTASSIUM 3.7 MMOL/L (3.5-5.1); SODIUM 136 MMOL/L (136-145)
[2017-03-04] MEDS: DULoxetine 30mg cap ORAL SCH (08:44)
[2017-03-04] MEDS: Heparin 5000 units/ml inj SUBQ SCH ×2 (08:44→20:37)
[2017-03-04] MEDS: Docusate 100mg cap ORAL SCH ×3 (08:44→17:39)
--- NOTE | 2017-03-04 09:06 | General Progress Note ---
Assessment/Plan Problem List: (1) History of gastrostomy tube placement ICD Codes: Z98.89 - Other specified postprocedural states SNOMED: 906277482 (2) Urinary tract infectious disease (3) Malfunction of gastrostomy tube ICD Codes: K94.23 - Gastrostomy malfunction SNOMED: 343637755 (4) Neuropathy ICD Codes: G62.9 - Polyneuropathy, unspecified SNOMED: 201212728 (5) Encephalopathy acute ICD Codes: G93.40 - Encephalopathy, unspecified SNOMED: 5791810 (6) Paraplegia ICD Codes: G82.20 - Paraplegia, unspecified SNOMED: 82395764 (7) History of CVA (cerebrovascular accident) ICD Codes: Z86.73 - Personal history of transient ischemic attack (TIA), and cerebral infarction without residual deficits SNOMED: 650224984 (8) HTN (hypertension) ICD Codes: I10 - Essential (primary) hypertension SNOMED: 46403101 (9) chronic pain. opiate dependent Status: stable, progressing, tolerating diet Assessment/Plan ot pt abd uro gi f/u cbc bmp am dc plan Subjective Constitutional: Reports: weakness Allergies: Coded Allergies: No Known Allergies (Verified , 11/07/09) All Systems: reviewed and negative except above Subjective o2nc sleepy calm in bed Objective Last 24 Hour Vital Signs Date Time Temp Pulse Resp B/P (MAP) Pulse Ox O2 Delivery O2 Flow Rate FiO2 03/04/17 08:02 Nasal Cannula 2.0 28 03/04/17 08:01 93 Nasal Cannula 2.0 28 03/04/17 08:00 98.2 80 20 118/68 98 03/04/17 07:59 88 18 Nasal Cannula 2.0 03/04/17 04:00 98.2 80 21 115/66 97 03/04/17 04:00 Nasal Cannula 2.0 03/04/17 00:00 Nasal Cannula 2.0 03/03/17 21:15 Nasal Cannula 2.0 28 03/03/17 21:15 97 Nasal Cannula 2.0 28 03/03/17 21:13 82 20 Nasal Cannula 2.0 28 03/03/17 20:00 98.2 87 20 125/73 97 03/03/17 20:00 Nasal Cannula 2.0 03/03/17 18:53 97.9 03/03/17 16:00 91 03/03/17 16:00 97.9 97 21 135/81 96 Room Air 03/03/17 14:46 97.9 03/03/17 12:00 106 03/03/17 11:58 97.7 102 21 123/75 98 Room Air Laboratory Tests 03/03/17 21:20: Sodium Level 136, Potassium Level 3.8, Chloride Level 105, Carbon Dioxide Level 24, Anion Gap 7, Blood Urea Nitrogen 14, Creatinine 0.9, Estimat Glomerular Filtration Rate > 60, Glucose Level 93, Calcium Level 8.2L 03/04/17 04:35: Sodium Level 136, Potassium Level 3.7, Chloride Level 105, Carbon Dioxide Level 22, Anion Gap 9, Blood Urea Nitrogen 14, Creatinine 0.7, Estimat Glomerular Filtration Rate > 60, Glucose Level 87, Calcium Level 8.0L, White Blood Count 5.8, Red Blood Count 3.76L, Hemoglobin 11.3L, Hematocrit 33.5L, Mean Corpuscular Volume 89, Mean Corpuscular Hemoglobin 30.1, Mean Corpuscular Hemoglobin Concent 33.9, Red Cell Distribution Width 12.0, Platelet Count 116L, Mean Platelet Volume 6.4L, Neutrophils (%) (Auto) 76.9H, Lymphocytes (%) (Auto) 11.6L, Monocytes (%) (Auto) 9.4, Eosinophils (%) (Auto) 1.3, Basophils (%) (Auto ) 0.9 Height (Feet): 5 Height (Inches): 6.00 Weight (Pounds): 163 General Appearance: lethargic EENT: normal ENT inspection Neck: normal alignment Cardiovascular: normal peripheral pulses, normal rate, regular rhythm Respiratory/Chest: chest wall non-tender, lungs clear, normal breath sounds Abdomen: normal bowel sounds, non tender, soft Extremities: normal inspection Edema: no edema noted Arm (L), no edema noted Arm (R), no edema noted Leg (L), no edema noted Leg (R), no edema noted Pedal (L), no edema noted Pedal (R), no edema noted Generalized Neurologic: motor weakness Skin: normal pigmentation, warm/dry YAMEL DUMONT Mar 04, 2017 09:06
[2017-03-04] MEDS ORDERED: Fleet's Enema 133ml RECTAL ONE (10:30)
--- NOTE | 2017-03-04 11:27 | Infectious Diseases Prog Note ---
Assessment/Plan Assessment/Plan antibiotics : cefepime A 1. serratia UTI 2. leucocytosis improving 3. spinal cord injury 4. quadriparesis P 1. continue cefepime 2. will follow up cultures Subjective ROS Limited/Unobtainable: Yes Allergies: Coded Allergies: No Known Allergies (Verified , 11/07/09) Objective Vital Signs Last 24 Hour Vital Signs Date Time Temp Pulse Resp B/P (MAP) Pulse Ox O2 Delivery O2 Flow Rate FiO2 03/04/17 08:02 Nasal Cannula 2.0 28 03/04/17 08:01 93 Nasal Cannula 2.0 28 03/04/17 08:00 98.2 80 20 118/68 98 03/04/17 07:59 88 18 Nasal Cannula 2.0 28 03/04/17 04:00 98.2 80 21 115/66 97 03/04/17 04:00 Nasal Cannula 2.0 03/04/17 00:00 Nasal Cannula 2.0 03/03/17 21:15 Nasal Cannula 2.0 28 03/03/17 21:15 97 Nasal Cannula 2.0 28 03/03/17 21:13 82 20 Nasal Cannula 2.0 28 03/03/17 20:00 98.2 87 20 125/73 97 03/03/17 20:00 Nasal Cannula 2.0 03/03/17 18:53 97.9 03/03/17 16:00 91 03/03/17 16:00 97.9 97 21 135/81 96 Room Air 03/03/17 14:46 97.9 03/03/17 12:00 106 03/03/17 11:58 97.7 102 21 123/75 98 Room Air Height (Feet): 5 Height (Inches): 6.00 Weight (Pounds): 163 Respiratory/Chest: lungs clear Cardiovascular: normal rate, regular rhythm, no gallop/murmur Abdomen: soft, non tender Extremities: no edema Microbiology Date/Time Source Procedure Growth Status 03/02/17 03:05 Blood Blood Culture - Preliminary NO GROWTH AFTER 24 HOURS Resulted 03/02/17 02:50 Blood Blood Culture - Preliminary NO GROWTH AFTER 24 HOURS Resulted 03/03/17 03:00 Indwelling Cath Urine Culture - Preliminary Mixed Urogenital Contaminants Resulted 03/02/17 02:21 Urine,Clean Catch Urine Culture - Final Serratia Fonticola Complete Laboratory Tests Test 03/03/17 21:20 03/04/17 04:35 Sodium Level 136 MMOL/L (136-145) 136 MMOL/L (136-145) Potassium Level 3.8 MMOL/L (3.5-5.1) 3.7 MMOL/L (3.5-5.1) Chloride Level 105 MMOL/L (98-107) 105 MMOL/L (98-107) Carbon Dioxide Level 24 MMOL/L (21-32) 22 MMOL/L (21-32) Anion Gap 7 mmol/L (5-15) 9 mmol/L (5-15) Blood Urea Nitrogen 14 mg/dL (7-18) 14 mg/dL (7-18) Creatinine 0.9 MG/DL (0.55-1.30) 0.7 MG/DL (0.55-1.30) Estimat Glomerular Filtration Rate > 60 mL/min (>60) > 60 mL/min (>60) Glucose Level 93 MG/DL (74-106) 87 MG/DL (74-106) Calcium Level 8.2 MG/DL (8.5-10.1) L 8.0 MG/DL (8.5-10.1) L White Blood Count 5.8 K/UL (4.8-10.8) Red Blood Count 3.76 M/UL (4.70-6.10) L Hemoglobin 11.3 G/DL (14.2-18.0) L Hematocrit 33.5 % (42.0-52.0) L Mean Corpuscular Volume 89 FL (80-99) Mean Corpuscular Hemoglobin 30.1 PG (27.0-31.0) Mean Corpuscular Hemoglobin Concent 33.9 G/DL (32.0-36.0) Red Cell Distribution Width 12.0 % (11.6-14.8) Platelet Count 116 K/UL (150-450) L Mean Platelet Volume 6.4 FL (6.5-10.1) L Neutrophils (%) (Auto) 76.9 % (45.0-75.0) H Lymphocytes (%) (Auto) 11.6 % (20.0-45.0) L Monocytes (%) (Auto) 9.4 % (1.0-10.0) Eosinophils (%) (Auto) 1.3 % (0.0-3.0) Basophils (%) (Auto) 0.9 % (0.0-2.0) [employer] Mar 04, 2017 11:27
[2017-03-04 12:00] VITALS: BP 108/68
--- NOTE | 2017-03-04 14:56 | Pulmonology Progress Note ---
Assessment/Plan Assessment/Plan ASSESSMENT Sepsis UTI with Serratia hx of recurrent UTI acute toxic metabolic encephalopathy 2 to infectious disease process and metabolic derangement Hypovolemic hyponatremia Cervical myelopathy with quadriparesis Neurogenic bladder Hx of CVA Cerebral palsy HTN chronic pain syndrome, opiate dependent Depression anxiety PLAN OF CARE MS floor Abx, ID follows urine cx + Serratia, blood cx negative, repeated urine cx + mixed GPO Swallow eval IVF with NS nephro follows free water restriction Na up to normal Monitor lytes, and correct as needed Neuro follows continue Cymbalta Neurontin added, dose up titrated, continue baclofen Pain management, pain specialist follows DVT prophylaxis PT/OT watch BP, currently not on any anti HTN case discussed and evaluated by supervising physician Subjective Allergies: Coded Allergies: No Known Allergies (Verified , 11/07/09) Subjective leukocytosis resolved, afebrile Objective Last 24 Hour Vital Signs Date Time Temp Pulse Resp B/P (MAP) Pulse Ox O2 Delivery O2 Flow Rate FiO2 03/04/17 12:00 97.9 86 20 108/68 98 03/04/17 08:02 Nasal Cannula 2.0 28 03/04/17 08:01 93 Nasal Cannula 2.0 28 03/04/17 08:00 98.2 80 20 118/68 98 03/04/17 07:59 88 18 Nasal Cannula 2.0 28 03/04/17 04:00 98.2 80 21 115/66 97 03/04/17 04:00 Nasal Cannula 2.0 03/04/17 00:00 Nasal Cannula 2.0 03/03/17 21:15 Nasal Cannula 2.0 28 03/03/17 21:15 97 Nasal Cannula 2.0 28 03/03/17 21:13 82 20 Nasal Cannula 2.0 28 03/03/17 20:00 98.2 87 20 125/73 97 03/03/17 20:00 Nasal Cannula 2.0 03/03/17 18:53 97.9 03/03/17 16:00 91 03/03/17 16:00 97.9 97 21 135/81 96 Room Air Objective General Appearance: no acute distress, other - awake, responsive, bedridden HEENT: normocephalic, atraumatic, anicteric Respiratory/Chest: lungs clear, no respiratory distress Cardiovascular: normal rate, regular rhythm - Abdomen: normal bowel sounds, soft, non tender, non distended Neurologic/Psychiatric: abnormal gait - bedridden , alert, quadriparesis Musculoskeletal: atrophy - BLE Microbiology Date/Time Source Procedure Growth Status 03/02/17 03:05 Blood Blood Culture - Preliminary NO GROWTH AFTER 24 HOURS Resulted 03/02/17 02:50 Blood Blood Culture - Preliminary NO GROWTH AFTER 24 HOURS Resulted 03/03/17 03:00 Indwelling Cath Urine Culture - Preliminary Mixed Urogenital Contaminants Resulted 03/02/17 02:21 Urine,Clean Catch Urine Culture - Final Serratia Fonticola Complete Laboratory Tests 03/03/17 21:20: Sodium Level 136, Potassium Level 3.8, Chloride Level 105, Carbon Dioxide Level 24, Anion Gap 7, Blood Urea Nitrogen 14, Creatinine 0.9, Estimat Glomerular Filtration Rate > 60, Glucose Level 93, Calcium Level 8.2L 03/04/17 04:35: Sodium Level 136, Potassium Level 3.7, Chloride Level 105, Carbon Dioxide Level 22, Anion Gap 9, Blood Urea Nitrogen 14, Creatinine 0.7, Estimat Glomerular Filtration Rate > 60, Glucose Level 87, Calcium Level 8.0L, White Blood Count 5.8, Red Blood Count 3.76L, Hemoglobin 11.3L, Hematocrit 33.5L, Mean Corpuscular Volume 89, Mean Corpuscular Hemoglobin 30.1, Mean Corpuscular Hemoglobin Concent 33.9, Red Cell Distribution Width 12.0, Platelet Count 116L, Mean Platelet Volume 6.4L, Neutrophils (%) (Auto) 76.9H, Lymphocytes (%) (Auto) 11.6L, Monocytes (%) (Auto) 9.4, Eosinophils (%) (Auto) 1.3, Basophils (%) (Auto ) 0.9 Current Medications Medications (Trade) Dose Ordered Sig/Eric Route PRN Reason Start Time Stop Time Status Last Admin Dose Admin Acetaminophen (Tylenol) 650 mg Q4H PRN ORAL fever 03/03/17 18:15 04/01/17 18:14 Albuterol/ Ipratropium (Albuterol/ Ipratropium) 3 ml Q4H PRN HHN Shortness of Breath 03/03/17 18:00 03/08/17 17:59 Baclofen (Lioresal) 20 mg QID ORAL 03/03/17 18:45 04/01/17 18:44 03/04/17 08:44 Cefepime HCl 2 gm/ Dextrose 55 ml @ 110 mls/hr Q12HR@0400,1600 IV 03/04/17 04:00 03/11/17 03:59 03/04/17 03:53 Docusate Sodium (Colace) 100 mg THREE TIMES A DAY ORAL 03/03/17 18:00 04/02/17 17:59 03/04/17 08:44 Duloxetine HCl (Cymbalta) 60 mg DAILY ORAL 03/04/17 09:00 04/01/17 14:59 03/04/17 08:44 Fludrocortisone Acetate (Florinef) 0.1 mg DAILY ORAL 03/04/17 09:00 04/01/17 08:59 03/04/17 08:45 Gabapentin (Neurontin) 600 mg TID ORAL 03/03/17 18:45 04/01/17 18:44 03/04/17 08:45 Heparin Sodium (Porcine) (Heparin 5000 units/ml) 5,000 units EVERY 12 HOURS SUBQ 03/03/17 21:00 04/01/17 08:59 Morphine Sulfate (Morphine Sulfate) 4 mg Q4H PRN IVP Severe Pain (Pain Scale 7-10) 03/03/17 18:30 03/09/17 18:29 03/04/17 06:43 Ondansetron HCl (Zofran) 4 mg Q6H PRN IVP Nausea & Vomiting 03/03/17 18:30 04/01/17 18:29 Oxycodone/ Acetaminophen (Percocet 5-325) 1 tab Q6H PRN ORAL Moderate Pain (Pain Scale 4-6) 03/03/17 18:30 03/09/17 18:29 Phenazopyridine HCl (Pyridium) 100 mg DAILYPRN PRN ORAL dysuria 03/03/17 18:30 04/02/17 18:29 Polyethylene Glycol (Miralax) 17 gm DAILYPRN PRN ORAL Constipation 03/03/17 18:30 04/02/17 18:29 03/04/17 06:49 Ranitidine HCl (Zantac) 150 mg BEDTIME ORAL 03/03/17 21:00 04/02/17 20:59 03/03/17 21:26 Sodium Chloride 1,000 ml @ 80 mls/hr [id number] IV 03/03/17 18:30 04/01/17 18:29 03/04/17 05:54 Temazepam (Restoril) 15 mg HSPRN PRN ORAL Insomnia 03/03/17 18:30 03/10/17 18:29 Baljeet ([facility])Donna NP Mar 04, 2017 14:56
[2017-03-04 16:00] VITALS: BP 116/73
--- NOTE | 2017-03-04 16:21 | Cardiology Report ---
APPROVED REPORT EKG Measurement Heart [id number] Sinus tachycardia Possible Left atrial enlargement Right bundle branch block Left anterior fascicular block Bifascicular block Abnormal ECG
--- NOTE | 2017-03-04 17:36 | Cardiology Progress Note ---
Assessment/Plan Assessment/Plan 1. Sinus tachycardia, resolved likely due to urinary tract infection/sepsis. The mainstay of therapy is hydration. I would avoid AV prateek agent. 2. History of cerebrovascular accident. 3. History of cerebral palsy. Subjective Subjective No cardiac events. Transferred to Med Surg unit. Not on telemetry unit. Objective Last 24 Hour Vital Signs Date Time Temp Pulse Resp B/P (MAP) Pulse Ox O2 Delivery O2 Flow Rate FiO2 03/04/17 16:00 97.8 84 20 116/73 98 03/04/17 12:00 97.9 86 20 108/68 98 03/04/17 08:02 Nasal Cannula 2.0 28 03/04/17 08:01 93 Nasal Cannula 2.0 28 03/04/17 08:00 98.2 80 20 118/68 98 03/04/17 07:59 88 18 Nasal Cannula 2.0 28 03/04/17 04:00 98.2 80 21 115/66 97 03/04/17 04:00 Nasal Cannula 2.0 03/04/17 00:00 Nasal Cannula 2.0 03/03/17 21:15 Nasal Cannula 2.0 28 03/03/17 21:15 97 Nasal Cannula 2.0 28 03/03/17 21:13 82 20 Nasal Cannula 2.0 28 03/03/17 20:00 98.2 87 20 125/73 97 03/03/17 20:00 Nasal Cannula 2.0 03/03/17 18:53 97.9 Intake and Output 03/04/17 03/05/17 19:00 07:00 Intake Total 240 ml Balance 240 ml Intake IV Total 240 ml Laboratory Tests Test 03/03/17 21:20 03/04/17 04:35 Sodium Level 136 MMOL/L (136-145) 136 MMOL/L (136-145) Potassium Level 3.8 MMOL/L (3.5-5.1) 3.7 MMOL/L (3.5-5.1) Chloride Level 105 MMOL/L (98-107) 105 MMOL/L (98-107) Carbon Dioxide Level 24 MMOL/L (21-32) 22 MMOL/L (21-32) Anion Gap 7 mmol/L (5-15) 9 mmol/L (5-15) Blood Urea Nitrogen 14 mg/dL (7-18) 14 mg/dL (7-18) Creatinine 0.9 MG/DL (0.55-1.30) 0.7 MG/DL (0.55-1.30) Estimat Glomerular Filtration Rate > 60 mL/min (>60) > 60 mL/min (>60) Glucose Level 93 MG/DL (74-106) 87 MG/DL (74-106) Calcium Level 8.2 MG/DL (8.5-10.1) L 8.0 MG/DL (8.5-10.1) L White Blood Count 5.8 K/UL (4.8-10.8) Red Blood Count 3.76 M/UL (4.70-6.10) L Hemoglobin 11.3 G/DL (14.2-18.0) L Hematocrit 33.5 % (42.0-52.0) L Mean Corpuscular Volume 89 FL (80-99) Mean Corpuscular Hemoglobin 30.1 PG (27.0-31.0) Mean Corpuscular Hemoglobin Concent 33.9 G/DL (32.0-36.0) Red Cell Distribution Width 12.0 % (11.6-14.8) Platelet Count 116 K/UL (150-450) L Mean Platelet Volume 6.4 FL (6.5-10.1) L Neutrophils (%) (Auto) 76.9 % (45.0-75.0) H Lymphocytes (%) (Auto) 11.6 % (20.0-45.0) L Monocytes (%) (Auto) 9.4 % (1.0-10.0) Eosinophils (%) (Auto) 1.3 % (0.0-3.0) Basophils (%) (Auto) 0.9 % (0.0-2.0) Microbiology Date/Time Source Procedure Growth Status 03/02/17 03:05 Blood Blood Culture - Preliminary NO GROWTH AFTER 24 HOURS Resulted 03/02/17 02:50 Blood Blood Culture - Preliminary NO GROWTH AFTER 24 HOURS Resulted 03/03/17 03:00 Indwelling Cath Urine Culture - Preliminary Mixed Urogenital Contaminants Resulted 03/02/17 02:21 Urine,Clean Catch Urine Culture - Final Serratia Fonticola Complete Objective HEENT: Atraumatic and normocephalic. Anicteric. Pupils are equal, round, and reactive to light and accommodation. Extraocular muscles intact. Conjunctival pallor. NECK: JVP less than 5 centimeter. Dry mucosal membrane. CARDIOVASCULAR: Normal S1 and S2. Regular rate and rhythm. Tachycardic. No murmurs, gallops or rubs. PMI is at fourth intercostal space in the midclavicular line. LUNGS: Diminished breath sounds in both bases. ABDOMEN: Soft, nontender, and nondistended. There is presence of G-tube as well as suprapubic tube. EXTREMITIES: There is bilateral lower extremity edema about 1+. JARET MARINELLI Mar 04, 2017 17:36
[2017-03-04 20:00] VITALS: BP 137/76
[2017-03-04] MEDS ORDERED: NS 500ML ONE (20:18)
--- NOTE | 2017-03-04 21:52 | General Progress Note ---
Assessment/Plan Assessment/Plan Assessment - paraplegia - failed swallow - non healing GT site - poor px - declined new GT Recommendations - careful swallow - GT site care - elevate HOB - monitor H&H - H2B Subjective Allergies: Coded Allergies: No Known Allergies (Verified , 11/07/09) Subjective Calm NAD d/w staffing program manager Objective Last 24 Hour Vital Signs Date Time Temp Pulse Resp B/P (MAP) Pulse Ox O2 Delivery O2 Flow Rate FiO2 03/04/17 20:42 98 Nasal Cannula 2.0 28 03/04/17 20:42 Nasal Cannula 2.0 28 03/04/17 20:42 80 18 Nasal Cannula 2.0 28 03/04/17 20:00 97.1 80 20 137/76 99 Nasal Cannula 2.0 03/04/17 16:00 97.8 84 20 116/73 98 03/04/17 12:00 97.9 86 20 108/68 98 03/04/17 08:02 Nasal Cannula 2.0 28 03/04/17 08:01 93 Nasal Cannula 2.0 28 03/04/17 08:00 98.2 80 20 118/68 98 03/04/17 07:59 88 18 Nasal Cannula 2.0 28 03/04/17 04:00 98.2 80 21 115/66 97 03/04/17 04:00 Nasal Cannula 2.0 03/04/17 00:00 Nasal Cannula 2.0 Intake and Output 03/04/17 03/05/17 19:00 07:00 Intake Total 455 ml Output Total 1100 ml Balance -645 ml Intake IV Total 455 ml Output Urine Total 1100 ml Laboratory Tests 03/04/17 04:35: White Blood Count 5.8, Red Blood Count 3.76L, Hemoglobin 11.3L, Hematocrit 33.5L , Mean Corpuscular Volume 89, Mean Corpuscular Hemoglobin 30.1, Mean Corpuscular Hemoglobin Concent 33.9, Red Cell Distribution Width 12.0, Platelet Count 116L, Mean Platelet Volume 6.4L, Neutrophils (%) (Auto) 76.9H, Lymphocytes (%) (Auto) 11.6L, Monocytes (%) (Auto) 9.4, Eosinophils (%) (Auto) 1.3, Basophils (%) (Auto) 0.9, Sodium Level 136, Potassium Level 3.7, Chloride Level 105, Carbon Dioxide Level 22, Anion Gap 9, Blood Urea Nitrogen 14, Creatinine 0.7, Estimat Glomerular Filtration Rate > 60, Glucose Level 87, Calcium Level 8.0L Height (Feet): 5 Height (Inches): 6.00 Weight (Pounds): 163 Objective Thin man NCAT supple CTA RRR soft, (+) non healing old GT site, (+) SP catheter no edema VELASQUEZ PANTOJA Mar 04, 2017 21:51
[2017-03-05] VITALS: BP 127/69
[2017-03-05] MEDS: Cefepime HCl 2 GM in D5W 55 ML IV SCH (04:02)
[2017-03-05] MEDS: Morphine Sulfate 4mg/ml Inj IVP PRN ×3 (04:03→20:30)
[2017-03-05 04:07] VITALS: BP 136/72
[2017-03-05 07:49] LABS: BASOPHILS % (AUTO) 0.9 % (0.0-2.0); EOSINOPHILS % (AUTO) 1.5 % (0.0-3.0); LYMPHOCYTES % (AUTO) 18.9 % (20.0-45.0); MEAN CORPUSCULAR HEMOGLOBIN 30.7 PG (27.0-31.0); MEAN CORPUSCULAR HGB CONC 34.9 G/DL (32.0-36.0); MEAN CORPUSCULAR VOLUME 88 FL (80-99); MEAN PLATELET VOLUME 5.5 FL (6.5-10.1); MONOCYTES % (AUTO) 8.9 % (1.0-10.0); NEUTROPHILS % (AUTO) 69.8 % (45.0-75.0); PLATELET COUNT 138 K/UL (150-450); RED BLOOD COUNT 3.71 M/UL (4.70-6.10); WHITE BLOOD COUNT 5.7 K/UL (4.8-10.8)
[2017-03-05 08:00] VITALS: BP 124/68
[2017-03-05 08:12] LABS: ANION GAP 7 mmol/L (5-15); CALCIUM 8.2 MG/DL (8.5-10.1); CARBON DIOXIDE 24 MMOL/L (21-32); CHLORIDE 107 MMOL/L (98-107); CREATININE 0.8 MG/DL (0.55-1.30); GLOMERULAR FILTRATION RATE > 60 mL/min (>60); POTASSIUM 3.1 MMOL/L (3.5-5.1); SODIUM 138 MMOL/L (136-145)
--- NOTE | 2017-03-05 08:29 | General Progress Note ---
Assessment/Plan Problem List: (1) History of gastrostomy tube placement ICD Codes: Z98.89 - Other specified postprocedural states SNOMED: 161893139 (2) Urinary tract infectious disease (3) Malfunction of gastrostomy tube ICD Codes: K94.23 - Gastrostomy malfunction SNOMED: 471216954 (4) Neuropathy ICD Codes: G62.9 - Polyneuropathy, unspecified SNOMED: 764009000 (5) Encephalopathy acute ICD Codes: G93.40 - Encephalopathy, unspecified SNOMED: 6678669 (6) Paraplegia ICD Codes: G82.20 - Paraplegia, unspecified SNOMED: 06440893 (7) History of CVA (cerebrovascular accident) ICD Codes: Z86.73 - Personal history of transient ischemic attack (TIA), and cerebral infarction without residual deficits SNOMED: 783481687 (8) HTN (hypertension) ICD Codes: I10 - Essential (primary) hypertension SNOMED: 16564870 (9) chronic pain. opiate dependent Status: stable, progressing, tolerating diet Assessment/Plan ot pt abd uro gi f/u cbc bmp am dc plan Subjective Constitutional: Reports: weakness Allergies: Coded Allergies: No Known Allergies (Verified , 11/07/09) All Systems: reviewed and negative except above Subjective calm in bed Objective Last 24 Hour Vital Signs Date Time Temp Pulse Resp B/P (MAP) Pulse Ox O2 Delivery O2 Flow Rate FiO2 03/05/17 04:07 98.2 82 20 136/72 97 Nasal Cannula 03/05/17 04:00 Nasal Cannula 2.0 03/05/17 00:00 98.2 84 20 127/69 98 Nasal Cannula 2.0 03/04/17 20:42 98 Nasal Cannula 2.0 28 03/04/17 20:42 Nasal Cannula 2.0 28 03/04/17 20:42 80 18 Nasal Cannula 2.0 28 03/04/17 20:00 97.1 80 20 137/76 99 Nasal Cannula 2.0 03/04/17 16:00 97.8 84 20 116/73 98 03/04/17 12:00 97.9 86 20 108/68 98 Intake and Output 03/05/17 03/06/17 19:00 07:00 Intake Total 80 ml Balance 80 ml Intake IV Total 80 ml Laboratory Tests 03/05/17 05:55: White Blood Count 5.7, Red Blood Count 3.71L, Hemoglobin 11.4L, Hematocrit 32.6L , Mean Corpuscular Volume 88, Mean Corpuscular Hemoglobin 30.7, Mean Corpuscular Hemoglobin Concent 34.9, Red Cell Distribution Width 12.0, Platelet Count 138L, Mean Platelet Volume 5.5L, Neutrophils (%) (Auto) 69.8, Lymphocytes (%) (Auto) 18.9L, Monocytes (%) (Auto) 8.9, Eosinophils (%) (Auto) 1.5, Basophils (%) (Auto) 0.9, Sodium Level 138, Potassium Level 3.1L, Chloride Level 107, Carbon Dioxide Level 24, Anion Gap 7, Blood Urea Nitrogen 8, Creatinine 0.8, Estimat Glomerular Filtration Rate > 60, Glucose Level 94, Calcium Level 8.2L Height (Feet): 5 Height (Inches): 6.00 Weight (Pounds): 163 General Appearance: lethargic EENT: normal ENT inspection Neck: normal alignment Cardiovascular: normal peripheral pulses, normal rate, regular rhythm Respiratory/Chest: chest wall non-tender, lungs clear, normal breath sounds Abdomen: normal bowel sounds, non tender, soft Extremities: normal inspection Edema: no edema noted Arm (L), no edema noted Arm (R), no edema noted Leg (L), no edema noted Leg (R), no edema noted Pedal (L), no edema noted Pedal (R), no edema noted Generalized Neurologic: motor weakness Skin: normal pigmentation, warm/dry YAMEL DUMONT Mar 05, 2017 08:29
[2017-03-05] MEDS: DULoxetine 30mg cap ORAL SCH (08:42)
[2017-03-05] MEDS: Docusate 100mg cap ORAL SCH ×3 (08:42→18:02)
[2017-03-05] MEDS: Heparin 5000 units/ml inj SUBQ SCH ×2 (08:56→20:24)
--- NOTE | 2017-03-05 10:38 | General Progress Note ---
Assessment/Plan Assessment/Plan (1) History of CVA (2) Paraplegia (3) Thalamic pain syndrome Patient will be continued on Percocet Morphine and Neurontin. Pt was d/w Dr. Bowers and he concurred. Subjective Date patient seen: Mar 05, 2017 Time patient seen: 07:45 - am Allergies: Coded Allergies: No Known Allergies (Verified , 11/07/09) Subjective REVIEW OF SYSTEMS: Denies rash, dizziness, drowsiness, blurred vision, sore throat, or change in hearing. chest pain. No nausea, vomiting, or diarrhea. He is complaining of generalized body pain. SUBJECTIVE: Patient has been tolerating the pain on the Morphine and has no new complaints. Sitting in bed with no signs of distress. Objective Last 24 Hour Vital Signs Date Time Temp Pulse Resp B/P (MAP) Pulse Ox O2 Delivery O2 Flow Rate FiO2 03/05/17 09:32 98 Nasal Cannula 03/05/17 08:16 98 Nasal Cannula 2.0 28 03/05/17 08:16 85 16 Nasal Cannula 2.0 28 03/05/17 08:16 Nasal Cannula 2.0 28 03/05/17 08:00 98.2 98 18 124/68 98 Room Air 03/05/17 04:07 98.2 82 20 136/72 97 Nasal Cannula 03/05/17 04:00 Nasal Cannula 2.0 03/05/17 00:00 98.2 84 20 127/69 98 Nasal Cannula 2.0 03/04/17 20:42 98 Nasal Cannula 2.0 28 03/04/17 20:42 Nasal Cannula 2.0 28 03/04/17 20:42 80 18 Nasal Cannula 2.0 28 03/04/17 20:00 97.1 80 20 137/76 99 Nasal Cannula 2.0 03/04/17 16:00 97.8 84 20 116/73 98 03/04/17 12:00 97.9 86 20 108/68 98 Intake and Output 03/05/17 03/06/17 19:00 07:00 Intake Total 80 ml Balance 80 ml Intake IV Total 80 ml Laboratory Tests 03/05/17 05:55: White Blood Count 5.7, Red Blood Count 3.71L, Hemoglobin 11.4L, Hematocrit 32.6L , Mean Corpuscular Volume 88, Mean Corpuscular Hemoglobin 30.7, Mean Corpuscular Hemoglobin Concent 34.9, Red Cell Distribution Width 12.0, Platelet Count 138L, Mean Platelet Volume 5.5L, Neutrophils (%) (Auto) 69.8, Lymphocytes (%) (Auto) 18.9L, Monocytes (%) (Auto) 8.9, Eosinophils (%) (Auto) 1.5, Basophils (%) (Auto) 0.9, Sodium Level 138, Potassium Level 3.1L, Chloride Level 107, Carbon Dioxide Level 24, Anion Gap 7, Blood Urea Nitrogen 8, Creatinine 0.8, Estimat Glomerular Filtration Rate > 60, Glucose Level 94, Calcium Level 8.2L Height (Feet): 5 Height (Inches): 6.00 Weight (Pounds): 163 Objective GENERAL: Alert, awake, and oriented. NECK: Range of motion is decreased LUNGS: Decreased breath sounds bilaterally. HEART: S1 and S2 regular. ABDOMEN: Tenderness to palpation. EXTREMITIES: Lower extremity range of motion is decreased. NEURO: No changes. MICAH MELENDEZ Mar 05, 2017 10:38
--- NOTE | 2017-03-05 10:59 | Infectious Diseases Prog Note ---
Assessment/Plan Assessment/Plan A: Sepsis Complicated UTI Quadriparesis/ spinal cord injury Chronic pain syndrome P; Change Cefepime to Keflex X 2 more days Subjective ROS Limited/Unobtainable: No Respiratory: Reports: dry cough Gastrointestinal/Abdominal: Reports: no symptoms Genitourinary: Reports: other - suprapubic catheter changed Musculoskeletal: Reports: pain Allergies: Coded Allergies: No Known Allergies (Verified , 11/07/09) Objective Vital Signs Last 24 Hour Vital Signs Date Time Temp Pulse Resp B/P (MAP) Pulse Ox O2 Delivery O2 Flow Rate FiO2 03/05/17 09:32 98 Nasal Cannula 03/05/17 08:16 98 Nasal Cannula 2.0 28 03/05/17 08:16 85 16 Nasal Cannula 2.0 28 03/05/17 08:16 Nasal Cannula 2.0 28 03/05/17 08:00 98.2 98 18 124/68 98 Room Air 03/05/17 04:07 98.2 82 20 136/72 97 Nasal Cannula 03/05/17 04:00 Nasal Cannula 2.0 03/05/17 00:00 98.2 84 20 127/69 98 Nasal Cannula 2.0 03/04/17 20:42 98 Nasal Cannula 2.0 28 03/04/17 20:42 Nasal Cannula 2.0 28 03/04/17 20:42 80 18 Nasal Cannula 2.0 28 03/04/17 20:00 97.1 80 20 137/76 99 Nasal Cannula 2.0 03/04/17 16:00 97.8 84 20 116/73 98 03/04/17 12:00 97.9 86 20 108/68 98 Height (Feet): 5 Height (Inches): 6.00 Weight (Pounds): 163 General Appearance: no acute distress HEENT: mucous membranes moist Respiratory/Chest: lungs clear Cardiovascular: normal rate Abdomen: soft, non tender Genitourinary: other - suprapubic catheter Extremities: no edema Neurologic/Psychiatric: alert, responsive, other - quadriparesis Microbiology Date/Time Source Procedure Growth Status 03/03/17 03:00 Indwelling Cath Urine Culture - Final Mixed Urogenital Contaminants Complete Laboratory Tests Test 03/05/17 05:55 White Blood Count 5.7 K/UL (4.8-10.8) Red Blood Count 3.71 M/UL (4.70-6.10) L Hemoglobin 11.4 G/DL (14.2-18.0) L Hematocrit 32.6 % (42.0-52.0) L Mean Corpuscular Volume 88 FL (80-99) Mean Corpuscular Hemoglobin 30.7 PG (27.0-31.0) Mean Corpuscular Hemoglobin Concent 34.9 G/DL (32.0-36.0) Red Cell Distribution Width 12.0 % (11.6-14.8) Platelet Count 138 K/UL (150-450) L Mean Platelet Volume 5.5 FL (6.5-10.1) L Neutrophils (%) (Auto) 69.8 % (45.0-75.0) Lymphocytes (%) (Auto) 18.9 % (20.0-45.0) L Monocytes (%) (Auto) 8.9 % (1.0-10.0) Eosinophils (%) (Auto) 1.5 % (0.0-3.0) Basophils (%) (Auto) 0.9 % (0.0-2.0) Sodium Level 138 MMOL/L (136-145) Potassium Level 3.1 MMOL/L (3.5-5.1) L Chloride Level 107 MMOL/L (98-107) Carbon Dioxide Level 24 MMOL/L (21-32) Anion Gap 7 mmol/L (5-15) Blood Urea Nitrogen 8 mg/dL (7-18) Creatinine 0.8 MG/DL (0.55-1.30) Estimat Glomerular Filtration Rate > 60 mL/min (>60) Glucose Level 94 MG/DL (74-106) Calcium Level 8.2 MG/DL (8.5-10.1) L Current Medications Medications (Trade) Dose Ordered Sig/Eric Route PRN Reason Start Time Stop Time Status Last Admin Dose Admin Acetaminophen (Tylenol) 650 mg Q4H PRN ORAL fever 03/03/17 18:15 04/01/17 18:14 Albuterol/ Ipratropium (Albuterol/ Ipratropium) 3 ml Q4H PRN HHN Shortness of Breath 03/03/17 18:00 03/08/17 17:59 Baclofen (Lioresal) 20 mg QID ORAL 03/03/17 18:45 04/01/17 18:44 12/3/17 08:42 Cefepime HCl 2 gm/ Dextrose 55 ml @ 110 mls/hr Q12HR@0400,1600 IV 03/04/17 04:00 03/11/17 03:59 03/05/17 04:02 Docusate Sodium (Colace) 100 mg THREE TIMES A DAY ORAL 03/03/17 18:00 04/02/17 17:59 03/05/17 08:42 Duloxetine HCl (Cymbalta) 60 mg DAILY ORAL 03/04/17 09:00 04/01/17 14:59 03/05/17 08:42 Fludrocortisone Acetate (Florinef) 0.1 mg DAILY ORAL 03/04/17 09:00 04/01/17 08:59 03/05/17 08:42 Gabapentin (Neurontin) 600 mg TID ORAL 03/03/17 18:45 04/01/17 18:44 03/05/17 08:56 Heparin Sodium (Porcine) (Heparin 5000 units/ml) 5,000 units EVERY 12 HOURS SUBQ 03/03/17 21:00 04/01/17 08:59 Morphine Sulfate (Morphine Sulfate) 4 mg Q4H PRN IVP Severe Pain (Pain Scale 7-10) 03/03/17 18:30 03/09/17 18:29 03/05/17 04:03 Ondansetron HCl (Zofran) 4 mg Q6H PRN IVP Nausea & Vomiting 03/03/17 18:30 04/01/17 18:29 Oxycodone/ Acetaminophen (Percocet 5-325) 1 tab Q6H PRN ORAL Moderate Pain (Pain Scale 4-6) 03/03/17 18:30 03/09/17 18:29 Phenazopyridine HCl (Pyridium) 100 mg DAILYPRN PRN ORAL dysuria 03/03/17 18:30 04/02/17 18:29 Polyethylene Glycol (Miralax) 17 gm DAILYPRN PRN ORAL Constipation 03/03/17 18:30 04/02/17 18:29 03/04/17 06:49 Potassium Chloride (KCl 10% 20 mEq oral solution) 40 meq ONCE ONCE ORAL 03/05/17 11:00 03/05/17 11:01 Ranitidine HCl (Zantac) 150 mg BEDTIME ORAL 03/03/17 21:00 04/02/17 20:59 03/04/17 20:22 Sodium Chloride 1,000 ml @ 80 mls/hr [id number] IV 03/03/17 18:30 04/01/17 18:29 03/05/17 08:41 Temazepam (Restoril) 15 mg HSPRN PRN ORAL Insomnia 03/03/17 18:30 03/10/17 18:29 CORRIE FOWLER Mar 05, 2017 10:59
[2017-03-05] MEDS ORDERED: KCl 10% 20 mEq/15ml liquid ORAL ONE (11:00)
[2017-03-05 12:00] VITALS: BP 129/72
--- NOTE | 2017-03-05 12:19 | Pulmonology Progress Note ---
Assessment/Plan Assessment/Plan ASSESSMENT Sepsis UTI with Serratia hx of recurrent UTI acute toxic metabolic encephalopathy 2 to infectious disease process and metabolic derangement Hypovolemic hyponatremia Cervical myelopathy with quadriparesis Neurogenic bladder Hx of CVA Cerebral palsy HTN chronic pain syndrome, opiate dependent Depression anxiety PLAN OF CARE MS floor Abx, ID follows urine cx + Serratia, blood cx negative, repeated urine cx + mixed GPO Swallow eval with risk for silent aspiration strict aspiration precautions replace K check K and Mg in am IVF with NS nephro follows free water restriction Na up to normal Monitor lytes, and correct as needed Neuro follows continue Cymbalta Neurontin added, dose up titrated, continue baclofen Pain management, pain specialist follows DVT prophylaxis PT/OT watch BP, currently not on any anti HTN dc plan as per PMD, case discussed and evaluated by supervising physician Subjective Allergies: Coded Allergies: No Known Allergies (Verified , 11/07/09) Subjective leukocytosis resolved, afebrile K-3.1 Objective Last 24 Hour Vital Signs Date Time Temp Pulse Resp B/P (MAP) Pulse Ox O2 Delivery O2 Flow Rate FiO2 03/05/17 09:32 98 Nasal Cannula 03/05/17 08:16 98 Nasal Cannula 2.0 28 03/05/17 08:16 85 16 Nasal Cannula 2.0 28 03/05/17 08:16 Nasal Cannula 2.0 28 03/05/17 08:00 98.2 98 18 124/68 98 Room Air 03/05/17 04:07 98.2 82 20 136/72 97 Nasal Cannula 03/05/17 04:00 Nasal Cannula 2.0 03/05/17 00:00 98.2 84 20 127/69 98 Nasal Cannula 2.0 03/04/17 20:42 98 Nasal Cannula 2.0 28 03/04/17 20:42 Nasal Cannula 2.0 28 03/04/17 20:42 80 18 Nasal Cannula 2.0 28 03/04/17 20:00 97.1 80 20 137/76 99 Nasal Cannula 2.0 03/04/17 16:00 97.8 84 20 116/73 98 Intake and Output 03/05/17 03/06/17 19:00 07:00 Intake Total 80 ml Balance 80 ml Intake IV Total 80 ml Objective General Appearance: no acute distress, other - awake, responsive, bedridden HEENT: normocephalic, atraumatic, anicteric Respiratory/Chest: lungs clear, no respiratory distress Cardiovascular: normal rate, regular rhythm - Abdomen: normal bowel sounds, soft, non tender, non distended Neurologic/Psychiatric: abnormal gait - bedridden , alert, quadriparesis Musculoskeletal: atrophy - BLE Microbiology Date/Time Source Procedure Growth Status 03/03/17 03:00 Indwelling Cath Urine Culture - Final Mixed Urogenital Contaminants Complete Laboratory Tests 03/05/17 05:55: White Blood Count 5.7, Red Blood Count 3.71L, Hemoglobin 11.4L, Hematocrit 32.6L , Mean Corpuscular Volume 88, Mean Corpuscular Hemoglobin 30.7, Mean Corpuscular Hemoglobin Concent 34.9, Red Cell Distribution Width 12.0, Platelet Count 138L, Mean Platelet Volume 5.5L, Neutrophils (%) (Auto) 69.8, Lymphocytes (%) (Auto) 18.9L, Monocytes (%) (Auto) 8.9, Eosinophils (%) (Auto) 1.5, Basophils (%) (Auto) 0.9, Sodium Level 138, Potassium Level 3.1L, Chloride Level 107, Carbon Dioxide Level 24, Anion Gap 7, Blood Urea Nitrogen 8, Creatinine 0.8, Estimat Glomerular Filtration Rate > 60, Glucose Level 94, Calcium Level 8.2L Current Medications Medications (Trade) Dose Ordered Sig/Eric Route PRN Reason Start Time Stop Time Status Last Admin Dose Admin Acetaminophen (Tylenol) 650 mg Q4H PRN ORAL fever 03/03/17 18:15 04/01/17 18:14 Albuterol/ Ipratropium (Albuterol/ Ipratropium) 3 ml Q4H PRN HHN Shortness of Breath 03/03/17 18:00 03/08/17 17:59 Baclofen (Lioresal) 20 mg QID ORAL 03/03/17 18:45 04/01/17 18:44 03/05/17 08:42 Cephalexin (Keflex) 500 mg FOUR TIMES A DAY ORAL 03/05/17 13:00 03/12/17 12:59 Docusate Sodium (Colace) 100 mg THREE TIMES A DAY ORAL 03/03/17 18:00 04/02/17 17:59 03/05/17 08:42 Duloxetine HCl (Cymbalta) 60 mg DAILY ORAL 03/04/17 09:00 04/01/17 14:59 03/05/17 08:42 Fludrocortisone Acetate (Florinef) 0.1 mg DAILY ORAL 03/04/17 09:00 04/01/17 08:59 03/05/17 08:42 Gabapentin (Neurontin) 600 mg TID ORAL 03/03/17 18:45 04/01/17 18:44 03/05/17 08:56 Heparin Sodium (Porcine) (Heparin 5000 units/ml) 5,000 units EVERY 12 HOURS SUBQ 03/03/17 21:00 04/01/17 08:59 Morphine Sulfate (Morphine Sulfate) 4 mg Q4H PRN IVP Severe Pain (Pain Scale 7-10) 03/03/17 18:30 03/09/17 18:29 03/05/17 04:03 Ondansetron HCl (Zofran) 4 mg Q6H PRN IVP Nausea & Vomiting 03/03/17 18:30 04/01/17 18:29 Oxycodone/ Acetaminophen (Percocet 5-325) 1 tab Q6H PRN ORAL Moderate Pain (Pain Scale 4-6) 03/03/17 18:30 03/09/17 18:29 Phenazopyridine HCl (Pyridium) 100 mg DAILYPRN PRN ORAL dysuria 03/03/17 18:30 04/02/17 18:29 Polyethylene Glycol (Miralax) 17 gm DAILYPRN PRN ORAL Constipation 03/03/17 18:30 04/02/17 18:29 03/04/17 06:49 Ranitidine HCl (Zantac) 150 mg BEDTIME ORAL 03/03/17 21:00 04/02/17 20:59 03/04/17 20:22 Sodium Chloride 1,000 ml @ 80 mls/hr [id number] IV 03/03/17 18:30 04/01/17 18:29 03/05/17 08:41 Temazepam (Restoril) 15 mg HSPRN PRN ORAL Insomnia 03/03/17 18:30 03/10/17 18:29 Donna Delong NP ([facility]) Mar 05, 2017 12:19
[2017-03-05] MEDS: Cephalexin 500mg cap ORAL SCH ×3 (13:26→20:23)
[2017-03-05] MEDS ORDERED: NS 500ML ONE (14:49)
[2017-03-05 16:48] VITALS: BP 126/75
[2017-03-05 19:58] VITALS: BP 139/81
--- NOTE | 2017-03-05 20:41 | General Progress Note ---
Assessment/Plan Assessment/Plan Assessment - paraplegia - failed swallow - non healing GT site - poor px - declined new GT Recommendations - careful swallow - GT site care - elevate HOB - monitor H&H - H2B Subjective Allergies: Coded Allergies: No Known Allergies (Verified , 11/07/09) Subjective Calm NAD no complaints Objective Last 24 Hour Vital Signs Date Time Temp Pulse Resp B/P (MAP) Pulse Ox O2 Delivery O2 Flow Rate FiO2 03/05/17 19:58 98.1 81 20 139/81 98 Room Air 03/05/17 16:48 97.8 73 14 126/75 96 Room Air 03/05/17 16:00 Room Air 03/05/17 12:00 Nasal Cannula 2.0 03/05/17 12:00 97.9 95 16 129/72 99 03/05/17 09:32 98 Nasal Cannula 03/05/17 08:16 98 Nasal Cannula 2.0 28 03/05/17 08:16 85 16 Nasal Cannula 2.0 28 03/05/17 08:16 Nasal Cannula 2.0 28 03/05/17 08:00 98.2 98 18 124/68 98 Room Air 03/05/17 04:07 98.2 82 20 136/72 97 Nasal Cannula 03/05/17 04:00 Nasal Cannula 2.0 03/05/17 00:00 98.2 84 20 127/69 98 Nasal Cannula 2.0 03/04/17 20:42 98 Nasal Cannula 2.0 28 03/04/17 20:42 Nasal Cannula 2.0 28 03/04/17 20:42 80 18 Nasal Cannula 2.0 28 Intake and Output 03/05/17 03/06/17 19:00 07:00 Intake Total 2720 ml Output Total 3900 ml Balance -1180 ml Intake Oral 2400 ml IV Total 320 ml Output Urine Total 3900 ml # Bowel Movements 1 Laboratory Tests 03/05/17 05:55: White Blood Count 5.7, Red Blood Count 3.71L, Hemoglobin 11.4L, Hematocrit 32.6L , Mean Corpuscular Volume 88, Mean Corpuscular Hemoglobin 30.7, Mean Corpuscular Hemoglobin Concent 34.9, Red Cell Distribution Width 12.0, Platelet Count 138L, Mean Platelet Volume 5.5L, Neutrophils (%) (Auto) 69.8, Lymphocytes (%) (Auto) 18.9L, Monocytes (%) (Auto) 8.9, Eosinophils (%) (Auto) 1.5, Basophils (%) (Auto) 0.9, Sodium Level 138, Potassium Level 3.1L, Chloride Level 107, Carbon Dioxide Level 24, Anion Gap 7, Blood Urea Nitrogen 8, Creatinine 0.8, Estimat Glomerular Filtration Rate > 60, Glucose Level 94, Calcium Level 8.2L Height (Feet): 5 Height (Inches): 6.00 Weight (Pounds): 163 Objective Thin man NCAT supple CTA RRR soft, (+) non healing old GT site, (+) SP catheter no edema VELASQUEZ PANTOJA Mar 05, 2017 20:41
[2017-03-06 00:04] VITALS: BP 136/83
[2017-03-06 04:00] VITALS: BP 128/76
[2017-03-06] MEDS: Morphine Sulfate 4mg/ml Inj IVP PRN ×3 (05:53→16:31)
[2017-03-06 07:05] LABS: ANION GAP 9 mmol/L (5-15); CALCIUM 9.6 MG/DL (8.5-10.1); CARBON DIOXIDE 24 MMOL/L (21-32); CHLORIDE 115 MMOL/L (98-107); CREATININE 3.2 MG/DL (0.55-1.30); GLOMERULAR FILTRATION RATE 19.8 mL/min (>60); POTASSIUM 4.9 MMOL/L (3.5-5.1); SODIUM 148 MMOL/L (136-145)
[2017-03-06 07:13] LABS: BASOPHILS % (AUTO) 0.2 % (0.0-2.0); EOSINOPHILS % (AUTO) 0.4 % (0.0-3.0); LYMPHOCYTES % (AUTO) 14.3 % (20.0-45.0); MEAN CORPUSCULAR HEMOGLOBIN 31.3 PG (27.0-31.0); MEAN CORPUSCULAR HGB CONC 31.3 G/DL (32.0-36.0); MEAN CORPUSCULAR VOLUME 100 FL (80-99); MEAN PLATELET VOLUME 6.7 FL (6.5-10.1); MONOCYTES % (AUTO) 6.6 % (1.0-10.0); NEUTROPHILS % (AUTO) 78.6 % (45.0-75.0); PLATELET COUNT 195 K/UL (150-450); RED BLOOD COUNT 3.18 M/UL (4.70-6.10); RED CELL DISTRIBUTION WIDTH 15.2 % (11.6-14.8); WHITE BLOOD COUNT 9.8 K/UL (4.8-10.8)
[2017-03-06 08:00] VITALS: BP 125/74
--- NOTE | 2017-03-06 08:33 | Nephrology Progress Note ---
Assessment/Plan Assessment 1. FRANCES 2. Urosepsis with hypotension and elevated white blood cell count. 3. Hypernatremia 4. History of cerebral palsy. Plan PLAN check urine study change ivf us of kidney monitoring renal function Subjective Subjective no changes in his MS Objective Objective Last 24 Hour Vital Signs Date Time Temp Pulse Resp B/P (MAP) Pulse Ox O2 Delivery O2 Flow Rate FiO2 03/06/17 08:00 97.6 78 18 125/74 98 Room Air 03/06/17 07:32 73 20 Room Air 03/06/17 07:32 97 Room Air 03/06/17 07:32 Room Air 03/06/17 06:28 97.6 03/06/17 04:00 97.6 80 18 128/76 97 03/06/17 04:00 Room Air 03/06/17 00:04 97.5 82 18 136/83 97 Room Air 03/06/17 00:00 Room Air 03/05/17 21:47 Room Air 21 03/05/17 21:47 98 Room Air 21 03/05/17 21:45 84 20 Room Air 2.0 28 03/05/17 20:00 Room Air 03/05/17 19:58 98.1 81 20 139/81 98 Room Air 03/05/17 16:48 97.8 73 14 126/75 96 Room Air 03/05/17 16:00 Room Air 03/05/17 12:00 Nasal Cannula 2.0 03/05/17 12:00 97.9 95 16 129/72 99 03/05/17 09:32 98 Nasal Cannula Laboratory Tests 03/06/17 05:15: White Blood Count 9.8#, Red Blood Count 3.18L, Hemoglobin 10.0L, Hematocrit 31.8L, Mean Corpuscular Volume 100#H, Mean Corpuscular Hemoglobin 31.3H, Mean Corpuscular Hemoglobin Concent 31.3L, Red Cell Distribution Width 15.2H, Platelet Count 195, Mean Platelet Volume 6.7, Neutrophils (%) (Auto) 78.6H, Lymphocytes (%) (Auto) 14.3L, Monocytes (%) (Auto) 6.6, Eosinophils (%) (Auto) 0.4, Basophils (%) (Auto) 0.2, Sodium Level 148#H, Potassium Level 4.9#, Chloride Level 115H, Carbon Dioxide Level 24, Anion Gap 9, Blood Urea Nitrogen 46H, Creatinine 3.2#H, Estimat Glomerular Filtration Rate 19.8, Glucose Level 116H, Calcium Level 9.6, Magnesium Level 2.2 Height (Feet): 5 Height (Inches): 6.00 Weight (Pounds): 163 Objective HEAD AND NECK: No JVP. No LAD. No thyromegaly. Extraocular movement intact. Pupils are reactive to light and accommodation. LUNGS: He has bilateral crackles throughout both lungs. CARDIAC: Regular rate and rhythm. S1 and S2. No murmur. No rub. ABDOMEN: Soft and nontender. Suprapubic is placed and draining yellowish color urine. EXTREMITY: No edema. No clubbing. No cyanosis. DANTE MCNEILL Mar 06, 2017 08:33
[2017-03-06] MEDS: Docusate 100mg cap ORAL SCH ×3 (08:50→17:08)
[2017-03-06] MEDS: DULoxetine 30mg cap ORAL SCH (08:50)
[2017-03-06] MEDS: Cephalexin 500mg cap ORAL SCH ×3 (08:50→17:08)
[2017-03-06] MEDS: Heparin 5000 units/ml inj SUBQ SCH (08:55)
--- NOTE | 2017-03-06 10:06 | GI Progress Note ---
Assessment/Plan Problems: (1) Dysphagia ICD Codes: R13.10 - Dysphagia, unspecified SNOMED: 97674017, [id number] (2) Anemia ICD Codes: D64.9 - Anemia, unspecified SNOMED: 991575670 Status: stable Status Narrative Discussed with Dr. Martinez. Assessment/Plan Assessment - paraplegia - failed swallow - non healing GT site - poor px - declined new GT Recommendations okay for DC per GI standpoint - careful swallow - GT site care - elevate HOB - monitor H&H - H2B - fu labs Subjective Gastrointestinal/Abdominal: Reports: no symptoms Subjective tolerating diet Objective Last 24 Hour Vital Signs Date Time Temp Pulse Resp B/P (MAP) Pulse Ox O2 Delivery O2 Flow Rate FiO2 03/06/17 08:00 97.6 78 18 125/74 98 Room Air 03/06/17 07:32 73 20 Room Air 03/06/17 07:32 97 Room Air 03/06/17 07:32 Room Air 03/06/17 06:28 97.6 03/06/17 04:00 97.6 80 18 128/76 97 03/06/17 04:00 Room Air 03/06/17 00:04 97.5 82 18 136/83 97 Room Air 03/06/17 00:00 Room Air 03/05/17 21:47 Room Air 21 03/05/17 21:47 98 Room Air 21 03/05/17 21:45 84 20 Room Air 2.0 28 03/05/17 20:00 Room Air 03/05/17 19:58 98.1 81 20 139/81 98 Room Air 03/05/17 16:48 97.8 73 14 126/75 96 Room Air 03/05/17 16:00 Room Air 03/05/17 12:00 Nasal Cannula 2.0 03/05/17 12:00 97.9 95 16 129/72 99 Laboratory Tests Test 03/06/17 05:15 White Blood Count 9.8 K/UL (4.8-10.8) # Red Blood Count 3.18 M/UL (4.70-6.10) L Hemoglobin 10.0 G/DL (14.2-18.0) L Hematocrit 31.8 % (42.0-52.0) L Mean Corpuscular Volume 100 FL (80-99) #H Mean Corpuscular Hemoglobin 31.3 PG (27.0-31.0) H Mean Corpuscular Hemoglobin Concent 31.3 G/DL (32.0-36.0) L Red Cell Distribution Width 15.2 % (11.6-14.8) H Platelet Count 195 K/UL (150-450) Mean Platelet Volume 6.7 FL (6.5-10.1) Neutrophils (%) (Auto) 78.6 % (45.0-75.0) H Lymphocytes (%) (Auto) 14.3 % (20.0-45.0) L Monocytes (%) (Auto) 6.6 % (1.0-10.0) Eosinophils (%) (Auto) 0.4 % (0.0-3.0) Basophils (%) (Auto) 0.2 % (0.0-2.0) Sodium Level 148 MMOL/L (136-145) #H Potassium Level 4.9 MMOL/L (3.5-5.1) # Chloride Level 115 MMOL/L (98-107) H Carbon Dioxide Level 24 MMOL/L (21-32) Anion Gap 9 mmol/L (5-15) Blood Urea Nitrogen 46 mg/dL (7-18) H Creatinine 3.2 MG/DL (0.55-1.30) #H Estimat Glomerular Filtration Rate 19.8 mL/min (>60) Glucose Level 116 MG/DL (74-106) H Calcium Level 9.6 MG/DL (8.5-10.1) Magnesium Level 2.2 MG/DL (1.8-2.4) Height (Feet): 5 Height (Inches): 6.00 Weight (Pounds): 163 General Appearance: WD/WN, no apparent distress, alert Cardiovascular: normal rate Respiratory/Chest: normal breath sounds, no respiratory distress Abdominal Exam: normal bowel sounds, non tender, soft Extremities: non-tender Kelly Morales NMarie Mar 06, 2017 10:06
--- NOTE | 2017-03-06 10:10 | Infectious Diseases Prog Note ---
Assessment/Plan Assessment/Plan A: Sepsis Complicated UTI Quadriparesis/ spinal cord injury Chronic pain syndrome elevation of BUN & Cr likely lab error P; Continue Keflex X 1 more day Subjective ROS Limited/Unobtainable: Yes Allergies: Coded Allergies: No Known Allergies (Verified , 11/07/09) Objective Vital Signs Last 24 Hour Vital Signs Date Time Temp Pulse Resp B/P (MAP) Pulse Ox O2 Delivery O2 Flow Rate FiO2 03/06/17 08:00 97.6 78 18 125/74 98 Room Air 03/06/17 07:32 73 20 Room Air 03/06/17 07:32 97 Room Air 03/06/17 07:32 Room Air 03/06/17 06:28 97.6 03/06/17 04:00 97.6 80 18 128/76 97 03/06/17 04:00 Room Air 03/06/17 00:04 97.5 82 18 136/83 97 Room Air 03/06/17 00:00 Room Air 03/05/17 21:47 Room Air 21 03/05/17 21:47 98 Room Air 21 03/05/17 21:45 84 20 Room Air 2.0 28 03/05/17 20:00 Room Air 03/05/17 19:58 98.1 81 20 139/81 98 Room Air 03/05/17 16:48 97.8 73 14 126/75 96 Room Air 03/05/17 16:00 Room Air 03/05/17 12:00 Nasal Cannula 2.0 03/05/17 12:00 97.9 95 16 129/72 99 Height (Feet): 5 Height (Inches): 6.00 Weight (Pounds): 163 General Appearance: no acute distress HEENT: mucous membranes moist Respiratory/Chest: lungs clear Cardiovascular: normal rate Abdomen: soft, non tender Genitourinary: other - Suprapubic catheter Extremities: no edema Laboratory Tests Test 03/06/17 05:15 White Blood Count 9.8 K/UL (4.8-10.8) # Red Blood Count 3.18 M/UL (4.70-6.10) L Hemoglobin 10.0 G/DL (14.2-18.0) L Hematocrit 31.8 % (42.0-52.0) L Mean Corpuscular Volume 100 FL (80-99) #H Mean Corpuscular Hemoglobin 31.3 PG (27.0-31.0) H Mean Corpuscular Hemoglobin Concent 31.3 G/DL (32.0-36.0) L Red Cell Distribution Width 15.2 % (11.6-14.8) H Platelet Count 195 K/UL (150-450) Mean Platelet Volume 6.7 FL (6.5-10.1) Neutrophils (%) (Auto) 78.6 % (45.0-75.0) H Lymphocytes (%) (Auto) 14.3 % (20.0-45.0) L Monocytes (%) (Auto) 6.6 % (1.0-10.0) Eosinophils (%) (Auto) 0.4 % (0.0-3.0) Basophils (%) (Auto) 0.2 % (0.0-2.0) Sodium Level 148 MMOL/L (136-145) #H Potassium Level 4.9 MMOL/L (3.5-5.1) # Chloride Level 115 MMOL/L (98-107) H Carbon Dioxide Level 24 MMOL/L (21-32) Anion Gap 9 mmol/L (5-15) Blood Urea Nitrogen 46 mg/dL (7-18) H Creatinine 3.2 MG/DL (0.55-1.30) #H Estimat Glomerular Filtration Rate 19.8 mL/min (>60) Glucose Level 116 MG/DL (74-106) H Calcium Level 9.6 MG/DL (8.5-10.1) Magnesium Level 2.2 MG/DL (1.8-2.4) Current Medications Medications (Trade) Dose Ordered Sig/Eric Route PRN Reason Start Time Stop Time Status Last Admin Dose Admin Acetaminophen (Tylenol) 650 mg Q4H PRN ORAL Fever/Headache/Mild Pain 03/06/17 10:15 04/05/17 10:14 03/06/17 08:49 Albuterol/ Ipratropium (Albuterol/ Ipratropium) 3 ml Q4H PRN HHN Shortness of Breath 03/03/17 18:00 03/08/17 17:59 Baclofen (Lioresal) 20 mg QID ORAL 03/03/17 18:45 04/01/17 18:44 03/06/17 08:50 Cephalexin (Keflex) 500 mg FOUR TIMES A DAY ORAL 03/05/17 13:00 03/12/17 12:59 03/06/17 08:50 Dextrose 1,000 ml @ 75 mls/hr [id number] IV 03/06/17 09:00 04/05/17 08:59 03/06/17 08:56 Docusate Sodium (Colace) 100 mg THREE TIMES A DAY ORAL 03/03/17 18:00 04/02/17 17:59 03/06/17 08:50 Duloxetine HCl (Cymbalta) 60 mg DAILY ORAL 03/04/17 09:00 04/01/17 14:59 03/06/17 08:50 Fludrocortisone Acetate (Florinef) 0.1 mg DAILY ORAL 03/04/17 09:00 04/01/17 08:59 03/06/17 08:50 Gabapentin (Neurontin) 600 mg TID ORAL 03/03/17 18:45 04/01/17 18:44 03/05/17 18:02 Heparin Sodium (Porcine) (Heparin 5000 units/ml) 5,000 units EVERY 12 HOURS SUBQ 03/03/17 21:00 04/01/17 08:59 03/06/17 08:55 Morphine Sulfate (Morphine Sulfate) 4 mg Q4H PRN IVP Severe Pain (Pain Scale 7-10) 03/03/17 18:30 03/09/17 18:29 03/06/17 05:53 Ondansetron HCl (Zofran) 4 mg Q6H PRN IVP Nausea & Vomiting 03/03/17 18:30 04/01/17 18:29 Oxycodone/ Acetaminophen (Percocet 5-325) 1 tab Q6H PRN ORAL Moderate Pain (Pain Scale 4-6) 03/03/17 18:30 03/09/17 18:29 Phenazopyridine HCl (Pyridium) 100 mg DAILYPRN PRN ORAL dysuria 03/03/17 18:30 04/02/17 18:29 Polyethylene Glycol (Miralax) 17 gm DAILYPRN PRN ORAL Constipation 03/03/17 18:30 04/02/17 18:29 03/04/17 06:49 Ranitidine HCl (Zantac) 150 mg BEDTIME ORAL 03/03/17 21:00 04/02/17 20:59 03/05/17 20:23 Temazepam (Restoril) 15 mg HSPRN PRN ORAL Insomnia 03/03/17 18:30 03/10/17 18:29 CORRIE FOWLER Mar 06, 2017 10:10
[2017-03-06 11:24] LABS: ANION GAP 4 mmol/L (5-15); CALCIUM 8.3 MG/DL (8.5-10.1); CARBON DIOXIDE 29 MMOL/L (21-32); CHLORIDE 104 MMOL/L (98-107); CREATININE 0.8 MG/DL (0.55-1.30); GLOMERULAR FILTRATION RATE > 60 mL/min (>60); POTASSIUM 3.3 MMOL/L (3.5-5.1); SODIUM 137 MMOL/L (136-145)
--- NOTE | 2017-03-06 11:25 | Wound Care Consultation ---
Wound Assessment Wound Assessment #1: Wound Number: 1 Wound Present on Admission: Yes New Wound: No Status Change of Wound: No Wound Location Body Site Modif: right Wound Location Body Site: ischial tuberosity Wound Type: pressure ulcer - full thickness scar tissue Stephanie Test: Does not Stephanie Wound Thickness: Full Thickness Wound Length: 3.5 Wound Width: 3.5 Percent of Wound [place]/Red: 100 Wound Drainage Amount: None Wound Drainage Odor: None/Absent Tissue Surrounding Wound: scar tissue Wound General Appearance: Reddened Wound Assessment #2: Wound Number: 2 Wound Present on Admission: Yes New Wound: No Status Change of Wound: No Wound Location Body Site Modif: mid Wound Type: ecchymosis Stephanie Test: Does not Stephanie Wound Length: 2.5 Wound Width: 2.5 Percent of Wound Purple/Maroon: 100 Wound Drainage Description: Serosanguineous Wound Drainage Amount: Scant Wound Drainage Odor: None/Absent Tissue Surrounding Wound: Erythemic Wound General Appearance: Reddened - purple Wound Comment #1 Right ischial tuberosity full thickness scar tissue and right buttock scattered scar tissue #2 Abdominal ecchymosis Recommendation -Local wound care per protocol -Keep clean and dry -Turn and reposition -Optimize nutrition -Offload both heels -Heel protector on both heels -Assess and f/u accordingly for any changes LESLIE LOW RN Mar 06, 2017 11:25
[2017-03-06 11:34] LABS: ALANINE AMINOTRANSFERASE 34 U/L (12-78); ALBUMIN/GLOBULIN RATIO 0.6 (1.0-2.7); ASPARTATE AMINO TRANSFERASE 21 U/L (15-37); TOTAL PROTEIN 6.9 G/DL (6.4-8.2)
[2017-03-06 12:00] VITALS: BP 126/72
--- NOTE | 2017-03-06 13:35 | General Progress Note ---
Assessment/Plan Problem List: (1) History of gastrostomy tube placement ICD Codes: Z98.89 - Other specified postprocedural states SNOMED: 166944585 (2) Urinary tract infectious disease (3) Malfunction of gastrostomy tube ICD Codes: K94.23 - Gastrostomy malfunction SNOMED: 539286616 (4) Neuropathy ICD Codes: G62.9 - Polyneuropathy, unspecified SNOMED: 713753131 (5) Encephalopathy acute ICD Codes: G93.40 - Encephalopathy, unspecified SNOMED: 5901838 (6) Paraplegia ICD Codes: G82.20 - Paraplegia, unspecified SNOMED: 00679056 (7) History of CVA (cerebrovascular accident) ICD Codes: Z86.73 - Personal history of transient ischemic attack (TIA), and cerebral infarction without residual deficits SNOMED: 490027558 (8) HTN (hypertension) ICD Codes: I10 - Essential (primary) hypertension SNOMED: 19897908 (9) chronic pain. opiate dependent Status: stable, progressing, tolerating diet Assessment/Plan ot pt abd uro gi f/u dc to snf Subjective Constitutional: Reports: weakness Allergies: Coded Allergies: No Known Allergies (Verified , 11/07/09) All Systems: reviewed and negative except above Subjective calm in bed Objective Last 24 Hour Vital Signs Date Time Temp Pulse Resp B/P (MAP) Pulse Ox O2 Delivery O2 Flow Rate FiO2 03/06/17 12:00 98.1 80 18 126/72 98 Room Air 03/06/17 09:48 97.6 03/06/17 08:00 97.6 78 18 125/74 98 Room Air 03/06/17 07:32 73 20 Room Air 03/06/17 07:32 97 Room Air 03/06/17 07:32 Room Air 03/06/17 06:28 97.6 03/06/17 04:00 97.6 80 18 128/76 97 03/06/17 04:00 Room Air 03/06/17 00:04 97.5 82 18 136/83 97 Room Air 03/06/17 00:00 Room Air 03/05/17 21:47 Room Air 21 03/05/17 21:47 98 Room Air 21 03/05/17 21:45 84 20 Room Air 2.0 28 03/05/17 20:00 Room Air 03/05/17 19:58 98.1 81 20 139/81 98 Room Air 03/05/17 16:48 97.8 73 14 126/75 96 Room Air 03/05/17 16:00 Room Air Laboratory Tests 03/06/17 05:15: White Blood Count 9.8#, Red Blood Count 3.18L, Hemoglobin 10.0L, Hematocrit 31.8L, Mean Corpuscular Volume 100#H, Mean Corpuscular Hemoglobin 31.3H, Mean Corpuscular Hemoglobin Concent 31.3L, Red Cell Distribution Width 15.2H, Platelet Count 195, Mean Platelet Volume 6.7, Neutrophils (%) (Auto) 78.6H, Lymphocytes (%) (Auto) 14.3L, Monocytes (%) (Auto) 6.6, Eosinophils (%) (Auto) 0.4, Basophils (%) (Auto) 0.2, Sodium Level 148#H, Potassium Level 4.9#, Chloride Level 115H, Carbon Dioxide Level 24, Anion Gap 9, Blood Urea Nitrogen 46H, Creatinine 3.2#H, Estimat Glomerular Filtration Rate 19.8, Glucose Level 116H, Calcium Level 9.6, Magnesium Level 2.2 03/06/17 10:15: Sodium Level 137#, Potassium Level 3.3L, Chloride Level 104, Carbon Dioxide Level 29, Anion Gap 4L, Blood Urea Nitrogen 5L, Creatinine 0.8#, Estimat Glomerular Filtration Rate > 60, Glucose Level 158H, Calcium Level 8.3L, Total Bilirubin 0.3, Aspartate Amino Transf (AST/SGOT) 21, Alanine Aminotransferase ( ALT/SGPT) 34, Alkaline Phosphatase 140H, Total Protein 6.9, Albumin 2.7L, Globulin 4.2, Albumin/Globulin Ratio 0.6L Height (Feet): 5 Height (Inches): 6.00 Weight (Pounds): 163 General Appearance: lethargic EENT: normal ENT inspection Neck: normal alignment Cardiovascular: normal peripheral pulses, normal rate, regular rhythm Respiratory/Chest: chest wall non-tender, lungs clear, normal breath sounds Abdomen: normal bowel sounds, non tender, soft Extremities: normal inspection Edema: no edema noted Arm (L), no edema noted Arm (R), no edema noted Leg (L), no edema noted Leg (R), no edema noted Pedal (L), no edema noted Pedal (R), no edema noted Generalized Neurologic: motor weakness Skin: normal pigmentation, warm/dry YAMEL DUMONT Mar 06, 2017 13:35
[2017-03-06] MEDS ORDERED: CEPHALEXIN500 M1 ORAL (14:30)
[2017-03-06] MEDS ORDERED: COLACE100 MG ORAL (14:41)
[2017-03-06] MEDS ORDERED: GABAPENTIN600 MG ORAL (14:43)
[2017-03-06] MEDS ORDERED: PERCOCET 5-3251 EACH ORAL (14:44)
[2017-03-06] MEDS ORDERED: CYMBALTA60 MG ORAL (14:50)
[2017-03-06] MEDS ORDERED: FLORINEF0.1 MG ORAL (14:51)
[2017-03-06] MEDS ORDERED: PHENAZOPYRIDIN100 MG ORAL (14:52)
[2017-03-06] MEDS ORDERED: ZANTAC150 MG ORAL (14:52)
[2017-03-06] MEDS ORDERED: MORPHINE 22 MG/1 ML IV (14:53)
[2017-03-06 16:00] VITALS: BP 136/98
--- NOTE | 2017-03-06 16:55 | Pulmonology Progress Note ---
Assessment/Plan Problems: (1) Sepsis (2) UTI (lower urinary tract infection) (3) Encephalopathy acute (4) Hx of spinal cord injury (5) History of CVA (cerebrovascular accident) (6) Paraplegia (7) HTN (hypertension) Assessment/Plan improving check cultures tolerating diet check labs in am all notes and meds reviewed dvt prophylaxis. Subjective ROS Limited/Unobtainable: No Constitutional: Reports: no symptoms HEENT: Repors: no symptoms Respiratory: Reports: no symptoms Allergies: Coded Allergies: No Known Allergies (Verified , 11/07/09) Objective Last 24 Hour Vital Signs Date Time Temp Pulse Resp B/P (MAP) Pulse Ox O2 Delivery O2 Flow Rate FiO2 03/06/17 16:00 96.4 70 17 136/98 96 Room Air 03/06/17 12:41 98.1 03/06/17 12:00 98.1 80 18 126/72 98 Room Air 03/06/17 09:48 97.6 03/06/17 08:00 97.6 78 18 125/74 98 Room Air 03/06/17 07:32 73 20 Room Air 03/06/17 07:32 97 Room Air 03/06/17 07:32 Room Air 03/06/17 04:00 97.6 80 18 128/76 97 03/06/17 04:00 Room Air 03/06/17 00:04 97.5 82 18 136/83 97 Room Air 03/06/17 00:00 Room Air 03/05/17 21:47 Room Air 21 03/05/17 21:47 98 Room Air 21 03/05/17 21:45 84 20 Room Air 2.0 28 03/05/17 20:00 Room Air 03/05/17 19:58 98.1 81 20 139/81 98 Room Air Intake and Output 03/06/17 03/07/17 19:00 07:00 Intake Total 725 ml Balance 725 ml IV Total 725 ml General Appearance: WD/WN HEENT: normocephalic, atraumatic Respiratory/Chest: chest wall non-tender, normal breath sounds Cardiovascular: normal peripheral pulses, normal rate Abdomen: normal bowel sounds, soft, non tender Genitourinary: normal external genitalia Extremities: no clubbing Neurologic/Psychiatric: plant guard II-XII grossly normal, abnormal gait, normal mood/ affect Lymphatic: no groin adenopathy Musculoskeletal: normal muscle bulk Laboratory Tests 03/06/17 05:15: White Blood Count 9.8#, Red Blood Count 3.18L, Hemoglobin 10.0L, Hematocrit 31.8L, Mean Corpuscular Volume 100#H, Mean Corpuscular Hemoglobin 31.3H, Mean Corpuscular Hemoglobin Concent 31.3L, Red Cell Distribution Width 15.2H, Platelet Count 195, Mean Platelet Volume 6.7, Neutrophils (%) (Auto) 78.6H, Lymphocytes (%) (Auto) 14.3L, Monocytes (%) (Auto) 6.6, Eosinophils (%) (Auto) 0.4, Basophils (%) (Auto) 0.2, Sodium Level 148#H, Potassium Level 4.9#, Chloride Level 115H, Carbon Dioxide Level 24, Anion Gap 9, Blood Urea Nitrogen 46H, Creatinine 3.2#H, Estimat Glomerular Filtration Rate 19.8, Glucose Level 116H, Calcium Level 9.6, Magnesium Level 2.2 03/06/17 10:15: Sodium Level 137#, Potassium Level 3.3L, Chloride Level 104, Carbon Dioxide Level 29, Anion Gap 4L, Blood Urea Nitrogen 5L, Creatinine 0.8#, Estimat Glomerular Filtration Rate > 60, Glucose Level 158H, Calcium Level 8.3L, Total Bilirubin 0.3, Aspartate Amino Transf (AST/SGOT) 21, Alanine Aminotransferase ( ALT/SGPT) 34, Alkaline Phosphatase 140H, Total Protein 6.9, Albumin 2.7L, Globulin 4.2, Albumin/Globulin Ratio 0.6L Current Medications Medications (Trade) Dose Ordered Sig/Eric Route PRN Reason Start Time Stop Time Status Last Admin Dose Admin Acetaminophen (Tylenol) 650 mg Q4H PRN ORAL Fever/Headache/Mild Pain 03/06/17 10:15 04/05/17 10:14 03/06/17 08:49 Albuterol/ Ipratropium (Albuterol/ Ipratropium) 3 ml Q4H PRN HHN Shortness of Breath 03/03/17 18:00 03/08/17 17:59 Baclofen (Lioresal) 20 mg QID ORAL 03/03/17 18:45 04/01/17 18:44 03/06/17 12:37 Cephalexin (Keflex) 500 mg FOUR TIMES A DAY ORAL 03/05/17 13:00 03/12/17 12:59 03/06/17 12:37 Dextrose 1,000 ml @ 75 mls/hr [id number] IV 03/06/17 09:00 04/05/17 08:59 03/06/17 08:56 Docusate Sodium (Colace) 100 mg THREE TIMES A DAY ORAL 03/03/17 18:00 04/02/17 17:59 03/06/17 12:37 Duloxetine HCl (Cymbalta) 60 mg DAILY ORAL 03/04/17 09:00 04/01/17 14:59 03/06/17 08:50 Fludrocortisone Acetate (Florinef) 0.1 mg DAILY ORAL 03/04/17 09:00 04/01/17 08:59 03/06/17 08:50 Gabapentin (Neurontin) 600 mg TID ORAL 03/03/17 18:45 04/01/17 18:44 03/06/17 14:09 Heparin Sodium (Porcine) (Heparin 5000 units/ml) 5,000 units EVERY 12 HOURS SUBQ 03/03/17 21:00 04/01/17 08:59 03/06/17 08:55 Morphine Sulfate (Morphine Sulfate) 4 mg Q4H PRN IVP Severe Pain (Pain Scale 7-10) 03/03/17 18:30 03/09/17 18:29 03/06/17 16:31 Ondansetron HCl (Zofran) 4 mg Q6H PRN IVP Nausea & Vomiting 03/03/17 18:30 04/01/17 18:29 Oxycodone/ Acetaminophen (Percocet 5-325) 1 tab Q6H PRN ORAL Moderate Pain (Pain Scale 4-6) 03/03/17 18:30 03/09/17 18:29 Phenazopyridine HCl (Pyridium) 100 mg DAILYPRN PRN ORAL dysuria 03/03/17 18:30 04/02/17 18:29 Polyethylene Glycol (Miralax) 17 gm DAILYPRN PRN ORAL Constipation 03/03/17 18:30 04/02/17 18:29 03/04/17 06:49 Ranitidine HCl (Zantac) 150 mg BEDTIME ORAL 12/1/17 21:00 04/02/17 20:59 03/05/17 20:23 Temazepam (Restoril) 15 mg HSPRN PRN ORAL Insomnia 03/03/17 18:30 03/10/17 18:29 LOIS PORTILLO Mar 06, 2017 16:55
--- NOTE | 2017-03-08 13:17 | Discharge Summary ---
Discharge Summary Hospital Course Date of Admission Mar 02, 2017 at 03:23 Date of Discharge Mar 06, 2017 at 17:47 Admitting Diagnosis sepsis/ UTI HPI Lloyd Brewer is a 61 year old male who was admitted on Mar 02, 2017 at 03: 23 for Sepsis/Utinary Tract Infection Hospital Course dc summary #[id number] Discharge Medications Continued Medications: Acetaminophen (Tylenol) 325 Mg Tablet 650 MG ORAL EVERY 4 HOURS PRN for For Pain, #30 TAB 0 Refills Baclofen* (Baclofen*) 10 Mg Tablet 20 MG ORAL QID, TAB Cephalexin* (Cephalexin*) 500 Mg Tablet 500 MG ORAL Q4HR for 2 Days, #6 CAP Docusate Sodium* (Colace*) 100 Mg Capsule 100 MG ORAL TWICE A DAY, CAP Duloxetine Hcl* (Cymbalta*) 60 Mg Capsule.dr 60 MG ORAL DAILY, CAP Fludrocortisone Acetate (Fludrocortisone Acetate) 0.1 Mg Tablet 0.1 MG ORAL DAILY, #30 TAB 0 Refills Gabapentin* (Gabapentin*) 600 Mg Tablet 600 MG ORAL THREE TIMES A DAY, TAB Heparin Sod (Porcine) (Heparin Sodium*) 5 000/1 Ml Vial 5000 UNITS SUBQ EVERY 12 HOURS, VIAL Ipratropium/Albuterol Sulfate (DuoNeb 0.5-3(2.5)mg/3ml) 3 Ml Ampul.neb 3 ML HHN Q6HR PRN for Shortness of Breath, EA Morphine Sulfate* (Morphine Sulfate*) 2 Mg/1 Ml Cartridge 4 MG IV Q4HR for Pain Scale (6-10), EA Ondansetron* (Zofran*) 4 Mg Tablet 4 MG ORAL Q6H PRN for Nausea & Vomiting, TAB Oxycodone HCl/Acetaminophen (Percocet 10-325 mg Tablet) 1 Each Tablet 1 EACH PO Q6HR, TAB Phenazopyridine Hcl* (Pyridium*) 100 Mg Tablet 100 MG ORAL DAILY, TAB Polyethylene Glycol 3350* (Miralax*) 17 Gm Powd.pack 17 GM ORAL DAILY PRN for Constipation, PACKET Ranitidine Hcl* (Zantac*) 150 Mg Tablet 150 MG ORAL QHS, #30 TAB 0 Refills Temazepam* (Restoril*) 15 Mg Capsule 15 MG ORAL BEDTIME PRN for Insomnia, CAP Discharge Condition Upon Discharge: stable Discharge Disposition Patient was discharged to SNF/Subacute Facility(03) Discharge Diagnoses: Baljeet ([facility]),Donna FERREIRA Mar 08, 2017 13:17
--- NOTE | 2017-03-08 19:15 | Discharge Summary 2 SIG ---
DATE OF ADMISSION: 03/02/2017 DATE OF DISCHARGE: 03/06/2017 REASON FOR ADMISSION: 61-year-old male with history of cerebral palsy, cerebrovascular accident, dysphagia, G-tube, recurrent urinary tract infection, and suprapubic catheter, presented to emergency department with complaint of fever and cloudy urine. No nausea, no vomiting. Fever at the prison facility. Workup in the emergency department revealed low-grade fever -99.9, tachycardia - 108, tachypnea - 31, and pulse oximetry on 4 L - 92%. Urine analysis with evidence of UTI, + 2 protein. Leukocytosis-13.4. Stable hemoglobin and hematocrit. Sodium -126, BUN -16, creatinine -1.2. Troponin negative. EKG revealed sinus tachycardia, no PVC, no ischemic changes. Chest x-ray revealed no acute cardiopulmonary disease. The patient was admitted with sepsis, urinary tract infection, hyponatremia, acute encephalopathy, and proteinuria. HOSPITAL COURSE: The patient admitted to Med/Surg floor. Urology consult was requested. Urologist had seen and evaluated the patient and changed suprapubic catheter. Urologist recommended to complete full course of antibiotics and follow up with his regular urologist. Recommended catheter change every 4-6 weeks. The patient was on IV antibiotics. ID followed. Blood culture negative. Urine culture grew Serratia. Repeated urine culture revealed mixed urogenital contaminant. ID recommended to continue Keflex for one more day at the prison facility to complete the course of treatment. Leukocytosis resolved. Nephrology followed the patient for acute kidney injury and hypovolemic hyponatremia. The patient was on the IV fluids with sodium. Renal parameters back to normal. Sodium up to 137. Hypovolemic hyponatremia and acute kidney injury were both likely secondary to dehydration and resolved with IV hydration. Potassium was replaced. Free water restriction continued. Nephrotoxics were avoided. Swallow evaluation revealed risk for silent aspiration. Strict aspiration precautions maintained.GI followed the patient for dysphagia and mild anemia. The patient had non-healing G-tube site and failed swallow evaluation. He declined new G-tube. The patient overall had poor prognosis. At this time, GI recommended old G-tube site care, elevate head of bed, monitor hemoglobin and hematocrit, started on H2 germán, and strict aspiration precaution with assistance with feeding. Neurologist had seen and evaluated the patient. Per neurologist, the patient had chronic pain syndrome with opiate dependency and cervical myelopathy with quadriparesis. According to neurologist, the patient needed more comprehensive pain management. Baclofen was continued. Neurologist added gabapentin, which was titrated. The patient was also started on Cymbalta. Pain management consult was requested. Pain management was provided as per pain specialist recommendation. Blood pressure was stable. Bowel regimen instituted. DVT prophylaxis provided. Wound care nurse had seen and evaluated the patient for right ischial tuberosity full-thickness scar tissue and right buttock scattered scar tissue, continue wound care at the prison facility. The patient was stable for discharge. FINAL DIAGNOSES: 1. Sepsis. 2. Urinary tract infection with Serratia. 3. History of recurrent urinary tract infection. 4. Acute toxic metabolic encephalopathy secondary to infectious disease process and metabolic derangement. 5. Hypovolemic hyponatremia, resolved. 6. Acute kidney injury due to dehydration, resolved. 7. Cervical myelopathy with quadriparesis. 8. Neurogenic bladder. 9. History of cerebrovascular accident. 10. Cerebral palsy. 11. Chronic pain syndrome, opiate dependent. 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 13. Hypertension. 14. Depression. 15. Anxiety. DISCHARGE MEDICATIONS: See medication reconciliation list. DISCHARGE INSTRUCTIONS: The patient discharged to prison facility. Follow up with medical doctor at the facility. Rickey Bullard D.O. Donna Delong ([facility]) N.PSelam DR: Caroline JOB#: [id number] CC: [place]
--- NOTE | 2017-03-09 11:14 | Diagnostic Imaging Report ---
Indications: DYSPHAGIA Technique: Patient ingested multiple substances under the supervision of speech pathology. Video fluoroscopic recording performed. Total fluoroscopy time 92.8 seconds. Total dose area product [id number] mGycm2 Comparison: none Findings: Early pooling of contrast within the vallecula and puriform sinuses demonstrated. Delay in initiation of deglutition. There is penetration of thin liquid barium demonstrated. No raheem aspiration.. No raheem aspiration. Impression: Positive for penetration of thin liquid barium Please refer to speech pathology report for more detailed analysis
== END 2017-03-06 17:47 | DRG 720 ==
LOC: EDBD 02:06 → EMR 02:10 → 2E 03:23 → EDBEDREQ 04:29 → 4E 03-03 17:19
PROC: 0T2BX0Z Change Drainage Device in Bladder, External Approach (ICD-10-PCS; principal; 2017-03-02)
DX: A41.9 Sepsis, unspecified organism (principal); G82.50 Quadriplegia, unspecified; G92 Toxic encephalopathy; N17.9 Acute kidney failure, unspecified; E87.1 Hypo-osmolality and hyponatremia; F11.20 Opioid dependence, uncomplicated; K94.29 Other complications of gastrostomy; N31.9 Neuromuscular dysfunction of bladder, unspecified; N39.0 Urinary tract infection, site not specified; I10 Essential (primary) hypertension; G89.4 Chronic pain syndrome; Z79.891 Long term (current) use of opiate analgesic; Z86.73 Personal history of transient ischemic attack (TIA), and cerebral infarction without residual deficits; G80.9 Cerebral palsy, unspecified; B96.89 Other specified bacterial agents as the cause of diseases classified elsewhere; E86.0 Dehydration; E86.1 Hypovolemia; S14.159A Other incomplete lesion at unspecified level of cervical spinal cord, initial encounter; X58.XXXA Exposure to other specified factors, initial encounter; G89.0 Central pain syndrome; F32.9 Major depressive disorder, single episode, unspecified; F41.9 Anxiety disorder, unspecified; K21.9 Gastro-esophageal reflux disease without esophagitis; R13.10 Dysphagia, unspecified; Z43.5 Encounter for attention to cystostomy; I25.10 Atherosclerotic heart disease of native coronary artery without angina pectoris; D64.9 Anemia, unspecified; Y83.3 Surgical operation with formation of external stoma as the cause of abnormal reaction of the patient, or of later complication, without mention of misadventure at the time of the procedure
CPT/HCPCS: 36415; 71010; 74230; 80048; 80053; 81001; 81003; 82248; 82533; 82550; 82553; 83605; 83735; 83930; 83935; 84300; 84439; 84443; 84481; 84484; 84550; 85007; 85025; 85610; 85730; 87040; 87086; 87181; 93005; 94664; 94760; 96361; 97803

== ENCOUNTER 2019-09-24 16:28 | Emergency (ER) | payer MEDICAID ==
[~2019-09-24] VITALS: Ht 170.2 cm; Wt 72.6 kg
[~2019-09-24 16:28] MED LIST changes: +BISACODYL5 MG ORAL; +CEPHALEXIN500 M1 ORAL; +COLACE100 MG ORAL; +CYMBALTA60 MG ORAL; +FLORINEF0.1 MG ORAL; +FLUDROCORTISON0.1 MG PO; +GABAPENTIN300 MG ORAL; +GABAPENTIN600 MG ORAL; +LORAZEPAM0.5 MG ORAL; +MORPHINE 22 MG/1 ML IV; +NORCO 5-325 TA1 EACH ORAL; +PHENAZOPYRIDIN100 MG ORAL; +ZANTAC150 MG ORAL; +ZOLOFT50 MG ORAL
[2019-09-24] MEDS ORDERED: POTASSIUM CHLO10 MEQ ORAL (16:38)
[2019-09-24] MEDS ORDERED: LISINOPRIL10 MG ORAL (16:38)
[2019-09-24] MEDS ORDERED: KETOTIFEN FUMARA5 ML OP (16:38)
[2019-09-24 16:40] VITALS: BP 126/67
--- NOTE | 2019-09-24 16:45 | Emergency Room Report ---
History of Present Illness General Chief Complaint: Male Urogenital Problems Source: Patient Present Illness HPI Patient presents with reports of blockage of his suprapubic catheter patient has some ability to provide input however most of the history is obtained from nursing report to paramedics There has been decreased output from the Dixon catheter/suprapubic catheter And patient has had increased discomfort in that region Denies any vomiting there was no reports of diarrhea No reports of fevers Allergies: Coded Allergies: No Known Allergies (Verified , 11/07/09) COVID-19 Screening Contact w/high risk pt: No Recent Travel to affected area: No Experienced COVID-19 symptoms?: No COVID-19 Testing 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 - 08/29/19 COVID-19 Screening: Negative COVID-19 COVID-19 Testing Source: unknown Patient History Past Medical History: see triage record Reviewed Nursing Documentation: PMH: Agreed; PSxH: Agreed Nursing Documentation-PMH Past Medical History: No History, Except For Hx Cardiac Problems: Yes - chronic pain syndrome Hx Hypertension: Yes Hx Diabetes: Yes - CKD Hx Cancer: No Hx Gastrointestinal Problems: Yes - GERD Hx Neurological Problems: Yes - PARAPLEGIC Hx Cerebrovascular Accident: No - TIA Hx Cerebral Palsy: Yes Hx Paralysis: Yes Hx Speech Problem: Yes Hx Dysphasia: Yes Hx Numbness: Yes Hx Weakness: Yes Hx Neurologic Surgery: Yes - 10/02/2016 Review of Systems All Other Systems: negative except mentioned in HPI Physical Exam Vital Signs Date Time Temp Pulse Resp B/P (MAP) Pulse Ox O2 Delivery O2 Flow Rate FiO2 09/24/19 16:29 97.5 73 14 122/64 (83) 99 Room Air Sp02 EP Interpretation: reviewed, normal General Appearance: no apparent distress Head: normocephalic, atraumatic Eyes: bilateral eye PERRL ENT: EOM grossly intact Neck: supple Respiratory: no respiratory distress, no retraction, no accessory muscle use Cardiovascular #1: regular rate, rhythm Gastrointestinal: other - Suprapubic catheter in place however no obvious flow of urine significant amount of debris and blockage in the catheter patient is full and uncomfortable on palpation of the pubic region Genitourinary: other - See above Musculoskeletal: other - Patient chronically debilitated did not have significant musculoskeletal exam performed Neurologic: responsive - To verbal questions Skin: no rash - The site of the catheter Lymphatic: no adenopathy Medical Decision Making Diagnostic Impression: Primary Impression: Suprapubic catheter ER Course Given the history and presentation patient had the balloon deflated on the suprapubic catheter It was removed and there was increased amount of urine that was discharged from the bladder area indicative of catheter obstruction Area cleansed and prepped with Betadine and 16 Somali Dixon catheter was placed back through the stoma without any resistance Patient tolerated well the balloon was inflated We have urine output back into the catheter and at this time patient is stable for transfer back to the nursing facility Last Vital Signs Date Time Temp Pulse Resp B/P (MAP) Pulse Ox O2 Delivery O2 Flow Rate FiO2 09/24/19 16:29 97.5 73 14 122/64 (83) 99 Room Air Status: improved Disposition: SNF Condition: Improved Referrals: SNF PMD Patient Instructions: Suprapubic Catheter Replacement, Care After Additional Instructions: Follow-up nursing facility physician upon return Dann Nicholas DO Sep 24, 2019 16:44
[2019-09-24 16:54] VITALS: BP 126/76
== END 2019-09-24 16:54 ==
LOC: EDBD 16:28 → EDUNIT# 16:28 → EMR 16:45
DX: Z46.6 Encounter for fitting and adjustment of urinary device (principal); E11.22 Type 2 diabetes mellitus with diabetic chronic kidney disease; I12.9 Hypertensive chronic kidney disease with stage 1 through stage 4 chronic kidney disease, or unspecified chronic kidney disease; N18.9 Chronic kidney disease, unspecified; K21.9 Gastro-esophageal reflux disease without esophagitis; Z86.73 Personal history of transient ischemic attack (TIA), and cerebral infarction without residual deficits; G82.20 Paraplegia, unspecified
CPT/HCPCS: 51702; Z7502; 99284

== ENCOUNTER 2020-03-30 14:14 | Outpatient (CLI) | payer MEDICAID ==
[~2020-03-30 14:14] MED LIST changes: +KETOTIFEN FUMARA5 ML OP; +LISINOPRIL10 MG ORAL; +POTASSIUM CHLO10 MEQ ORAL
[2020-03-31] MEDS ORDERED: WIXELA 250-501 EACH IH (08:41)
[2020-03-31] MEDS ORDERED: VITAMIN C500 M1 GT (08:41)
--- NOTE | 2020-03-31 12:00 | Consultation ---
DATE OF CONSULTATION: 03/30/2020 GASTROENTEROLOGY CONSULTATION CONSULTING PHYSICIAN: Moy Martinez MD. CHIEF COMPLAINT: Malfunctioning G-tube. HISTORY OF PRESENT ILLNESS: This is a 64-year-old male, who was referred from retirement because his G-tube needed to be changed. PAST MEDICAL HISTORY: 1. History of CVA. 2. Hypertension. 3. GERD. 4. Dysphagia with G-tube. 5. Chronic kidney disease. 6. Diabetes. 7. Anxiety and depression. ALLERGIES: No known allergies. MEDICATIONS: Please see medication reconciliation list. PAST SURGICAL HISTORY: Tracheostomy and G-tube placement. SOCIAL HISTORY: Currently, he lives in a retirement. No history of tobacco, alcohol, or drug abuse. PHYSICAL EXAMINATION: VITAL SIGNS: Temperature 97.8. Vital signs stable. HEENT: Normocephalic and atraumatic. Sclerae are anicteric. NECK: Supple. No evidence of obvious lymphadenopathy. CARDIOVASCULAR: Regular rate and rhythm. Plus S1, S2. LUNGS: Decreased breath sounds bilaterally based on the supine exam. ABDOMEN: Soft. There is a G-tube in place looks to be old and needed to be changed. Also, there is another hole next to the old G-tube. The current G-tube which is most probably the site of old G-tube, which is leaking a little bit air. No peritoneal sign. EXTREMITIES: No cyanosis, no clubbing, no edema. The patient is on a wheelchair. ASSESSMENT AND PLAN: The patient is a 64-year-old male, who needs his G-tube changed, which was changed at the bedside. The old G-tube was removed and 20-Korean balloon type of G-tube was replaced without any complication. The patient wanted the old G-tube site to be fixed too. We told him to continue monitoring if it gets worse. The patient will need endoscopy with procedure to close the old G-tube site. We will try to get an authorization if the patient needs it. Moy Martinez M.D. DR: COLE JOB#: [id number] CC:
== END 2020-03-30 16:14 | disposition home or self-care (01) ==
LOC: PAN 14:14
DX: K94.23 Gastrostomy malfunction (principal); Z86.73 Personal history of transient ischemic attack (TIA), and cerebral infarction without residual deficits; K21.9 Gastro-esophageal reflux disease without esophagitis; I12.9 Hypertensive chronic kidney disease with stage 1 through stage 4 chronic kidney disease, or unspecified chronic kidney disease; E11.22 Type 2 diabetes mellitus with diabetic chronic kidney disease; N18.9 Chronic kidney disease, unspecified; F41.9 Anxiety disorder, unspecified; F32.9 Major depressive disorder, single episode, unspecified
CPT/HCPCS: 43762; Z7500; G0463